=== PATIENT | female | born 1955 | race Two or more races ===

== ENCOUNTER 2019-10-03 13:02 | Inpatient (IN) | payer MEDICARE, OTHER ==
[~2019-10-03] VITALS: Ht 154.9 cm; Wt 77.5 kg
--- NOTE | 2019-10-03 06:45 | NUR ---
Swing Bed Admission Patient Handbook for Care Home given to patient. Nursing Problem: pt/ot strengthening and conditioning following dvt in left femoral artery Cognitive/Behavioral: A&O X4, forgetful at times Pain: Prn lortab Respiratory Status: Rm Air, 2L ns prn Skin: Intact Bowel/Bladder Continence: Continent/incontinent, urgency, wears brief ADL Functional Status: Assist x2 w/gait belt to bedside commode Fall(s) prior to admission? Admitted from? [facility]
[2019-10-03] MEDS ORDERED: FOLI20CA PO (16:11)
[2019-10-03] MEDS ORDERED: FURO20TA3 PO (16:11)
[2019-10-03] MEDS ORDERED: VIT1CAPS20 PO (16:11)
[2019-10-03] MEDS ORDERED: MULT-246 PO (16:11)
[2019-10-03] MEDS ORDERED: HYDR-2155 PO (16:11)
[2019-10-03] MEDS ORDERED: CITA20TA6 PO (16:11)
[2019-10-03] MEDS ORDERED: LEVO75TA5 PO (16:11)
[2019-10-03] MEDS ORDERED: CHOL500062 PO (16:11)
[2019-10-03] MEDS ORDERED: RIVA20TA2 PO (16:11)
[2019-10-03] MEDS ORDERED: HYDR30CR61 TP (16:11)
[2019-10-03 18:35] VITALS: BP 82/55
[2019-10-03] MEDS ORDERED: DOCU-109 PO (19:28)
[2019-10-03] MEDS ORDERED: MINERAL OIL/PETROLATUM TOPICAL CREAM 113GM JAR. TP PRN (20:45)
[2019-10-03] MEDS ORDERED: HYDROCORTISONE 2.5% RECTAL CREAM 30GM TUBE. RC SCH (21:00)
[2019-10-03] MEDS ORDERED: HYDROCORTISONE 2.5% RECTAL CREAM 30GM TUBE. RC PRN (21:00)
--- NOTE | 2019-10-03 21:34 | PDOC ---
Exam Note: Henry Note: Please also refer to the separate dictated note~for this date of service dictated separately.~Patient seen individually. Discussed the patient with Nursing staff reviewed the chart.~Reviewed interim history and current functioning. Reviewed vital signs,~Labs/ Radiology~and current medications noted below. Continue current treatment with the changes noted in the dictated addendum note Assessment: Vital Signs/I&O: Vital Signs Date Time Temp Pulse Resp B/P (MAP) Pulse Ox O2 Delivery O2 Flow Rate FiO2 10/03/19 20:23 Room Air 10/03/19 18:35 97.6 78 18 82/55 (64) 93 Current Medications: I have reviewed the current psychotropics carefully including drug interactions. Risk benefit ratio favors no change other than as noted in my dictated progress note. BUSTER DELVALLE MD Oct 03, 2019 21:33
[2019-10-03] MEDS: HYDROcodone/APAP 5/325MG 1 TAB TABLET PO PRN (21:39)
[2019-10-03] MEDS: MAGNESIUM HYDROXIDE 2,400 MG/30 ML ORAL.SUSP. PO PRN (21:39)
[2019-10-03] MEDS: diphenhydrAMINE HCL 25 MG CAPSULE PO PRN (21:39)
--- NOTE | 2019-10-03 21:50 | PDOC ---
Exam Note: Henry Note: This entry is an error. Please ignore. Please also refer to the separate dictated note~for this date of service dictated separately.~Patient seen individually. Discussed the patient with Nursing staff reviewed the chart.~Reviewed interim history and current functioning. Reviewed vital signs,~Labs/ Radiology~and current medications noted below. Continue current treatment with the changes noted in the dictated addendum note Assessment: Vital Signs/I&O: Vital Signs Date Time Temp Pulse Resp B/P (MAP) Pulse Ox O2 Delivery O2 Flow Rate FiO2 10/03/19 20:23 Room Air 10/03/19 18:35 97.6 78 18 82/55 (64) 93 Current Medications: Meds: Current Medications Medications (Trade) Dose Ordered Sig/Imani Route PRN Reason Start Time Stop Time Status Last Admin Dose Admin Acetaminophen/ Hydrocodone Bitart (Lortab 5/325) 1 tab PRN Q6HRS PRN PO PAIN 10/03/19 18:45 10/03/19 21:39 Magnesium Hydroxide (Milk Of Magnesia) 2,400 mg PRN DAILY PRN PO CONSTIPATION 10/03/19 20:45 10/03/19 21:39 Diphenhydramine HCl (Benadryl) 25 mg PRN Q6HRS PRN PO ITCHING 10/03/19 20:45 10/03/19 21:39 I have reviewed the current psychotropics carefully including drug interactions. Risk benefit ratio favors no change other than as noted in my dictated progress note. BUSTER DELVALLE MD Oct 03, 2019 21:50
[2019-10-04] MEDS: LEVOTHYROXINE 75 MCG TABLET PO SCH (06:03)
[2019-10-04 06:14] VITALS: BP 97/63
[2019-10-04] MEDS ORDERED: [UNRECOGNIZED DRUG - OTHER] PO SCH (09:00)
[2019-10-04] MEDS ORDERED: PYRIDOXINE HCL PO SCH (09:00)
[2019-10-04] MEDS: FUROSEMIDE 20 MG TABLET PO SCH (09:00)
[2019-10-04] MEDS ORDERED: VIT B12 PO SCH (09:00)
[2019-10-04 09:05] VITALS: BP 93/65
[2019-10-04] MEDS: CHOLECALCIFEROL (VITAMIN D3) 1,000 UNIT TABLET PO SCH (09:09)
[2019-10-04] MEDS: MULTIVITAMIN with MINERAL TABLET. PO SCH (09:09)
[2019-10-04] MEDS: POLYETHYLENE GLYCOL 3350 17 GM PACKET. PO SCH (09:09)
[2019-10-04] MEDS: DOCUSATE SODIUM 100 MG CAPSULE PO SCH (09:10)
[2019-10-04] MEDS: RIVAROXABAN 10 MG TABLET. PO SCH (09:10)
[2019-10-04] MEDS: CITALOPRAM 20 MG TABLET. PO SCH (09:10)
[2019-10-04] MEDS: FOLIC ACID 1 MG TABLET PO SCH (09:10)
[2019-10-04] MEDS: HYDROcodone/APAP 5/325MG 1 TAB TABLET PO PRN (10:55)
[2019-10-04] MEDS: NYSTATIN 100,000 UNIT/GM TOPICAL CREAM 15GM TUBE. TP SCH (11:43)
[2019-10-04 17:00] VITALS: BP 102/67
--- NOTE | 2019-10-04 18:42 | NUR ---
Swing Bed Nursing Note Patient Handbook for Long Term given to patient. Nursing Problem: DVT L Leg, Hypothyroidism, anemia, depression, anxiety, B12 deficiency, former smoker, hemorrhoids. Cognitive/Behavioral: Pt is alert and oriented x 4 w/ forgetfullness. Pain: Pt expresses pain in hands Respiratory Status: Room Air Skin: intact, edema to LLE, redness under L breast-nystatin cream ordered and applied. Dry, flaky scalp Bowel/Bladder Continence: Cont x 2. Pt up to bedside commode with gait belt. ADL Functional Status: Pt able to feed self and dresses self. Pt needs education about performing own ADLs. Pt able to ambulate with walker and gait belt. Pt states she will take a shower on 10/05/2019.
--- NOTE | 2019-10-04 21:20 | PDOC ---
Exam Note: Henry Note: Please also refer to the separate dictated note~for this date of service dictated separately.~Patient seen individually. Discussed the patient with Nursing staff reviewed the chart.~Reviewed interim history and current functioning. Reviewed vital signs,~Labs/ Radiology~and current medications noted below. Continue current treatment with the changes noted in the dictated addendum note Assessment: Vital Signs/I&O: Vital Signs Date Time Temp Pulse Resp B/P (MAP) Pulse Ox O2 Delivery O2 Flow Rate FiO2 10/04/19 20:23 Room Air 10/04/19 17:00 98.7 76 20 102/67 (79) 95 Current Medications: Meds: Current Medications Medications (Trade) Dose Ordered Sig/Imani Route PRN Reason Start Time Stop Time Status Last Admin Dose Admin Citalopram Hydrobromide (CeleXA) 20 mg DAILY PO 10/04/19 09:00 10/04/19 09:10 Levothyroxine Sodium (Synthroid) 75 mcg DAILY06 PO 10/04/19 06:00 10/04/19 06:03 Vitamin D (Vitamin D3) 5,000 unit DAILY PO 10/04/19 09:00 10/04/19 09:09 Folic Acid (Folic Acid) 1 mg DAILY PO 10/04/19 09:00 10/04/19 09:10 Multivitamins/ Calcium (Thera-M Plus) 1 tab DAILY PO 10/04/19 09:00 10/04/19 09:09 Rivaroxaban (Xarelto) 20 mg DAILY PO 10/04/19 09:00 10/04/19 09:10 Docusate Sodium (Colace) 100 mg DAILY PO 10/04/19 09:00 10/04/19 09:10 Polyethylene Glycol (miraLAX) 17 gm DAILY PO 10/04/19 09:00 10/04/19 09:09 Nystatin (Mycostatin) 1 simin TID PRN TP 10/04/19 07:15 10/04/19 11:43 I have reviewed the current psychotropics carefully including drug interactions. Risk benefit ratio favors no change other than as noted in my dictated progress note. Diagnosis: Problems: (1) Depression (2) Anxiety disorder BUSTER DELVALLE MD Oct 04, 2019 21:20
[2019-10-05] MEDS: LEVOTHYROXINE 75 MCG TABLET PO SCH (05:35)
[2019-10-05 05:36] VITALS: BP 106/63
--- NOTE | 2019-10-05 06:07 | NUR ---
Swing Bed Nursing Note Patient Handbook for Group Home given to patient. Nursing Problem: DVT L Leg, Hypothyroidism, anemia, depression, anxiety, B12 deficiency, former smoker, hemorrhoids. Cognitive/Behavioral: Pt is alert and oriented x 4 w/ forgetfulness. Pain: Pt has denied pain. Respiratory Status: Room Air Skin: intact, edema to LLE, redness under L breast-nystatin cream ordered and applied. Dry, flaky scalp Bowel/Bladder Continence: Patient asked during shift if she needed to void and Patient denied need. Incontinent x 2. Patient states "I can't tell I need to go until I'm already going. Estefany care provided. ADL Functional Status: Pt able to feed self and dresses self. Pt needs education about performing own ADLs. Patient able to pull herself up in bed with side rails and bed in trendelenburg without difficulty.
[2019-10-05] MEDS: POLYETHYLENE GLYCOL 3350 17 GM PACKET. PO SCH (08:38)
[2019-10-05] MEDS: FOLIC ACID 1 MG TABLET PO SCH (08:38)
[2019-10-05] MEDS: CITALOPRAM 20 MG TABLET. PO SCH (08:38)
[2019-10-05] MEDS: DOCUSATE SODIUM 100 MG CAPSULE PO SCH (08:38)
[2019-10-05] MEDS: MULTIVITAMIN with MINERAL TABLET. PO SCH (08:38)
[2019-10-05] MEDS: CHOLECALCIFEROL (VITAMIN D3) 1,000 UNIT TABLET PO SCH (08:38)
[2019-10-05] MEDS: FUROSEMIDE 20 MG TABLET PO SCH (08:39)
[2019-10-05] MEDS: RIVAROXABAN 10 MG TABLET. PO SCH (08:42)
[2019-10-05 09:13] VITALS: BP 104/61
--- NOTE | 2019-10-05 10:18 | NUR ---
Patient is alert and oriented to self, situation, confused on date and time and place. Patient speech is clear, able to make wants and needs known, at times able to verbalize understanding of others. Patient has been cooperative with staff in all cares, but requires frequent verbal queing and encouragement with participation in ADLS, ambulation. Ambulates with 2X assist , gait belt , short distances with walker. Staff propelled wheel chair on unit. Patient is continent of bowel and bladder at times, incontinent x1 this shift. Patient c/o not being able to urinate, patient was bladder scanned by this nurse and 143Ml of urine remained in bladder post void. Dr. Damon notified, no new orders at this time and will continue to monitor. Patient requires frequent encouraging to increase intake of fluids. Patient is a X2 assist with bed mobility. Patient is set up assist with meals. Lungs are CTA, respirations are even and unlabored, no cough or SOA observed. RA 02 AT 94%. Abdomen is slightly obese, non tender, active bowel sounds in all 4 quadrants. Last BM 10/05/2019. HRR auscultated with regular rhythm. Patient wears oscar hose on BLE for VTE, xarelto administered per order for VTE. During breakfast patient stated to this nurse " There is a giant bloody rat running around here, I just saw it, it was huge , the size of a cat." Patient then stated "i want to go back to my room now." This chief underwriter did not observe any rat in the area where patient was stating rat was at. Patient is now in room resting in chair with call light and fresh fluids with in reach. No negative moods observed this shift. Patient does have Dr. Juárez in psychiatry following her.Will continue to monitor.
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
[2019-10-05] MEDS: HYDROcodone/APAP 5/325MG 1 TAB TABLET PO PRN (16:42)
--- NOTE | 2019-10-05 21:15 | PDOC ---
Exam Note: Henry Note: Please also refer to the separate dictated note~for this date of service dictated separately.~Patient seen individually. Discussed the patient with Nursing staff reviewed the chart.~Reviewed interim history and current functioning. Reviewed vital signs,~Labs/ Radiology~and current medications noted below. Continue current treatment with the changes noted in the dictated addendum note Assessment: Vital Signs/I&O: Vital Signs Date Time Temp Pulse Resp B/P (MAP) Pulse Ox O2 Delivery O2 Flow Rate FiO2 10/05/19 16:42 94 Room Air 10/05/19 09:13 98.5 71 104/61 (75) 10/05/19 05:36 18 I & O 10/04/19 10/04/19 10/05/19 15:00 23:00 07:00 Intake Total 530 ml 100 ml 470 ml Balance 530 ml 100 ml 470 ml Current Medications: I have reviewed the current psychotropics carefully including drug interactions. Risk benefit ratio favors no change other than as noted in my dictated progress note. Diagnosis: Problems: (1) Anxiety disorder (2) Depression (3) Major depressive disorder, recurrent episode BUSTER DELVALLE MD Oct 05, 2019 21:15
[2019-10-06] MEDS: LEVOTHYROXINE 75 MCG TABLET PO SCH (05:38)
[2019-10-06 05:41] VITALS: BP 93/61
[2019-10-06] MEDS: HYDROcodone/APAP 5/325MG 1 TAB TABLET PO PRN ×3 (06:12→21:52)
--- NOTE | 2019-10-06 06:20 | NUR ---
Swing Bed Nursing Note Patient Handbook for Custodial given to patient. Nursing Problem: DVT L Leg, Hypothyroidism, anemia, depression, anxiety, B12 deficiency, former smoker, hemorrhoids. Cognitive/Behavioral: Pt is alert and oriented x 4 w/ forgetfulness. Pain: Pt complained of left leg pain this am, PRN Lortab given. Respiratory Status: Room Air Skin: intact, edema to LLE, redness under L breast, Dry, flaky scalp Bowel/Bladder Continence: Patient asked multiple times if she needed to urinate, pt denied but was Incontinent x 3. Estefany care provided. ADL Functional Status: Pt able to feed self and take meds whole. Pt needs education about performing own ADLs. Pt can roll side to side without assistance, but needs direction. Pt slept well throughout the night.
[2019-10-06 07:30] LABS: BASO # 0.1 x10^3/uL (0.0-0.2); BASO % 1 % (0-3); EOS # 0.9 x10^3/uL (0.0-0.7); EOS % 12 % (0-3); HEMATOCRIT 29.4 % (36.0-47.0); HEMOGLOBIN 9.8 g/dL (12.0-15.5); LYMPH # 2.1 x10^3/uL (1.0-4.8); LYMPH % 30 % (24-48); MEAN CORPUSCULAR HEMOGLOBIN 33 pg (25-35); MEAN CORPUSCULAR HGB CONC 33 g/dL (31-37); MEAN CORPUSCULAR VOLUME 98 fL (79-100); MONO # 0.5 x10^3/uL (0.0-1.1); MONO % 8 % (0-9); NEUT # 3.4 x10^3uL (1.8-7.7); NEUT % 49 % (31-73); PLATELET COUNT 318 x10^3/uL (140-400); RED BLOOD COUNT 3.01 x10^6/uL (3.50-5.40); RED CELL DISTRIBUTION WIDTH 13.5 % (11.5-14.5)
[2019-10-06] MEDS: MAGNESIUM HYDROXIDE 2,400 MG/30 ML ORAL.SUSP. PO PRN (08:04)
[2019-10-06] MEDS: FUROSEMIDE 20 MG TABLET PO SCH (08:05)
[2019-10-06] MEDS: MULTIVITAMIN with MINERAL TABLET. PO SCH (08:05)
[2019-10-06] MEDS: CITALOPRAM 20 MG TABLET. PO SCH (08:06)
[2019-10-06] MEDS: FOLIC ACID 1 MG TABLET PO SCH (08:06)
[2019-10-06] MEDS: CHOLECALCIFEROL (VITAMIN D3) 1,000 UNIT TABLET PO SCH (08:06)
[2019-10-06] MEDS: DOCUSATE SODIUM 100 MG CAPSULE PO SCH (08:06)
[2019-10-06] MEDS: RIVAROXABAN 10 MG TABLET. PO SCH (08:06)
[2019-10-06] MEDS: POLYETHYLENE GLYCOL 3350 17 GM PACKET. PO SCH (08:06)
[2019-10-06 09:11] LABS: ALBUMIN 2.8 g/dL (3.4-5.0); ALBUMIN/GLOBULIN RATIO 0.9 (1.0-1.7); CALCIUM 8.6 mg/dL (8.5-10.1); CREATININE 0.7 mg/dL (0.6-1.0); GFR 83.7; POTASSIUM 3.7 mmol/L (3.5-5.1); TOTAL BILIRUBIN 0.3 mg/dL (0.2-1.0)
--- NOTE | 2019-10-06 14:39 | NUR ---
Swing Bed Nursing Note Patient Handbook for Group Home given to patient. Nursing Problem: DVT L Leg, Hypothyroidism, anemia, depression, anxiety, B12 deficiency, former smoker, hemorrhoids. Cognitive/Behavioral: Pt is alert and oriented x 4 w/ forgetfulness. 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 Second Lortab given at 1315 Respiratory Status: Room Air. LCTA. Skin: intact, edema to LLE, redness under L breast, Dry, flaky scalp Bowel/Bladder Continence: Patient wears pads for incontinence at times. Patient has been continent on this shift so far. ADL Functional Status: Pt able to feed self and take meds whole. Pt needs education about performing own ADLs. Pt can roll side to side without assistance, but needs direction. Pt is unmotivated to walk and preform self cares.
[2019-10-06 18:02] VITALS: BP 109/73
--- NOTE | 2019-10-06 20:24 | NUR ---
Pt denies pain currently. Pt states right foot is "itchy" and scratches it often. Red macular rash on right foot noted with trace edema. Pt states she feels her skin is "dry and itchy all over and wants a cream to relieve it." Right leg is pale. Left leg is red and swollen with traces of the macular rash. Will give Benadryl with night time medications and continue to monitor.
--- NOTE | 2019-10-06 20:42 | PN ---
DATE: 10/05/2019 PSYCHIATRIC PROGRESS NOTE This late entry 10/05/2019 covers elements not covered in my initial note. SUBJECTIVE: I met with the patient evening of 10/05/2019. Overall, the patient remains depressed, withdrawn, has low energy. She is significantly hypothyroid, which probably accounts for a fair amount of this. She is also depressed. REVIEW OF SYSTEMS: No CV, , pulmonary, eye system symptoms on review. MENTAL STATUS EXAM: Reasonably oriented. Speech is coherent, abstraction fair, computation impaired, language function intact. Mood and affect depressed. No suicidal ideation. LABORATORY DATA: Reviewed. IMPRESSION: Major depressive disorder, recurrent. Rest unchanged. PLAN: No change from initial note. Continue to stabilize medically including getting her euthyroid and if mood symptoms persist, we will make further adjustments in her psychotropics. MAN Jai DELVALLE MD DR: DIANN/dayan JOB#: [id number] / [id number]
[2019-10-06] MEDS: diphenhydrAMINE HCL 25 MG CAPSULE PO PRN (20:49)
--- NOTE | 2019-10-06 21:21 | PDOC ---
Exam Note: Henry Note: Please also refer to the separate dictated note~for this date of service dictated separately.~Patient seen individually. Discussed the patient with Nursing staff reviewed the chart.~Reviewed interim history and current functioning. Reviewed vital signs,~Labs/ Radiology~and current medications noted below. Continue current treatment with the changes noted in the dictated addendum note Assessment: Vital Signs/I&O: Vital Signs Date Time Temp Pulse Resp B/P (MAP) Pulse Ox O2 Delivery O2 Flow Rate FiO2 10/06/19 20:13 Room Air 10/06/19 18:02 98.3 82 18 109/73 (85) 94 I & O 10/05/19 10/05/19 10/06/19 15:00 23:00 07:00 Intake Total 300 ml 450 ml Balance 300 ml 450 ml Labs: Laboratory Tests Test 10/06/19 07:15 White Blood Count 7.0 x10^3/uL (4.0-11.0) Red Blood Count 3.01 x10^6/uL (3.50-5.40) L Hemoglobin 9.8 g/dL (12.0-15.5) L Hematocrit 29.4 % (36.0-47.0) L Mean Corpuscular Volume 98 fL (79-100) Mean Corpuscular Hemoglobin 33 pg (25-35) Mean Corpuscular Hemoglobin Concent 33 g/dL (31-37) Red Cell Distribution Width 13.5 % (11.5-14.5) Platelet Count 318 x10^3/uL (140-400) Neutrophils (%) (Auto) 49 % (31-73) Lymphocytes (%) (Auto) 30 % (24-48) Monocytes (%) (Auto) 8 % (0-9) Eosinophils (%) (Auto) 12 % (0-3) H Basophils (%) (Auto) 1 % (0-3) Neutrophils # (Auto) 3.4 x10^3uL (1.8-7.7) Lymphocytes # (Auto) 2.1 x10^3/uL (1.0-4.8) Monocytes # (Auto) 0.5 x10^3/uL (0.0-1.1) Eosinophils # (Auto) 0.9 x10^3/uL (0.0-0.7) H Basophils # (Auto) 0.1 x10^3/uL (0.0-0.2) Sodium Level 140 mmol/L (136-145) Potassium Level 3.7 mmol/L (3.5-5.1) Chloride Level 103 mmol/L (98-107) Carbon Dioxide Level 29 mmol/L (21-32) Anion Gap 8 (6-14) Blood Urea Nitrogen 11 mg/dL (7-20) Creatinine 0.7 mg/dL (0.6-1.0) Estimated GFR (Cockcroft-Gault) 83.7 BUN/Creatinine Ratio 16 (6-20) Glucose Level 91 mg/dL (70-99) Calcium Level 8.6 mg/dL (8.5-10.1) Total Bilirubin 0.3 mg/dL (0.2-1.0) Aspartate Amino Transferase (AST) 19 U/L (15-37) Alanine Aminotransferase (ALT) 16 U/L (14-59) Alkaline Phosphatase 58 U/L (46-116) Total Protein 6.0 g/dL (6.4-8.2) L Albumin 2.8 g/dL (3.4-5.0) L Albumin/Globulin Ratio 0.9 (1.0-1.7) L Thyroid Stimulating Hormone (TSH) 0.034 uIU/mL (0.358-3.740) Current Medications: I have reviewed the current psychotropics carefully including drug interactions. Risk benefit ratio favors no change other than as noted in my dictated progress note. Diagnosis: Problems: (1) Anxiety disorder (2) Depression (3) Major depressive disorder, recurrent episode BUSTER DELVALLE MD Oct 06, 2019 21:21
[2019-10-06] MEDS: NYSTATIN 100,000 UNIT/GM TOPICAL CREAM 15GM TUBE. TP SCH (21:52)
--- NOTE | 2019-10-06 22:12 | NUR ---
Pt c/o pain and weakness in her legs. Pt cooperated with stand and pivot to the commode. Hydrocerin was applied to dry, itchy skin. Nystatin cream applied to redness under right breast and right foot. Hair and scalp washed and brushed. Pt changed into hospital gown for the night. Pt pleasant and talkative. She expresses concern over trouble remembering the ages of her grandchildren and which of her children they belong to.
--- NOTE | 2019-10-07 05:32 | NUR ---
Swing Bed Nursing Note Patient Handbook for Residential given to patient. Nursing Problem: DVT L Leg, Hypothyroidism, anemia, depression, anxiety, B12 deficiency, former smoker, hemorrhoids. Cognitive/Behavioral: Pt is alert and oriented x 4 w/ forgetfulness. 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 Respiratory Status: Room Air, CTA. Skin: edema to left lower extremity and right foot, redness under L breast and reddened, macular rash on right foot, Dry, flaky skin generalized Bowel/Bladder Continence: Patient wears pads for stress incontinence at times. Patient has been up to commode this shift and incontinent while coughing. ADL Functional Status: Pt able to feed self and take meds whole. Pt pleasant and cooperative when performing ADLs. Pt can roll side to side without assistance, but needs direction.
[2019-10-07] MEDS: LEVOTHYROXINE 75 MCG TABLET PO SCH (06:00)
[2019-10-07 06:15] VITALS: BP 139/84
[2019-10-07] MEDS: CHOLECALCIFEROL (VITAMIN D3) 1,000 UNIT TABLET PO SCH (08:02)
[2019-10-07] MEDS: MULTIVITAMIN with MINERAL TABLET. PO SCH (08:02)
[2019-10-07] MEDS: RIVAROXABAN 10 MG TABLET. PO SCH (08:03)
[2019-10-07] MEDS: FUROSEMIDE 20 MG TABLET PO SCH (08:03)
[2019-10-07] MEDS: CITALOPRAM 20 MG TABLET. PO SCH (08:03)
[2019-10-07] MEDS: FOLIC ACID 1 MG TABLET PO SCH (08:03)
[2019-10-07] MEDS: HYDROcodone/APAP 5/325MG 1 TAB TABLET PO PRN ×2 (08:03→20:14)
[2019-10-07] MEDS: POLYETHYLENE GLYCOL 3350 17 GM PACKET. PO SCH (08:03)
[2019-10-07] MEDS: DOCUSATE SODIUM 100 MG CAPSULE PO SCH (08:03)
--- NOTE | 2019-10-07 10:50 | NUR ---
Swing Bed Nursing Note Patient Handbook for Senior Living given to patient. Nursing Problem: DVT L Leg, Hypothyroidism, anemia, depression, anxiety, B12 deficiency, former smoker, hemorrhoids. Cognitive/Behavioral: Pt is alert and oriented x 4 w/ forgetfulness. Pain: Pt complained of left leg pain this am, PRN Lortab given with am medication. Respiratory Status: Room Air. LCTA. Skin: intact, edema to LLE, redness under L breast, Dry, flaky scalp Bowel/Bladder Continence: Patient wears pads for incontinence at times. Patient has been continent on this shift so far.
[2019-10-07] MEDS: DRONABINOL 2.5 MG CAPSULE PO SCH (17:00)
[2019-10-07 18:23] VITALS: BP 100/64
[2019-10-07] MEDS: diphenhydrAMINE HCL 25 MG CAPSULE PO PRN (20:14)
--- NOTE | 2019-10-07 21:21 | PDOC ---
Exam Note: Henry Note: Please also refer to the separate dictated note~for this date of service dictated separately.~Patient seen individually. Discussed the patient with Nursing staff reviewed the chart.~Reviewed interim history and current functioning. Reviewed vital signs,~Labs/ Radiology~and current medications noted below. Continue current treatment with the changes noted in the dictated addendum note Assessment: Vital Signs/I&O: Vital Signs Date Time Temp Pulse Resp B/P (MAP) Pulse Ox O2 Delivery O2 Flow Rate FiO2 10/07/19 20:14 16 93 Room Air 10/07/19 18:23 97.9 73 100/64 (76) I & O 10/06/19 10/06/19 10/07/19 15:00 23:00 07:00 Intake Total 470 ml 420 ml 100 ml Balance 470 ml 420 ml 100 ml Current Medications: Meds: Current Medications Medications (Trade) Dose Ordered Sig/Imani Route PRN Reason Start Time Stop Time Status Last Admin Dose Admin Dronabinol (Marinol) 2.5 mg BIDACLD PO 10/07/19 16:30 10/07/19 17:00 I have reviewed the current psychotropics carefully including drug interactions. Risk benefit ratio favors no change other than as noted in my dictated progress note. Diagnosis: Problems: (1) Anxiety disorder (2) Depression (3) Major depressive disorder, recurrent episode BUSTER DELVALLE MD Oct 07, 2019 21:21
--- NOTE | 2019-10-07 23:29 | PN ---
DATE: 10/05/2019 PSYCHIATRIC PROGRESS NOTE This late entry of 10/05/2019 covers elements not covered in my initial note. SUBJECTIVE: I met with the patient in the evening of 10/05/2019. Per nursing report, the patient has been a little more active with physical therapy, ambulating a little better, still tired, depressed. Much of this is probably due to his significant hypothyroidism. In addition to above, no CV, , pulmonary, eye system symptoms on review. MENTAL STATUS EXAM: Reasonably oriented. Speech has some latency, often responses monosyllabic. Abstraction fair, computation impaired, language function intact. Mood and affect withdrawn. LABORATORY DATA: Reviewed. IMPRESSION: Unchanged from initial note. PLAN: No change from initial note. MAN Jai DELVALLE MD DR: DIANN/dayan JOB#: [id number] / [id number]
--- NOTE | 2019-10-08 01:49 | HP ---
ADMIT DATE: 10/03/2019 HISTORY OF PRESENT ILLNESS: The patient is a 64-year-old female patient, who was admitted recently to [facility] with complaint of increased pain, redness and warmth over left lower extremity. She has had an ultrasound that confirmed the presence of femoral DVT. The patient has been taking care of some relative. According to nursing staff reports, the patient has been falling quite frequently, has been quite weak and seems like the patient is sinking into depression at the present time. She has been sleeping on her daughter's couch and has not been mobile at all. When she was admitted to [facility], she was diagnosed also with cellulitis and it seems that the patient is experiencing postphlebitic syndrome as the patient is known to have left lower extremity DVT prior to admission to the [facility] as she was admitted and was started on Xarelto and was seen by the physical therapist there and it was felt that the patient would benefit from further physical and occupational therapy evaluation and treatment, and therefore, she was discharged to the [facility] hospital bed in [facility]. PAST MEDICAL HISTORY: Significant for postphlebitic syndrome, left lower extremity DVT, acquired hypothyroidism and apparently has normocytic normochromic anemia. She also has a history of hepatitis B. PAST SURGICAL HISTORY: Significant for right knee arthroscopic surgery. ALLERGIES: She has no known drug allergies. FAMILY HISTORY: She has one brother and both parents are still alive, her mother in her late 80s and father in his early 90s and both seemingly healthy and living in [place]. SOCIAL HISTORY: She used to live with her boyfriend in [place]. She is an ex-smoker, quit on 06/25/2019. She also used to be a heavy drinker, quit alcohol years ago. 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 She has two sons and two daughters. She currently lives with her daughter here in [place], [place]. MEDICATIONS: She is currently on following medications: She is on Xarelto 20 mg once a day, hydrocodone/APAP 1 tablet every 6 hours, citalopram hydrobromide 20 mg daily, furosemide 20 mg once a day, docusate sodium 100 mg once a day, levothyroxine sodium 75 mcg once a day, hydrocortisone cream applied topically 2 times a day, folic acid 20 mg daily, cholecalciferol (vitamin D3) 5000 International Units once a day, multivitamin 1 tablet once a day, and GlycoTrol capsules 1 capsule daily. REVIEW OF SYSTEMS: The patient denies any blurring of vision, cataract, glaucoma or macular degeneration. Denied any earache, tinnitus or sensorineural deafness. Denied any nosebleeds, stuffy nose or postnasal drip. Denied any nausea, vomiting, diarrhea or constipation. Denied any hematemesis, melena or hematochezia. Denied any dysuria, frequency or hematuria. Denied any chest pain, shortness of breath, orthopnea, paroxysmal nocturnal dyspnea. Denied any cough, phlegm or hemoptysis. Denied any chills, rigors or fever. PHYSICAL EXAMINATION: GENERAL: When I examined her, she looked well and was clearly in no apparent respiratory distress. No pallor, jaundice, cyanosis or thyromegaly. No jugular venous distention. No lower limb edema. VITAL SIGNS: Her heart rate was 95, blood pressure was 93/61, temperature 98.3, respiratory rate was 20 and oxygen saturation was 94%. HEAD, EYES, EARS, NOSE AND THROAT: Normocephalic, atraumatic. NECK: Supple. HEART: Showed normal first and second heart sounds. No gallop or murmur. CHEST: Clear to auscultation. No crepitation, rhonchi. ABDOMEN: Distended, soft, nontender. NEUROLOGIC: She is awake, alert, but has slow, monotonous speech, although all her cranial nerves are intact. She moves extremities without difficulty. The patient seems to be clinically hypothyroid. She has hair loss and slow and monotonous speech. She is already actually on Synthroid. LABORATORY DATA: This morning showed white cell count 7000, hemoglobin 10, hematocrit 29, MCV 98 and platelet count 318. Her chemistry showed serum sodium 140, potassium 3.7, chloride 103, bicarbonate 29, anion gap of 8, BUN 11, creatinine 0.7, estimated GFR was 84 mL per minute. Her glucose was 91, calcium was 8.6. Total bilirubin, AST, ALT, alkaline phosphatase were normal. Total protein 6, albumin was 2.8. IMPRESSION: In summary, this is a 64-year-old female patient who was admitted as a transfer from [facility] with postphlebitic syndrome, left lower extremity deep venous thrombosis. She is known to have hypothyroidism and normochromic normocytic anemia. She has been noted to be confused and hallucinating here. PLAN: My plan is to check her TSH to make sure that her medicine is adequately replacing her. ARELI SALDIVAR MD DR: MAIA/dayan JOB#: [id number] / [id number]
--- NOTE | 2019-10-08 04:32 | NUR ---
Swing Bed Nursing Note: Nursing Problem: DVT L Leg, Hypothyroidism, anemia, depression, anxiety, B12 deficiency, former smoker, hemorrhoids Cognitive/Behavioral: Pt is alert and oriented x 4 w/ forgetfulness, tearful at times Pain: Pt complained of left leg pain, PRN hydrocodone given, reassessment pt sleeping Respiratory Status: Room Air, CTA Skin: intact, edema to LLE, redness under L breast, Dry, flaky scalp Bowel/Bladder Continence: Patient wears pads for incontinence at times. ADL: pt able to utilize toilet instead of BSC
[2019-10-08] MEDS: LEVOTHYROXINE 75 MCG TABLET PO SCH (05:27)
[2019-10-08 05:44] VITALS: BP 108/70
[2019-10-08] MEDS: MAGNESIUM HYDROXIDE 2,400 MG/30 ML ORAL.SUSP. PO PRN (08:33)
[2019-10-08] MEDS: RIVAROXABAN 10 MG TABLET. PO SCH (08:33)
[2019-10-08] MEDS: CHOLECALCIFEROL (VITAMIN D3) 1,000 UNIT TABLET PO SCH (08:33)
[2019-10-08] MEDS: DOCUSATE SODIUM 100 MG CAPSULE PO SCH (08:33)
[2019-10-08] MEDS: FOLIC ACID 1 MG TABLET PO SCH (08:33)
[2019-10-08] MEDS: MULTIVITAMIN with MINERAL TABLET. PO SCH (08:34)
[2019-10-08] MEDS: DRONABINOL 2.5 MG CAPSULE PO SCH ×2 (08:34→17:09)
[2019-10-08] MEDS: FUROSEMIDE 20 MG TABLET PO SCH (08:34)
[2019-10-08] MEDS: HYDROcodone/APAP 5/325MG 1 TAB TABLET PO PRN (08:34)
[2019-10-08] MEDS: POLYETHYLENE GLYCOL 3350 17 GM PACKET. PO SCH (08:35)
[2019-10-08] MEDS: CITALOPRAM 20 MG TABLET. PO SCH (08:37)
--- NOTE | 2019-10-08 09:17 | NUR ---
NURSING NOTES: This nurse assisted patient out of bed per x1 assist this AM to go to the bathroom. Patient ambulated with gait belt and walker from bed to bathroom x1 assist. As patient was turning around to sit on the toilet, patient stated "I am sitting down." Patient informed she needed to back up more before sitting down as she was not above the toilet yet. Patient continued to state, "I am sitting down." Patient again informed she is not above toilet and to stand up tall, then to take a few steps back. Patient refused and stated, "I am sitting down now." Patient then safely lowered to the floor per x1 assist with gait belt. This nurse called for help with assisting patient off of the floor. Once 2 other nurses and 1 COMMUNITY ENGAGEMENT REPRESENTATIVE arrived patient safely brought back to her feet. Patient states she is in no pain d/t being lowered onto the floor and no injuries noted. Will continue to monitor.
--- NOTE | 2019-10-08 11:17 | PN ---
DATE: 10/07/2019 PSYCHIATRIC PROGRESS NOTE This late entry 10/07/2019 covers elements not covered in my initial note. SUBJECTIVE: I met with the patient evening of 10/07/2019. Per nursing report, the patient is doing a little better. She did actively participate with physical therapy, but still feels tired, somewhat dysphoric, but much of this could be her hypothyroidism. Addressed this with the patient. Does admit to being tired. REVIEW OF SYSTEMS: No CV, , pulmonary, eye system symptoms on review. MENTAL STATUS EXAM: Reasonably oriented. Speech has some latency, coherent. Abstraction fair, computation impaired, language function intact. Mood and affect somewhat dysphoric. LABORATORY DATA: Reviewed. IMPRESSION: Unchanged from initial note. PLAN: No change from initial note. MAN Jai DELVALLE MD DR: DIANN/dayan JOB#: [id number] / [id number]
--- NOTE | 2019-10-08 17:24 | NUR ---
Swing Bed Nursing Note: Nursing Problem: DVT L Leg, Hypothyroidism, anemia, depression, anxiety, B12 deficiency, former smoker, hemorrhoids Cognitive/Behavioral: Pt is alert and oriented x 4 w/ forgetfulness, tearful at times Pain: Pt complained of left leg pain, PRN hydrocodone given with noted relief this AM Respiratory Status: Room Air, CTA Skin: intact, edema to LLE, redness under L breast, Dry, flaky scalp Bowel/Bladder Continence: Patient wears pull up briefs for incontinence at times. ADL: Patient is x1 assist for bathing, dressing, grooming, toileting, bed mobility, transfers, and ambulation. Patient is able to walk from bed to toilet with encouragement and reminders. Patient may use w/c to ambulate as well, able to wheel self. Set up help only for eating.
[2019-10-08 18:35] VITALS: BP 143/82
--- NOTE | 2019-10-08 21:14 | PDOC ---
Exam Note: Henry Note: Please also refer to the separate dictated note~for this date of service dictated separately.~Patient seen individually. Discussed the patient with Nursing staff reviewed the chart.~Reviewed interim history and current functioning. Reviewed vital signs,~Labs/ Radiology~and current medications noted below. Continue current treatment with the changes noted in the dictated addendum note Assessment: Vital Signs/I&O: Vital Signs Date Time Temp Pulse Resp B/P (MAP) Pulse Ox O2 Delivery O2 Flow Rate FiO2 10/08/19 19:15 Room Air 10/08/19 18:35 76 16 143/82 (102) 97 10/08/19 05:44 98.1 I & O 10/07/19 10/07/19 10/08/19 15:00 23:00 07:00 Intake Total 240 ml 150 ml 250 ml Output Total 200 ml Balance 40 ml 150 ml 250 ml Current Medications: I have reviewed the current psychotropics carefully including drug interactions. Risk benefit ratio favors no change other than as noted in my dictated progress note. Diagnosis: Problems: (1) Anxiety disorder (2) Depression (3) Major depressive disorder, recurrent episode BUSTER DELVALLE MD Oct 08, 2019 21:14
--- NOTE | 2019-10-08 23:00 | NUR ---
Swing Bed Nursing Note Patient Handbook for [facility] given to patient. Nursing Problem: DVT L Leg, Hypothyroidism, anemia, depression, anxiety, B12 deficiency, former smoker, hemorrhoids. Cognitive/Behavioral: Pt is alert and oriented x 4 w/ forgetfulness. Pt tearful at times. Pt need frequent encouragement. Pain: Pt complained of left leg pain, but refused Lortab at this time. Respiratory Status: Room Air. LCTA. Skin: Intact, edema to LLE. Redness noted under L breast. Pt has a dry, flaky scalp with sparse hair. Bowel/Bladder Continence: Patient wears pads for incontinence at times. ADL Functional Status: Pt x2 assist this evening, insisting that "I am to fat for you" when attempting to get pt into bed this evening. When attempting to get pt to stand up to pull the covers down in bed. Pt assisted to the sitting position x1 assist, pt laid herself back across the bed insisting she could not stand. Pt stood with x2 assist with walker and gait belt. Pt able to take steps up towards the head of the bed. Pt needs x1-2 assists with ADLs, pt need encouragement to do as much for herself as possible.
[2019-10-09] MEDS: LEVOTHYROXINE 75 MCG TABLET PO SCH (05:04)
[2019-10-09 05:06] VITALS: BP 110/71
[2019-10-09] MEDS: HYDROcodone/APAP 5/325MG 1 TAB TABLET PO PRN ×3 (05:08→17:15)
[2019-10-09] MEDS: FOLIC ACID 1 MG TABLET PO SCH (08:52)
[2019-10-09] MEDS: MULTIVITAMIN with MINERAL TABLET. PO SCH (08:52)
[2019-10-09] MEDS: RIVAROXABAN 10 MG TABLET. PO SCH (08:52)
[2019-10-09] MEDS: CITALOPRAM 20 MG TABLET. PO SCH (08:52)
[2019-10-09] MEDS: POLYETHYLENE GLYCOL 3350 17 GM PACKET. PO SCH (08:52)
[2019-10-09] MEDS: CHOLECALCIFEROL (VITAMIN D3) 1,000 UNIT TABLET PO SCH (08:52)
[2019-10-09] MEDS: DRONABINOL 2.5 MG CAPSULE PO SCH ×2 (08:52→17:15)
[2019-10-09] MEDS: FUROSEMIDE 20 MG TABLET PO SCH (08:52)
[2019-10-09] MEDS: DOCUSATE SODIUM 100 MG CAPSULE PO SCH (08:52)
--- NOTE | 2019-10-09 17:30 | NUR ---
Patient is alert and oriented to self, situation, confused on date and time and place. Patient speech is clear, able to make wants and needs known, at times able to verbalize understanding of others. Patient has been resistive with nursing staff with ambulating from bed to bathroom, marine knees and states " i don't want to do this, i am just going to sit down" Staff then has to put commode underneath her when she attempts to sit. Patient requires frequent verbal queuing and encouragement with participation in ADLS, ambulation. Patient was crying this morning when speech writer went into room to assist patient with getting up and going to the bathroom. Patient continued to cry anytime staff attempted to encourage patient to do things for self. Ambulates with 2X assist , gait belt , short distances with walker with therapy, up to 90 feet ambulation with walker and gait belt per therapy statement to speech writer. Refuses x 2 this shift to ambulate for nursing staff. At 1700, patient started yelling for staff while staff was in another patient room. Patient yelled " hey! I want to go to bed now!" This speech writer encouraged patient to stay up for dinner but patient refused ans starting crying and stating " no i want to go to bed. I have been asking and yelling all day and nobody has helped me." Patient has not asked for help at all this shift, despite multiple attempts from staff to encourage bathroom use, fluid and food intake and transfer from wheel chair to bed with assistance from staff. Patient denied any assistance each time and stated " No I am fine." Patient is continent of bowel and bladder at times, LAST BM 10/09/2019. Patient requires frequent encouraging to increase intake of fluids. Patient is a X2 assist with bed mobility. Patient is set up assist with meals. Lungs are CTA, respirations are even and unlabored, no cough or SOA observed. RA 02 AT 94%. Abdomen is slightly obese, non tender, active bowel sounds in all 4 quadrants. HRR auscultated with regular rhythm. Patient wears oscar hose on BLE for VTE, xarelto administered per order for VTE.
[2019-10-09 18:45] VITALS: BP 91/51
--- NOTE | 2019-10-09 18:50 | NUR ---
Dr. Juárez here to see pt for psych consult. New order for Cymbalta 30mg po daily to begin in AM.
[2019-10-09] MEDS: diphenhydrAMINE HCL 25 MG CAPSULE PO PRN (20:51)
--- NOTE | 2019-10-09 21:34 | PDOC ---
Exam Note: Henry Note: Please also refer to the separate dictated note~for this date of service dictated separately.~Patient seen individually. Discussed the patient with Nursing staff reviewed the chart.~Reviewed interim history and current functioning. Reviewed vital signs,~Labs/ Radiology~and current medications noted below. Continue current treatment with the changes noted in the dictated addendum note Assessment: Vital Signs/I&O: Vital Signs Date Time Temp Pulse Resp B/P (MAP) Pulse Ox O2 Delivery O2 Flow Rate FiO2 10/09/19 19:17 16 94 Room Air 10/09/19 18:45 97.8 74 91/51 (64) 10/09/19 05:08 93.0 I & O 10/08/19 10/08/19 10/09/19 14:59 22:59 06:59 Intake Total 240 ml 120 ml 60 ml Output Total 1 ml Balance 240 ml 119 ml 60 ml Current Medications: I have reviewed the current psychotropics carefully including drug interactions. Risk benefit ratio favors no change other than as noted in my dictated progress note. Diagnosis: Problems: (1) Anxiety disorder (2) Depression (3) Major depressive disorder, recurrent episode BUSTER DELVALLE MD Oct 09, 2019 21:34
--- NOTE | 2019-10-10 01:16 | PN ---
DATE: 10/08/2019 PSYCHIATRIC PROGRESS NOTE This late entry 10/08/2019 covers elements not covered in my initial note. SUBJECTIVE: I met with the patient evening of 10/08/2019 in her room. Per nursing staff, the patient has been doing better, but she put herself on the floor because she did not take one extra step back to the bed, seems somewhat amotivated at times. No injury noted. She is still depressed, but a significant part of this is due to her hypothyroidism. REVIEW OF SYSTEMS: Ambulation impaired. No CV, , PULMONARY, EYE system symptoms on review. MENTAL STATUS EXAM: Reasonably oriented. Speech has some latency, coherent. Abstraction fair, computation impaired, language function intact, attention span short. Mood and affect appears withdrawn, still depressed. LABORATORY DATA: Reviewed. IMPRESSION: Unchanged from initial note. PLAN: No change from initial note. MAN Jai DELVALLE MD DR: DIANN/dayan JOB#: [id number] / [id number]
--- NOTE | 2019-10-10 03:09 | NUR ---
Swing Bed Nursing Note Nursing Problem: PT ADMITTED TO SWING BED FOR PT/OT STRENGTHENING AND RECONDITIONING POST HOSPITALIZATION FOR LEFT FEMORAL DVT, WEAKNESS, AND FALLS. Cognitive/Behavioral: PT IS A/OX3, FORGETFUL AND FLAT AFFECT. DEPRESSED MOOD AND DIFFICULT TO ENGAGE. PT IRRITABLE WITH STAFF WHEN INSTRUCTED TO PERFORM SELF CARE OR AMBULATE. PT IS NOT MOTIVATED TO DO MORE FOR HERSELF, SHE IS CAPABLE OF AND FREQUENTLY BECOMES TEARFUL. REQUIRES MUCH ENCOURAGEMENT WHEN PERFORMING ALL ADL'S. DR. DELVALLE FOLLOWING FOR PSYCH CONSULT. Pain: PT C/O LLE PAIN AT BEGINNING OF SHIFT, RECEIVED PRN LORTAB FROM PREVIOUS RN. REPORTS MINIMAL RELIEF. DECLINED REPOSITIONING OR ICE PACK TO RELIEVE PAIN. PT HAS SINCE BEEN RESTING COMFORTABLY IN BED. Respiratory Status: LUNGS CTA. INTERMITTENT DRY COUGH NOTED. DENIES SOA EXCEPT WHEN LAYING FLAT, HOB ELEVATED. PT ON RA. Skin: SKIN IS DRY, FLAKY, AND FRAGILE/FRIABLE. IMPROVING REDNESS UNDER LEFT BREAST-CLEANSED AND DRIED. LEFT LEG RED/SWOLLEN. TEDS REMOVED FOR HS. LEGS ELEVATED ON PILLOW. PT C/O ITCHING TO LEGS FROM TEDS, EUCERIN APPLIED. Bowel/Bladder Continence: PT HAS BEEN INCONTINENT OF BLADDER X3 THIS SHIFT. PT AWARE WHEN SHE IS WET, BUT DOES NOT WISH TO GET UP TO THE TOILET OR BSC. WEARS PULL UP WITH PAD. ADL Functional Status: PT ABLE TO MOVE SELF IN BED WITH INSTRUCTION. PT REQUIRED X2 MAX ASSIST WITH WALKER AND GAIT BELT FROM BED TO BSC. PT REFUSED TO AMB TO BATHROOM, STATING, "I JUST CAN'T." PT ABLE TO REMOVE T-SHIRT HERSELF AND DONNED OWN NIGHTGOWN AFTER MUCH COAXING. PANTS AND SOILED BRIEF REMOVED BY STAFF. TOLERATED HS PILLS WHOLE. DECLINED HS SNACK. REFUSED ORAL CARE OR SHOWER TONIGHT. WILL REATTEMPT IN AM.
[2019-10-10] MEDS: LEVOTHYROXINE 75 MCG TABLET PO SCH (06:09)
[2019-10-10] MEDS: HYDROcodone/APAP 5/325MG 1 TAB TABLET PO PRN ×3 (06:10→23:23)
[2019-10-10 07:06] VITALS: BP 97/62
[2019-10-10] MEDS: DULoxetine HCL 30 MG CAPSULE.DR PO SCH (08:59)
[2019-10-10] MEDS: POLYETHYLENE GLYCOL 3350 17 GM PACKET. PO SCH (08:59)
[2019-10-10] MEDS: DOCUSATE SODIUM 100 MG CAPSULE PO SCH (08:59)
[2019-10-10] MEDS: RIVAROXABAN 10 MG TABLET. PO SCH (08:59)
[2019-10-10] MEDS: CHOLECALCIFEROL (VITAMIN D3) 1,000 UNIT TABLET PO SCH (08:59)
[2019-10-10] MEDS: FOLIC ACID 1 MG TABLET PO SCH (08:59)
[2019-10-10] MEDS: FUROSEMIDE 20 MG TABLET PO SCH (09:00)
[2019-10-10] MEDS: MULTIVITAMIN with MINERAL TABLET. PO SCH (09:00)
[2019-10-10] MEDS: DRONABINOL 2.5 MG CAPSULE PO SCH ×2 (11:35→16:30)
--- NOTE | 2019-10-10 14:05 | NUR ---
Swing Bed Nursing Note: Nursing Problem: DVT L Leg, Hypothyroidism, anemia, depression, anxiety, B12 deficiency, former smoker, hemorrhoids Cognitive/Behavioral: Pt is alert and oriented x 4 w/ forgetfulness, tearful at times. Pt has made several sexually inappropriate comments this shift and was antagonizing other patients in dining room this AM by calling Nicholas Mouse a rat repeatedly. Pain: Pt complained of left leg pain Respiratory Status: Room Air, CTA Skin: intact, edema to LLE, redness under L breast, Dry, flaky scalp Bowel/Bladder Continence: Patient wears pull up briefs for incontinence at times. ADL: Patient is x2 assist for bathing, dressing, grooming, toileting, bed mobility, transfers, and ambulation. Patient is able to walk from bed to toilet with encouragement and reminders. Patient may use w/c to ambulate as well, able to wheel self. Set up help only for eating.
--- NOTE | 2019-10-10 17:53 | PN ---
DATE: 10/09/2019 PSYCHIATRIC PROGRESS NOTE This late entry date 10/09/2019 covers elements not covered in my initial note. SUBJECTIVE: I met with the patient in the evening. Per nursing report, the patient remains depressed, withdrawn, but has been participating in correction care activities, although reluctantly. Her TSH at last check was quite low and therefore the hypothyroidism probably is not impacting her mood symptoms as much as it was initially. REVIEW OF SYSTEMS: Ambulation impaired. Complains of tiredness. No CV, , pulmonary, eye system symptoms on review. MENTAL STATUS EXAM: The patient is reasonably oriented. Speech has some latency, coherent. Abstraction fair, computation impaired, language function intact. Mood and affect withdrawn. LABORATORY DATA: Reviewed. IMPRESSION: Major depressive disorder, recurrent; hypothyroidism, general debility, rest unchanged. RECOMMENDATIONS: From a psychiatric standpoint, we will change Celexa 20 mg a day to Cymbalta 30 mg a day and plan to increase it to 60 mg a day in a couple of days. The patient has failed Zoloft and Prozac in the past and possibly Wellbutrin. We will make further adjustments as clinically indicated. BUSTER DELVALLE MD DR: DIANN/dayan JOB#: [id number] / [id number]
[2019-10-10 18:07] VITALS: BP 93/61
--- NOTE | 2019-10-10 21:12 | PDOC ---
Exam Note: Henry Note: Please also refer to the separate dictated note~for this date of service dictated separately.~Patient seen individually. Discussed the patient with Nursing staff reviewed the chart.~Reviewed interim history and current functioning. Reviewed vital signs,~Labs/ Radiology~and current medications noted below. Continue current treatment with the changes noted in the dictated addendum note Assessment: Vital Signs/I&O: Vital Signs Date Time Temp Pulse Resp B/P (MAP) Pulse Ox O2 Delivery O2 Flow Rate FiO2 10/10/19 20:10 Room Air 10/10/19 18:07 98.3 86 16 93/61 (72) 93 10/09/19 05:08 93.0 I & O 10/09/19 10/09/19 10/10/19 15:00 23:00 07:00 Intake Total 360 ml 240 ml Balance 360 ml 240 ml Current Medications: Meds: Current Medications Medications (Trade) Dose Ordered Sig/Imani Route PRN Reason Start Time Stop Time Status Last Admin Dose Admin Duloxetine HCl (Cymbalta) 30 mg DAILY PO 10/10/19 09:00 10/10/19 08:59 I have reviewed the current psychotropics carefully including drug interactions. Risk benefit ratio favors no change other than as noted in my dictated progress note. Diagnosis: Problems: (1) Anxiety disorder (2) Depression (3) Major depressive disorder, recurrent episode BUSTER DELVALLE MD Oct 10, 2019 21:12
--- NOTE | 2019-10-10 22:26 | NUR ---
Swing Bed Nursing Note: Nursing Problem: PT/OT strengthening post admission to [facility] for DVT L Leg, Hypothyroidism Cognitive/Behavioral: Pt is alert and oriented x 4 w/ forgetfulness. Pt needs to be encouraged to do as much for herself as possible. When giving pt directions, pt is tearful. Dr. Juárez consulted. Pain: Pt complained of left leg pain Respiratory Status: Room Air, CTA Skin: intact, edema to LLE, redness under L breast, Dry, flaky scalp Bowel/Bladder Continence: Patient wears pull up briefs for incontinence at times. ADL: When attempting to change patient after an incontinent episode, patient requested to be changed in bed. Patient reeducated on the purpose of the unit. Patient insisting that she can not bend her knees, pt seen sitting arden-crossed moments prior. Once patient was assisted into a sitting position on the bedside, patient threw herself back onto the bed stating that she could not sit. Patient assisted once more to a seated position, and brief teared away. Pt required x2 assist with gait belt and walker to stand at the bedside. Patient cleaned and new brief pulled up by staff. Patient is x2 assist for bathing, dressing, grooming, toileting, bed mobility, transfers, and ambulation. Patient is able to walk from bed to toilet with encouragement and reminders. Patient may use w/c to ambulate as well, able to wheel self. Set up help only for eating.
[2019-10-10 23:24] VITALS: BP 107/71
[2019-10-11] MEDS: LEVOTHYROXINE 75 MCG TABLET PO SCH (06:00)
[2019-10-11 06:32] VITALS: BP 107/68
[2019-10-11] MEDS: DULoxetine HCL 30 MG CAPSULE.DR PO SCH (09:56)
[2019-10-11] MEDS: FUROSEMIDE 20 MG TABLET PO SCH (09:56)
[2019-10-11] MEDS: MULTIVITAMIN with MINERAL TABLET. PO SCH (09:56)
[2019-10-11] MEDS: POLYETHYLENE GLYCOL 3350 17 GM PACKET. PO SCH (09:56)
[2019-10-11] MEDS: CHOLECALCIFEROL (VITAMIN D3) 1,000 UNIT TABLET PO SCH (09:56)
[2019-10-11] MEDS: DOCUSATE SODIUM 100 MG CAPSULE PO SCH (09:56)
[2019-10-11] MEDS: RIVAROXABAN 10 MG TABLET. PO SCH (09:56)
[2019-10-11] MEDS: FOLIC ACID 1 MG TABLET PO SCH (09:56)
[2019-10-11] MEDS: DRONABINOL 2.5 MG CAPSULE PO SCH ×2 (11:31→16:15)
--- NOTE | 2019-10-11 15:36 | NUR ---
SWING BED DOCUMENTATION NURSING PROBLEM: DVT L Leg, Hypothyroidism, anemia, depression, anxiety, B12 deficiency, former smoker, hemorrhoids COGNITIVE/BEHAVIORAL: PT IS A&O. PT IS COOPERATIVE WITH CARES AND GOING TO DINNING ROOM FOR MEALS. PT CAN BE INAPPROPRIATE WHEN INTERACTING WITH OTHER PATIENTS. PT GAVE THE MIDDLE FINGER TO ANOTHER PATIENT IN A JOKING MANNER BUT WAS EDUCATED ABOUT APPROPRIATENESS. PT WAS RAMBLING ON ABOUT HOW HER DAUGHTER TOLD HER SHE HAS TO BE NICE AND DO WHAT THEY SAY IN A PASSIVE AGGRESSIVE MANNER. PT BEGAN MOANING OUT THIS AFTERNOON AND WAS LAYING IN HER BED SIDEWAYS. PT READJUSTED. PT HAS BEEN CALM OTHERWISE. PAIN: PT C/O PAIN IN HER LEFT LEG WHEN MOVING AROUND. PT ELEVATES HER LEG AND STATES SHE IS SUPPOSED TO WEAR HER WILLIAM HOSE DURING THE DAY. RESPIRATORY STATUS: RA, LUNGS CLEAR. SKIN: INTACT, LLL REDNESS AND SWELLING. PT HAS SKIN DISCOLORATION ON HER LOWER BACK COCCYX AREA THAT LOOK LIKE OLD PICKING SCARS. PT SCALP IS DRY AND FLAKY. BOWEL AND BLADDER: PT HAS STRESS INCONTINENCE. PT IS ABLE TO GO TO THE RESTROOM WHEN SHE HAS TO GO. PT STATES SHE HAS HEMORRHOIDS. ADL: PT IS X2 ASSIST WHEN GETTING UP AND MOVING WITH GAIT BELT AND WALKER. PT IS X2 ASSIST FOR TOILETING AND BED MOBILITY. PT IS X1 EXTENSIVE ASSIST WITH DRESSING AND GROOMING. PT WAS ABLE TO WALK FROM BED TO RR TODAY WITH X2 ASSIST BUT STATES HER LEG CAUSED HER PAIN AND SHE FELT LIKE HER LEG WAS VERY WEAK. PT USED WHEELCHAIR TO GO TO MEALS BUT IS ABLE TO WHEEL HERSELF. PT SAT UP IN HER WHEELCHAIR FOR A MAJORITY OF THE TIME BUT ALSO TOOK A FEW NAPS THROUGHOUT THE DAY. AMBER. LEARY.
[2019-10-11] MEDS: HYDROcodone/APAP 5/325MG 1 TAB TABLET PO PRN (16:15)
--- NOTE | 2019-10-11 16:20 | NUR ---
NURSING NOTE PT C/O PAIN IN HER LEG. PT GIVEN PRN HYDROCODONE. PT STATES SHE DOES NOT WANT TO GET UP FOR DINNER AND SHE DOES NOT WANT TO EAT. PT ENCOURAGED TO GET UP FOR DINNER PART OF HER REHABILITATION PROGRAM, TO GET UP FOR MEALS AND STAY OUT OF THE BED MUCH POSSIBLE. PT STATES "I DON'T CARE IF YOU HAVE TO LIE OR HIDE ME, I AM NOT GETTING UP FOR DINNER AND DO NOT WAKE ME UP". GIBRAN COREY.
--- NOTE | 2019-10-11 18:27 | NUR ---
NURSING NOTE BLOOD PRESSURE PT BLOOD PRESSURE 88/58. PT STATES SHE IS FINE AND SHE ALWAYS RUNS LOW. WILL CONTINUE TO MONITOR. GIBRAN COREY.
[2019-10-11 18:37] VITALS: BP 88/58
[2019-10-11 19:14] VITALS: BP 89/56
--- NOTE | 2019-10-11 21:17 | PDOC ---
Exam Note: Henry Note: Please also refer to the separate dictated note~for this date of service dictated separately.~Patient seen individually. Discussed the patient with Nursing staff reviewed the chart.~Reviewed interim history and current functioning. Reviewed vital signs,~Labs/ Radiology~and current medications noted below. Continue current treatment with the changes noted in the dictated addendum note Assessment: Vital Signs/I&O: Vital Signs Date Time Temp Pulse Resp B/P (MAP) Pulse Ox O2 Delivery O2 Flow Rate FiO2 10/11/19 19:43 Room Air 10/11/19 19:14 99 89/56 (67) 10/11/19 18:37 98.2 92 10/11/19 06:32 20 10/09/19 05:08 93.0 I & O 10/10/19 10/10/19 10/11/19 15:00 23:00 07:00 Intake Total 240 ml 100 ml Balance 240 ml 100 ml Current Medications: I have reviewed the current psychotropics carefully including drug interactions. Risk benefit ratio favors no change other than as noted in my dictated progress note. Diagnosis: Problems: (1) Anxiety disorder (2) Depression (3) Major depressive disorder, recurrent episode BUSTER DELVALLE MD Oct 11, 2019 21:17
--- NOTE | 2019-10-11 21:26 | NUR ---
Swing Bed Nursing Note: Nursing Problem: PT/OT strengthening post admission to [facility] for DVT L Leg, Hypothyroidism Cognitive/Behavioral: Pt is alert and oriented x 4 w/ forgetfulness. Pt needs to be encouraged to do as much for herself as possible. When giving pt directions, pt is tearful. Dr. Juárez consulted. Pain: Pt denies pain Respiratory Status: Room Air, CTA Skin: intact, edema to LLE, redness under L breast, Dry, flaky scalp Bowel/Bladder Continence: Patient wears pull up briefs for incontinence at times. ADL: Patient [facility]. Patient is x2 assist for bathing, dressing, grooming, toileting, bed mobility, transfers, and ambulation. Patient is able to walk from bed to toilet with encouragement and reminders. Patient may use w/c to ambulate as well, able to wheel self. Pt refused evening snack.
[2019-10-11 22:13] VITALS: BP 111/72
[2019-10-12] MEDS: LEVOTHYROXINE 75 MCG TABLET PO SCH (05:16)
[2019-10-12 05:57] VITALS: BP 99/63
[2019-10-12] MEDS: CHOLECALCIFEROL (VITAMIN D3) 1,000 UNIT TABLET PO SCH (08:44)
[2019-10-12] MEDS: HYDROcodone/APAP 5/325MG 1 TAB TABLET PO PRN ×2 (08:44→18:30)
[2019-10-12] MEDS: RIVAROXABAN 10 MG TABLET. PO SCH (08:45)
[2019-10-12] MEDS: POLYETHYLENE GLYCOL 3350 17 GM PACKET. PO SCH (08:45)
[2019-10-12] MEDS: DULoxetine HCL 30 MG CAPSULE.DR PO SCH (08:45)
[2019-10-12] MEDS: FUROSEMIDE 20 MG TABLET PO SCH (08:45)
[2019-10-12] MEDS: DOCUSATE SODIUM 100 MG CAPSULE PO SCH (08:45)
[2019-10-12] MEDS: MULTIVITAMIN with MINERAL TABLET. PO SCH (08:45)
[2019-10-12] MEDS: FOLIC ACID 1 MG TABLET PO SCH (08:45)
[2019-10-12] MEDS: DRONABINOL 2.5 MG CAPSULE PO SCH ×2 (11:20→17:14)
--- NOTE | 2019-10-12 14:53 | NUR ---
Swing Bed Nursing Note: Nursing Problem: PT/OT strengthening post admission to [facility] for DVT L Leg, Hypothyroidism Cognitive/Behavioral: Pt is alert and oriented x 4 w/ forgetfulness. Pt needs to be encouraged to do as much for herself as possible. When giving pt directions, pt is tearful at times. Dr. Juárez consulted. Pain: Pt c/o pain to left knee this AM, PRN Lortab given. Respiratory Status: Room Air, CTA Skin: intact, edema to LLE, redness under L breast, Dry, flaky scalp Bowel/Bladder Continence: Patient wears pull up briefs for incontinence at times. ADL: Patient is x2 assist for bathing, dressing, grooming, toileting, bed mobility, transfers, and ambulation. Patient is able to walk from bed to toilet with encouragement and reminders. Patient may use w/c to ambulate as well, able to wheel self.
[2019-10-12 18:17] VITALS: BP 99/64
--- NOTE | 2019-10-12 20:52 | PN ---
DATE: 10/10/2019 PSYCHIATRIC PROGRESS NOTE This late entry of 10/10/2019 covers the elements not covered in my initial note. SUBJECTIVE: I met with the patient in the evening of 10/10/2019. Per nursing report, the patient still remains somewhat withdrawn, not very energetic, trying to cooperate with her physical therapy and rehabilitation, but still cooperative. She subjectively states she still feels depressed, tired, but little better. REVIEW OF SYSTEMS: Ambulation impaired. No CV, , pulmonary, eye system symptoms on review. Reliability fair. MENTAL STATUS EXAM: Oriented to herself and situation. Speech moderate latency, often responses monosyllabic. Abstraction fair, computation impaired, language function intact. Mood and affect depressed, but showing improvement. LABORATORY DATA: Reviewed. IMPRESSION: Major depressive disorder, recurrent; hypothyroidism. Rest unchanged from before. PLAN: No change from initial note. Continue her current psychotropics. Adjust as clinically indicated. MAN Jai DELVALLE MD DR: DIANN/dayan JOB#: [id number] / [id number]
--- NOTE | 2019-10-12 21:18 | PDOC ---
Exam Note: Henry Note: Please also refer to the separate dictated note~for this date of service dictated separately.~Patient seen individually. Discussed the patient with Nursing staff reviewed the chart.~Reviewed interim history and current functioning. Reviewed vital signs,~Labs/ Radiology~and current medications noted below. Continue current treatment with the changes noted in the dictated addendum note Assessment: Vital Signs/I&O: Vital Signs Date Time Temp Pulse Resp B/P (MAP) Pulse Ox O2 Delivery O2 Flow Rate FiO2 10/12/19 18:30 99 Room Air 10/12/19 18:17 97.9 79 20 99/64 (76) 10/09/19 05:08 93.0 I & O 10/11/19 10/11/19 10/12/19 15:00 23:00 07:00 Intake Total 360 ml 480 ml Balance 360 ml 480 ml Current Medications: I have reviewed the current psychotropics carefully including drug interactions. Risk benefit ratio favors no change other than as noted in my dictated progress note. Diagnosis: Problems: (1) Anxiety disorder (2) Depression (3) Major depressive disorder, recurrent episode BUSTER DELVALLE MD Oct 12, 2019 21:18
--- NOTE | 2019-10-12 21:28 | PN ---
DATE: 10/11/2019 PSYCHIATRIC PROGRESS NOTE This late entry 10/11/2019 covers elements not covered in my initial note. SUBJECTIVE: I met with the patient evening of 10/11/2019. Per nursing report, at times the patient makes inappropriate sexual comments to staff. She did ambulate a little better when the son-in-law was visiting her and as I met with her, she was eating a dish that her son-in-law seemed to have prepared and was quite appreciative of this. REVIEW OF SYSTEMS: Positive for tiredness. No CV, , pulmonary, eye system symptoms on review. MENTAL STATUS EXAMINATION: Reasonably oriented. Speech is coherent, has some latency. Abstraction fair, computation impaired, language function intact. Mood and affect somewhat withdrawn. LABORATORY DATA: Reviewed. IMPRESSION: Major depressive disorder, recurrent; hypothyroidism. Rest unchanged. PLAN: Continue psychotropics from initial note. No changes for now. Thyroid status is stable for now. BUSTER DELVALLE MD DR: DIANN/dayan JOB#: [id number] / [id number]
--- NOTE | 2019-10-13 01:26 | NUR ---
Swing Bed Nursing Note: Nursing Problem: PT/OT strengthening post admission to [facility] for DVT L Leg, Hypothyroidism Cognitive/Behavioral: Pt is alert and oriented x 4 w/ forgetfulness. Pt needs to be encouraged to do as much for herself as possible. When giving pt directions. Pain: Pt denies pain Respiratory Status: Room Air, CTA Skin: intact, edema to LLE, redness under L breast, Dry, flaky scalp Bowel/Bladder Continence: Patient wears pull up briefs for incontinence at times. ADL: Patient is x2 assist for bathing, dressing, grooming, toileting, bed mobility, transfers, and ambulation. Patient is able to walk from bed to toilet with encouragement and reminders. Patient may use w/c to ambulate as well, able to wheel self.
[2019-10-13] MEDS: LEVOTHYROXINE 75 MCG TABLET PO SCH (05:09)
[2019-10-13 05:23] VITALS: BP 101/69
[2019-10-13] MEDS: FUROSEMIDE 20 MG TABLET PO SCH (08:59)
[2019-10-13] MEDS: MULTIVITAMIN with MINERAL TABLET. PO SCH (08:59)
[2019-10-13] MEDS: DOCUSATE SODIUM 100 MG CAPSULE PO SCH (08:59)
[2019-10-13] MEDS: CHOLECALCIFEROL (VITAMIN D3) 1,000 UNIT TABLET PO SCH (08:59)
[2019-10-13] MEDS: RIVAROXABAN 10 MG TABLET. PO SCH (09:00)
[2019-10-13] MEDS: FOLIC ACID 1 MG TABLET PO SCH (09:00)
[2019-10-13] MEDS: DULoxetine HCL 30 MG CAPSULE.DR PO SCH (09:00)
[2019-10-13] MEDS: POLYETHYLENE GLYCOL 3350 17 GM PACKET. PO SCH (09:00)
[2019-10-13] MEDS: DRONABINOL 2.5 MG CAPSULE PO SCH ×2 (12:15→16:01)
[2019-10-13] MEDS: HYDROcodone/APAP 5/325MG 1 TAB TABLET PO PRN (12:15)
[2019-10-13 18:00] VITALS: BP 93/62
[2019-10-13] MEDS: ACETAMINOPHEN 325 MG TABLET PO PRN (18:31)
--- NOTE | 2019-10-13 21:11 | PDOC ---
Exam Note: Henry Note: Please also refer to the separate dictated note~for this date of service dictated separately.~Patient seen individually. Discussed the patient with Nursing staff reviewed the chart.~Reviewed interim history and current functioning. Reviewed vital signs,~Labs/ Radiology~and current medications noted below. Continue current treatment with the changes noted in the dictated addendum note Assessment: Vital Signs/I&O: Vital Signs Date Time Temp Pulse Resp B/P (MAP) Pulse Ox O2 Delivery O2 Flow Rate FiO2 10/13/19 20:39 Room Air 10/13/19 18:00 98.0 77 20 93/62 (72) 98 10/09/19 05:08 93.0 I & O 10/12/19 10/12/19 10/13/19 15:00 23:00 07:00 Intake Total 60 ml Balance 60 ml Current Medications: Meds: Current Medications Medications (Trade) Dose Ordered Sig/Imani Route PRN Reason Start Time Stop Time Status Last Admin Dose Admin Acetaminophen (Tylenol) 650 mg PRN Q8HRS PRN PO MILD PAIN / TEMP 10/13/19 18:00 10/13/19 18:31 I have reviewed the current psychotropics carefully including drug interactions. Risk benefit ratio favors no change other than as noted in my dictated progress note. Diagnosis: Problems: (1) Anxiety disorder (2) Depression (3) Major depressive disorder, recurrent episode BUSTER DELVALLE MD Oct 13, 2019 21:11
[2019-10-14] MEDS: HYDROcodone/APAP 5/325MG 1 TAB TABLET PO PRN (01:10)
--- NOTE | 2019-10-14 05:35 | NUR ---
Swing Bed Nursing Note: Nursing Problem: PT/OT post admission to [facility] for DVT L Leg, Hypothyroidism Cognitive/Behavioral:A&O x4, forgetfulness. Pt needs encouragement to be active in ADLs and mobility. Pain: Pt states she "hurts all over, especially the lower half." Left leg hip to ankle sensitive to touch. Respiratory Status: RA, CTA Skin: intact, left leg swollen compared to right leg, hip to ankle, redness under L breast and left leg, hip to ankle, Dry, flaky scalp Bowel/Bladder Continence: Urge incontinence at times B&B, wears brief ADL: Patient is x2 assist for bathing, dressing, grooming, toileting, bed mobility, transfers, and ambulation. Patient is able to walk from bed to toilet with encouragement and reminders. Patient may use w/c to ambulate as well, able to wheel self.
[2019-10-14] MEDS: LEVOTHYROXINE 75 MCG TABLET PO SCH (05:59)
[2019-10-14 06:04] VITALS: BP 121/78
[2019-10-14] MEDS: MULTIVITAMIN with MINERAL TABLET. PO SCH (08:54)
[2019-10-14] MEDS: FUROSEMIDE 20 MG TABLET PO SCH (08:56)
[2019-10-14] MEDS: CHOLECALCIFEROL (VITAMIN D3) 1,000 UNIT TABLET PO SCH (08:56)
[2019-10-14] MEDS: DOCUSATE SODIUM 100 MG CAPSULE PO SCH (08:56)
[2019-10-14] MEDS: RIVAROXABAN 10 MG TABLET. PO SCH (08:56)
[2019-10-14] MEDS: FOLIC ACID 1 MG TABLET PO SCH (08:56)
[2019-10-14] MEDS: DULoxetine HCL 30 MG CAPSULE.DR PO SCH (08:56)
[2019-10-14] MEDS: POLYETHYLENE GLYCOL 3350 17 GM PACKET. PO SCH (08:57)
[2019-10-14] MEDS: DRONABINOL 2.5 MG CAPSULE PO SCH ×2 (10:25→17:08)
--- NOTE | 2019-10-14 14:12 | RAD ---
Left lower extremity venous doppler ultrasound History: Left lower extremity swelling, known left common femoral vein clot Comparison: 09/26/2019 Findings: Multiple grayscale, color, and duplex spectral analysis sonographic images were acquired of the left lower extremity veins to evaluate for the presence of DVT. There is again some nonocclusive echogenicity of the left common femoral vein, some possible nonocclusive clot now of the proximal left superficial femoral vein. Remainder of the interrogated left lower extremity veins are patent with normal color flow and phasicity. Impression: 1. There is again some nonocclusive thrombus of the left common femoral vein, now probably minimally of the proximal superficial femoral vein. Electronically signed by: Sandro Monzon MD (10/14/2019 2:09 PM) [facility] [place]
--- NOTE | 2019-10-14 16:56 | NUR ---
Swing Bed Nursing Note: Nursing Problem: PT/OT post admission to [facility] for DVT L Leg, Hypothyroidism Cognitive/Behavioral:A&O x4, forgetfulness. Pt needs encouragement to be active in ADLs and mobility. Pain: Pt states she "hurts all over, especially the lower half." Left leg hip to ankle sensitive to touch. Respiratory Status: RA, CTA Skin: intact, left leg swollen compared to right leg, hip to ankle, redness under L breast and left leg, hip to ankle, Dry, flaky scalp Bowel/Bladder Continence: Urge incontinence at times B&B, wears brief ADL: Patient is x2 assist for bathing, dressing, grooming, toileting, bed mobility, transfers, and ambulation. Patient is able to walk from bed to toilet with encouragement and reminders. Patient may use w/c to ambulate as well, able to wheel self.
[2019-10-14 18:19] VITALS: BP 90/60
--- NOTE | 2019-10-14 21:13 | PN ---
DATE: 10/12/2019 This late entry, date of service 10/11, covers elements not covered in my initial note. SUBJECTIVE: I met with the patient evening of 10/11. Per nursing report, the patient remains somewhat depressed, withdrawn, but does participate in physical therapy and other activities. REVIEW OF SYSTEMS: Positive for tiredness. No CV, , pulmonary, eye system symptoms on review. Reliability fair. MENTAL STATUS EXAM: The patient's reasonably oriented. Speech is coherent, has some latency. Abstraction fair, computation impaired, language function intact, attention span short. Mood and affect somewhat dysphoric, but she minimizes this. LABORATORY DATA: Reviewed. IMPRESSION: Unchanged from initial note. PLAN: No change from initial note. Continue to adjust her antidepressants as clinically indicated. MAN Jai DELVALLE MD DR: DIANN/dayan JOB#: [id number] / [id number]
--- NOTE | 2019-10-14 21:24 | PN ---
DATE: 10/13/2019 The patient was seen on rounds evening of 10/13/2019. SUBJECTIVE: I met with the patient individually, discussed with nursing staff, reviewed the chart. Overall, the patient has had some episodes of intermittently seeing rats, but when questioned, she states this happened several days before. She has been somewhat tired. REVIEW OF SYSTEMS: No CV, , pulmonary, eye, ENT system symptoms on review, but cooperative with rehabilitation therapy, [facility] therapy. MENTAL STATUS EXAM: Reasonably oriented. Speech is coherent, has some latency. Abstraction fair, computation impaired, language function intact, attention span fair. Mood and affect withdrawn, but improving. LABORATORY DATA: Reviewed. TSH unremarkable. IMPRESSION: Unchanged from initial note. PLAN: No change from initial note. Adjust her antidepressants gradually. BUSTER DELVALLE MD DR: DIANN/dayan JOB#: [id number] / [id number]
[2019-10-14] MEDS: ACETAMINOPHEN 325 MG TABLET PO PRN (21:25)
--- NOTE | 2019-10-14 22:27 | PDOC ---
Exam Note: Henry Note: Please also refer to the separate dictated note~for this date of service dictated separately.~Patient seen individually. Discussed the patient with Nursing staff reviewed the chart.~Reviewed interim history and current functioning. Reviewed vital signs,~Labs/ Radiology~and current medications noted below. Continue current treatment with the changes noted in the dictated addendum note Assessment: Vital Signs/I&O: Vital Signs Date Time Temp Pulse Resp B/P (MAP) Pulse Ox O2 Delivery O2 Flow Rate FiO2 10/14/19 18:19 98.0 70 18 90/60 (70) 96 Room Air 10/09/19 05:08 93.0 I & O 10/13/19 10/13/19 10/14/19 15:00 23:00 07:00 Intake Total 240 ml 265 ml 75 ml Balance 240 ml 265 ml 75 ml Current Medications: I have reviewed the current psychotropics carefully including drug interactions. Risk benefit ratio favors no change other than as noted in my dictated progress note. Diagnosis: Problems: (1) Anxiety disorder (2) Depression (3) Major depressive disorder, recurrent episode BUSTER DELVALLE MD Oct 14, 2019 22:27
--- NOTE | 2019-10-14 23:54 | NUR ---
Swing Bed Nursing Note: Nursing Problem: PT/OT post admission to [facility] for DVT L Leg, Hypothyroidism Cognitive/Behavioral:A&O x4, forgetfulness. Pt needs encouragement to be active in ADLs and mobility. Pain: Left leg hip to ankle sensitive to touch. Tylenol given HS Respiratory Status: RA, CTA Skin: intact, left leg swollen compared to right leg, hip to ankle, redness under L breast and left leg, hip to ankle, Dry, flaky scalp Bowel/Bladder Continence: Urge incontinence at times B&B, wears brief ADL: Patient is x2 assist for bathing, dressing, grooming, toileting, bed mobility, transfers, and ambulation. Patient is able to walk from bed to toilet with encouragement and reminders. Patient may use w/c to ambulate as well, able to wheel self.
[2019-10-15] MEDS: LEVOTHYROXINE 75 MCG TABLET PO SCH (05:45)
[2019-10-15 05:49] VITALS: BP 118/75
[2019-10-15] MEDS: DOCUSATE SODIUM 100 MG CAPSULE PO SCH (10:04)
[2019-10-15] MEDS: FUROSEMIDE 20 MG TABLET PO SCH (10:05)
[2019-10-15] MEDS: RIVAROXABAN 10 MG TABLET. PO SCH (10:05)
[2019-10-15] MEDS: DULoxetine HCL 30 MG CAPSULE.DR PO SCH (10:05)
[2019-10-15] MEDS: POLYETHYLENE GLYCOL 3350 17 GM PACKET. PO SCH (10:05)
[2019-10-15] MEDS: CHOLECALCIFEROL (VITAMIN D3) 1,000 UNIT TABLET PO SCH (10:06)
[2019-10-15] MEDS: FOLIC ACID 1 MG TABLET PO SCH (10:06)
[2019-10-15] MEDS: MULTIVITAMIN with MINERAL TABLET. PO SCH (10:06)
[2019-10-15] MEDS: DRONABINOL 2.5 MG CAPSULE PO SCH ×2 (11:52→16:30)
[2019-10-15] MEDS: HYDROcodone/APAP 5/325MG 1 TAB TABLET PO PRN ×2 (11:52→20:19)
--- NOTE | 2019-10-15 15:45 | NUR ---
Pt complaint of L leg pain throughout shift. Pt asked for Lortab this afternoon. Pt now resting in bed. Pt is concerned that her leg is worse today than yesterday. Pt LLeg is swollen and pink. Have been elevating leg throughout shift w\ wheelchair and pillow.
[2019-10-15 18:10] VITALS: BP 101/59
--- NOTE | 2019-10-15 18:13 | NUR ---
Swing Bed Nursing Note [facility] given to patient. Nursing Problem: PT/OT eval and treat, post hospitalization, LLL DVT Cognitive/Behavioral: Alert and Oriented x 4. Needs encouragement to participate in ADLs Pain: Pain in LLL, gave PRN Lortab as ordered Respiratory Status: Room Air. Skin: intact, redness and swelling to LLL. Bowel/Bladder Continence: Incontinent x 2. Wears briefs at all times. ADL Functional Status: Pt is able to feed self. Pt is able to dress self with x1 assist. Pt ambulates to bathroom and dining room with walker. Pt is encouraged to sit up in chair throughout most of shift. Pt is able to perform ADLs such as dressing self and combing hair but needs encouragement.
--- NOTE | 2019-10-15 21:15 | PN ---
DATE: 10/14/2019 This late entry 10/14/2019 covers elements not covered in my initial note. SUBJECTIVE: I met with the patient in evening of 10/14/2019. Per nursing report, the patient is doing a little better, still somewhat withdrawn, but no active hallucinations noted. I met with her in her room. REVIEW OF SYSTEMS: Ambulation impaired and she is somewhat tired. No CV, , pulmonary, eye system symptoms on review. MENTAL STATUS EXAM: Reasonably oriented. Speech is coherent, has some latency. Abstraction fair, computation impaired, language function intact. Mood and affect somewhat improved, more animated. LABORATORY DATA: Reviewed. IMPRESSION: Unchanged from initial note. PLAN: No change from initial note. MAN Jai DELVALLE MD DR: DIANN/dayan JOB#: [id number] / [id number]
--- NOTE | 2019-10-15 21:36 | PDOC ---
Exam Note: Henry Note: Please also refer to the separate dictated note~for this date of service dictated separately.~Patient seen individually. Discussed the patient with Nursing staff reviewed the chart.~Reviewed interim history and current functioning. Reviewed vital signs,~Labs/ Radiology~and current medications noted below. Continue current treatment with the changes noted in the dictated addendum note Assessment: Vital Signs/I&O: Vital Signs Date Time Temp Pulse Resp B/P (MAP) Pulse Ox O2 Delivery O2 Flow Rate FiO2 10/15/19 20:19 18 Room Air 10/15/19 18:10 96.8 87 101/59 (73) 95 I & O 10/14/19 10/14/19 10/15/19 15:00 23:00 07:00 Intake Total 590 ml 240 ml 120 ml Balance 590 ml 240 ml 120 ml Current Medications: I have reviewed the current psychotropics carefully including drug interactions. Risk benefit ratio favors no change other than as noted in my dictated progress note. Diagnosis: Problems: (1) Anxiety disorder (2) Depression (3) Major depressive disorder, recurrent episode BUSTER DELVALLE MD Oct 15, 2019 21:36
--- NOTE | 2019-10-16 00:38 | NUR ---
Swing Bed Nursing Note: Nursing Problem: PT/OT post admission to [facility] for DVT L Leg, Hypothyroidism Cognitive/Behavioral:A&O x4, forgetfulness. Pt needs encouragement to be active in ADLs and mobility. Pain: Report 7/10 pain to left leg. PRN Lortab given as ordered @ HS Respiratory Status: RA, CTA Skin: Intact, 2-3+ edema and redness to left leg, tender to the touch. Dry, flaky scalp Bowel/Bladder Continence: Urge incontinence at times B&B, wears brief. LBM 10/14/19 ADL: Patient is x1-2 assist for toileting, bed mobility, transfers, and ambulation. Pt able to ambulate to the restroom and back this HS with x1 assist with gait belt and walker. Patient may use w/c to ambulate as well, able to wheel self.
[2019-10-16] MEDS: LEVOTHYROXINE 75 MCG TABLET PO SCH (05:13)
[2019-10-16 05:15] VITALS: BP 119/72
[2019-10-16] MEDS: POLYETHYLENE GLYCOL 3350 17 GM PACKET. PO SCH (09:00)
[2019-10-16] MEDS: FOLIC ACID 1 MG TABLET PO SCH (09:07)
[2019-10-16] MEDS: CHOLECALCIFEROL (VITAMIN D3) 1,000 UNIT TABLET PO SCH (09:07)
[2019-10-16] MEDS: MULTIVITAMIN with MINERAL TABLET. PO SCH (09:07)
[2019-10-16] MEDS: DULoxetine HCL 30 MG CAPSULE.DR PO SCH (09:07)
[2019-10-16] MEDS: FUROSEMIDE 20 MG TABLET PO SCH (09:07)
[2019-10-16] MEDS: DOCUSATE SODIUM 100 MG CAPSULE PO SCH (09:07)
[2019-10-16] MEDS: RIVAROXABAN 10 MG TABLET. PO SCH (09:07)
[2019-10-16] MEDS: DRONABINOL 2.5 MG CAPSULE PO SCH ×2 (11:51→17:22)
--- NOTE | 2019-10-16 15:22 | NUR ---
Swing Bed Nursing Note: Nursing Problem: PT/OT post admission to [facility] for DVT L Leg, Hypothyroidism Cognitive/Behavioral:A&O x4, forgetfulness. Pt needs encouragement to be active in ADLs and mobility. Pain: Patient denies pain thus far this shift. Respiratory Status: RA, LCTA. No cough noted. No SOA. Skin: Intact, 2+ edema and redness to left leg. Dry, flaky scalp Bowel/Bladder Continence: Urge incontinence at times B&B, wears brief. LBM 10/14/19 ADL: Patient is x1-2 assist for toileting, bed mobility, transfers, and ambulation. Patient may use w/c to ambulate as well, able to wheel self. X1 assist needed for bathing, dressing, and grooming. Eats independently after set-up help.
[2019-10-16 18:22] VITALS: BP 92/55
--- NOTE | 2019-10-16 19:14 | PN ---
DATE: 10/15/2019 PSYCHIATRIC PROGRESS NOTE This late entry 10/15/2019 covers elements not covered in my initial note. SUBJECTIVE: I met with the patient evening of 10/15/2019. Discussed with nursing staff, reviewed the chart. Overall, the patient has been fairly cooperative on the unit. She is still depressed, withdrawn at times, a little more active with her [facility]. REVIEW OF SYSTEMS: Ambulation impaired, in wheelchair. No CV, , pulmonary, eye system symptoms on review. MENTAL STATUS EXAM: Oriented to herself and situation. Speech has some latency, coherent. Abstraction fair, computation impaired, language function intact. Mood and affect somewhat withdrawn. LABORATORY DATA: Reviewed. IMPRESSION: Unchanged from initial note. PLAN: No change from initial note. Gradually increase the Cymbalta. Make further adjustments and augmentation to her antidepressants as clinically indicated. MAN Jai DELVALLE MD DR: DIANN/dayan JOB#: [id number] / [id number]
[2019-10-16] MEDS: HYDROcodone/APAP 5/325MG 1 TAB TABLET PO PRN (20:24)
--- NOTE | 2019-10-16 21:35 | PDOC ---
Exam Note: Henry Note: Please also refer to the separate dictated note~for this date of service dictated separately.~Patient seen individually. Discussed the patient with Nursing staff reviewed the chart.~Reviewed interim history and current functioning. Reviewed vital signs,~Labs/ Radiology~and current medications noted below. Continue current treatment with the changes noted in the dictated addendum note Assessment: Vital Signs/I&O: Vital Signs Date Time Temp Pulse Resp B/P (MAP) Pulse Ox O2 Delivery O2 Flow Rate FiO2 10/16/19 21:29 18 Room Air 10/16/19 18:22 97.8 88 92/55 (67) 91 I & O 10/15/19 10/15/19 10/16/19 15:00 23:00 07:00 Intake Total 660 ml 480 ml 400 ml Balance 660 ml 480 ml 400 ml Current Medications: I have reviewed the current psychotropics carefully including drug interactions. Risk benefit ratio favors no change other than as noted in my dictated progress note. Diagnosis: Problems: (1) Anxiety disorder (2) Depression (3) Major depressive disorder, recurrent episode BUSTER DELVALLE MD Oct 16, 2019 21:34
--- NOTE | 2019-10-16 23:15 | NUR ---
Swing Bed Nursing Note: Nursing Problem: PT/OT post admission to [facility] for DVT L Leg, Hypothyroidism Cognitive/Behavioral:A&O x4, forgetfulness. Pt needs encouragement to be active in ADLs and mobility. Pain: Report 7/10 pain to left leg. PRN Lortab given as ordered @ HS Respiratory Status: RA, CTA Skin: Intact, 2+ edema and redness to left leg, tender to the touch. Dry, flaky scalp Bowel/Bladder Continence: Urge incontinence at times B&B, wears brief. LBM 10/16/19 ADL: Patient is x1-2 assist for toileting, bed mobility, transfers, and ambulation. Pt needed x2 assist with gait belt and walker when transferring from wheelchair to bed this HS. Patient may use w/c to ambulate as well, able to wheel self.
[2019-10-17] MEDS: diphenhydrAMINE HCL 25 MG CAPSULE PO PRN (00:55)
[2019-10-17] MEDS: ACETAMINOPHEN 325 MG TABLET PO PRN (00:55)
[2019-10-17] MEDS: LEVOTHYROXINE 75 MCG TABLET PO SCH (05:35)
[2019-10-17 06:02] VITALS: BP 95/65
[2019-10-17] MEDS: FOLIC ACID 1 MG TABLET PO SCH (08:45)
[2019-10-17] MEDS: CHOLECALCIFEROL (VITAMIN D3) 1,000 UNIT TABLET PO SCH (08:45)
[2019-10-17] MEDS: DOCUSATE SODIUM 100 MG CAPSULE PO SCH (08:45)
[2019-10-17] MEDS: FUROSEMIDE 20 MG TABLET PO SCH (08:45)
[2019-10-17] MEDS: RIVAROXABAN 10 MG TABLET. PO SCH (08:45)
[2019-10-17] MEDS: DULoxetine HCL 30 MG CAPSULE.DR PO SCH (08:46)
[2019-10-17] MEDS: MULTIVITAMIN with MINERAL TABLET. PO SCH (08:46)
[2019-10-17] MEDS: POLYETHYLENE GLYCOL 3350 17 GM PACKET. PO SCH (08:46)
[2019-10-17] MEDS: DRONABINOL 2.5 MG CAPSULE PO SCH ×2 (11:32→16:49)
[2019-10-17] MEDS: HYDROcodone/APAP 5/325MG 1 TAB TABLET PO PRN ×2 (13:04→20:22)
--- NOTE | 2019-10-17 15:14 | NUR ---
Swing Bed Nursing Note: Nursing Problem: PT/OT post admission to [facility] for DVT L Leg, Hypothyroidism Cognitive/Behavioral:A&O x4, forgetfulness. Pt needs encouragement to be active in ADLs and mobility. Pain: Patient c/o pain to left knee this afternoon, PRN Lortab given with noted relief. Respiratory Status: RA, LCTA. No cough noted. No SOA. Skin: Intact, 2+ edema and redness to left leg. Dry, flaky scalp Bowel/Bladder Continence: Urge incontinence at times B&B, wears brief. LBM 10/17/19 ADL: Patient is x1 assist for toileting, bed mobility, transfers, and ambulation. Patient may use w/c to ambulate as well, able to wheel self. X1 assist needed for bathing, dressing, and grooming. Eats independently after set-up help.
[2019-10-17 17:57] VITALS: BP 88/58
--- NOTE | 2019-10-17 21:54 | PDOC ---
Exam Note: Henry Note: Please also refer to the separate dictated note~for this date of service dictated separately.~Patient seen individually. Discussed the patient with Nursing staff reviewed the chart.~Reviewed interim history and current functioning. Reviewed vital signs,~Labs/ Radiology~and current medications noted below. Continue current treatment with the changes noted in the dictated addendum note Assessment: Vital Signs/I&O: Vital Signs Date Time Temp Pulse Resp B/P (MAP) Pulse Ox O2 Delivery O2 Flow Rate FiO2 10/17/19 20:22 18 Room Air 10/17/19 17:57 97.8 83 88/58 (68) 92 I & O 10/16/19 10/16/19 10/17/19 14:59 22:59 06:59 Intake Total 480 ml 360 ml 420 ml Balance 480 ml 360 ml 420 ml Current Medications: I have reviewed the current psychotropics carefully including drug interactions. Risk benefit ratio favors no change other than as noted in my dictated progress note. Diagnosis: Problems: (1) Anxiety disorder (2) Depression (3) Major depressive disorder, recurrent episode BUSTER DELVALLE MD Oct 17, 2019 21:54
--- NOTE | 2019-10-17 22:32 | PN ---
DATE: 10/16/2019 PSYCHIATRIC PROGRESS NOTE This late entry 10/16/2019 covers the elements not covered in my initial note. SUBJECTIVE: I met with the patient in the evening of 10/16/2019 in her room. Per nursing report, the patient is doing better. No further hallucinations or delusions noted. She has been more cooperative with physical therapy. REVIEW OF SYSTEMS: Still impaired ambulation. No CV, , pulmonary, eye system symptoms on review. MENTAL STATUS EXAM: Reasonably oriented. Speech has some latency, coherent. Abstraction fair, computation impaired, language function intact. Mood and affect is improved. No suicidal ideation. No clear psychotic symptoms. LABORATORY DATA: Reviewed. IMPRESSION: Unchanged from initial note. PLAN: No change from initial note. MAN Jai DELVALLE MD DR: DIANN/dayan JOB#: [id number] / [id number]
--- NOTE | 2019-10-18 01:37 | NUR ---
[facility] Bed Nursing Note: Nursing Problem: PT/OT post admission to [facility] for DVT L Leg, Hypothyroidism Cognitive/Behavioral:A&O x4, forgetfulness. Pt needs encouragement to be active in ADLs and mobility. Pain: Report / pain to left leg. PRN Lortab given as ordered @ HS Respiratory Status: RA, CTA Skin: Intact, 2+ edema and redness to left leg, tender to the touch. Bowel/Bladder Continence: Urge incontinence at times B&B, wears brief. LBM 10/16/19 ADL: Patient is x1-2 assist for toileting, bed mobility, transfers, and ambulation. Pt needed x2 assist with gait belt and walker when transferring from wheelchair to bed this HS. Patient may use w/c to ambulate as well, able to wheel self. Addendum: 10/18/19 at 0140 by TRISHA LOPEZ RN intermittent cough, small amount of yellow tinted sputum noted.
[2019-10-18] MEDS: LEVOTHYROXINE 75 MCG TABLET PO SCH (05:10)
[2019-10-18 05:28] VITALS: BP 103/68
[2019-10-18] MEDS: FOLIC ACID 1 MG TABLET PO SCH (08:44)
[2019-10-18] MEDS: RIVAROXABAN 10 MG TABLET. PO SCH (08:44)
[2019-10-18] MEDS: FUROSEMIDE 20 MG TABLET PO SCH (08:44)
[2019-10-18] MEDS: DULoxetine HCL 30 MG CAPSULE.DR PO SCH (08:44)
[2019-10-18] MEDS: MULTIVITAMIN with MINERAL TABLET. PO SCH (08:44)
[2019-10-18] MEDS: CHOLECALCIFEROL (VITAMIN D3) 1,000 UNIT TABLET PO SCH (08:44)
[2019-10-18] MEDS: DOCUSATE SODIUM 100 MG CAPSULE PO SCH (08:48)
[2019-10-18] MEDS: POLYETHYLENE GLYCOL 3350 17 GM PACKET. PO SCH (08:48)
[2019-10-18] MEDS: HYDROcodone/APAP 5/325MG 1 TAB TABLET PO PRN ×2 (11:43→20:27)
[2019-10-18] MEDS: DRONABINOL 2.5 MG CAPSULE PO SCH ×2 (11:43→17:40)
--- NOTE | 2019-10-18 14:38 | NUR ---
Swing Bed Nursing Note: Nursing Problem: PT/OT post admission to [facility] for DVT L Leg, Hypothyroidism Cognitive/Behavioral:A&O x4, forgetfulness. Pt needs encouragement to be active in ADLs and mobility. Pain: Patient c/o pain to left knee this afternoon, PRN Lortab given with adequate relief noted. Respiratory Status: RA, LCTA. Pt has intermittent cough, no sputum noted this shift. Skin: Intact, 2+ edema and redness to left leg. Dry, flaky scalp Bowel/Bladder Continence: Urge incontinence at times B&B, wears brief. LBM 10/17/19 ADL: Patient is x1 assist for toileting, bed mobility, transfers, and ambulation. Patient may use w/c to ambulate as well, able to wheel self. X1 assist needed for bathing, dressing, and grooming. Eats independently after set-up help, but has poor appetite.
[2019-10-18 17:34] VITALS: BP 106/71
--- NOTE | 2019-10-18 21:21 | NUR ---
[place] Bed Nursing Note: Nursing Problem: PT/OT post admission to [facility] for DVT L Leg, Hypothyroidism Cognitive/Behavioral:A&O x4, forgetfulness. Pt needs encouragement to be active in ADLs and mobility. Pain: Report 8/10 pain to left leg. PRN Lortab given as ordered @ HS Respiratory Status: RA, CTA, Intermittent cough noted. Skin: Intact, 2+ edema and redness to left leg, tender to the touch. Bowel/Bladder Continence: Urge incontinence at times B&B, wears brief. LBM 10/17/19 ADL: Patient is x1-2 assist for toileting, bed mobility, transfers, and ambulation. Pt needed x1 assist in the shower this evening and for getting dressed. Patient may use w/c to ambulate as well, able to wheel self.
[2019-10-19] MEDS: LEVOTHYROXINE 75 MCG TABLET PO SCH (04:55)
[2019-10-19 05:10] VITALS: BP 113/70
[2019-10-19] MEDS: DOCUSATE SODIUM 100 MG CAPSULE PO SCH (08:41)
[2019-10-19] MEDS: MULTIVITAMIN with MINERAL TABLET. PO SCH (08:41)
[2019-10-19] MEDS: RIVAROXABAN 10 MG TABLET. PO SCH (08:41)
[2019-10-19] MEDS: FOLIC ACID 1 MG TABLET PO SCH (08:41)
[2019-10-19] MEDS: FUROSEMIDE 20 MG TABLET PO SCH (08:41)
[2019-10-19] MEDS: CHOLECALCIFEROL (VITAMIN D3) 1,000 UNIT TABLET PO SCH (08:41)
[2019-10-19] MEDS: DULoxetine HCL 30 MG CAPSULE.DR PO SCH (08:41)
[2019-10-19] MEDS: POLYETHYLENE GLYCOL 3350 17 GM PACKET. PO SCH (08:42)
[2019-10-19] MEDS: HYDROcodone/APAP 5/325MG 1 TAB TABLET PO PRN ×2 (10:14→21:04)
[2019-10-19] MEDS: DRONABINOL 2.5 MG CAPSULE PO SCH ×2 (11:52→17:11)
--- NOTE | 2019-10-19 14:39 | NUR ---
Swing Bed Nursing Note: Nursing Problem: PT/OT post admission to [facility] for DVT L Leg, Hypothyroidism Cognitive/Behavioral:A&O x4, forgetfulness. Pt needs encouragement to be active in ADLs and mobility. Pain: Patient c/o pain to left knee this AM, PRN Lortab given with noted relief. Respiratory Status: RA, LCTA. No cough noted. No SOA. Skin: Intact, 1+ edema and redness to left leg. Dry, flaky scalp. Thigh high WILLIAM hose applied to left leg. Bowel/Bladder Continence: Urge incontinence at times B&B, wears brief. LBM 10/19/19 ADL: Patient is x1 assist for toileting, bed mobility, transfers, and ambulation. Patient may use w/c to ambulate as well, able to wheel self. X1 assist needed for bathing, dressing, and grooming. Eats independently after set-up help.
[2019-10-19 18:54] VITALS: BP 100/66
--- NOTE | 2019-10-19 21:20 | PDOC ---
Exam Note: Henry Note: Please also refer to the separate dictated note~for this date of service dictated separately.~Patient seen individually. Discussed the patient with Nursing staff reviewed the chart.~Reviewed interim history and current functioning. Reviewed vital signs,~Labs/ Radiology~and current medications noted below. Continue current treatment with the changes noted in the dictated addendum note Assessment: Vital Signs/I&O: Vital Signs Date Time Temp Pulse Resp B/P (MAP) Pulse Ox O2 Delivery O2 Flow Rate FiO2 10/19/19 21:04 18 96 Room Air 10/19/19 18:54 98.1 80 100/66 (77) I & O 10/18/19 10/18/19 10/19/19 15:00 23:00 07:00 Intake Total 120 ml 60 ml 250 ml Balance 120 ml 60 ml 250 ml Current Medications: I have reviewed the current psychotropics carefully including drug interactions. Risk benefit ratio favors no change other than as noted in my dictated progress note. Diagnosis: Problems: (1) Anxiety disorder (2) Depression (3) Major depressive disorder, recurrent episode BUSTER DELVALLE MD Oct 19, 2019 21:20
--- NOTE | 2019-10-19 21:53 | PN ---
DATE: 10/17/2019 PSYCHIATRIC PROGRESS NOTE This late entry 10/17/2019 covers elements not covered in my initial note. SUBJECTIVE: I met with the patient in the evening. Overall, per nursing staff, the patient has been doing reasonably well. She still gets a little depressed at times, but is participating more in her physical therapy. REVIEW OF SYSTEMS: Positive for some tiredness. No CV, , pulmonary, eye system symptoms on review. MENTAL STATUS EXAMINATION: The patient is reasonably oriented. Speech has some latency, coherent. Abstraction fair, computation impaired, language function intact, attention span short. Mood and affect is improved, still somewhat dysphoric, but generally better. LABORATORY DATA: Reviewed. IMPRESSION: Major depressive disorder in partial remission. Rest unchanged. PLAN: No change from initial note. MAN Jai DELVALLE MD DR: DIANN/dayan JOB#: [id number] / [id number]
--- NOTE | 2019-10-19 21:58 | PN ---
DATE: 10/19/2019 PSYCHIATRIC PROGRESS NOTE This note covers the elements not covered in my initial note of 10/19/2019. SUBJECTIVE: Overall, per nursing report, the patient is doing well, though nursing staff found her watching porn on her computer and at one time, she was tearful. Nevertheless, she has been quite appropriate. No psychotic symptoms, suicidal or homicidal ideation. REVIEW OF SYSTEMS: Ambulation impaired. No CV, , pulmonary, eye system symptoms on review. She has been participating more with the activity therapy. LABORATORY DATA: Reviewed. IMPRESSION: Unchanged from initial note. PLAN: No change from initial note. MAN Jai DELVALLE MD DR: DIANN/dayan JOB#: [id number] / [id number]
--- NOTE | 2019-10-20 00:27 | NUR ---
swing Bed Nursing Note: Nursing Problem: PT/OT post admission to [facility] for DVT L Leg, Hypothyroidism Cognitive/Behavioral:A&O x4, forgetfulness. Pt needs encouragement to be active in ADLs and mobility. Pain: Report 7/10 pain to left leg. PRN Lortab given as ordered @ HS Respiratory Status: RA, CTA Skin: Intact, 2+ edema and redness to left leg, tender to the touch. Bowel/Bladder Continence: Urge incontinence at times B&B, wears brief. LBM 10/19/19 ADL: Patient is x1-2 assist for toileting, bed mobility, transfers, and ambulation. . Patient may use w/c to ambulate as well, able to wheel self.
[2019-10-20] MEDS: LEVOTHYROXINE 75 MCG TABLET PO SCH (06:00)
[2019-10-20 08:00] VITALS: BP 96/63
[2019-10-20] MEDS: RIVAROXABAN 10 MG TABLET. PO SCH (09:00)
[2019-10-20] MEDS: FUROSEMIDE 20 MG TABLET PO SCH (09:00)
[2019-10-20] MEDS: DULoxetine HCL 30 MG CAPSULE.DR PO SCH (09:00)
[2019-10-20] MEDS: DOCUSATE SODIUM 100 MG CAPSULE PO SCH (09:00)
[2019-10-20] MEDS: CHOLECALCIFEROL (VITAMIN D3) 1,000 UNIT TABLET PO SCH (09:00)
[2019-10-20] MEDS: POLYETHYLENE GLYCOL 3350 17 GM PACKET. PO SCH (09:00)
[2019-10-20] MEDS: FOLIC ACID 1 MG TABLET PO SCH (09:00)
[2019-10-20] MEDS: MULTIVITAMIN with MINERAL TABLET. PO SCH (09:00)
[2019-10-20] MEDS: DRONABINOL 2.5 MG CAPSULE PO SCH ×2 (11:30→16:30)
--- NOTE | 2019-10-20 16:55 | NUR ---
Swing Bed Nursing Note: Nursing Problem: PT/OT post admission to [facility] for DVT L Leg, Hypothyroidism Cognitive/Behavioral:A&O x4, forgetfulness. Pt needs encouragement to be active in ADLs and mobility. Pain: Patient c/o pain to left knee this AM, PRN Lortab given with noted relief. Respiratory Status: RA, LCTA. No cough noted. No SOA. Skin: Intact, 1+ edema and redness to left leg. Dry, flaky scalp. Thigh high WILLIAM hose applied to left leg. Bowel/Bladder Continence: Urge incontinence at times B&B, wears brief. LBM 10/19/19 ADL: Patient is x1 assist for toileting, bed mobility, transfers, and ambulation. Patient may use w/c to ambulate as well, able to wheel self. X1 assist needed for bathing, dressing, and grooming. Eats independently after set-up help.
[2019-10-20 19:35] VITALS: BP 115/74
[2019-10-20] MEDS: diphenhydrAMINE HCL 25 MG CAPSULE PO PRN (21:08)
[2019-10-20] MEDS: HYDROcodone/APAP 5/325MG 1 TAB TABLET PO PRN (21:09)
[2019-10-21] MEDS: HYDROcodone/APAP 5/325MG 1 TAB TABLET PO PRN ×2 (03:42→20:25)
[2019-10-21 05:28] VITALS: BP 104/69
[2019-10-21] MEDS: LEVOTHYROXINE 75 MCG TABLET PO SCH (06:00)
[2019-10-21] MEDS: DULoxetine HCL 30 MG CAPSULE.DR PO SCH (08:19)
[2019-10-21] MEDS: CHOLECALCIFEROL (VITAMIN D3) 1,000 UNIT TABLET PO SCH (08:19)
[2019-10-21] MEDS: MULTIVITAMIN with MINERAL TABLET. PO SCH (08:19)
[2019-10-21] MEDS: FOLIC ACID 1 MG TABLET PO SCH (08:20)
[2019-10-21] MEDS: FUROSEMIDE 20 MG TABLET PO SCH (08:20)
[2019-10-21] MEDS: POLYETHYLENE GLYCOL 3350 17 GM PACKET. PO SCH (08:20)
[2019-10-21] MEDS: DOCUSATE SODIUM 100 MG CAPSULE PO SCH (08:20)
[2019-10-21] MEDS: RIVAROXABAN 10 MG TABLET. PO SCH (08:20)
[2019-10-21] MEDS: DRONABINOL 2.5 MG CAPSULE PO SCH ×2 (12:02→16:24)
--- NOTE | 2019-10-21 15:43 | NUR ---
Swing Bed Nursing Note: Nursing Problem: PT/OT post admission to [facility] for DVT L Leg, Hypothyroidism Cognitive/Behavioral: A&O x4, forgetfulness. Pt needs encouragement to be active in ADLs and mobility. Pain: Patient c/o pain to left knee this AM Respiratory Status: RA, LCTA. intermittent, nonproductive cough noted. No SOA. Skin: Intact, 1+ edema and redness to left leg. Dry, flaky scalp. Thigh high WILLIAM hose applied to left leg. Bowel/Bladder Continence: Urge incontinence at times B&B, wears brief. LBM 10/19/19 ADL: Patient is x1 assist for toileting, bed mobility, transfers, and ambulation. Patient may use w/c to ambulate as well, able to wheel self. X1 assist needed for bathing, dressing, and grooming. Eats independently after set-up help.
[2019-10-21 17:55] VITALS: BP 102/66
[2019-10-21] MEDS: diphenhydrAMINE HCL 25 MG CAPSULE PO PRN (20:25)
[2019-10-22] MEDS: LEVOTHYROXINE 75 MCG TABLET PO SCH (05:53)
[2019-10-22 06:19] VITALS: BP 108/70
[2019-10-22] MEDS: FOLIC ACID 1 MG TABLET PO SCH (08:44)
[2019-10-22] MEDS: CHOLECALCIFEROL (VITAMIN D3) 1,000 UNIT TABLET PO SCH (08:45)
[2019-10-22] MEDS: DULoxetine HCL 30 MG CAPSULE.DR PO SCH (08:46)
[2019-10-22] MEDS: MULTIVITAMIN with MINERAL TABLET. PO SCH (08:46)
[2019-10-22] MEDS: RIVAROXABAN 10 MG TABLET. PO SCH (08:46)
[2019-10-22] MEDS: FUROSEMIDE 20 MG TABLET PO SCH (08:46)
[2019-10-22] MEDS: DOCUSATE SODIUM 100 MG CAPSULE PO SCH (08:46)
[2019-10-22] MEDS: POLYETHYLENE GLYCOL 3350 17 GM PACKET. PO SCH (08:47)
[2019-10-22] MEDS: DRONABINOL 2.5 MG CAPSULE PO SCH ×2 (11:12→16:02)
--- NOTE | 2019-10-22 13:52 | NUR ---
S[facility] Bed Nursing Note: Nursing Problem: PT/OT post admission to [facility] for DVT L Leg, Hypothyroidism Cognitive/Behavioral: A&O x4, forgetfulness. Pt needs encouragement to be active in ADLs and mobility. Pain: Patient c/o pain to left knee this AM Respiratory Status: RA, LCTA. intermittent, nonproductive cough noted. No SOA. Skin: Intact, 1+ edema and redness to left leg. Dry, flaky scalp. Thigh high WILLIAM hose applied to left leg. Bowel/Bladder Continence: Urge incontinence at times B&B, wears brief. LBM 10/19/19 ADL: Patient is x1 assist for toileting, bed mobility, transfers, and ambulation. Patient may use w/c to ambulate as well, able to wheel self. X1 assist needed for bathing, dressing, and grooming. Eats independently after set-up help.
[2019-10-22 18:24] VITALS: BP 92/57
--- NOTE | 2019-10-22 18:34 | PN ---
DATE: 10/19/2019 This late entry 10/19/2019 covers elements not covered in my initial note. SUBJECTIVE: I met with the patient evening of 10/19/2019. Per nursing report, the patient has been less depressed, more active in her physical therapy. REVIEW OF SYSTEMS: Positive for some tiredness. No CV, , pulmonary, eye system symptoms on review. MENTAL STATUS EXAM: Reasonably oriented. Speech has some latency, coherent. Abstraction fair, computation impaired, language function intact, attention span fair. Mood and affect less dysphoric. No suicidal ideation. LABORATORY DATA: Reviewed. IMPRESSION: Unchanged from initial note. PLAN: No change from initial note. MAN Jai DELVALLE MD DR: DIANN/dayan JOB#: [id number] / [id number]
[2019-10-22] MEDS: diphenhydrAMINE HCL 25 MG CAPSULE PO PRN (20:24)
[2019-10-22] MEDS: HYDROcodone/APAP 5/325MG 1 TAB TABLET PO PRN ×2 (20:24→22:38)
--- NOTE | 2019-10-22 22:03 | PDOC ---
Exam Note: Henry Note: Please also refer to the separate dictated note~for this date of service dictated separately.~Patient seen individually. Discussed the patient with Nursing staff reviewed the chart.~Reviewed interim history and current functioning. Reviewed vital signs,~Labs/ Radiology~and current medications noted below. Continue current treatment with the changes noted in the dictated addendum note Assessment: Vital Signs/I&O: Vital Signs Date Time Temp Pulse Resp B/P (MAP) Pulse Ox O2 Delivery O2 Flow Rate FiO2 10/22/19 20:00 Room Air 10/22/19 18:24 98.5 96 92/57 (69) 91 10/22/19 06:19 18 I & O 10/21/19 10/21/19 10/22/19 15:00 23:00 07:00 Intake Total 200 ml 220 ml 200 ml Balance 200 ml 220 ml 200 ml Current Medications: I have reviewed the current psychotropics carefully including drug interactions. Risk benefit ratio favors no change other than as noted in my dictated progress note. Diagnosis: Problems: (1) Anxiety disorder (2) Depression (3) Major depressive disorder, recurrent episode BUSTER DELVALLE MD Oct 22, 2019 22:03
--- NOTE | 2019-10-23 04:15 | NUR ---
Swing Bed Note: Nursing Problem: PT/OT s/p DVT L Leg, Hypothyroidism Cognitive/Behavioral: Pt is A&O x4, intermittent forgetfulness, pt states she is depressed. Pt needs encouragement to be active in ADLs and mobility. Pain: Pt c/o pain in left ankle, oral medication effective in managing pain symptoms Respiratory Status: CTA, room air Skin: CDI, 1+ edema and redness to lower left leg. Dry, flaky scalp. Thigh high WILLIAM hose to left leg. Bowel/Bladder Continence: Intermittent bladder incontinence, mostly continent, wears brief. Last BM 10/20/19 ADL: Patient is x1 assist for toileting, bed mobility, transfers, and ambulation. Patient may use w/c to ambulate as well, able to wheel self. X1 assist needed for bathing, dressing, and grooming. Eats independently after set-up help.
[2019-10-23] MEDS: LEVOTHYROXINE 75 MCG TABLET PO SCH (05:42)
[2019-10-23 05:59] VITALS: BP 110/72
[2019-10-23] MEDS: POLYETHYLENE GLYCOL 3350 17 GM PACKET. PO SCH (08:23)
[2019-10-23] MEDS: CHOLECALCIFEROL (VITAMIN D3) 1,000 UNIT TABLET PO SCH (08:24)
[2019-10-23] MEDS: RIVAROXABAN 10 MG TABLET. PO SCH (08:24)
[2019-10-23] MEDS: FUROSEMIDE 20 MG TABLET PO SCH (08:25)
[2019-10-23] MEDS: DULoxetine HCL 30 MG CAPSULE.DR PO SCH (08:25)
[2019-10-23] MEDS: FOLIC ACID 1 MG TABLET PO SCH (08:25)
[2019-10-23] MEDS: MULTIVITAMIN with MINERAL TABLET. PO SCH (08:25)
[2019-10-23] MEDS: DOCUSATE SODIUM 100 MG CAPSULE PO SCH (08:25)
--- NOTE | 2019-10-23 11:21 | DS ---
DATE OF DISCHARGE: 10/23/2019 FINAL DISCHARGE DIAGNOSES: 1. Deep vein thrombosis, right leg, treated. 2. Major depression with anxiety. 3. Generalized debilitation. 4. Major depressive disorder, with recurrence. 5. History of suicidal ideation in the past. HISTORY OF PRESENT ILLNESS: This is a 64-year-old female with multiple medical issues as well as psychiatric issues. She was diagnosed at [facility] earlier this month with an acute deep vein thrombosis of the leg. She was admitted, put on anticoagulation. She came to the rehab unit for gait training and strengthening. Dr. Juárez has seen the patient and has managed her antidepressant medication. PHYSICAL EXAMINATION: Please see the dictated note. PERTINENT LABORATORY AND X-RAY STUDIES: Admission hemoglobin was 9.8 g/dL, normal white count. Electrolytes, BUN and creatinine within normal range. T4 is 1.08. COURSE IN THE HOSPITAL: The patient was admitted. She has tolerated rehabilitation well. Diet was advanced and she was seen on a daily basis by the inpatient psychiatry services. She still remained quite teary eyed. She was very cooperative. On the hospital day, arrangements were made for the patient to go to the [facility]. She will continue her home meds including Tylenol, Benadryl, Colace, Marinol, Cymbalta, folic acid, Lasix, Lortab, Proctosol, Synthroid, magnesium hydroxide, multivitamin, nystatin, MiraLax, Xarelto 20 mg daily and vitamin D3. Her prognosis is guarded. She was discharged from the rehab unit to go to the [facility] in stable condition with explicit instructions and followup care. JINA BERGERON MD DR: CLAUS/dayan JOB#: [id number] / [id number] ARELI Walters MD
[2019-10-23] MEDS: HYDROcodone/APAP 5/325MG 1 TAB TABLET PO PRN (11:24)
[2019-10-23] MEDS: DRONABINOL 2.5 MG CAPSULE PO SCH (11:24)
--- NOTE | 2019-10-23 13:55 | NUR ---
Nursing Notes: Patient discharged to [facility]. Patient educated on discharge location and plan, gave verbal understanding. Discharge instructions went over with patient as well. All patient belongings sent with patient. Daughter and Son-in-law aware of change in patient location and agrees with plan of treatment. No concerns at this time.
[2019-10-23] MEDS ORDERED: DULO30CA2 PO (15:27)
[2019-10-23] MEDS ORDERED: DRON10CA5 PO (15:27)
[2019-10-23] MEDS ORDERED: ACET325T21 PO (15:27)
[2019-10-23] MEDS ORDERED: MAGN24003 PO (15:27)
[2019-10-23] MEDS ORDERED: MINE454C9 TP (15:27)
[2019-10-23] MEDS ORDERED: NYST1000 PO (15:27)
[2019-10-23] MEDS ORDERED: DIPH25CA58 PO (15:27)
[2019-10-23] MEDS ORDERED: MULT-237 PO (15:27)
[2019-10-23] MEDS ORDERED: POLY2500 PO (15:27)
[2019-10-23] MEDS ORDERED: CITA20TA6 PO (15:30)
--- NOTE | 2019-10-24 16:26 | PN ---
DATE: 10/22/2019 PSYCHIATRIC PROGRESS NOTE This late entry 10/22/2019 covers elements not covered in my initial note. SUBJECTIVE: I met with the patient evening of 10/22/2019. Overall, per nursing report, the patient has been a little more depressed, apprehensive as she nears discharge. She has voiced suicidal ideation and we will have to screen her for transition to [facility]. REVIEW OF SYSTEMS: Ambulation impaired. No CV, , pulmonary, eye system symptoms on review. MENTAL STATUS EXAM: Reasonably oriented. Speech is coherent, abstraction fair, computation impaired, language function intact, attention span short. Mood and affect still depressed, anxious. LABORATORY DATA: Reviewed. IMPRESSION: Unchanged from initial note. PLAN: No change from initial note. MAN Jai DELVALLE MD DR: DIANN/dayan JOB#: [id number] / [id number]
== END 2019-10-23 13:57 | DRG 300 ==
LOC: LND 18:14
PROVIDERS: ADMIT Internal Medicine; ATTEND Internal Medicine
DX: I82.412 Acute embolism and thrombosis of left femoral vein (principal); F33.9 Major depressive disorder, recurrent, unspecified; I87.009 Postthrombotic syndrome without complications of unspecified extremity; E03.9 Hypothyroidism, unspecified; F41.8 Other specified anxiety disorders; D64.9 Anemia, unspecified; Z79.01 Long term (current) use of anticoagulants; Z86.718 Personal history of other venous thrombosis and embolism; Z87.891 Personal history of nicotine dependence
CPT/HCPCS: 36415; 80053; 84436; 84439; 84443; 84480; 85025; 93971; Q0163; Q0167; 97110; 97112; 97116; 97530; 97535

== ENCOUNTER 2019-10-23 14:48 | Inpatient (IN) | payer MEDICARE, OTHER ==
[~2019-10-23] VITALS: Ht 154.9 cm; Wt 67.6 kg
[~2019-10-23 14:48] MED LIST: CHOL500062 PO; CITA20TA6 PO; DOCU-109 PO; FOLI20CA PO; FURO20TA3 PO; HYDR-2155 PO; HYDR30CR61 PR; LEVO75TA5 PO; MULT-246 PO; RIVA20TA2 PO; VIT1CAPS20 PO
[2019-10-23] MEDS ORDERED: MAG HYDROX/AL HYDROX/SIMETH 30 ML ORAL.SUSP PO PRN (15:00)
[2019-10-23] MEDS ORDERED: ACETAMINOPHEN 325 MG TABLET PO PRN (15:00)
[2019-10-23] MEDS ORDERED: MAGNESIUM HYDROXIDE 2,400 MG/30 ML ORAL.SUSP. PO PRN ×2 (15:00→16:00)
[2019-10-23] MEDS ORDERED: METHYL SALICYLATE/MENTHOL TOPICAL OINTMENT 57GM TUBE. TP PRN (15:00)
[2019-10-23 15:04] VITALS: BP 100/67
[2019-10-23] MEDS ORDERED: NYSTATIN 100,000 UNITS/ML ORAL SUSPENSION 60ML BOTTLE. PO PRN (15:15)
[2019-10-23] MEDS ORDERED: NON FORMULARY ITEM (Magnesium Hydroxide (Milk Of Magnesia) 2,400 MG) PO PRN (15:15)
[2019-10-23] MEDS ORDERED: ACETAMINOPHEN 325 MG TABLET PO SCH (15:15)
[2019-10-23] MEDS ORDERED: HYDROCORTISONE 2.5% RECTAL CREAM 30GM TUBE. RC PRN (15:15)
[2019-10-23] MEDS ORDERED: MINERAL OIL/PETROLATUM TOPICAL CREAM 113GM JAR. TP PRN (15:15)
[2019-10-23] MEDS ORDERED: MULT-237 PO (15:27)
[2019-10-23] MEDS ORDERED: DRON10CA5 PO (15:27)
[2019-10-23] MEDS ORDERED: MAGN24003 PO (15:27)
[2019-10-23] MEDS ORDERED: DIPH25CA58 PO (15:27)
[2019-10-23] MEDS ORDERED: NYST1000 PO (15:27)
[2019-10-23] MEDS ORDERED: POLY2500 PO (15:27)
[2019-10-23] MEDS ORDERED: ACET325T21 PO (15:27)
[2019-10-23] MEDS ORDERED: MINE454C9 TP (15:27)
[2019-10-23] MEDS ORDERED: DULO30CA2 PO (15:27)
[2019-10-23] MEDS ORDERED: CITA20TA6 PO (15:30)
[2019-10-23 15:47] LABS: BASO # 0.1 x10^3/uL (0.0-0.2); BASO % 1 % (0-3); EOS # 0.9 x10^3/uL (0.0-0.7); EOS % 14 % (0-3); HEMOGLOBIN 11.1 g/dL (12.0-15.5); LYMPH # 2.3 x10^3/uL (1.0-4.8); LYMPH % 36 % (24-48); MEAN CORPUSCULAR HEMOGLOBIN 31 pg (25-35); MEAN CORPUSCULAR HGB CONC 33 g/dL (31-37); MEAN CORPUSCULAR VOLUME 96 fL (79-100); MONO # 0.4 x10^3/uL (0.0-1.1); MONO % 6 % (0-9); NEUT # 2.7 x10^3uL (1.8-7.7); NEUT % 42 % (31-73); PLATELET COUNT 352 x10^3/uL (140-400); RED BLOOD COUNT 3.56 x10^6/uL (3.50-5.40); RED CELL DISTRIBUTION WIDTH 14.3 % (11.5-14.5); WHITE BLOOD COUNT 6.5 x10^3/uL (4.0-11.0)
[2019-10-23 15:56] LABS: ALBUMIN 3.1 g/dL (3.4-5.0); ALBUMIN/GLOBULIN RATIO 0.8 (1.0-1.7); CALCIUM 9.3 mg/dL (8.5-10.1); CREATININE 0.9 mg/dL (0.6-1.0); GFR 62.6; MAGNESIUM 1.9 mg/dL (1.8-2.4); POTASSIUM 3.7 mmol/L (3.5-5.1); TOTAL BILIRUBIN 0.2 mg/dL (0.2-1.0); TOTAL PROTEIN 6.8 g/dL (6.4-8.2)
[2019-10-23] MEDS ORDERED: DRONABINOL 2.5 MG PO SCH (16:30)
[2019-10-23] MEDS: DRONABINOL 2.5 MG CAPSULE PO SCH (16:30)
[2019-10-23] MEDS: HYDROcodone/APAP 5/325MG 1 TAB TABLET PO PRN (18:23)
--- NOTE | 2019-10-23 21:44 | PDOC ---
Exam Note: Henry Note: Please also refer to the separate dictated note~for this date of service dictated separately. Discussed the patient with Nursing staff reviewed the chart.~Reviewed interim history and current functioning. Reviewed vital signs,~Labs/ Radiology~and current medications noted below. Continue current treatment with the changes noted in the dictated addendum note Assessment: Vital Signs/I&O: Vital Signs Date Time Temp Pulse Resp B/P (MAP) Pulse Ox O2 Delivery O2 Flow Rate FiO2 10/23/19 19:23 95 10/23/19 15:04 97.9 71 18 100/67 (78) Labs: Laboratory Tests Test 10/23/19 15:33 White Blood Count 6.5 x10^3/uL (4.0-11.0) Red Blood Count 3.56 x10^6/uL (3.50-5.40) Hemoglobin 11.1 g/dL (12.0-15.5) L Hematocrit 34.0 % (36.0-47.0) L Mean Corpuscular Volume 96 fL (79-100) Mean Corpuscular Hemoglobin 31 pg (25-35) Mean Corpuscular Hemoglobin Concent 33 g/dL (31-37) Red Cell Distribution Width 14.3 % (11.5-14.5) Platelet Count 352 x10^3/uL (140-400) Neutrophils (%) (Auto) 42 % (31-73) Lymphocytes (%) (Auto) 36 % (24-48) Monocytes (%) (Auto) 6 % (0-9) Eosinophils (%) (Auto) 14 % (0-3) H Basophils (%) (Auto) 1 % (0-3) Neutrophils # (Auto) 2.7 x10^3uL (1.8-7.7) Lymphocytes # (Auto) 2.3 x10^3/uL (1.0-4.8) Monocytes # (Auto) 0.4 x10^3/uL (0.0-1.1) Eosinophils # (Auto) 0.9 x10^3/uL (0.0-0.7) H Basophils # (Auto) 0.1 x10^3/uL (0.0-0.2) Sodium Level 139 mmol/L (136-145) Potassium Level 3.7 mmol/L (3.5-5.1) Chloride Level 103 mmol/L (98-107) Carbon Dioxide Level 30 mmol/L (21-32) Anion Gap 6 (6-14) Blood Urea Nitrogen 13 mg/dL (7-20) Creatinine 0.9 mg/dL (0.6-1.0) Estimated GFR (Cockcroft-Gault) 62.6 BUN/Creatinine Ratio 14 (6-20) Glucose Level 101 mg/dL (70-99) H Calcium Level 9.3 mg/dL (8.5-10.1) Magnesium Level 1.9 mg/dL (1.8-2.4) Total Bilirubin 0.2 mg/dL (0.2-1.0) Aspartate Amino Transferase (AST) 20 U/L (15-37) Alanine Aminotransferase (ALT) 16 U/L (14-59) Alkaline Phosphatase 67 U/L (46-116) Total Protein 6.8 g/dL (6.4-8.2) Albumin 3.1 g/dL (3.4-5.0) L Albumin/Globulin Ratio 0.8 (1.0-1.7) L Current Medications: Meds: Current Medications Medications (Trade) Dose Ordered Sig/Imani Route PRN Reason Start Time Stop Time Status Last Admin Dose Admin Acetaminophen/ Hydrocodone Bitart (Lortab 5/325) 1 tab PRN Q6HRS PRN PO PAIN 10/23/19 15:15 10/23/19 18:23 I have reviewed the current psychotropics carefully including drug interactions. Risk benefit ratio favors no change other than as noted in my dictated progress note. Diagnosis: Problems: (1) Anxiety disorder (2) Depression (3) Major depressive disorder, recurrent episode (4) DVT (deep venous thrombosis) BUSTER DELVALLE MD Oct 23, 2019 21:44
[2019-10-24] MEDS: HYDROcodone/APAP 5/325MG 1 TAB TABLET PO PRN ×3 (01:20→23:11)
[2019-10-24 05:50] VITALS: BP 94/58
[2019-10-24 06:07] LABS: THYROXINE 7.9 ug/dL (4.5-12.0)
[2019-10-24 07:08] LABS: HEMOGLOBIN A1C 5.1 % (4.8-5.6)
[2019-10-24] MEDS: CHOLECALCIFEROL (VITAMIN D3) 1,000 UNIT TABLET PO SCH (08:50)
[2019-10-24] MEDS: MULTIVITAMIN with MINERAL TABLET. PO SCH (08:50)
[2019-10-24] MEDS: VITAMIN B COMPLEX CAPSULE. PO SCH (08:50)
[2019-10-24] MEDS: LEVOTHYROXINE 75 MCG TABLET PO SCH (08:50)
[2019-10-24] MEDS: FUROSEMIDE 20 MG TABLET PO SCH (08:51)
[2019-10-24] MEDS: POLYETHYLENE GLYCOL 3350 17 GM PACKET. PO SCH (08:51)
[2019-10-24] MEDS: RIVAROXABAN 10 MG TABLET. PO SCH (08:51)
[2019-10-24] MEDS: FOLIC ACID 1 MG TABLET PO SCH (08:51)
[2019-10-24] MEDS: DOCUSATE SODIUM 100 MG CAPSULE PO SCH (08:51)
[2019-10-24] MEDS ORDERED: CITALOPRAM 20 MG TABLET. PO SCH (09:00)
[2019-10-24] MEDS ORDERED: NON FORMULARY ITEM (Cholecalciferol (Vitamin D3) (Vitamin D3) 1 TAB) PO SCH (09:00)
[2019-10-24] MEDS ORDERED: VIT B12 PO SCH (09:00)
[2019-10-24] MEDS ORDERED: RIVAROXABAN PO SCH (09:00)
[2019-10-24] MEDS ORDERED: MULTIVITAMIN WITH MINERALS PO SCH (09:00)
[2019-10-24] MEDS ORDERED: DULoxetine HCL 30 MG CAPSULE.DR PO SCH (09:00)
[2019-10-24] MEDS ORDERED: [UNRECOGNIZED DRUG - OTHER] PO SCH (09:00)
[2019-10-24] MEDS ORDERED: PYRIDOXINE HCL PO SCH (09:00)
[2019-10-24] MEDS ORDERED: FOLIC ACID 20 MG PO SCH (09:00)
[2019-10-24] MEDS ORDERED: MULTIVITAMIN PO SCH (09:00)
[2019-10-24] MEDS ORDERED: NON FORMULARY ITEM (Polyethylene Glycol 3350 17 GM) PO SCH (09:00)
[2019-10-24] MEDS: DRONABINOL 2.5 MG CAPSULE PO SCH ×2 (12:30→17:31)
--- NOTE | 2019-10-24 14:00 | HP ---
ADMIT DATE: 10/23/2019 PSYCHIATRIC ADMISSION-EVALUATION This late entry 10/23/2019 covers elements not covered in my initial note. I met with the patient evening of 10/23/2019. IDENTIFYING DATA: The patient is a 64-year-old female referred to us from jail unit at [facility] for a psychiatric stabilization for her major depressive disorder after the patient voiced suicidal ideation if she were discharged home from the jail unit. She has been depressed, hopeless, helpless, worthless and was initially admitted for medical stabilization and then skilled care on account of being managed poorly at home from a medical standpoint, not receiving her prescribed medications, having marked hypothyroidism, all of which worsened her depression and suicidal ideation. I did follow her in consultation in the jail unit and she was doing a little better antidepressant with change to Cymbalta, but at discharge she voiced suicidal ideation, was deemed potential danger to herself. Family was concerned about this then she is transferred to us. CHIEF COMPLAINT: "Yes, I have been depressed." HISTORY OF PRESENT ILLNESS: The patient has a long history of major depressive disorder with sleep and appetite changes, feeling helpless, hopeless and worthless. She has attempted suicide reportedly in the past according to the family with a gun. No clear history of bipolar disorder. Cognitively, she has been reasonably intact. PAST PSYCHIATRIC HISTORY: As above. MEDICAL HISTORY: Status post DVT left lower extremity, hypothyroidism, cellulitis, postphlebitic syndrome, history of hepatitis B, history of alcohol abuse in the past. ALLERGIES: Negative. ACCU-CHEKS: None; history of B12 deficiency. Ambulates with walker with assistance. She does need UA. CURRENT PSYCHOTROPICS: Cymbalta 30 mg a day, Celexa 20 mg a day and we will stop the Celexa. She gets WILLIAM hose placed in the morning. FAMILY HISTORY: Noncontributory. SOCIAL HISTORY: Past history of alcohol abuse. No physical, sexual or elder abuse history is noted. Not known to be a perpetrator. REACTION TO HOSPITALIZATION: The patient accepting of it. ASSETS: Supportive family, cognitively intact. REVIEW OF SYSTEMS: Ambulation impaired. No CV, , pulmonary, eye system symptoms on review. MENTAL STATUS EXAMINATION: The patient was seen individually evening of 10/23/2019. She is oriented to herself. Insight fair. Judgment intact to standard questioning. Mood is depressed, anxious, somewhat helpless. Denies active suicidal ideation, no homicidal ideation. Slightly paranoid. Mood is depressed. Affect is mood congruent. Attention span is fair. Language function intact. LABORATORY DATA: Reviewed. IMPRESSION: Major depressive disorder, recurrent; anxiety disorder, unspecified; mild cognitive impairment. Rest as above. PLAN: Admit to Geropsychiatry Unit at [facility]. I will see the patient daily individually from a psychiatric standpoint. Medical followup with Dr. Damon. Continue the patient on her current psychotropics. Consider augmentation with Abilify. We will stop the Celexa, maintain Cymbalta and increase it gradually. Rest will be determined post baseline assessment. BUSTER DELVALLE MD DR: DIANN/dayan JOB#: [id number] / [id number]
[2019-10-24 14:07] LABS: BILIRUBIN,URINE NEG (NEG); CLARITY,URINE HAZY; COLOR,URINE YELLOW; GLUCOSE,URINE NEG (NEG); NITRITE,URINE NEG (NEG); UROBILINOGEN,URINE 0.2 mg/dL (0.2 mg/dL)
[2019-10-24 14:08] LABS: BACTERIA,URINE 0 /HPF (0-FEW); RBC,URINE OCC /HPF (0-2); SQUAMOUS EPITHELIAL CELL,UR FEW /LPF
[2019-10-24] MEDS ORDERED: MAGNESIUM HYDROXIDE 2,400 MG/30 ML ORAL.SUSP. PO PRN (15:00)
[2019-10-24 16:37] VITALS: BP 106/66
[2019-10-24 17:54] LABS: HDLC 32 mg/dL (40-60); LDLC 96 mg/dL (0-100); TRIGLYCERIDES 225 mg/dL (0-150); VLDLC 45 mg/dL (0-40)
[2019-10-24 17:55] LABS: THYROID STIM HORMONE (TSH) < 0.007 uIU/mL (0.358-3.740)
--- NOTE | 2019-10-24 22:05 | PDOC ---
Exam Note: Henry Note: Please also refer to the separate dictated note~for this date of service dictated separately.~Patient seen individually. Discussed the patient with Nursing staff reviewed the chart.~Reviewed interim history and current functioning. Reviewed vital signs,~Labs/ Radiology~and current medications noted below. Continue current treatment with the changes noted in the dictated addendum note Assessment: Vital Signs/I&O: Vital Signs Date Time Temp Pulse Resp B/P (MAP) Pulse Ox O2 Delivery O2 Flow Rate FiO2 10/24/19 16:37 97.3 74 20 106/66 (79) 92 I & O 10/23/19 10/23/19 10/24/19 15:00 23:00 07:00 Intake Total 100 ml Balance 100 ml Labs: Laboratory Tests Test 10/24/19 12:00 Urine Collection Type Unknown Urine Color Yellow Urine Clarity Hazy Urine pH 5.5 Urine Specific [place] 1.025 Urine Protein Neg (NEG-TRACE) Urine Glucose (UA) Neg mg/dL (NEG) Urine Ketones (Stick) Neg mg/dL (NEG) Urine Blood Neg (NEG) Urine Nitrite Neg (NEG) Urine Bilirubin Neg (NEG) Urine Urobilinogen Dipstick 0.2 mg/dL (0.2 mg/dL) Urine Leukocyte Esterase Small (NEG) Urine RBC Occ /HPF (0-2) Urine WBC 5-10 /HPF (0-4) Urine Squamous Epithelial Cells Few /LPF Urine Bacteria 0 /HPF (0-FEW) Urine Mucus Mod /LPF Current Medications: Meds: Current Medications Medications (Trade) Dose Ordered Sig/Imani Route PRN Reason Start Time Stop Time Status Last Admin Dose Admin Citalopram Hydrobromide (CeleXA) 20 mg DAILY PO 10/24/19 09:00 10/24/19 16:49 DC 10/24/19 08:51 Docusate Sodium (Colace) 100 mg DAILY PO 10/24/19 09:00 10/24/19 08:51 Duloxetine HCl (Cymbalta) 30 mg DAILY PO 10/24/19 09:00 10/24/19 16:49 DC 10/24/19 08:51 Furosemide (Lasix) 20 mg DAILY PO 10/24/19 09:00 10/24/19 08:51 Levothyroxine Sodium (Synthroid) 75 mcg DAILY PO 10/24/19 09:00 10/24/19 08:50 Polyethylene Glycol (miraLAX) 17 gm DAILY PO 10/24/19 09:00 10/24/19 08:51 Vitamin D (Vitamin D3) 5,000 unit DAILY PO 10/24/19 09:00 10/24/19 08:50 Folic Acid (Folic Acid) 1 mg DAILY PO 10/24/19 09:00 10/24/19 08:51 Multivitamins/ Calcium (Thera-M Plus) 1 tab DAILY PO 10/24/19 09:00 10/24/19 08:50 Rivaroxaban (Xarelto) 20 mg DAILY PO 10/24/19 09:00 10/24/19 08:51 Vitamin B Complex 1 cap DAILY PO 10/24/19 09:00 10/24/19 08:50 I have reviewed the current psychotropics carefully including drug interactions. Risk benefit ratio favors no change other than as noted in my dictated progress note. Diagnosis: Problems: (1) Anxiety disorder (2) Depression (3) Major depressive disorder, recurrent episode (4) Mild cognitive impairment BUSTER DELVALLE MD Oct 24, 2019 22:05
[2019-10-25 05:52] VITALS: BP 104/68
[2019-10-25] MEDS: POLYETHYLENE GLYCOL 3350 17 GM PACKET. PO SCH (09:57)
[2019-10-25] MEDS: VITAMIN B COMPLEX CAPSULE. PO SCH (09:58)
[2019-10-25] MEDS: DOCUSATE SODIUM 100 MG CAPSULE PO SCH (09:58)
[2019-10-25] MEDS: LEVOTHYROXINE 75 MCG TABLET PO SCH (09:58)
[2019-10-25] MEDS: RIVAROXABAN 10 MG TABLET. PO SCH (09:58)
[2019-10-25] MEDS: CHOLECALCIFEROL (VITAMIN D3) 1,000 UNIT TABLET PO SCH (09:59)
[2019-10-25] MEDS: FUROSEMIDE 20 MG TABLET PO SCH (09:59)
[2019-10-25] MEDS: MULTIVITAMIN with MINERAL TABLET. PO SCH (09:59)
[2019-10-25] MEDS: FOLIC ACID 1 MG TABLET PO SCH (09:59)
[2019-10-25] MEDS: DULoxetine HCL 20 MG CAPSULE.DR PO SCH (10:00)
[2019-10-25] MEDS: DULoxetine HCL 30 MG CAPSULE.DR PO SCH (10:00)
[2019-10-25] MEDS: DRONABINOL 2.5 MG CAPSULE PO SCH ×2 (11:42→16:30)
--- NOTE | 2019-10-25 14:15 | EKG ---
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
[2019-10-25 16:01] VITALS: BP 113/72
[2019-10-25] MEDS: diphenhydrAMINE HCL 25 MG CAPSULE PO PRN (20:30)
[2019-10-25] MEDS: HYDROcodone/APAP 5/325MG 1 TAB TABLET PO PRN (20:31)
--- NOTE | 2019-10-25 23:03 | PDOC ---
Exam Note: Henry Note: Please also refer to the separate dictated note~for this date of service dictated separately.~Patient seen individually. Discussed the patient with Nursing staff reviewed the chart.~Reviewed interim history and current functioning. Reviewed vital signs,~Labs/ Radiology~and current medications noted below. Continue current treatment with the changes noted in the dictated addendum note Assessment: Vital Signs/I&O: Vital Signs Date Time Temp Pulse Resp B/P (MAP) Pulse Ox O2 Delivery O2 Flow Rate FiO2 10/25/19 20:31 94 10/25/19 16:01 97.2 86 18 113/72 (86) I & O 10/24/19 10/24/19 10/25/19 15:00 23:00 07:00 Intake Total 360 ml 700 ml Balance 360 ml 700 ml Current Medications: Meds: Current Medications Medications (Trade) Dose Ordered Sig/Imani Route PRN Reason Start Time Stop Time Status Last Admin Dose Admin Duloxetine HCl (Cymbalta) 30 mg DAILY PO 10/25/19 09:00 10/25/19 10:00 Duloxetine HCl (Cymbalta) 20 mg DAILY PO 10/25/19 09:00 10/25/19 10:00 I have reviewed the current psychotropics carefully including drug interactions. Risk benefit ratio favors no change other than as noted in my dictated progress note. Diagnosis: Problems: (1) Mild cognitive impairment (2) Anxiety disorder (3) Depression (4) Major depressive disorder, recurrent episode BUSTER DELVALLE MD Oct 25, 2019 23:03
[2019-10-26 06:25] VITALS: BP 101/62
[2019-10-26] MEDS: ARIPiprazole 5 MG TABLET PO SCH (08:35)
[2019-10-26] MEDS: POLYETHYLENE GLYCOL 3350 17 GM PACKET. PO SCH ×2 (08:35→08:40)
[2019-10-26] MEDS: DULoxetine HCL 20 MG CAPSULE.DR PO SCH (08:35)
[2019-10-26] MEDS: RIVAROXABAN 10 MG TABLET. PO SCH (08:36)
[2019-10-26] MEDS: FUROSEMIDE 20 MG TABLET PO SCH (08:36)
[2019-10-26] MEDS: FOLIC ACID 1 MG TABLET PO SCH (08:36)
[2019-10-26] MEDS: CHOLECALCIFEROL (VITAMIN D3) 1,000 UNIT TABLET PO SCH (08:36)
[2019-10-26] MEDS: VITAMIN B COMPLEX CAPSULE. PO SCH (08:36)
[2019-10-26] MEDS: DULoxetine HCL 30 MG CAPSULE.DR PO SCH (08:36)
[2019-10-26] MEDS: DOCUSATE SODIUM 100 MG CAPSULE PO SCH (08:37)
[2019-10-26] MEDS: MULTIVITAMIN with MINERAL TABLET. PO SCH (08:37)
[2019-10-26] MEDS: LEVOTHYROXINE 75 MCG TABLET PO SCH (08:37)
--- NOTE | 2019-10-26 10:26 | PN ---
DATE: 10/25/2019 PSYCHIATRIC PROGRESS NOTE This late entry 10/25/2019 covers elements not covered in my initial note. SUBJECTIVE: I met with the patient evening of 10/25/2019 and staffed at a treatment team meeting with the entire team in the morning. Per GIBRAN Dennison, the patient slept 8 hours previous night. Appetite 25% for breakfast where she has a flat affect. Denies suicidal ideation, complains of being dizzy. REVIEW OF SYSTEMS: Positive for impaired ambulation in wheelchair, met with her in her room in the evening. She does attend some groups and enjoys music groups. REVIEW OF SYSTEMS: Ambulation impaired with walker/wheelchair. No CV, , pulmonary, eye system symptoms on review. MENTAL STATUS EXAM: Oriented reasonably. Speech is coherent, low in volume. Abstraction fair, computation impaired, language function intact. Mood and affect still somewhat withdrawn, depressed. LABORATORY DATA: Reviewed. IMPRESSION: Major depressive disorder, recurrent; anxiety disorder, unspecified. PLAN: Continue Cymbalta 50 mg a day, augment this with Abilify 2.5 mg a day on a trial basis. Make further adjustments as clinically indicated. MAN Jai DELVALLE MD DR: DIANN/dayan JOB#: [id number] / [id number]
--- NOTE | 2019-10-26 10:26 | PN ---
DATE: 10/24/2019 PSYCHIATRIC PROGRESS NOTE This late entry 10/24/2019 covers elements not covered in my initial note. SUBJECTIVE: I met with the patient evening of 10/24/2019. Per GIBRAN Dennison, the patient has been somewhat obsessive, concerned that a family member . She slept 6-1/2 hours previous night. She denies suicidal ideation, still somewhat depressed, withdrawn. REVIEW OF SYSTEMS: Ambulation impaired with walker. No CV, , pulmonary, eye system symptoms on review. MENTAL STATUS EXAM: Oriented to herself and situation. Speech is coherent, has some latency. Abstraction fair, computation impaired, language function intact. Mood and affect withdrawn, still depressed, but improved. LABORATORY DATA: Reviewed. IMPRESSION: Major depressive disorder, recurrent, in partial remission. Rest unchanged. PLAN: Increase Cymbalta from 30 mg a day to 50 mg a day. Stop the Celexa 20 mg a day. May consider augmentation with Abilify if mood symptoms persist. MAN Jai DELVALLE MD DR: DIANN/dayan JOB#: [id number] / [id number]
[2019-10-26] MEDS: HYDROcodone/APAP 5/325MG 1 TAB TABLET PO PRN ×2 (10:29→21:48)
[2019-10-26] MEDS: DRONABINOL 2.5 MG CAPSULE PO SCH ×2 (11:54→16:36)
[2019-10-26 16:35] VITALS: BP 111/76
[2019-10-27] MEDS: LEVOTHYROXINE 75 MCG TABLET PO SCH (06:11)
[2019-10-27 06:52] VITALS: BP 109/71
[2019-10-27] MEDS: POLYETHYLENE GLYCOL 3350 17 GM PACKET. PO SCH (09:00)
[2019-10-27] MEDS: MULTIVITAMIN with MINERAL TABLET. PO SCH (09:18)
[2019-10-27] MEDS: RIVAROXABAN 10 MG TABLET. PO SCH (09:18)
[2019-10-27] MEDS: DULoxetine HCL 20 MG CAPSULE.DR PO SCH (09:18)
[2019-10-27] MEDS: DOCUSATE SODIUM 100 MG CAPSULE PO SCH (09:18)
[2019-10-27] MEDS: VITAMIN B COMPLEX CAPSULE. PO SCH (09:18)
[2019-10-27] MEDS: FOLIC ACID 1 MG TABLET PO SCH (09:18)
[2019-10-27] MEDS: DULoxetine HCL 30 MG CAPSULE.DR PO SCH (09:19)
[2019-10-27] MEDS: ARIPiprazole 5 MG TABLET PO SCH (09:19)
[2019-10-27] MEDS: FUROSEMIDE 20 MG TABLET PO SCH (09:19)
[2019-10-27] MEDS: CHOLECALCIFEROL (VITAMIN D3) 1,000 UNIT TABLET PO SCH (09:19)
[2019-10-27] MEDS: HYDROcodone/APAP 5/325MG 1 TAB TABLET PO PRN ×2 (12:00→20:04)
[2019-10-27] MEDS: DRONABINOL 2.5 MG CAPSULE PO SCH ×2 (12:00→16:30)
[2019-10-27 16:07] VITALS: BP 100/60
--- NOTE | 2019-10-27 22:42 | PDOC ---
Exam Note: Henry Note: Please also refer to the separate dictated note~for this date of service dictated separately. Discussed the patient with Nursing staff reviewed the chart.~Reviewed interim history and current functioning. Reviewed vital signs,~Labs/ Radiology~and current medications noted below. Continue current treatment with the changes noted in the dictated addendum note Assessment: Vital Signs/I&O: Vital Signs Date Time Temp Pulse Resp B/P (MAP) Pulse Ox O2 Delivery O2 Flow Rate FiO2 10/27/19 16:07 98.2 82 18 100/60 (73) 95 10/27/19 06:52 Room Air I & O 10/26/19 10/26/19 10/27/19 15:00 23:00 07:00 Intake Total 1180 ml 240 ml 100 ml Balance 1180 ml 240 ml 100 ml Current Medications: Meds: Current Medications Medications (Trade) Dose Ordered Sig/Imani Route PRN Reason Start Time Stop Time Status Last Admin Dose Admin Levothyroxine Sodium (Synthroid) 75 mcg 0600 PO 10/27/19 06:00 10/27/19 06:11 I have reviewed the current psychotropics carefully including drug interactions. Risk benefit ratio favors no change other than as noted in my dictated progress note. Diagnosis: Problems: (1) Mild cognitive impairment (2) Anxiety disorder (3) Depression (4) Major depressive disorder, recurrent episode (5) DVT (deep venous thrombosis) BUSTER DELVALLE MD Oct 27, 2019 22:42
[2019-10-28] MEDS: LEVOTHYROXINE 75 MCG TABLET PO SCH (05:16)
[2019-10-28 06:11] VITALS: BP 102/67
[2019-10-28] MEDS: RIVAROXABAN 10 MG TABLET. PO SCH (08:44)
[2019-10-28] MEDS: FUROSEMIDE 20 MG TABLET PO SCH (08:44)
[2019-10-28] MEDS: VITAMIN B COMPLEX CAPSULE. PO SCH (08:44)
[2019-10-28] MEDS: DOCUSATE SODIUM 100 MG CAPSULE PO SCH (08:44)
[2019-10-28] MEDS: DULoxetine HCL 20 MG CAPSULE.DR PO SCH (08:44)
[2019-10-28] MEDS: MULTIVITAMIN with MINERAL TABLET. PO SCH (08:45)
[2019-10-28] MEDS: DULoxetine HCL 30 MG CAPSULE.DR PO SCH (08:45)
[2019-10-28] MEDS: ARIPiprazole 5 MG TABLET PO SCH (08:45)
[2019-10-28] MEDS: FOLIC ACID 1 MG TABLET PO SCH (08:45)
[2019-10-28] MEDS: CHOLECALCIFEROL (VITAMIN D3) 1,000 UNIT TABLET PO SCH (08:46)
[2019-10-28] MEDS: POLYETHYLENE GLYCOL 3350 17 GM PACKET. PO SCH (08:46)
[2019-10-28] MEDS: HYDROcodone/APAP 5/325MG 1 TAB TABLET PO PRN ×2 (08:47→20:07)
[2019-10-28] MEDS: DRONABINOL 2.5 MG CAPSULE PO SCH ×2 (11:30→16:30)
[2019-10-28 16:32] VITALS: BP 118/72
--- NOTE | 2019-10-28 21:48 | PDOC ---
Exam Note: Henry Note: Please also refer to the separate dictated note~for this date of service dictated separately. Discussed the patient with Nursing staff reviewed the chart.~Reviewed interim history and current functioning. Reviewed vital signs,~Labs/ Radiology~and current medications noted below. Continue current treatment with the changes noted in the dictated addendum note Assessment: Vital Signs/I&O: Vital Signs Date Time Temp Pulse Resp B/P (MAP) Pulse Ox O2 Delivery O2 Flow Rate FiO2 10/28/19 16:32 98.4 87 20 118/72 (87) 96 Room Air I & O 10/27/19 10/27/19 10/28/19 15:00 23:00 07:00 Intake Total 120 ml 100 ml Balance 120 ml 100 ml Current Medications: I have reviewed the current psychotropics carefully including drug interactions. Risk benefit ratio favors no change other than as noted in my dictated progress note. Diagnosis: Problems: (1) Mild cognitive impairment (2) Anxiety disorder (3) Depression (4) Major depressive disorder, recurrent episode (5) DVT (deep venous thrombosis) BUSTER DELVALLE MD Oct 28, 2019 21:48
[2019-10-28] MEDS: diphenhydrAMINE HCL 25 MG CAPSULE PO PRN (23:24)
[2019-10-29] MEDS: HYDROcodone/APAP 5/325MG 1 TAB TABLET PO PRN ×3 (04:18→20:02)
[2019-10-29] MEDS: LEVOTHYROXINE 75 MCG TABLET PO SCH (05:16)
[2019-10-29 06:11] VITALS: BP 112/65
[2019-10-29] MEDS: POLYETHYLENE GLYCOL 3350 17 GM PACKET. PO SCH (09:00)
[2019-10-29] MEDS: MULTIVITAMIN with MINERAL TABLET. PO SCH (09:12)
[2019-10-29] MEDS: ARIPiprazole 5 MG TABLET PO SCH (09:12)
[2019-10-29] MEDS: DULoxetine HCL 30 MG CAPSULE.DR PO SCH (09:12)
[2019-10-29] MEDS: FOLIC ACID 1 MG TABLET PO SCH (09:12)
[2019-10-29] MEDS: VITAMIN B COMPLEX CAPSULE. PO SCH (09:12)
[2019-10-29] MEDS: DULoxetine HCL 20 MG CAPSULE.DR PO SCH (09:12)
[2019-10-29] MEDS: RIVAROXABAN 10 MG TABLET. PO SCH (09:12)
[2019-10-29] MEDS: CHOLECALCIFEROL (VITAMIN D3) 1,000 UNIT TABLET PO SCH (09:12)
[2019-10-29] MEDS: DOCUSATE SODIUM 100 MG CAPSULE PO SCH (09:12)
[2019-10-29] MEDS: FUROSEMIDE 20 MG TABLET PO SCH (09:13)
[2019-10-29] MEDS: DRONABINOL 2.5 MG CAPSULE PO SCH ×2 (11:27→17:04)
[2019-10-29 16:22] VITALS: BP 103/69
--- NOTE | 2019-10-29 21:53 | PDOC ---
Exam Note: Henry Note: Please also refer to the separate dictated note~for this date of service dictated separately. Discussed the patient with Nursing staff reviewed the chart.~Reviewed interim history and current functioning. Reviewed vital signs,~Labs/ Radiology~and current medications noted below. Continue current treatment with the changes noted in the dictated addendum note Assessment: Vital Signs/I&O: Vital Signs Date Time Temp Pulse Resp B/P (MAP) Pulse Ox O2 Delivery O2 Flow Rate FiO2 10/29/19 20:02 Room Air 10/29/19 16:22 98.0 84 18 103/69 (80) 98 I & O 10/28/19 10/28/19 10/29/19 15:00 23:00 07:00 Intake Total 480 ml 480 ml Balance 480 ml 480 ml Current Medications: I have reviewed the current psychotropics carefully including drug interactions. Risk benefit ratio favors no change other than as noted in my dictated progress note. Diagnosis: Problems: (1) Mild cognitive impairment (2) Anxiety disorder (3) Depression (4) Major depressive disorder, recurrent episode (5) DVT (deep venous thrombosis) BUSTER DELVALLE MD Oct 29, 2019 21:53
[2019-10-30] MEDS: LEVOTHYROXINE 75 MCG TABLET PO SCH (05:42)
[2019-10-30 05:48] VITALS: BP 93/63
[2019-10-30] MEDS: POLYETHYLENE GLYCOL 3350 17 GM PACKET. PO SCH (09:00)
[2019-10-30 09:17] LABS: BASO # 0.1 x10^3/uL (0.0-0.2); BASO % 1 % (0-3); EOS # 0.8 x10^3/uL (0.0-0.7); EOS % 12 % (0-3); HEMATOCRIT 31.8 % (36.0-47.0); HEMOGLOBIN 10.4 g/dL (12.0-15.5); LYMPH % 32 % (24-48); MEAN CORPUSCULAR HEMOGLOBIN 31 pg (25-35); MEAN CORPUSCULAR HGB CONC 33 g/dL (31-37); MEAN CORPUSCULAR VOLUME 94 fL (79-100); MONO # 0.4 x10^3/uL (0.0-1.1); MONO % 7 % (0-9); NEUT # 3.1 x10^3uL (1.8-7.7); NEUT % 49 % (31-73); PLATELET COUNT 303 x10^3/uL (140-400); RED BLOOD COUNT 3.38 x10^6/uL (3.50-5.40); RED CELL DISTRIBUTION WIDTH 14.3 % (11.5-14.5); WHITE BLOOD COUNT 6.4 x10^3/uL (4.0-11.0)
[2019-10-30 09:35] LABS: ALBUMIN 2.9 g/dL (3.4-5.0); ALBUMIN/GLOBULIN RATIO 0.9 (1.0-1.7); CALCIUM 9.2 mg/dL (8.5-10.1); CREATININE 0.6 mg/dL (0.6-1.0); POTASSIUM 3.4 mmol/L (3.5-5.1); TOTAL BILIRUBIN 0.3 mg/dL (0.2-1.0)
[2019-10-30] MEDS: CHOLECALCIFEROL (VITAMIN D3) 1,000 UNIT TABLET PO SCH (10:19)
[2019-10-30] MEDS: ARIPiprazole 5 MG TABLET PO SCH (10:20)
[2019-10-30] MEDS: RIVAROXABAN 10 MG TABLET. PO SCH (10:21)
[2019-10-30] MEDS: VITAMIN B COMPLEX CAPSULE. PO SCH (10:21)
[2019-10-30] MEDS: DULoxetine HCL 20 MG CAPSULE.DR PO SCH (10:21)
[2019-10-30] MEDS: FOLIC ACID 1 MG TABLET PO SCH (10:22)
[2019-10-30] MEDS: DOCUSATE SODIUM 100 MG CAPSULE PO SCH (10:22)
[2019-10-30] MEDS: FUROSEMIDE 20 MG TABLET PO SCH (10:22)
[2019-10-30] MEDS: MULTIVITAMIN with MINERAL TABLET. PO SCH (10:22)
[2019-10-30] MEDS: DULoxetine HCL 30 MG CAPSULE.DR PO SCH (10:22)
[2019-10-30] MEDS: DRONABINOL 2.5 MG CAPSULE PO SCH ×2 (10:23→16:30)
[2019-10-30] MEDS: HYDROcodone/APAP 5/325MG 1 TAB TABLET PO PRN ×2 (12:46→20:39)
[2019-10-30 15:39] VITALS: BP 106/74
[2019-10-30] MEDS: diphenhydrAMINE HCL 25 MG CAPSULE PO PRN (16:30)
[2019-10-31] MEDS: LEVOTHYROXINE 75 MCG TABLET PO SCH (03:00)
[2019-10-31] MEDS: HYDROcodone/APAP 5/325MG 1 TAB TABLET PO PRN ×2 (03:02→18:32)
[2019-10-31 06:04] VITALS: BP 110/69
--- NOTE | 2019-10-31 06:51 | PDOC ---
Exam Note: Henry Note: This is a late entry for 10/26/2019. Currently, the unit is shutdown for any admissions and discharges as directed by the Centers for Disease Control (CDC) and the [facility] ([facility]) because of Coronavirus (COVID-19) exposure on the unit. S/O: This is a Telepsychiatry Progress Note. This note covers elements not covered in my initial note. The patient was reviewed with nursing staff, reviewed the chart and TeleHealth Services provided for this date for the patient. She slept 8 hours previous night. ROS: Complains of leg pain. She has had DVT in the past and being followed by Dr. Damon. No CV, , Pulmonary system symptoms on review. MSE: Reasonably oriented. Speech coherent. Abstraction fair. Computation impaired. Mood and affect withdrawn. No suicidal ideation. Labs: Reviewed. Imp: Major depressive disorder, recurrent, in partial remission. Anxiety disorder unspecified. Impulse control disorder unspecified. Plan: No change from my initial note. Assessment: Vital Signs/I&O: Vital Signs Date Time Temp Pulse Resp B/P (MAP) Pulse Ox O2 Delivery O2 Flow Rate FiO2 10/31/19 06:04 98.9 90 20 110/69 (83) 92 10/31/19 04:06 Room Air I & O 10/30/19 10/30/19 10/31/19 15:00 23:00 07:00 Intake Total 460 ml Balance 460 ml Labs: Laboratory Tests Test 10/30/19 08:50 White Blood Count 6.4 x10^3/uL (4.0-11.0) Red Blood Count 3.38 x10^6/uL (3.50-5.40) L Hemoglobin 10.4 g/dL (12.0-15.5) L Hematocrit 31.8 % (36.0-47.0) L Mean Corpuscular Volume 94 fL (79-100) Mean Corpuscular Hemoglobin 31 pg (25-35) Mean Corpuscular Hemoglobin Concent 33 g/dL (31-37) Red Cell Distribution Width 14.3 % (11.5-14.5) Platelet Count 303 x10^3/uL (140-400) Neutrophils (%) (Auto) 49 % (31-73) Lymphocytes (%) (Auto) 32 % (24-48) Monocytes (%) (Auto) 7 % (0-9) Eosinophils (%) (Auto) 12 % (0-3) H Basophils (%) (Auto) 1 % (0-3) Neutrophils # (Auto) 3.1 x10^3uL (1.8-7.7) Lymphocytes # (Auto) 2.0 x10^3/uL (1.0-4.8) Monocytes # (Auto) 0.4 x10^3/uL (0.0-1.1) Eosinophils # (Auto) 0.8 x10^3/uL (0.0-0.7) H Basophils # (Auto) 0.1 x10^3/uL (0.0-0.2) Sodium Level 142 mmol/L (136-145) Potassium Level 3.4 mmol/L (3.5-5.1) L Chloride Level 103 mmol/L (98-107) Carbon Dioxide Level 29 mmol/L (21-32) Anion Gap 10 (6-14) Blood Urea Nitrogen 11 mg/dL (7-20) Creatinine 0.6 mg/dL (0.6-1.0) Estimated GFR (Cockcroft-Gault) 100.0 BUN/Creatinine Ratio 18 (6-20) Glucose Level 73 mg/dL (70-99) Calcium Level 9.2 mg/dL (8.5-10.1) Total Bilirubin 0.3 mg/dL (0.2-1.0) Aspartate Amino Transferase (AST) 22 U/L (15-37) Alanine Aminotransferase (ALT) 15 U/L (14-59) Alkaline Phosphatase 57 U/L (46-116) Total Protein 6.0 g/dL (6.4-8.2) L Albumin 2.9 g/dL (3.4-5.0) L Albumin/Globulin Ratio 0.9 (1.0-1.7) L Current Medications: I have reviewed the current psychotropics carefully including drug interactions. Risk benefit ratio favors no change other than as noted in my dictated progress note. Diagnosis: Problems: (1) Mild cognitive impairment (2) Anxiety disorder (3) Depression (4) Major depressive disorder, recurrent episode BUSTER DELVALLE MD Oct 31, 2019 06:51
--- NOTE | 2019-10-31 07:30 | PDOC ---
Exam Note: Henry Note: This is a late entry for 10/27/2019. Currently, the unit is shutdown for any admissions and discharges as directed by the Centers for Disease Control (CDC) and the [facility] ([facility]) because of Coronavirus (COVID-19) exposure on the unit. S/O: This note covers elements not covered in my initial note. The patient was reviewed with nursing staff, reviewed the chart and TeleHealth Services provided for this date for the patient. Discussed with Jennifer LEARY, somewhat withdrawn. Slept 6-1/4 hours. ROS: No CV, , Pulmonary system symptoms on review. MSE: Reasonably oriented. Speech coherent. Abstraction fair. Computation impaired. Mood and affect withdrawn. No suicidal ideation. Labs: Reviewed. Imp: Major depressive disorder, recurrent, in partial remission. Anxiety disorder unspecified. Impulse control disorder unspecified. Plan: No change from my initial note. Assessment: Vital Signs/I&O: Vital Signs Date Time Temp Pulse Resp B/P (MAP) Pulse Ox O2 Delivery O2 Flow Rate FiO2 10/31/19 06:04 98.9 90 20 110/69 (83) 92 10/31/19 04:06 Room Air I & O 10/30/19 10/30/19 10/31/19 15:00 23:00 07:00 Intake Total 460 ml Balance 460 ml Labs: Laboratory Tests Test 10/30/19 08:50 White Blood Count 6.4 x10^3/uL (4.0-11.0) Red Blood Count 3.38 x10^6/uL (3.50-5.40) L Hemoglobin 10.4 g/dL (12.0-15.5) L Hematocrit 31.8 % (36.0-47.0) L Mean Corpuscular Volume 94 fL (79-100) Mean Corpuscular Hemoglobin 31 pg (25-35) Mean Corpuscular Hemoglobin Concent 33 g/dL (31-37) Red Cell Distribution Width 14.3 % (11.5-14.5) Platelet Count 303 x10^3/uL (140-400) Neutrophils (%) (Auto) 49 % (31-73) Lymphocytes (%) (Auto) 32 % (24-48) Monocytes (%) (Auto) 7 % (0-9) Eosinophils (%) (Auto) 12 % (0-3) H Basophils (%) (Auto) 1 % (0-3) Neutrophils # (Auto) 3.1 x10^3uL (1.8-7.7) Lymphocytes # (Auto) 2.0 x10^3/uL (1.0-4.8) Monocytes # (Auto) 0.4 x10^3/uL (0.0-1.1) Eosinophils # (Auto) 0.8 x10^3/uL (0.0-0.7) H Basophils # (Auto) 0.1 x10^3/uL (0.0-0.2) Sodium Level 142 mmol/L (136-145) Potassium Level 3.4 mmol/L (3.5-5.1) L Chloride Level 103 mmol/L (98-107) Carbon Dioxide Level 29 mmol/L (21-32) Anion Gap 10 (6-14) Blood Urea Nitrogen 11 mg/dL (7-20) Creatinine 0.6 mg/dL (0.6-1.0) Estimated GFR (Cockcroft-Gault) 100.0 BUN/Creatinine Ratio 18 (6-20) Glucose Level 73 mg/dL (70-99) Calcium Level 9.2 mg/dL (8.5-10.1) Total Bilirubin 0.3 mg/dL (0.2-1.0) Aspartate Amino Transferase (AST) 22 U/L (15-37) Alanine Aminotransferase (ALT) 15 U/L (14-59) Alkaline Phosphatase 57 U/L (46-116) Total Protein 6.0 g/dL (6.4-8.2) L Albumin 2.9 g/dL (3.4-5.0) L Albumin/Globulin Ratio 0.9 (1.0-1.7) L Current Medications: I have reviewed the current psychotropics carefully including drug interactions. Risk benefit ratio favors no change other than as noted in my dictated progress note. Diagnosis: Problems: (1) Mild cognitive impairment (2) Anxiety disorder (3) Depression (4) Major depressive disorder, recurrent episode (5) DVT (deep venous thrombosis) BUSTER DELVALLE MD Oct 31, 2019 07:30
--- NOTE | 2019-10-31 07:57 | PDOC ---
Exam Note: Henry Note: This is a late entry 10/28/2019. Currently, the unit is shutdown for any admissions and discharges as directed by the Centers for Disease Control (CDC) and the [facility] ([facility]) because of Coronavirus (COVID-19) exposure on the unit. S/O: This note covers elements not covered in my initial note. The patient was reviewed with nursing staff, reviewed the chart and TeleHealth Services provided for this date for the patient. Discussed with Jennifer LEARY, somewhat withdrawn into her room. Slept 8 hours, doing somewhat better. No suicidal ideation. ROS: No CV, , Pulmonary system symptoms on review. MSE: Reasonably oriented. Speech coherent. Abstraction fair. Computation impaired. Mood and affect withdrawn. No suicidal ideation. Labs: Reviewed. Imp: Major depressive disorder, recurrent, in partial remission. Anxiety d isorder unspecified. Impulse control disorder unspecified. Plan: No change from my initial note. Assessment: Vital Signs/I&O: Vital Signs Date Time Temp Pulse Resp B/P (MAP) Pulse Ox O2 Delivery O2 Flow Rate FiO2 10/31/19 06:04 98.9 90 20 110/69 (83) 92 10/31/19 04:06 Room Air I & O 10/30/19 10/30/19 10/31/19 15:00 23:00 07:00 Intake Total 460 ml Balance 460 ml Labs: Laboratory Tests Test 10/30/19 08:50 White Blood Count 6.4 x10^3/uL (4.0-11.0) Red Blood Count 3.38 x10^6/uL (3.50-5.40) L Hemoglobin 10.4 g/dL (12.0-15.5) L Hematocrit 31.8 % (36.0-47.0) L Mean Corpuscular Volume 94 fL (79-100) Mean Corpuscular Hemoglobin 31 pg (25-35) Mean Corpuscular Hemoglobin Concent 33 g/dL (31-37) Red Cell Distribution Width 14.3 % (11.5-14.5) Platelet Count 303 x10^3/uL (140-400) Neutrophils (%) (Auto) 49 % (31-73) Lymphocytes (%) (Auto) 32 % (24-48) Monocytes (%) (Auto) 7 % (0-9) Eosinophils (%) (Auto) 12 % (0-3) H Basophils (%) (Auto) 1 % (0-3) Neutrophils # (Auto) 3.1 x10^3uL (1.8-7.7) Lymphocytes # (Auto) 2.0 x10^3/uL (1.0-4.8) Monocytes # (Auto) 0.4 x10^3/uL (0.0-1.1) Eosinophils # (Auto) 0.8 x10^3/uL (0.0-0.7) H Basophils # (Auto) 0.1 x10^3/uL (0.0-0.2) Sodium Level 142 mmol/L (136-145) Potassium Level 3.4 mmol/L (3.5-5.1) L Chloride Level 103 mmol/L (98-107) Carbon Dioxide Level 29 mmol/L (21-32) Anion Gap 10 (6-14) Blood Urea Nitrogen 11 mg/dL (7-20) Creatinine 0.6 mg/dL (0.6-1.0) Estimated GFR (Cockcroft-Gault) 100.0 BUN/Creatinine Ratio 18 (6-20) Glucose Level 73 mg/dL (70-99) Calcium Level 9.2 mg/dL (8.5-10.1) Total Bilirubin 0.3 mg/dL (0.2-1.0) Aspartate Amino Transferase (AST) 22 U/L (15-37) Alanine Aminotransferase (ALT) 15 U/L (14-59) Alkaline Phosphatase 57 U/L (46-116) Total Protein 6.0 g/dL (6.4-8.2) L Albumin 2.9 g/dL (3.4-5.0) L Albumin/Globulin Ratio 0.9 (1.0-1.7) L Current Medications: I have reviewed the current psychotropics carefully including drug interactions. Risk benefit ratio favors no change other than as noted in my dictated progress note. Diagnosis: Problems: (1) Mild cognitive impairment (2) Anxiety disorder (3) Depression (4) Major depressive disorder, recurrent episode (5) DVT (deep venous thrombosis) BUSTER DELVALLE MD Oct 31, 2019 07:57
--- NOTE | 2019-10-31 08:25 | PDOC ---
Exam Note: Henry Note: This is a late entry for 10/29/2019. Currently, the unit is shutdown for any admissions and discharges as directed by the Centers for Disease Control (CDC) and the [facility] ([facility]) because of Coronavirus (COVID-19) exposure on the unit. S/O: This note covers elements not covered in my initial note. The patient was reviewed with nursing staff, reviewed the chart and TeleHealth Services provided for this date for the patient. Discussed with Jennifer LEARY, somewhat withdrawn. ROS: No CV, , Pulmonary system symptoms on review. MSE: Reasonably oriented. Speech coherent. Abstraction fair. Computation impaired. Mood and affect withdrawn. No suicidal ideation. Labs: Reviewed. Imp: Major depressive disorder, recurrent, in partial remission. Anxiety disorder unspecified. Impulse control disorder unspecified. Plan: No change from my initial note. Assessment: Vital Signs/I&O: Vital Signs Date Time Temp Pulse Resp B/P (MAP) Pulse Ox O2 Delivery O2 Flow Rate FiO2 10/31/19 06:04 98.9 90 20 110/69 (83) 92 10/31/19 04:06 Room Air I & O 10/30/19 10/30/19 10/31/19 14:59 22:59 06:59 Intake Total 460 ml Balance 460 ml Labs: Laboratory Tests Test 10/30/19 08:50 White Blood Count 6.4 x10^3/uL (4.0-11.0) Red Blood Count 3.38 x10^6/uL (3.50-5.40) L Hemoglobin 10.4 g/dL (12.0-15.5) L Hematocrit 31.8 % (36.0-47.0) L Mean Corpuscular Volume 94 fL (79-100) Mean Corpuscular Hemoglobin 31 pg (25-35) Mean Corpuscular Hemoglobin Concent 33 g/dL (31-37) Red Cell Distribution Width 14.3 % (11.5-14.5) Platelet Count 303 x10^3/uL (140-400) Neutrophils (%) (Auto) 49 % (31-73) Lymphocytes (%) (Auto) 32 % (24-48) Monocytes (%) (Auto) 7 % (0-9) Eosinophils (%) (Auto) 12 % (0-3) H Basophils (%) (Auto) 1 % (0-3) Neutrophils # (Auto) 3.1 x10^3uL (1.8-7.7) Lymphocytes # (Auto) 2.0 x10^3/uL (1.0-4.8) Monocytes # (Auto) 0.4 x10^3/uL (0.0-1.1) Eosinophils # (Auto) 0.8 x10^3/uL (0.0-0.7) H Basophils # (Auto) 0.1 x10^3/uL (0.0-0.2) Sodium Level 142 mmol/L (136-145) Potassium Level 3.4 mmol/L (3.5-5.1) L Chloride Level 103 mmol/L (98-107) Carbon Dioxide Level 29 mmol/L (21-32) Anion Gap 10 (6-14) Blood Urea Nitrogen 11 mg/dL (7-20) Creatinine 0.6 mg/dL (0.6-1.0) Estimated GFR (Cockcroft-Gault) 100.0 BUN/Creatinine Ratio 18 (6-20) Glucose Level 73 mg/dL (70-99) Calcium Level 9.2 mg/dL (8.5-10.1) Total Bilirubin 0.3 mg/dL (0.2-1.0) Aspartate Amino Transferase (AST) 22 U/L (15-37) Alanine Aminotransferase (ALT) 15 U/L (14-59) Alkaline Phosphatase 57 U/L (46-116) Total Protein 6.0 g/dL (6.4-8.2) L Albumin 2.9 g/dL (3.4-5.0) L Albumin/Globulin Ratio 0.9 (1.0-1.7) L Current Medications: I have reviewed the current psychotropics carefully including drug interactions. Risk benefit ratio favors no change other than as noted in my dictated progress note. Diagnosis: Problems: (1) Mild cognitive impairment (2) Anxiety disorder (3) Depression (4) Major depressive disorder, recurrent episode (5) DVT (deep venous thrombosis) BUSTER DELVALLE MD Oct 31, 2019 08:25
--- NOTE | 2019-10-31 08:54 | PDOC ---
Exam Note: Henry Note: This is a late entry for 10/30/2019. Currently, the unit is shutdown for any admissions and discharges as directed by the Centers for Disease Control (CDC) and the [facility] ([facility]) because of Coronavirus (COVID-19) exposure on the unit. S/O: This note covers elements not covered in my initial note. The patient was reviewed with nursing staff, reviewed the chart and TeleHealth Services provided for this date for the patient. She was seen on a video-conferencing call coordinated with Alpesh LEARY, nursing staff on the unit whose appropriately protected with personal protective equipment and mask on the unit. Discussed with Starr LEARY. She slept 7-3/4 hours. She slept through breakfast somewhat flat, withdrawn, still feels depressed but when I questioned her on this in the evening at the teleconference call she said she subjectively felt better. ROS: Positive for some tiredness. No CV, , Pulmonary, Eye system symptoms on review. MSE: Reasonably oriented. Speech coherent, has some latency. Abstraction fair. Computation impaired. Language function is intact. Mood and affect withdrawn. Labs: Reviewed. Imp: Major depressive disorder, recurrent, in partial remission. Anxiety disorder unspecified. Impulse control disorder unspecified. Plan: Continue psychotropics from initial note. Increase Abilify from 2.5 mg a day to 5 mg a day. Assessment: Vital Signs/I&O: Vital Signs Date Time Temp Pulse Resp B/P (MAP) Pulse Ox O2 Delivery O2 Flow Rate FiO2 10/31/19 06:04 98.9 90 20 110/69 (83) 92 10/31/19 04:06 Room Air I & O 10/30/19 10/30/19 10/31/19 14:59 22:59 06:59 Intake Total 460 ml Balance 460 ml Current Medications: I have reviewed the current psychotropics carefully including drug interactions. Risk benefit ratio favors no change other than as noted in my dictated progress note. Diagnosis: Problems: (1) Mild cognitive impairment (2) Anxiety disorder (3) Depression (4) Major depressive disorder, recurrent episode (5) DVT (deep venous thrombosis) BUSTER DELVALLE MD Oct 31, 2019 08:54
[2019-10-31] MEDS: DRONABINOL 2.5 MG CAPSULE PO SCH ×2 (11:07→16:57)
[2019-10-31] MEDS: ARIPiprazole 5 MG TABLET PO SCH (11:07)
[2019-10-31] MEDS: FOLIC ACID 1 MG TABLET PO SCH (11:07)
[2019-10-31] MEDS: DULoxetine HCL 30 MG CAPSULE.DR PO SCH (11:07)
[2019-10-31] MEDS: VITAMIN B COMPLEX CAPSULE. PO SCH (11:07)
[2019-10-31] MEDS: DULoxetine HCL 20 MG CAPSULE.DR PO SCH (11:07)
[2019-10-31] MEDS: DOCUSATE SODIUM 100 MG CAPSULE PO SCH (11:08)
[2019-10-31] MEDS: MULTIVITAMIN with MINERAL TABLET. PO SCH (11:08)
[2019-10-31] MEDS: FUROSEMIDE 20 MG TABLET PO SCH (11:08)
[2019-10-31] MEDS: RIVAROXABAN 10 MG TABLET. PO SCH (11:08)
[2019-10-31] MEDS: CHOLECALCIFEROL (VITAMIN D3) 1,000 UNIT TABLET PO SCH (11:08)
[2019-10-31] MEDS: POLYETHYLENE GLYCOL 3350 17 GM PACKET. PO SCH (11:08)
[2019-10-31 16:22] VITALS: BP 141/79
--- NOTE | 2019-10-31 23:16 | PDOC ---
Exam Note: Henry Note: S/O: This note covers elements not covered in my initial note. The patient was reviewed with nursing staff, reviewed the chart. Discussed with Starr LEARY. She slept 7-3/4 hours. I did see the patient on video-teleconferencing call. She did well at night. She did during the day, spending more time in the day room. She is tolerating the increased Abilify 5 mg a day. ROS: Ambulation impaired in wheelchair. No CV, , Pulmonary, Eye system symptoms on review. MSE: Oriented reasonably. Speech has some latency, coherent. Abstraction fair. Computation impaired. Language function is intact. Attention span short. Mood and affect improved. Labs: Reviewed. Imp: Major depressive disorder, recurrent, in partial remission. Anxiety disorder unspecified. Plan: No change from initial note. Assessment: Vital Signs/I&O: Vital Signs Date Time Temp Pulse Resp B/P (MAP) Pulse Ox O2 Delivery O2 Flow Rate FiO2 10/31/19 18:32 16 Room Air 10/31/19 16:22 97.7 80 141/79 (99) 93 I & O 10/30/19 10/30/19 10/31/19 15:00 23:00 07:00 Intake Total 460 ml Balance 460 ml Current Medications: Meds: Current Medications Medications (Trade) Dose Ordered Sig/Imani Route PRN Reason Start Time Stop Time Status Last Admin Dose Admin Aripiprazole (Abilify) 5 mg DAILY PO 10/31/19 09:00 10/31/19 11:07 I have reviewed the current psychotropics carefully including drug interactions. Risk benefit ratio favors no change other than as noted in my dictated progress note. Diagnosis: Problems: (1) Mild cognitive impairment (2) Anxiety disorder (3) Depression (4) Major depressive disorder, recurrent episode (5) DVT (deep venous thrombosis) BUSTER DELVALLE MD Oct 31, 2019 23:16
[2019-11-01] MEDS: LEVOTHYROXINE 75 MCG TABLET PO SCH (05:13)
[2019-11-01 06:31] VITALS: BP 106/68
[2019-11-01] MEDS: CHOLECALCIFEROL (VITAMIN D3) 1,000 UNIT TABLET PO SCH (10:51)
[2019-11-01] MEDS: DULoxetine HCL 30 MG CAPSULE.DR PO SCH (10:51)
[2019-11-01] MEDS: DULoxetine HCL 20 MG CAPSULE.DR PO SCH (10:52)
[2019-11-01] MEDS: FOLIC ACID 1 MG TABLET PO SCH (10:52)
[2019-11-01] MEDS: FUROSEMIDE 20 MG TABLET PO SCH (10:52)
[2019-11-01] MEDS: MULTIVITAMIN with MINERAL TABLET. PO SCH (10:52)
[2019-11-01] MEDS: VITAMIN B COMPLEX CAPSULE. PO SCH (10:52)
[2019-11-01] MEDS: DRONABINOL 2.5 MG CAPSULE PO SCH ×2 (10:53→16:54)
[2019-11-01] MEDS: POLYETHYLENE GLYCOL 3350 17 GM PACKET. PO SCH (10:53)
[2019-11-01] MEDS: DOCUSATE SODIUM 100 MG CAPSULE PO SCH (10:53)
[2019-11-01] MEDS: RIVAROXABAN 10 MG TABLET. PO SCH (10:53)
[2019-11-01] MEDS: ARIPiprazole 5 MG TABLET PO SCH (10:53)
--- NOTE | 2019-11-01 11:59 | TX PLAN ---
Interdisciplinary Tx Plan Admission Information Oct 23, 2019 at 14:48 Legal Status (on Admission): Voluntary DPOA/Guardian Name: David Rawls, Son-in-Law Contact Verified Code Status: DNR Allergies: Coded Allergies: No Known Drug Allergies (Unverified , 10/03/19) Estimated Length of Stay: 14 Diagnoses Reasons for Admission: Relation/conflict, Depressed, Sig. Change Appetite, Suicidal ideation Problem in Patient's Words: Per pts DPOA: Pt has a "massive major depression and doesnt want to live. She thinks that no one wants her." Per pt: "Im here because they all think I want to kill myself. I dont want to kill myself. Theres so much more that I can do with my life." Problems Active Problems: Per intake form, pt was to be discharged from [facility]. She stated that if she goes home, she will kill herself. Family reports history of SI and they had to remove guns from her home previously. Inactive Problems: Pt. is compliant with medications and cooperative with assessments. Discharge Criteria Discharge Criteria: Able meet basic life need, No need for close observ., Able to meet health needs, OP monitor medical prob, Adequate arrangements @DC, Adequate self-care, Verbal commit med comply, Improved behavior, Improved mood/thought Preliminary Discharge Plan Preliminary DC Plan: Home Other Arrangements: Possible short term stay at [facility] for additional rehab. Special Precautions Special Precautions: Suicide Risk Fall Risk: High Initial D/C Plan Identified Discharge Needs: Follow Up with PCP Identified Problems/Hx/Goals Objectives/Short-Term Goals Short Term Goals: Dec. Symp. Depression, Monitor Med Effects, No Suicidal/Janeen. ideation, Promote Coping Skill Short Term Goals in Patient's: Per pt: "Basically, I just want to be left alone. 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 Education: GED and Associates of [employer] Degree Community Follow-up Follow Up with PCP Community Provider/Family Inpu: Pt's DPOA would like to see pt's mood stabilized first. He would like pt to able to live safely and successfully independently with daily home health supports because pt cannot ambulate on her own. Treatment Plan Explained Patient/Shellfish Harvester had this treatment plan explained to him/her as indicated by the signature below and has been given the opportunity to ask questions and make suggestions: Date: Patient/Shellfish Harvester Signature: AIMEE SCHMIDT Nov 01, 2019 11:59
[2019-11-01] MEDS: HYDROcodone/APAP 5/325MG 1 TAB TABLET PO PRN (14:57)
[2019-11-01 16:25] VITALS: BP 108/70
--- NOTE | 2019-11-01 23:54 | PDOC ---
Exam Note: Henry Note: S/O: This note covers elements not covered in my initial note. Discussed the patient with nursing staff, reviewed the chart. In the morning, the patient had treatment team meeting with the entire team nursing staff, social service staff and myself and TeleHealth Services provided via audio-visual visit in the evening coordinated with Alpesh LEARY. Sleeping average 6-1/2 hours. Appetite 50%. She has been calmer, states her mood is better. No suicidal ideation. Compliant with medications. At times, she is tearful. ROS: Ambulation impaired in wheelchair. No CV, , Pulmonary, Eye system symptoms on review. MSE: Reasonably oriented. Speech coherent, has some latency. Abstraction f air. Computation impaired. Language function is intact. She states she is less depressed. No suicidal ideation. Labs: Reviewed. Imp: Major depressive disorder, in partial remission. Anxiety disorder unspecified. Plan: No change from initial note. Continue Cymbalta 50 mg a day, Abilify 5 mg a day. We will see how she does over the next day or two and if the 5 mg Abilify increase is helpful, we will maintain it, otherwise, we will reduce it back to 2.5 mg a day. Assessment: Vital Signs/I&O: Vital Signs Date Time Temp Pulse Resp B/P (MAP) Pulse Ox O2 Delivery O2 Flow Rate FiO2 11/01/19 16:25 97.5 91 19 108/70 (83) 96 Room Air I & O 10/31/19 10/31/19 11/01/19 15:00 23:00 07:00 Intake Total 840 ml 240 ml Balance 840 ml 240 ml Current Medications: I have reviewed the current psychotropics carefully including drug interactions. Risk benefit ratio favors no change other than as noted in my dictated progress note. Diagnosis: Problems: (1) Mild cognitive impairment (2) Anxiety disorder (3) Depression (4) Major depressive disorder, recurrent episode (5) DVT (deep venous thrombosis) BUSTER DELVALLE MD Nov 01, 2019 23:54
[2019-11-02 05:50] VITALS: BP 109/72
[2019-11-02] MEDS: LEVOTHYROXINE 75 MCG TABLET PO SCH (06:03)
[2019-11-02] MEDS: POLYETHYLENE GLYCOL 3350 17 GM PACKET. PO SCH (09:00)
[2019-11-02] MEDS: VITAMIN B COMPLEX CAPSULE. PO SCH (11:23)
[2019-11-02] MEDS: FOLIC ACID 1 MG TABLET PO SCH (11:23)
[2019-11-02] MEDS: DULoxetine HCL 30 MG CAPSULE.DR PO SCH (11:23)
[2019-11-02] MEDS: FUROSEMIDE 20 MG TABLET PO SCH (11:23)
[2019-11-02] MEDS: DOCUSATE SODIUM 100 MG CAPSULE PO SCH (11:23)
[2019-11-02] MEDS: MULTIVITAMIN with MINERAL TABLET. PO SCH (11:24)
[2019-11-02] MEDS: RIVAROXABAN 10 MG TABLET. PO SCH (11:24)
[2019-11-02] MEDS: DRONABINOL 2.5 MG CAPSULE PO SCH ×2 (11:24→16:30)
[2019-11-02] MEDS: DULoxetine HCL 20 MG CAPSULE.DR PO SCH (11:24)
[2019-11-02] MEDS: ARIPiprazole 5 MG TABLET PO SCH (11:24)
[2019-11-02] MEDS: CHOLECALCIFEROL (VITAMIN D3) 1,000 UNIT TABLET PO SCH (11:24)
[2019-11-02 15:57] VITALS: BP 115/73
[2019-11-02] MEDS: HYDROcodone/APAP 5/325MG 1 TAB TABLET PO PRN (20:58)
[2019-11-03] MEDS: LEVOTHYROXINE 75 MCG TABLET PO SCH (05:27)
[2019-11-03 06:14] VITALS: BP 103/65
[2019-11-03] MEDS: DOCUSATE SODIUM 100 MG CAPSULE PO SCH (07:54)
[2019-11-03] MEDS: POLYETHYLENE GLYCOL 3350 17 GM PACKET. PO SCH (07:55)
[2019-11-03] MEDS: DULoxetine HCL 20 MG CAPSULE.DR PO SCH (08:38)
[2019-11-03] MEDS: ARIPiprazole 5 MG TABLET PO SCH (08:38)
[2019-11-03] MEDS: RIVAROXABAN 10 MG TABLET. PO SCH (08:38)
[2019-11-03] MEDS: DRONABINOL 2.5 MG CAPSULE PO SCH ×2 (08:38→16:30)
[2019-11-03] MEDS: VITAMIN B COMPLEX CAPSULE. PO SCH (08:38)
[2019-11-03] MEDS: DULoxetine HCL 30 MG CAPSULE.DR PO SCH (08:39)
[2019-11-03] MEDS: FUROSEMIDE 20 MG TABLET PO SCH (08:39)
[2019-11-03] MEDS: FOLIC ACID 1 MG TABLET PO SCH (08:39)
[2019-11-03] MEDS: MULTIVITAMIN with MINERAL TABLET. PO SCH (08:39)
[2019-11-03] MEDS: CHOLECALCIFEROL (VITAMIN D3) 1,000 UNIT TABLET PO SCH (08:39)
[2019-11-03 16:05] VITALS: BP 104/64
[2019-11-03] MEDS: HYDROcodone/APAP 5/325MG 1 TAB TABLET PO PRN (19:47)
[2019-11-04] MEDS: HYDROcodone/APAP 5/325MG 1 TAB TABLET PO PRN ×2 (02:26→20:12)
[2019-11-04] MEDS: LEVOTHYROXINE 75 MCG TABLET PO SCH (02:27)
--- NOTE | 2019-11-04 08:04 | PDOC ---
Exam Note: Henry Note: S/O: This note is a late entry for DOS 11/02/2019 covers elements not covered in my initial note. Discussed the patient with nursing staff, reviewed the chart. Discussed with Jennifer LEARY. Met with the patient via audio-visual visit in the evening coordinated with Alpesh LEARY. Patient has been somewhat withdrawn. She was quite tearful as I met with her in the evening. ROS: Ambulation impaired in wheelchair. No CV, , Pulmonary, Eye system symptoms on review. MSE: Reasonably oriented. Speech coherent. Abstraction fair. Computation impaired. Language function is intact. Mood and affect somewhat depressed, withdrawn but other times on the unit she is doing better. No suicidal ideat ion. Labs: Reviewed. Imp: Major depressive disorder, in partial remission. Anxiety disorder unspecified. Plan: No change from initial note. Assessment: Vital Signs/I&O: Vital Signs Date Time Temp Pulse Resp B/P (MAP) Pulse Ox O2 Delivery O2 Flow Rate FiO2 11/04/19 04:37 97 11/03/19 16:05 97.2 80 18 104/64 (77) Room Air I & O 11/03/19 11/03/19 11/04/19 15:00 23:00 07:00 Intake Total 600 ml 120 ml Balance 600 ml 120 ml Current Medications: I have reviewed the current psychotropics carefully including drug interactions. Risk benefit ratio favors no change other than as noted in my dictated progress note. Diagnosis: Problems: (1) Mild cognitive impairment (2) Anxiety disorder (3) Depression (4) Major depressive disorder, recurrent episode (5) DVT (deep venous thrombosis) BUSTER DELVALLE MD Nov 04, 2019 08:04
--- NOTE | 2019-11-04 08:29 | PDOC ---
Exam Note: Henry Note: S/O: This note is a late entry for DOS 11/03/2019 covers elements not covered in my initial note. Discussed the patient with nursing staff, reviewed the chart. Discussed with Alyssa LEARY and Alyssa coordinated with TeleHealth Services via audio visual with the patient in the evening. Patient fell around 6.30 p.m. No injury noted. She was trying to transfer herself to the bathroom. She has been complaining about the staff, gets a little irritable at times with nursing aids. We reviewed her past history. 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 Slept 6-1/2 hours previous night. ROS: Ambulation impaired in wheelchair. No CV, , Pulmonary, Eye system symptoms on review. MSE: Oriented to herself. Speech coherent, has some latency. Abstraction fair. Computation impaired. Language function is intact. Mood and affect less tearful today and much improved. No suicidal ideation. Labs: Reviewed. Imp: Major depressive disorder, in partial remission. Anxiety disorder unspecified. Plan: No change from initial note. Assessment: Vital Signs/I&O: Vital Signs Date Time Temp Pulse Resp B/P (MAP) Pulse Ox O2 Delivery O2 Flow Rate FiO2 11/04/19 04:37 97 11/03/19 16:05 97.2 80 18 104/64 (77) Room Air I & O 11/03/19 11/03/19 11/04/19 15:00 23:00 07:00 Intake Total 600 ml 120 ml Balance 600 ml 120 ml Current Medications: I have reviewed the current psychotropics carefully including drug interactions. Risk benefit ratio favors no change other than as noted in my dictated progress note. Diagnosis: Problems: (1) Mild cognitive impairment (2) Anxiety disorder (3) Depression (4) Major depressive disorder, recurrent episode (5) DVT (deep venous thrombosis) BUSTER DELVALLE MD Nov 04, 2019 08:29
[2019-11-04] MEDS: DULoxetine HCL 20 MG CAPSULE.DR PO SCH (08:32)
[2019-11-04] MEDS: ARIPiprazole 5 MG TABLET PO SCH (08:32)
[2019-11-04] MEDS: CHOLECALCIFEROL (VITAMIN D3) 1,000 UNIT TABLET PO SCH (08:32)
[2019-11-04] MEDS: VITAMIN B COMPLEX CAPSULE. PO SCH (08:32)
[2019-11-04] MEDS: FUROSEMIDE 20 MG TABLET PO SCH (08:33)
[2019-11-04] MEDS: RIVAROXABAN 10 MG TABLET. PO SCH (08:33)
[2019-11-04] MEDS: MULTIVITAMIN with MINERAL TABLET. PO SCH (08:33)
[2019-11-04] MEDS: DULoxetine HCL 30 MG CAPSULE.DR PO SCH (08:33)
[2019-11-04] MEDS: DOCUSATE SODIUM 100 MG CAPSULE PO SCH (09:00)
[2019-11-04] MEDS: POLYETHYLENE GLYCOL 3350 17 GM PACKET. PO SCH (09:00)
[2019-11-04 09:10] LABS: BASO # 0.1 x10^3/uL (0.0-0.2); BASO % 1 % (0-3); EOS # 0.7 x10^3/uL (0.0-0.7); EOS % 13 % (0-3); HEMATOCRIT 34.4 % (36.0-47.0); HEMOGLOBIN 11.3 g/dL (12.0-15.5); LYMPH % 37 % (24-48); MEAN CORPUSCULAR HEMOGLOBIN 31 pg (25-35); MEAN CORPUSCULAR HGB CONC 33 g/dL (31-37); MEAN CORPUSCULAR VOLUME 94 fL (79-100); MONO # 0.3 x10^3/uL (0.0-1.1); MONO % 6 % (0-9); NEUT # 2.3 x10^3uL (1.8-7.7); NEUT % 43 % (31-73); PLATELET COUNT 346 x10^3/uL (140-400); RED BLOOD COUNT 3.67 x10^6/uL (3.50-5.40); RED CELL DISTRIBUTION WIDTH 15.2 % (11.5-14.5); WHITE BLOOD COUNT 5.4 x10^3/uL (4.0-11.0)
[2019-11-04 09:22] LABS: ALBUMIN 3.1 g/dL (3.4-5.0); ALBUMIN/GLOBULIN RATIO 0.9 (1.0-1.7); CALCIUM 9.6 mg/dL (8.5-10.1); CREATININE 0.6 mg/dL (0.6-1.0); TOTAL BILIRUBIN 0.4 mg/dL (0.2-1.0); TOTAL PROTEIN 6.7 g/dL (6.4-8.2)
[2019-11-04 09:34] LABS: POTASSIUM 3.7 mmol/L (3.5-5.1)
[2019-11-04] MEDS: FOLIC ACID 1 MG TABLET PO SCH (10:25)
[2019-11-04] MEDS: DRONABINOL 2.5 MG CAPSULE PO SCH ×2 (11:30→15:57)
[2019-11-04 16:08] VITALS: BP 104/72
[2019-11-04] MEDS: diphenhydrAMINE HCL 25 MG CAPSULE PO PRN (20:11)
--- NOTE | 2019-11-04 22:47 | PDOC ---
Exam Note: Henry Note: S/O: This note covers elements not covered in my initial note. The patient was seen on TeleHealth rounds evening of 11/04/2019 by Yeni LEARY. Discussed the patient with nursing staff, reviewed the chart. Nursing report was with Dyan LEARY. Patient slept 7-1/4 hours. She refused Marinol. Refused medications, took them later. ROS: Ambulation impaired, was seated in wheelchair but she is ambulated with a walker and staff assistance earlier in the day from her room to the dayroom and then to the dining room, which is an improvement for her. Does complain of some generalized pain. No CV, , Pulmonary, Eye system symptoms on review. MSE: Reasonably oriented. Speech coherent. Abstraction fair. Computation impaired. Language function is intact. Mood and affect improved. She was not crying, little more animated. Labs: Reviewed. Imp: Major depressive disorder, in partial remission. Anxiety disorder unspecified. Plan: No change from current psychotropics for now including Abilify 5 mg a day, Cymbalta 50 mg a day. Assessment: Vital Signs/I&O: Vital Signs Date Time Temp Pulse Resp B/P (MAP) Pulse Ox O2 Delivery O2 Flow Rate FiO2 11/04/19 21:12 97 11/04/19 16:08 97.7 101 20 104/72 (83) Room Air I & O 11/03/19 11/03/19 11/04/19 15:00 23:00 07:00 Intake Total 600 ml 120 ml Balance 600 ml 120 ml Labs: Laboratory Tests Test 11/04/19 08:10 White Blood Count 5.4 x10^3/uL (4.0-11.0) Red Blood Count 3.67 x10^6/uL (3.50-5.40) Hemoglobin 11.3 g/dL (12.0-15.5) L Hematocrit 34.4 % (36.0-47.0) L Mean Corpuscular Volume 94 fL (79-100) Mean Corpuscular Hemoglobin 31 pg (25-35) Mean Corpuscular Hemoglobin Concent 33 g/dL (31-37) Red Cell Distribution Width 15.2 % (11.5-14.5) H Platelet Count 346 x10^3/uL (140-400) Neutrophils (%) (Auto) 43 % (31-73) Lymphocytes (%) (Auto) 37 % (24-48) Monocytes (%) (Auto) 6 % (0-9) Eosinophils (%) (Auto) 13 % (0-3) H Basophils (%) (Auto) 1 % (0-3) Neutrophils # (Auto) 2.3 x10^3uL (1.8-7.7) Lymphocytes # (Auto) 2.0 x10^3/uL (1.0-4.8) Monocytes # (Auto) 0.3 x10^3/uL (0.0-1.1) Eosinophils # (Auto) 0.7 x10^3/uL (0.0-0.7) Basophils # (Auto) 0.1 x10^3/uL (0.0-0.2) Sodium Level 140 mmol/L (136-145) Potassium Level 3.7 mmol/L (3.5-5.1) Chloride Level 102 mmol/L (98-107) Carbon Dioxide Level 29 mmol/L (21-32) Anion Gap 9 (6-14) Blood Urea Nitrogen 10 mg/dL (7-20) Creatinine 0.6 mg/dL (0.6-1.0) Estimated GFR (Cockcroft-Gault) 100.0 BUN/Creatinine Ratio 17 (6-20) Glucose Level 85 mg/dL (70-99) Calcium Level 9.6 mg/dL (8.5-10.1) Total Bilirubin 0.4 mg/dL (0.2-1.0) Aspartate Amino Transferase (AST) 28 U/L (15-37) Alanine Aminotransferase (ALT) 15 U/L (14-59) Alkaline Phosphatase 63 U/L (46-116) Total Protein 6.7 g/dL (6.4-8.2) Albumin 3.1 g/dL (3.4-5.0) L Albumin/Globulin Ratio 0.9 (1.0-1.7) L Current Medications: I have reviewed the current psychotropics carefully including drug interactions. Risk benefit ratio favors no change other than as noted in my dictated progress note. Diagnosis: Problems: (1) Mild cognitive impairment (2) Anxiety disorder (3) Depression (4) Major depressive disorder, recurrent episode (5) DVT (deep venous thrombosis) BUSTER DELVALLE MD Nov 04, 2019 22:47
[2019-11-05] MEDS: LEVOTHYROXINE 75 MCG TABLET PO SCH (05:19)
[2019-11-05 05:58] VITALS: BP 100/62
[2019-11-05] MEDS: DULoxetine HCL 20 MG CAPSULE.DR PO SCH (09:00)
[2019-11-05] MEDS: POLYETHYLENE GLYCOL 3350 17 GM PACKET. PO SCH (09:52)
[2019-11-05] MEDS: MULTIVITAMIN with MINERAL TABLET. PO SCH (09:52)
[2019-11-05] MEDS: RIVAROXABAN 10 MG TABLET. PO SCH (09:53)
[2019-11-05] MEDS: DULoxetine HCL 30 MG CAPSULE.DR PO SCH (09:53)
[2019-11-05] MEDS: FOLIC ACID 1 MG TABLET PO SCH (09:53)
[2019-11-05] MEDS: DOCUSATE SODIUM 100 MG CAPSULE PO SCH (09:53)
[2019-11-05] MEDS: ARIPiprazole 5 MG TABLET PO SCH (09:53)
[2019-11-05] MEDS: VITAMIN B COMPLEX CAPSULE. PO SCH (09:53)
[2019-11-05] MEDS: CHOLECALCIFEROL (VITAMIN D3) 1,000 UNIT TABLET PO SCH (09:54)
[2019-11-05] MEDS: FUROSEMIDE 20 MG TABLET PO SCH (09:54)
[2019-11-05] MEDS: DRONABINOL 2.5 MG CAPSULE PO SCH ×2 (12:19→17:01)
[2019-11-05 16:03] VITALS: BP 96/68
--- NOTE | 2019-11-05 22:53 | PDOC ---
Exam Note: Henry Note: S/O: This note covers elements not covered in my initial note. The patient was seen on TeleHealth rounds in the evening by Yeni LEARY. Discussed the patient with nursing staff, reviewed the chart. Nursing report was with Starr LEARY. Patient slept 7-1/4 hours. She did well previous night. Refused her lunch. Did take her Marinol. Slept till 10 a.m. and did better. ROS: Met with her in her room. Ambulation impaired pain. No CV, , Pulmonary, Eye system symptoms on review. MSE: Reasonably oriented. Speech coherent. Abstraction fair. Computation imp aired. Language function intact. Attention span short. Mood and affect still somewhat dysphoric, but more animated today, not tearful. Labs: Reviewed. Imp: Major depressive disorder, in partial remission. Anxiety disorder unspecified. Plan: Continue psychotropics mentioned in the current psychotropics list these include Cymbalta 50 mg a day, Abilify 5 mg a day to augment the Cymbalta. Assessment: Vital Signs/I&O: Vital Signs Date Time Temp Pulse Resp B/P (MAP) Pulse Ox O2 Delivery O2 Flow Rate FiO2 11/05/19 16:03 97.6 88 18 96/68 (77) 96 Room Air I & O 11/04/19 11/04/19 11/05/19 14:59 22:59 06:59 Intake Total 0 ml 480 ml Balance 0 ml 480 ml Current Medications: I have reviewed the current psychotropics carefully including drug interactions. Risk benefit ratio favors no change other than as noted in my dictated progress note. Diagnosis: Problems: (1) Mild cognitive impairment (2) Anxiety disorder (3) Depression (4) Major depressive disorder, recurrent episode (5) DVT (deep venous thrombosis) BUSTER DELVALLE MD Nov 05, 2019 22:53
[2019-11-05] MEDS: diphenhydrAMINE HCL 25 MG CAPSULE PO PRN (23:51)
[2019-11-05] MEDS: ACETAMINOPHEN 325 MG TABLET PO PRN (23:55)
[2019-11-06] MEDS: LEVOTHYROXINE 75 MCG TABLET PO SCH (05:54)
[2019-11-06 06:14] VITALS: BP 97/63
[2019-11-06] MEDS: VITAMIN B COMPLEX CAPSULE. PO SCH (09:00)
[2019-11-06] MEDS: RIVAROXABAN 10 MG TABLET. PO SCH (09:14)
[2019-11-06] MEDS: POLYETHYLENE GLYCOL 3350 17 GM PACKET. PO SCH (09:14)
[2019-11-06] MEDS: DULoxetine HCL 30 MG CAPSULE.DR PO SCH (09:15)
[2019-11-06] MEDS: ARIPiprazole 5 MG TABLET PO SCH (09:15)
[2019-11-06] MEDS: MULTIVITAMIN with MINERAL TABLET. PO SCH (09:15)
[2019-11-06] MEDS: DULoxetine HCL 20 MG CAPSULE.DR PO SCH (09:15)
[2019-11-06] MEDS: CHOLECALCIFEROL (VITAMIN D3) 1,000 UNIT TABLET PO SCH (09:16)
[2019-11-06] MEDS: FOLIC ACID 1 MG TABLET PO SCH (09:16)
[2019-11-06] MEDS: FUROSEMIDE 20 MG TABLET PO SCH (09:16)
[2019-11-06] MEDS: DOCUSATE SODIUM 100 MG CAPSULE PO SCH (09:16)
[2019-11-06] MEDS: ACETAMINOPHEN 325 MG TABLET PO PRN ×2 (11:12→23:02)
[2019-11-06] MEDS: DRONABINOL 2.5 MG CAPSULE PO SCH ×2 (11:12→16:24)
[2019-11-06 15:31] VITALS: BP 93/65
--- NOTE | 2019-11-06 21:57 | PDOC ---
Exam Note: Henry Note: Please also refer to the separate dictated note~for this date of service dictated separately. Discussed the patient with Nursing staff reviewed the chart.~Reviewed interim history and current functioning. Reviewed vital signs,~Labs/ Radiology~and current medications noted below. Continue current treatment with the changes noted in the dictated addendum note Assessment: Vital Signs/I&O: Vital Signs Date Time Temp Pulse Resp B/P (MAP) Pulse Ox O2 Delivery O2 Flow Rate FiO2 11/06/19 15:31 97.5 84 18 93/65 (74) 93 11/05/19 16:03 Room Air I & O 11/05/19 11/05/19 11/06/19 15:00 23:00 07:00 Intake Total 240 ml 300 ml Balance 240 ml 300 ml Current Medications: Meds: Current Medications Medications (Trade) Dose Ordered Sig/Imani Route PRN Reason Start Time Stop Time Status Last Admin Dose Admin Acetaminophen (Tylenol) 650 mg PRN Q8HRS PRN PO MILD PAIN / TEMP 11/06/19 00:00 11/06/19 11:12 I have reviewed the current psychotropics carefully including drug interactions. Risk benefit ratio favors no change other than as noted in my dictated progress note. Diagnosis: Problems: (1) Mild cognitive impairment (2) Anxiety disorder (3) Depression (4) Major depressive disorder, recurrent episode (5) DVT (deep venous thrombosis) BUSTER DELVALLE MD Nov 06, 2019 21:57
[2019-11-06] MEDS: diphenhydrAMINE HCL 25 MG CAPSULE PO PRN (23:02)
[2019-11-07] MEDS: LEVOTHYROXINE 75 MCG TABLET PO SCH (05:53)
[2019-11-07 06:21] VITALS: BP 101/63
[2019-11-07] MEDS: RIVAROXABAN 10 MG TABLET. PO SCH (08:10)
[2019-11-07] MEDS: DULoxetine HCL 20 MG CAPSULE.DR PO SCH (08:10)
[2019-11-07] MEDS: MULTIVITAMIN with MINERAL TABLET. PO SCH (08:10)
[2019-11-07] MEDS: ARIPiprazole 5 MG TABLET PO SCH (08:10)
[2019-11-07] MEDS: VITAMIN B COMPLEX CAPSULE. PO SCH (08:10)
[2019-11-07] MEDS: DOCUSATE SODIUM 100 MG CAPSULE PO SCH (08:10)
[2019-11-07] MEDS: FOLIC ACID 1 MG TABLET PO SCH (08:11)
[2019-11-07] MEDS: DULoxetine HCL 30 MG CAPSULE.DR PO SCH (08:11)
[2019-11-07] MEDS: POLYETHYLENE GLYCOL 3350 17 GM PACKET. PO SCH (08:11)
[2019-11-07] MEDS: CHOLECALCIFEROL (VITAMIN D3) 1,000 UNIT TABLET PO SCH (08:13)
[2019-11-07] MEDS: FUROSEMIDE 20 MG TABLET PO SCH (08:13)
--- NOTE | 2019-11-07 10:37 | PDOC ---
Exam Note: Henry Note: S/O: This note is a late entry for DOS 11/06/2019 covers elements not covered in my initial note. The patient was seen on TeleHealth rounds coordinated by Starr LEARY in the evening. Discussed the patient with nursing staff, reviewed the chart. Nursing report was with Starr LEARY in the morning. Patient slept 6-1/4 hours. She has been cooperative, still depressed, withdrawn but no suicidal ideation. ROS: Ambulation impaired in wheelchair. No CV, , Pulmonary, Eye system symptoms on review. MSE: Reasonably oriented. Speech coherent, has some latency. Abstraction fair. Computation impaired. Language function intact. Mood and affect still dysphoric, but improved. NO suicidal ideation. Labs: Reviewed. Imp: Major depressive disorder, in partial remission. Anxiety disorder unspecified. Plan: Continue psychotropics mentioned in the current psychotropics list. Assessment: Vital Signs/I&O: Vital Signs Date Time Temp Pulse Resp B/P (MAP) Pulse Ox O2 Delivery O2 Flow Rate FiO2 11/07/19 06:21 98.5 88 16 101/63 (76) 93 11/05/19 16:03 Room Air I & O 11/06/19 11/06/19 11/07/19 15:00 23:00 07:00 Intake Total 720 ml 360 ml Balance 720 ml 360 ml Current Medications: I have reviewed the current psychotropics carefully including drug interactions. Risk benefit ratio favors no change other than as noted in my dictated progress note. Diagnosis: Problems: (1) Mild cognitive impairment (2) Anxiety disorder (3) Depression (4) Major depressive disorder, recurrent episode (5) DVT (deep venous thrombosis) BUSTER DELVALLE MD Nov 07, 2019 10:37
[2019-11-07] MEDS: DRONABINOL 2.5 MG CAPSULE PO SCH ×2 (11:20→16:30)
[2019-11-07 13:15] LABS: BASO # 0.1 x10^3/uL (0.0-0.2); BASO % 1 % (0-3); EOS # 0.6 x10^3/uL (0.0-0.7); EOS % 7 % (0-3); HEMATOCRIT 33.7 % (36.0-47.0); LYMPH % 26 % (24-48); MEAN CORPUSCULAR HEMOGLOBIN 31 pg (25-35); MEAN CORPUSCULAR HGB CONC 33 g/dL (31-37); MEAN CORPUSCULAR VOLUME 94 fL (79-100); MONO # 0.5 x10^3/uL (0.0-1.1); MONO % 6 % (0-9); NEUT # 4.5 x10^3uL (1.8-7.7); NEUT % 59 % (31-73); PLATELET COUNT 350 x10^3/uL (140-400); RED BLOOD COUNT 3.59 x10^6/uL (3.50-5.40); RED CELL DISTRIBUTION WIDTH 14.6 % (11.5-14.5); WHITE BLOOD COUNT 7.7 x10^3/uL (4.0-11.0)
[2019-11-07 13:36] LABS: ALBUMIN 3.4 g/dL (3.4-5.0); ALBUMIN/GLOBULIN RATIO 0.9 (1.0-1.7); CALCIUM 9.2 mg/dL (8.5-10.1); CREATININE 0.7 mg/dL (0.6-1.0); GFR 83.7; POTASSIUM 3.8 mmol/L (3.5-5.1); TOTAL BILIRUBIN 0.5 mg/dL (0.2-1.0); TOTAL PROTEIN 7.3 g/dL (6.4-8.2)
--- NOTE | 2019-11-07 14:43 | TX PLAN ---
Interdisciplinary Tx Plan Admission Information Oct 23, 2019 at 14:48 Legal Status (on Admission): Voluntary DPOA/Guardian Name: David Rawls, Son-in-Law Contact Verified Code Status: DNR Allergies: Coded Allergies: No Known Drug Allergies (Unverified , 10/03/19) Estimated Length of Stay: 14 Diagnoses Primary Diagnosis: MDD Reasons for Admission: Relation/conflict, Depressed, Sig. Change Appetite, Suicidal ideation Problem in Patient's Words: Per pts DPOA: Pt has a "massive major depression and doesnt want to live. She thinks that no one wants her." Per pt: "Im here because they all think I want to kill myself. I dont want to kill myself. Theres so much more that I can do with my life." Problems Active Problems: Per intake form, pt was to be discharged from [facility]. She stated that if she goes home, she will kill herself. Family reports history of SI and they had to remove guns from her home previously. Inactive Problems: Pt. is compliant with medications and cooperative with assessments. Pt Strengths/Limitations Ability for [place]: Fair Cognitive Functioning/Ability: Fair Communication Skills/Ability: Fair Financial Resources: Poor Insight/Judgement: Poor Intellectual Ability: Fair Physical Health: Poor Social Skills: Fair Stability in Family: Good Stability in School/Work: Poor Verbal Skills: Fair Discharge Criteria Discharge Criteria: Able meet basic life need, No need for close observ., Able to meet health needs, OP monitor medical prob, Adequate arrangements @DC, Adequate self-care, Verbal commit med comply, Improved behavior, Improved mood/thought Preliminary Discharge Plan Preliminary DC Plan: Home Other Arrangements: Possible short term stay at [facility] for additional rehab. Special Precautions Special Precautions: Suicide Risk Fall Risk: High Initial D/C Plan Pt will plan to discharge back home alone Identified Discharge Needs: Follow Up with PCP Currently Utilized Resources Currently Utilized Resources/P: PCP Referrals Community Resources: Potential for PACE, psychiatry, counseling Identified Problems/Hx/Goals Objectives/Short-Term Goals Short Term Goals: Dec. Symp. Depression, Monitor Med Effects, No Suicidal/Janeen. ideation, Promote Coping Skill Short Term Goals in Patient's: Per pt: "Basically, I just want to be left alone. 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 Education: GED and Associates of Science Degree Community Follow-up Follow Up with PCP Community Provider/Family Inpu: Pt's DPOA would like to see pt's mood stabilized first. He would like pt to able to live safely and successfully independently with daily home health supports because pt cannot ambulate on her own. Treatment Plan Explained Patient/Dean Of Girls had this treatment plan explained to him/her as indicated by the signature below and has been given the opportunity to ask questions and make suggestions: Date: Patient/Dean Of Girls Signature: Status Update Update Pt is calm and cooperative with all cares and staff direction. Pt is eating roughly 50% of meals and sleeping on average 6.5 hours. Pt is interactive with staff and peers as allowed and medication compliant. At this time, it will be recommended that pt return home with services to aid in her safety at home; as well as supports such as PACE or minimum of psychiatric HH. ELOS middle of next week. ROMMEL GONCALVES Nov 07, 2019 14:43
[2019-11-07 15:36] VITALS: BP 94/58
[2019-11-07] MEDS: HYDROcodone/APAP 5/325MG 1 TAB TABLET PO PRN (20:18)
[2019-11-07] MEDS: diphenhydrAMINE HCL 25 MG CAPSULE PO PRN (20:18)
--- NOTE | 2019-11-07 21:55 | PDOC ---
Exam Note: Henry Note: Please also refer to the separate dictated note~for this date of service dictated separately.~Patient seen individually. Discussed the patient with Nursing staff reviewed the chart.~Reviewed interim history and current functioning. Reviewed vital signs,~Labs/ Radiology~and current medications noted below. Continue current treatment with the changes noted in the dictated addendum note Assessment: Vital Signs/I&O: Vital Signs Date Time Temp Pulse Resp B/P (MAP) Pulse Ox O2 Delivery O2 Flow Rate FiO2 11/07/19 20:18 18 Room Air 11/07/19 15:36 98.1 93 94/58 (70) 98 I & O 11/06/19 11/06/19 11/07/19 15:00 23:00 07:00 Intake Total 720 ml 360 ml Balance 720 ml 360 ml Labs: Laboratory Tests Test 11/07/19 13:03 White Blood Count 7.7 x10^3/uL (4.0-11.0) Red Blood Count 3.59 x10^6/uL (3.50-5.40) Hemoglobin 11.0 g/dL (12.0-15.5) L Hematocrit 33.7 % (36.0-47.0) L Mean Corpuscular Volume 94 fL (79-100) Mean Corpuscular Hemoglobin 31 pg (25-35) Mean Corpuscular Hemoglobin Concent 33 g/dL (31-37) Red Cell Distribution Width 14.6 % (11.5-14.5) H Platelet Count 350 x10^3/uL (140-400) Neutrophils (%) (Auto) 59 % (31-73) Lymphocytes (%) (Auto) 26 % (24-48) Monocytes (%) (Auto) 6 % (0-9) Eosinophils (%) (Auto) 7 % (0-3) H Basophils (%) (Auto) 1 % (0-3) Neutrophils # (Auto) 4.5 x10^3uL (1.8-7.7) Lymphocytes # (Auto) 2.0 x10^3/uL (1.0-4.8) Monocytes # (Auto) 0.5 x10^3/uL (0.0-1.1) Eosinophils # (Auto) 0.6 x10^3/uL (0.0-0.7) Basophils # (Auto) 0.1 x10^3/uL (0.0-0.2) Sodium Level 139 mmol/L (136-145) Potassium Level 3.8 mmol/L (3.5-5.1) Chloride Level 101 mmol/L (98-107) Carbon Dioxide Level 30 mmol/L (21-32) Anion Gap 8 (6-14) Blood Urea Nitrogen 13 mg/dL (7-20) Creatinine 0.7 mg/dL (0.6-1.0) Estimated GFR (Cockcroft-Gault) 83.7 BUN/Creatinine Ratio 19 (6-20) Glucose Level 96 mg/dL (70-99) Calcium Level 9.2 mg/dL (8.5-10.1) Total Bilirubin 0.5 mg/dL (0.2-1.0) Aspartate Amino Transferase (AST) 18 U/L (15-37) Alanine Aminotransferase (ALT) 11 U/L (14-59) L Alkaline Phosphatase 68 U/L (46-116) Total Protein 7.3 g/dL (6.4-8.2) Albumin 3.4 g/dL (3.4-5.0) Albumin/Globulin Ratio 0.9 (1.0-1.7) L Current Medications: I have reviewed the current psychotropics carefully including drug interactions. Risk benefit ratio favors no change other than as noted in my dictated progress note. Diagnosis: Problems: (1) Mild cognitive impairment (2) Anxiety disorder (3) Depression (4) Major depressive disorder, recurrent episode (5) DVT (deep venous thrombosis) BUSTER DELVALLE MD Nov 07, 2019 21:55
[2019-11-08] MEDS: LEVOTHYROXINE 75 MCG TABLET PO SCH (05:19)
[2019-11-08 06:05] VITALS: BP 94/62
[2019-11-08] MEDS: MULTIVITAMIN with MINERAL TABLET. PO SCH (09:00)
[2019-11-08] MEDS: POLYETHYLENE GLYCOL 3350 17 GM PACKET. PO SCH (09:00)
[2019-11-08] MEDS: FOLIC ACID 1 MG TABLET PO SCH (09:00)
[2019-11-08] MEDS: VITAMIN B COMPLEX CAPSULE. PO SCH (09:00)
[2019-11-08] MEDS: DOCUSATE SODIUM 100 MG CAPSULE PO SCH (09:00)
[2019-11-08] MEDS: ARIPiprazole 5 MG TABLET PO SCH (09:44)
[2019-11-08] MEDS: RIVAROXABAN 10 MG TABLET. PO SCH (09:44)
[2019-11-08] MEDS: DULoxetine HCL 30 MG CAPSULE.DR PO SCH (09:44)
[2019-11-08] MEDS: DULoxetine HCL 20 MG CAPSULE.DR PO SCH (09:44)
[2019-11-08] MEDS: FUROSEMIDE 20 MG TABLET PO SCH (09:45)
[2019-11-08] MEDS: CHOLECALCIFEROL (VITAMIN D3) 1,000 UNIT TABLET PO SCH (09:45)
--- NOTE | 2019-11-08 10:34 | PDOC ---
Exam Note: Henry Note: S/O: This note is a late entry for DOS 11/07/2019 covers elements not covered in my initial note. We have had exposure of COVID-19 on the unit consequent to a staff member. The unit was on lockdown per [facility] of Health and Environment ([facility])/Centers for Disease Control (CDC). Three patients had dev eloped fever and other symptoms for which they were screened for the COVID-19, two of which have come back negative, result for one is awaited and one other patient today is running a fever and we are doing a COVID-19 screen for this patient. Per regulations from the CDC/[facility], we are unable to admit or discharge any patients, still all of this is negative and the length of stay has affected not entirely by the clinical situation but by this directive additionally from the [facility]/CDC. The patient was seen on TeleHealth rounds coordinated by Jesi LEARY in the evening. Discussed the patient with nursing staff, reviewed the chart. Nursing report was with Yamilet LEARY in the morning. Overall the patient remains somewhat withdrawn, isolative but no suicidal ideation. She states her depression is better. ROS: Ambulation impaired in wheelchair. No CV, , Pulmonary, Eye system symptoms on review. MSE: Reasonably oriented. Speech coherent has some latency. Abstraction fair. Computation impaired. Language function intact. Attention span short. Mood and affect withdrawn, but improved. She seems to be responding to the Abilify 5 mg a day to augment the Cymbalta 50 mg a day. Labs: Reviewed. Imp: Major depressive disorder, in partial remission. Anxiety disorder unspecified. Plan: No change from initial note. Assessment: Vital Signs/I&O: Vital Signs Date Time Temp Pulse Resp B/P (MAP) Pulse Ox O2 Delivery O2 Flow Rate FiO2 11/08/19 06:05 98.1 85 18 94/62 (73) 97 11/07/19 22:56 Room Air I & O 11/07/19 11/07/19 11/08/19 15:00 23:00 07:00 Intake Total 720 ml 0 ml Balance 720 ml 0 ml Labs: Laboratory Tests Test 11/07/19 13:03 White Blood Count 7.7 x10^3/uL (4.0-11.0) Red Blood Count 3.59 x10^6/uL (3.50-5.40) Hemoglobin 11.0 g/dL (12.0-15.5) L Hematocrit 33.7 % (36.0-47.0) L Mean Corpuscular Volume 94 fL (79-100) Mean Corpuscular Hemoglobin 31 pg (25-35) Mean Corpuscular Hemoglobin Concent 33 g/dL (31-37) Red Cell Distribution Width 14.6 % (11.5-14.5) H Platelet Count 350 x10^3/uL (140-400) Neutrophils (%) (Auto) 59 % (31-73) Lymphocytes (%) (Auto) 26 % (24-48) Monocytes (%) (Auto) 6 % (0-9) Eosinophils (%) (Auto) 7 % (0-3) H Basophils (%) (Auto) 1 % (0-3) Neutrophils # (Auto) 4.5 x10^3uL (1.8-7.7) Lymphocytes # (Auto) 2.0 x10^3/uL (1.0-4.8) Monocytes # (Auto) 0.5 x10^3/uL (0.0-1.1) Eosinophils # (Auto) 0.6 x10^3/uL (0.0-0.7) Basophils # (Auto) 0.1 x10^3/uL (0.0-0.2) Sodium Level 139 mmol/L (136-145) Potassium Level 3.8 mmol/L (3.5-5.1) Chloride Level 101 mmol/L (98-107) Carbon Dioxide Level 30 mmol/L (21-32) Anion Gap 8 (6-14) Blood Urea Nitrogen 13 mg/dL (7-20) Creatinine 0.7 mg/dL (0.6-1.0) Estimated GFR (Cockcroft-Gault) 83.7 BUN/Creatinine Ratio 19 (6-20) Glucose Level 96 mg/dL (70-99) Calcium Level 9.2 mg/dL (8.5-10.1) Total Bilirubin 0.5 mg/dL (0.2-1.0) Aspartate Amino Transferase (AST) 18 U/L (15-37) Alanine Aminotransferase (ALT) 11 U/L (14-59) L Alkaline Phosphatase 68 U/L (46-116) Total Protein 7.3 g/dL (6.4-8.2) Albumin 3.4 g/dL (3.4-5.0) Albumin/Globulin Ratio 0.9 (1.0-1.7) L Current Medications: I have reviewed the current psychotropics carefully including drug interactions. Risk benefit ratio favors no change other than as noted in my dictated progress note. Diagnosis: Problems: (1) Mild cognitive impairment (2) Anxiety disorder (3) Depression (4) Major depressive disorder, recurrent episode (5) DVT (deep venous thrombosis) BUSTER DELVALLE MD Nov 08, 2019 10:34
[2019-11-08] MEDS: DRONABINOL 2.5 MG CAPSULE PO SCH ×2 (11:55→16:47)
[2019-11-08 15:53] VITALS: BP 96/62
[2019-11-08] MEDS: HYDROcodone/APAP 5/325MG 1 TAB TABLET PO PRN (20:52)
--- NOTE | 2019-11-08 22:00 | PDOC ---
Exam Note: Henry Note: Please also refer to the separate dictated note~for this date of service dictated separately.~Patient seen individually. Discussed the patient with Nursing staff reviewed the chart.~Reviewed interim history and current functioning. Reviewed vital signs,~Labs/ Radiology~and current medications noted below. Continue current treatment with the changes noted in the dictated addendum note Assessment: Vital Signs/I&O: Vital Signs Date Time Temp Pulse Resp B/P (MAP) Pulse Ox O2 Delivery O2 Flow Rate FiO2 11/08/19 20:52 Room Air 11/08/19 18:30 98.2 11/08/19 15:53 87 20 96/62 (73) 92 I & O 11/07/19 11/07/19 11/08/19 15:00 23:00 07:00 Intake Total 720 ml 0 ml Balance 720 ml 0 ml Current Medications: I have reviewed the current psychotropics carefully including drug interactions. Risk benefit ratio favors no change other than as noted in my dictated progress note. Diagnosis: Problems: (1) Mild cognitive impairment (2) Anxiety disorder (3) Depression (4) Major depressive disorder, recurrent episode (5) DVT (deep venous thrombosis) BUSTER DELVALLE MD Nov 08, 2019 22:00
[2019-11-09] MEDS: LEVOTHYROXINE 75 MCG TABLET PO SCH (03:34)
[2019-11-09] MEDS: HYDROcodone/APAP 5/325MG 1 TAB TABLET PO PRN ×2 (03:34→19:38)
[2019-11-09 06:07] VITALS: BP 95/57
[2019-11-09] MEDS: DULoxetine HCL 20 MG CAPSULE.DR PO SCH (09:00)
[2019-11-09] MEDS: POLYETHYLENE GLYCOL 3350 17 GM PACKET. PO SCH (09:00)
[2019-11-09] MEDS: DOCUSATE SODIUM 100 MG CAPSULE PO SCH (09:00)
[2019-11-09] MEDS: FOLIC ACID 1 MG TABLET PO SCH (09:11)
[2019-11-09] MEDS: FUROSEMIDE 20 MG TABLET PO SCH (09:11)
[2019-11-09] MEDS: RIVAROXABAN 10 MG TABLET. PO SCH (09:11)
[2019-11-09] MEDS: MULTIVITAMIN with MINERAL TABLET. PO SCH (09:11)
[2019-11-09] MEDS: ARIPiprazole 5 MG TABLET PO SCH (09:11)
[2019-11-09] MEDS: DULoxetine HCL 30 MG CAPSULE.DR PO SCH (09:12)
[2019-11-09] MEDS: VITAMIN B COMPLEX CAPSULE. PO SCH (09:12)
[2019-11-09] MEDS: CHOLECALCIFEROL (VITAMIN D3) 1,000 UNIT TABLET PO SCH (09:12)
[2019-11-09] MEDS: DRONABINOL 2.5 MG CAPSULE PO SCH ×2 (12:17→17:29)
--- NOTE | 2019-11-09 12:52 | PDOC ---
Exam Note: Henry Note: S/O: This note is a late entry for DOS 11/08/2019 covers elements not covered in my initial note. We are still waiting on the COVID-19 screen on two patients before the unit can be opened for admissions and discharges per the [facility] of Health and Environment ([facility])/Centers for Disease Control (CDC). Discussed the patient with nursing staff, reviewed the chart. Treatment team meeting was done in the morning with social service staff Kathleen in Activity Therapy, Jesi LEARY, nursing staff and myself. The patient was seen on audio- visual rounds in the evening with Starr LEARY. Patient is being isolated in her room because her C. diff test is awaited. She has been calm, cooperative and somewhat withdrawn, less depressed. No suicidal ideation. Appetite somewhat poor due to above. Patient stated she did not like the food here. Some of this could be due to her general health. She complains of dizziness. Dr. Smith, Neurology was consulted. He finds no neurological cause for this but just encourages the patient to get up and ambulate which should help with that. ROS: Positive for tiredness. No CV, , Pulmonary, Eye system symptoms on review. MSE: Oriented reasonably. Speech coherent has some latency. Abstraction fair. Computation impaired. Language function intact. Mood is less depressed. No suicidal ideation. Labs: Reviewed. Imp: Major depressive disorder, in partial remission. Anxiety disorder unspecified. Plan: No change from initial note. Assessment: Vital Signs/I&O: Vital Signs Date Time Temp Pulse Resp B/P (MAP) Pulse Ox O2 Delivery O2 Flow Rate FiO2 11/09/19 06:07 98.7 75 20 95/57 (70) 94 11/09/19 05:00 Room Air I & O 11/08/19 11/08/19 11/09/19 15:00 23:00 07:00 Intake Total 120 ml Balance 120 ml Current Medications: I have reviewed the current psychotropics carefully including drug interactions. Risk benefit ratio favors no change other than as noted in my dictated progress note. Diagnosis: Problems: (1) Mild cognitive impairment (2) Anxiety disorder (3) Depression (4) Major depressive disorder, recurrent episode (5) DVT (deep venous thrombosis) BUSTER DELVALLE MD Nov 09, 2019 12:52
[2019-11-09 16:15] VITALS: BP 132/74
--- NOTE | 2019-11-09 22:00 | PDOC ---
Exam Note: Henry Note: Please also refer to the separate dictated note~for this date of service dictated separately.~Patient seen individually. Discussed the patient with Nursing staff reviewed the chart.~Reviewed interim history and current functioning. Reviewed vital signs,~Labs/ Radiology~and current medications noted below. Continue current treatment with the changes noted in the dictated addendum note Assessment: Vital Signs/I&O: Vital Signs Date Time Temp Pulse Resp B/P (MAP) Pulse Ox O2 Delivery O2 Flow Rate FiO2 11/09/19 19:38 Room Air 11/09/19 16:15 98.7 85 20 132/74 (93) 97 I & O 11/08/19 11/08/19 11/09/19 15:00 23:00 07:00 Intake Total 120 ml Balance 120 ml Current Medications: I have reviewed the current psychotropics carefully including drug interactions. Risk benefit ratio favors no change other than as noted in my dictated progress note. Diagnosis: Problems: (1) Mild cognitive impairment (2) Anxiety disorder (3) Depression (4) Major depressive disorder, recurrent episode (5) DVT (deep venous thrombosis) BUSTER DELVALLE MD Nov 09, 2019 22:00
[2019-11-10] MEDS: LEVOTHYROXINE 75 MCG TABLET PO SCH (04:03)
[2019-11-10] MEDS: ACETAMINOPHEN 325 MG TABLET PO PRN (04:03)
[2019-11-10 05:50] VITALS: BP 114/71
[2019-11-10] MEDS: DOCUSATE SODIUM 100 MG CAPSULE PO SCH (08:52)
[2019-11-10] MEDS: ARIPiprazole 5 MG TABLET PO SCH (08:52)
[2019-11-10] MEDS: DULoxetine HCL 30 MG CAPSULE.DR PO SCH (08:52)
[2019-11-10] MEDS: VITAMIN B COMPLEX CAPSULE. PO SCH (08:52)
[2019-11-10] MEDS: CHOLECALCIFEROL (VITAMIN D3) 1,000 UNIT TABLET PO SCH (08:53)
[2019-11-10] MEDS: RIVAROXABAN 10 MG TABLET. PO SCH (08:53)
[2019-11-10] MEDS: FOLIC ACID 1 MG TABLET PO SCH (08:53)
[2019-11-10] MEDS: MULTIVITAMIN with MINERAL TABLET. PO SCH (08:53)
[2019-11-10] MEDS: DULoxetine HCL 20 MG CAPSULE.DR PO SCH (08:53)
[2019-11-10] MEDS: FUROSEMIDE 20 MG TABLET PO SCH (08:53)
[2019-11-10] MEDS: POLYETHYLENE GLYCOL 3350 17 GM PACKET. PO SCH (09:00)
[2019-11-10] MEDS: DRONABINOL 2.5 MG CAPSULE PO SCH ×2 (12:56→17:12)
[2019-11-10] MEDS: HYDROcodone/APAP 5/325MG 1 TAB TABLET PO PRN ×2 (12:57→20:21)
[2019-11-10 16:11] VITALS: BP 103/62
--- NOTE | 2019-11-10 21:44 | PDOC ---
Exam Note: Henry Note: S/O: This note is a late entry for DOS 11/09/2019 covers elements not covered in my initial note. Discussed the patient with nursing staff, reviewed the chart. The patient was seen on audio-visual rounds in the evening with Alpesh LEARY. She remains somewhat withdrawn, spends much time in her room. During the i ndividual visit, I processed with her transition to a assisted care before going home and she is agreeable to this. Social service staff will coordinate this with the patients daughter. ROS: No CV, , Pulmonary, Eye system symptoms on review. Gait unsteady. MSE: Oriented reasonably. Speech coherent has some latency. Abstraction fair. Computation impaired. Language function intact. Mood is still somewhat depressed but better. No suicidal or homicidal ideation. Labs: Reviewed. Imp: Major depressive disorder, in partial remission. Anxiety disorder unspecified. Plan: No change from initial note. Assessment: Vital Signs/I&O: Vital Signs Date Time Temp Pulse Resp B/P (MAP) Pulse Ox O2 Delivery O2 Flow Rate FiO2 11/10/19 20:21 Room Air 11/10/19 16:11 98.2 78 16 103/62 (76) 93 I & O 11/09/19 11/09/19 11/10/19 15:00 23:00 07:00 Intake Total 120 ml 360 ml Balance 120 ml 360 ml Current Medications: I have reviewed the current psychotropics carefully including drug interactions. Risk benefit ratio favors no change other than as noted in my dictated progress note. Diagnosis: Problems: (1) Mild cognitive impairment (2) Anxiety disorder (3) Depression (4) Major depressive disorder, recurrent episode (5) DVT (deep venous thrombosis) BUSTER DELVALLE MD Nov 10, 2019 21:44
--- NOTE | 2019-11-10 21:59 | PDOC ---
Exam Note: Henry Note: Please also refer to the separate dictated note~for this date of service dictated separately.~Patient seen individually. Discussed the patient with Nursing staff reviewed the chart.~Reviewed interim history and current functioning. Reviewed vital signs,~Labs/ Radiology~and current medications noted below. Continue current treatment with the changes noted in the dictated addendum note Assessment: Vital Signs/I&O: Vital Signs Date Time Temp Pulse Resp B/P (MAP) Pulse Ox O2 Delivery O2 Flow Rate FiO2 11/10/19 21:50 Room Air 11/10/19 16:11 98.2 78 16 103/62 (76) 93 I & O 11/09/19 11/09/19 11/10/19 15:00 23:00 07:00 Intake Total 120 ml 360 ml Balance 120 ml 360 ml Current Medications: I have reviewed the current psychotropics carefully including drug interactions. Risk benefit ratio favors no change other than as noted in my dictated progress note. Diagnosis: Problems: (1) Mild cognitive impairment (2) Anxiety disorder (3) Depression (4) Major depressive disorder, recurrent episode (5) DVT (deep venous thrombosis) BUSTER DELVALLE MD Nov 10, 2019 21:59
[2019-11-11] MEDS: LEVOTHYROXINE 75 MCG TABLET PO SCH (05:04)
[2019-11-11] MEDS: ACETAMINOPHEN 325 MG TABLET PO PRN (05:04)
[2019-11-11 06:02] VITALS: BP 110/73
[2019-11-11] MEDS: DOCUSATE SODIUM 100 MG CAPSULE PO SCH (08:17)
[2019-11-11] MEDS: DULoxetine HCL 30 MG CAPSULE.DR PO SCH (08:17)
[2019-11-11] MEDS: FOLIC ACID 1 MG TABLET PO SCH (08:17)
[2019-11-11] MEDS: DULoxetine HCL 20 MG CAPSULE.DR PO SCH (08:17)
[2019-11-11] MEDS: FUROSEMIDE 20 MG TABLET PO SCH (08:17)
[2019-11-11] MEDS: VITAMIN B COMPLEX CAPSULE. PO SCH (08:17)
[2019-11-11] MEDS: ARIPiprazole 5 MG TABLET PO SCH (08:17)
[2019-11-11] MEDS: RIVAROXABAN 10 MG TABLET. PO SCH (08:18)
[2019-11-11] MEDS: CHOLECALCIFEROL (VITAMIN D3) 1,000 UNIT TABLET PO SCH (08:18)
[2019-11-11] MEDS: MULTIVITAMIN with MINERAL TABLET. PO SCH (08:18)
[2019-11-11] MEDS: POLYETHYLENE GLYCOL 3350 17 GM PACKET. PO SCH (08:18)
[2019-11-11] MEDS: DRONABINOL 2.5 MG CAPSULE PO SCH ×2 (12:17→17:42)
[2019-11-11 16:01] VITALS: BP 93/62
[2019-11-11] MEDS: HYDROcodone/APAP 5/325MG 1 TAB TABLET PO PRN (20:46)
[2019-11-11] MEDS: diphenhydrAMINE HCL 25 MG CAPSULE PO PRN (20:46)
[2019-11-12] MEDS: LEVOTHYROXINE 75 MCG TABLET PO SCH (05:43)
[2019-11-12 06:18] VITALS: BP 116/72
--- NOTE | 2019-11-12 08:32 | PDOC ---
Exam Note: Henry Note: S/O: This note is a late entry for DOS 11/10/2019 covers elements not covered in my initial note. Discussed the patient with nursing staff, reviewed the chart. The patient was seen on audio-visual rounds in the evening with Alpesh LEARY. Nursing report was with Yeni LEARY. She slept 6-1/4 hours. ROS: No CV, , Pulmonary, Eye system symptoms on review. Gait unsteady. MSE: Oriented reasonably. Speech coherent has some latency. Abstraction fair. Computation impaired. Language function intact. Mood is still somewhat depressed but better. No suicidal or homicidal ideation. Labs: Reviewed. Imp: Major depressive disorder, in partial remission. Anxiety disorder unspecified. Plan: No change from initial note. Assessment: Vital Signs/I&O: Vital Signs Date Time Temp Pulse Resp B/P (MAP) Pulse Ox O2 Delivery O2 Flow Rate FiO2 11/12/19 06:18 98.2 74 16 116/72 (87) 94 11/10/19 21:50 Room Air I & O 11/11/19 11/11/19 11/12/19 15:00 23:00 07:00 Intake Total 360 ml 480 ml 120 ml Balance 360 ml 480 ml 120 ml Current Medications: I have reviewed the current psychotropics carefully including drug interactions. Risk benefit ratio favors no change other than as noted in my dictated progress note. Diagnosis: Problems: (1) Mild cognitive impairment (2) Anxiety disorder (3) Depression (4) Major depressive disorder, recurrent episode (5) DVT (deep venous thrombosis) BUSTER DELVALLE MD Nov 12, 2019 08:32
[2019-11-12] MEDS: FUROSEMIDE 20 MG TABLET PO SCH (08:52)
[2019-11-12] MEDS: RIVAROXABAN 10 MG TABLET. PO SCH (08:52)
[2019-11-12] MEDS: CHOLECALCIFEROL (VITAMIN D3) 1,000 UNIT TABLET PO SCH (08:52)
[2019-11-12] MEDS: MULTIVITAMIN with MINERAL TABLET. PO SCH (08:52)
[2019-11-12] MEDS: ARIPiprazole 5 MG TABLET PO SCH (08:52)
[2019-11-12] MEDS: VITAMIN B COMPLEX CAPSULE. PO SCH (08:52)
[2019-11-12] MEDS: POLYETHYLENE GLYCOL 3350 17 GM PACKET. PO SCH (08:52)
[2019-11-12] MEDS: FOLIC ACID 1 MG TABLET PO SCH (08:53)
[2019-11-12] MEDS: DULoxetine HCL 20 MG CAPSULE.DR PO SCH (08:53)
[2019-11-12] MEDS: DULoxetine HCL 30 MG CAPSULE.DR PO SCH (08:53)
[2019-11-12] MEDS: DOCUSATE SODIUM 100 MG CAPSULE PO SCH (08:53)
--- NOTE | 2019-11-12 08:57 | PDOC ---
Exam Note: Henry Note: S/O: This note is a late entry for DOS 11/11/2019 covers elements not covered in my initial note. Discussed the patient with nursing staff, reviewed the chart. The patient was seen on audio-visual rounds in the evening with Alyssa LEARY. Nursing report was with Sharifa LEARY. The patient has been doing somewhat better, less depressed. ROS: Impaired ambulation, lying in bed. No CV, , Pulmonary, Eye system symptoms on review. MSE: Oriented reasonably. Speech coherent has some latency. Abstraction fair. Computation impaired. Language function intact. Mood is still somewhat depressed but better. No suicidal or homicidal ideation. Labs: Reviewed. Imp: Major depressive disorder, in partial remission. Anxiety disorder unspecified. Plan: No change from initial note. Assessment: Vital Signs/I&O: Vital Signs Date Time Temp Pulse Resp B/P (MAP) Pulse Ox O2 Delivery O2 Flow Rate FiO2 11/12/19 06:18 98.2 74 16 116/72 (87) 94 11/10/19 21:50 Room Air I & O 11/11/19 11/11/19 11/12/19 15:00 23:00 07:00 Intake Total 360 ml 480 ml 120 ml Balance 360 ml 480 ml 120 ml Current Medications: I have reviewed the current psychotropics carefully including drug interactions. Risk benefit ratio favors no change other than as noted in my dictated progress note. Diagnosis: Problems: (1) Mild cognitive impairment (2) Anxiety disorder (3) Depression (4) Major depressive disorder, recurrent episode (5) DVT (deep venous thrombosis) BUSTER DELVALLE MD Nov 12, 2019 08:57
[2019-11-12] MEDS: DRONABINOL 2.5 MG CAPSULE PO SCH ×2 (12:07→17:01)
[2019-11-12 15:40] VITALS: BP 112/75
[2019-11-12] MEDS: ACETAMINOPHEN 325 MG TABLET PO PRN (17:01)
[2019-11-12] MEDS: HYDROcodone/APAP 5/325MG 1 TAB TABLET PO PRN (20:37)
--- NOTE | 2019-11-12 22:12 | PDOC ---
Exam Note: Henry Note: Please also refer to the separate dictated note~for this date of service dictated separately.~Patient seen individually. Discussed the patient with Nursing staff reviewed the chart.~Reviewed interim history and current functioning. Reviewed vital signs,~Labs/ Radiology~and current medications noted below. Continue current treatment with the changes noted in the dictated addendum note Assessment: Vital Signs/I&O: Vital Signs Date Time Temp Pulse Resp B/P (MAP) Pulse Ox O2 Delivery O2 Flow Rate FiO2 11/12/19 20:37 Room Air 11/12/19 15:40 98.0 77 16 112/75 (87) 100 I & O 11/11/19 11/11/19 11/12/19 15:00 23:00 07:00 Intake Total 360 ml 480 ml 120 ml Balance 360 ml 480 ml 120 ml Current Medications: I have reviewed the current psychotropics carefully including drug interactions. Risk benefit ratio favors no change other than as noted in my dictated progress note. Diagnosis: Problems: (1) Mild cognitive impairment (2) Anxiety disorder (3) Depression (4) Major depressive disorder, recurrent episode (5) DVT (deep venous thrombosis) BUSTER DELVALLE MD Nov 12, 2019 22:12
[2019-11-13] MEDS: ACETAMINOPHEN 325 MG TABLET PO PRN ×3 (05:29→23:53)
[2019-11-13] MEDS: LEVOTHYROXINE 75 MCG TABLET PO SCH (05:30)
[2019-11-13 06:19] VITALS: BP 87/56
[2019-11-13] MEDS: ARIPiprazole 5 MG TABLET PO SCH (08:45)
[2019-11-13] MEDS: CHOLECALCIFEROL (VITAMIN D3) 1,000 UNIT TABLET PO SCH (08:45)
[2019-11-13] MEDS: RIVAROXABAN 10 MG TABLET. PO SCH (08:45)
[2019-11-13] MEDS: DULoxetine HCL 30 MG CAPSULE.DR PO SCH (08:46)
[2019-11-13] MEDS: MULTIVITAMIN with MINERAL TABLET. PO SCH (08:46)
[2019-11-13] MEDS: VITAMIN B COMPLEX CAPSULE. PO SCH (08:46)
[2019-11-13] MEDS: DULoxetine HCL 20 MG CAPSULE.DR PO SCH (08:46)
[2019-11-13] MEDS: DOCUSATE SODIUM 100 MG CAPSULE PO SCH (08:46)
[2019-11-13] MEDS: FOLIC ACID 1 MG TABLET PO SCH (08:46)
[2019-11-13] MEDS: FUROSEMIDE 20 MG TABLET PO SCH (08:46)
[2019-11-13] MEDS: POLYETHYLENE GLYCOL 3350 17 GM PACKET. PO SCH (08:46)
[2019-11-13] MEDS: DRONABINOL 2.5 MG CAPSULE PO SCH ×2 (11:26→16:50)
[2019-11-13 15:43] VITALS: BP 121/76
--- NOTE | 2019-11-13 21:45 | PDOC ---
Exam Note: Henry Note: Please also refer to the separate dictated note~for this date of service dictated separately.~Patient seen individually. Discussed the patient with Nursing staff reviewed the chart.~Reviewed interim history and current functioning. Reviewed vital signs,~Labs/ Radiology~and current medications noted below. Continue current treatment with the changes noted in the dictated addendum note Assessment: Vital Signs/I&O: Vital Signs Date Time Temp Pulse Resp B/P (MAP) Pulse Ox O2 Delivery O2 Flow Rate FiO2 11/13/19 15:43 98.5 76 16 121/76 (91) 96 Room Air I & O 11/12/19 11/12/19 11/13/19 14:59 22:59 06:59 Intake Total 120 ml 580 ml Balance 120 ml 580 ml Current Medications: I have reviewed the current psychotropics carefully including drug interactions. Risk benefit ratio favors no change other than as noted in my dictated progress note. Diagnosis: Problems: (1) Mild cognitive impairment (2) Anxiety disorder (3) Depression (4) Major depressive disorder, recurrent episode (5) DVT (deep venous thrombosis) BUSTER DELVALLE MD Nov 13, 2019 21:45
[2019-11-14 06:05] LABS: BASO # 0.1 x10^3/uL (0.0-0.2); BASO % 2 % (0-3); EOS # 0.8 x10^3/uL (0.0-0.7); EOS % 14 % (0-3); HEMATOCRIT 31.4 % (36.0-47.0); HEMOGLOBIN 10.4 g/dL (12.0-15.5); LYMPH # 1.7 x10^3/uL (1.0-4.8); LYMPH % 27 % (24-48); MEAN CORPUSCULAR HEMOGLOBIN 30 pg (25-35); MEAN CORPUSCULAR HGB CONC 33 g/dL (31-37); MEAN CORPUSCULAR VOLUME 91 fL (79-100); MONO # 0.4 x10^3/uL (0.0-1.1); MONO % 7 % (0-9); NEUT # 3.2 x10^3uL (1.8-7.7); NEUT % 51 % (31-73); PLATELET COUNT 318 x10^3/uL (140-400); RED BLOOD COUNT 3.44 x10^6/uL (3.50-5.40); RED CELL DISTRIBUTION WIDTH 14.6 % (11.5-14.5); WHITE BLOOD COUNT 6.2 x10^3/uL (4.0-11.0)
[2019-11-14] MEDS: LEVOTHYROXINE 75 MCG TABLET PO SCH (06:09)
[2019-11-14] MEDS: HYDROcodone/APAP 5/325MG 1 TAB TABLET PO PRN (06:14)
[2019-11-14 06:16] LABS: ALBUMIN/GLOBULIN RATIO 0.9 (1.0-1.7); CALCIUM 9.1 mg/dL (8.5-10.1); CREATININE 0.8 mg/dL (0.6-1.0); GFR 71.8; POTASSIUM 3.8 mmol/L (3.5-5.1); TOTAL BILIRUBIN 0.3 mg/dL (0.2-1.0); TOTAL PROTEIN 6.5 g/dL (6.4-8.2)
[2019-11-14 06:19] VITALS: BP 114/73
--- NOTE | 2019-11-14 07:51 | PDOC ---
Exam Note: Henry Note: S/O: This note is a late entry for DOS 11/12/2019 covers elements not covered in my initial note. Discussed the patient with nursing staff, reviewed the chart. The patient was seen on audio-visual rounds in the evening with Breann LEARY. Nursing report was with Starr LEARY. The patient slept 7-3/4 hours. Previous night she was making inappropriate sexual comment to Alyssa RN but seemed to redirect or perhaps she misperceived what Alyssa had on her name badge as the patient felt this was pornographic material. She has not displayed any such behaviors during the day or at other times and we will monitor for this. ROS: Impaired ambulation, lying in bed. No CV, , Pulmonary, Eye system sy mptoms on review. MSE: Oriented reasonably. Speech coherent has some latency. Abstraction fair. Computation impaired. Language function intact. Mood is still somewhat depressed but better. No suicidal or homicidal ideation. Labs: Reviewed. Imp: Major depressive disorder, in partial remission. Anxiety disorder unspecified. Plan: No change from initial note. Assessment: Vital Signs/I&O: VS - Last 72 Hours, by Label Date Time Temp Pulse Resp B/P (MAP) Pulse Ox O2 Delivery O2 Flow Rate FiO2 11/14/19 07:14 92 11/14/19 06:19 98.2 73 16 114/73 (87) 92 11/14/19 06:14 18 Room Air 11/13/19 15:43 98.5 76 16 121/76 (91) 96 Room Air 11/13/19 06:19 97.8 90 18 87/56 (66) 94 11/12/19 20:37 Room Air 11/12/19 15:40 98.0 77 16 112/75 (87) 100 Room Air 11/12/19 06:18 98.2 74 16 116/72 (87) 94 11/11/19 22:47 96 11/11/19 20:46 96 11/11/19 16:01 97.8 82 16 93/62 (72) 96 Vital Signs Date Time Temp Pulse Resp B/P (MAP) Pulse Ox O2 Delivery O2 Flow Rate FiO2 11/14/19 07:14 92 11/14/19 06:19 98.2 73 16 114/73 (87) 11/14/19 06:14 Room Air I & O 11/13/19 11/13/19 11/14/19 15:00 23:00 07:00 Intake Total 480 ml 100 ml Balance 480 ml 100 ml Labs: Laboratory Tests Test 11/14/19 05:55 White Blood Count 6.2 x10^3/uL (4.0-11.0) Red Blood Count 3.44 x10^6/uL (3.50-5.40) L Hemoglobin 10.4 g/dL (12.0-15.5) L Hematocrit 31.4 % (36.0-47.0) L Mean Corpuscular Volume 91 fL (79-100) Mean Corpuscular Hemoglobin 30 pg (25-35) Mean Corpuscular Hemoglobin Concent 33 g/dL (31-37) Red Cell Distribution Width 14.6 % (11.5-14.5) H Platelet Count 318 x10^3/uL (140-400) Neutrophils (%) (Auto) 51 % (31-73) Lymphocytes (%) (Auto) 27 % (24-48) Monocytes (%) (Auto) 7 % (0-9) Eosinophils (%) (Auto) 14 % (0-3) H Basophils (%) (Auto) 2 % (0-3) Neutrophils # (Auto) 3.2 x10^3uL (1.8-7.7) Lymphocytes # (Auto) 1.7 x10^3/uL (1.0-4.8) Monocytes # (Auto) 0.4 x10^3/uL (0.0-1.1) Eosinophils # (Auto) 0.8 x10^3/uL (0.0-0.7) H Basophils # (Auto) 0.1 x10^3/uL (0.0-0.2) Sodium Level 139 mmol/L (136-145) Potassium Level 3.8 mmol/L (3.5-5.1) Chloride Level 101 mmol/L (98-107) Carbon Dioxide Level 30 mmol/L (21-32) Anion Gap 8 (6-14) Blood Urea Nitrogen 16 mg/dL (7-20) Creatinine 0.8 mg/dL (0.6-1.0) Estimated GFR (Cockcroft-Gault) 71.8 BUN/Creatinine Ratio 20 (6-20) Glucose Level 91 mg/dL (70-99) Calcium Level 9.1 mg/dL (8.5-10.1) Total Bilirubin 0.3 mg/dL (0.2-1.0) Aspartate Amino Transferase (AST) 16 U/L (15-37) Alanine Aminotransferase (ALT) 13 U/L (14-59) L Alkaline Phosphatase 60 U/L (46-116) Total Protein 6.5 g/dL (6.4-8.2) Albumin 3.0 g/dL (3.4-5.0) L Albumin/Globulin Ratio 0.9 (1.0-1.7) L Current Medications: I have reviewed the current psychotropics carefully including drug interactions. Risk benefit ratio favors no change other than as noted in my dictated progress note. Diagnosis: Problems: (1) Mild cognitive impairment (2) Anxiety disorder (3) Depression (4) Major depressive disorder, recurrent episode (5) DVT (deep venous thrombosis) BUSTER DELVALLE MD Nov 14, 2019 07:51
[2019-11-14] MEDS: POLYETHYLENE GLYCOL 3350 17 GM PACKET. PO SCH (08:04)
[2019-11-14] MEDS: DULoxetine HCL 30 MG CAPSULE.DR PO SCH (08:04)
[2019-11-14] MEDS: RIVAROXABAN 10 MG TABLET. PO SCH (08:04)
[2019-11-14] MEDS: DOCUSATE SODIUM 100 MG CAPSULE PO SCH (08:04)
[2019-11-14] MEDS: DULoxetine HCL 20 MG CAPSULE.DR PO SCH (08:04)
[2019-11-14] MEDS: VITAMIN B COMPLEX CAPSULE. PO SCH (08:04)
[2019-11-14] MEDS: FUROSEMIDE 20 MG TABLET PO SCH (08:05)
[2019-11-14] MEDS: ARIPiprazole 5 MG TABLET PO SCH (08:05)
[2019-11-14] MEDS: FOLIC ACID 1 MG TABLET PO SCH (08:05)
[2019-11-14] MEDS: MULTIVITAMIN with MINERAL TABLET. PO SCH (08:05)
[2019-11-14] MEDS: CHOLECALCIFEROL (VITAMIN D3) 1,000 UNIT TABLET PO SCH (08:05)
--- NOTE | 2019-11-14 08:11 | PDOC ---
Exam Note: Henry Note: S/O: This note is a late entry for DOS 11/13/2019 covers elements not covered in my initial note. Discussed the patient with nursing staff, reviewed the chart. The patient was seen on audio-visual rounds in the evening with Alpesh RN. Nursing report was with Starr LEARY. The patient slept 7-1/2 hours. She w as pleasant, compliant, tearful at times and when questioned she said her father turned 92 and she was upset he was so old. We addressed this during the individual visit. ROS: Impaired ambulation, lying in bed. No CV, , Pulmonary, Eye system symptoms on review. MSE: I met her in her room. She was lying in bed, oriented reasonably. Speech coherent has some latency. Abstraction fair. Computation impaired. Language function intact. Mood is still somewhat depressed but better. No suicidal or homicidal ideation. Labs: Reviewed. Imp: Major depressive disorder, in partial remission. Anxiety disorder unspecified. Plan: No change from initial note. Assessment: Vital Signs/I&O: Vital Signs Date Time Temp Pulse Resp B/P (MAP) Pulse Ox O2 Delivery O2 Flow Rate FiO2 11/14/19 07:14 92 11/14/19 06:19 98.2 73 16 114/73 (87) 11/14/19 06:14 Room Air I & O 11/13/19 11/13/19 11/14/19 15:00 23:00 07:00 Intake Total 480 ml 100 ml Balance 480 ml 100 ml Labs: Laboratory Tests Test 11/14/19 05:55 White Blood Count 6.2 x10^3/uL (4.0-11.0) Red Blood Count 3.44 x10^6/uL (3.50-5.40) L Hemoglobin 10.4 g/dL (12.0-15.5) L Hematocrit 31.4 % (36.0-47.0) L Mean Corpuscular Volume 91 fL (79-100) Mean Corpuscular Hemoglobin 30 pg (25-35) Mean Corpuscular Hemoglobin Concent 33 g/dL (31-37) Red Cell Distribution Width 14.6 % (11.5-14.5) H Platelet Count 318 x10^3/uL (140-400) Neutrophils (%) (Auto) 51 % (31-73) Lymphocytes (%) (Auto) 27 % (24-48) Monocytes (%) (Auto) 7 % (0-9) Eosinophils (%) (Auto) 14 % (0-3) H Basophils (%) (Auto) 2 % (0-3) Neutrophils # (Auto) 3.2 x10^3uL (1.8-7.7) Lymphocytes # (Auto) 1.7 x10^3/uL (1.0-4.8) Monocytes # (Auto) 0.4 x10^3/uL (0.0-1.1) Eosinophils # (Auto) 0.8 x10^3/uL (0.0-0.7) H Basophils # (Auto) 0.1 x10^3/uL (0.0-0.2) Sodium Level 139 mmol/L (136-145) Potassium Level 3.8 mmol/L (3.5-5.1) Chloride Level 101 mmol/L (98-107) Carbon Dioxide Level 30 mmol/L (21-32) Anion Gap 8 (6-14) Blood Urea Nitrogen 16 mg/dL (7-20) Creatinine 0.8 mg/dL (0.6-1.0) Estimated GFR (Cockcroft-Gault) 71.8 BUN/Creatinine Ratio 20 (6-20) Glucose Level 91 mg/dL (70-99) Calcium Level 9.1 mg/dL (8.5-10.1) Total Bilirubin 0.3 mg/dL (0.2-1.0) Aspartate Amino Transferase (AST) 16 U/L (15-37) Alanine Aminotransferase (ALT) 13 U/L (14-59) L Alkaline Phosphatase 60 U/L (46-116) Total Protein 6.5 g/dL (6.4-8.2) Albumin 3.0 g/dL (3.4-5.0) L Albumin/Globulin Ratio 0.9 (1.0-1.7) L Current Medications: I have reviewed the current psychotropics carefully including drug interactions. Risk benefit ratio favors no change other than as noted in my dictated progress note. Diagnosis: Problems: (1) Mild cognitive impairment (2) Anxiety disorder (3) Depression (4) Major depressive disorder, recurrent episode (5) DVT (deep venous thrombosis) BUSTER DELVALLE MD Nov 14, 2019 08:11
--- NOTE | 2019-11-14 12:48 | TX PLAN ---
Interdisciplinary Tx Plan Admission Information Oct 23, 2019 at 14:48 Legal Status (on Admission): Voluntary DPOA/Guardian Name: Davdi Rawls, Son-in-Law Contact Verified Code Status: DNR Allergies: Coded Allergies: No Known Drug Allergies (Unverified , 11/13/19) Estimated Length of Stay: 14 Diagnoses Primary Diagnosis: MDD Reasons for Admission: Relation/conflict, Depressed, Sig. Change Appetite, Suicidal ideation Problem in Patient's Words: Per pts DPOA: Pt has a "massive major depression and doesnt want to live. She thinks that no one wants her." Per pt: "Im here because they all think I want to kill myself. I dont want to kill myself. Theres so much more that I can do with my life." Problems Active Problems: Per intake form, pt was to be discharged from [facility]. She stated that if she goes home, she will kill herself. Family reports history of SI and they had to remove guns from her home previously. Inactive Problems: Pt. is compliant with medications and cooperative with assessments. Pt Strengths/Limitations Ability for Thomas: Fair Cognitive Functioning/Ability: Fair Communication Skills/Ability: Fair Financial Resources: Poor Insight/Judgement: Poor Intellectual Ability: Fair Physical Health: Poor Social Skills: Fair Stability in Family: Good Stability in School/Work: Poor Verbal Skills: Fair Discharge Criteria Discharge Criteria: Able meet basic life need, No need for close observ., Able to meet health needs, OP monitor medical prob, Adequate arrangements @DC, Adequate self-care, Verbal commit med comply, Improved behavior, Improved mood/thought Preliminary Discharge Plan Preliminary DC Plan: Home Other Arrangements: Possible short term stay at [facility] for additional rehab. Special Precautions Special Precautions: Suicide Risk Fall Risk: High Initial D/C Plan Pt will plan to discharge back home alone Identified Discharge Needs: Follow Up with PCP Currently Utilized Resources Currently Utilized Resources/P: PCP Referrals Community Resources: Potential for PACE, psychiatry, counseling Identified Problems/Hx/Goals Objectives/Short-Term Goals Short Term Goals: Dec. Symp. Depression, Monitor Med Effects, No Suicidal/Janeen. ideation, Promote Coping Skill Short Term Goals in Patient's: Per pt: "Basically, I just want to be left alone. 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 Education: GED and [employer] Degree Community Follow-up Follow Up with PCP Community Provider/Family Inpu: Pt's DPOA would like to see pt's mood stabilized first. He would like pt to able to live safely and successfully independently with daily home health supports because pt cannot ambulate on her own. Treatment Plan Explained Patient/Bereavement Program Coordinator had this treatment plan explained to him/her as indicated by the signature below and has been given the opportunity to ask questions and make suggestions: Date: Patient/Bereavement Program Coordinator Signature: Status Update Update Pt is eating roughly 50% and sleeping on average 6.5 hours per night. Pt is calm and cooperative with all staff direction and cares. Pt is tearful at time and withdrawn to her room, but compliant. Pt family has requested that pt discharge to either an AL or LTC as they are aware that pt would go home and lock the doors so no one could get in. Pt family believes that pt is completely failure to thrive; and without someone checking on her she won't eat, take her medications or anything. Pt family is aware of the current events of the quarantine and will continue to follow up with potential for discharge in the next two weeks. ROMMEL GONCALVES Nov 14, 2019 12:48
[2019-11-14] MEDS: DRONABINOL 2.5 MG CAPSULE PO SCH ×2 (13:06→16:30)
[2019-11-14 15:52] VITALS: BP 98/63
--- NOTE | 2019-11-14 22:02 | PDOC ---
Exam Note: Henry Note: Please also refer to the separate dictated note~for this date of service dictated separately.~Patient seen individually. Discussed the patient with Nursing staff reviewed the chart.~Reviewed interim history and current functioning. Reviewed vital signs,~Labs/ Radiology~and current medications noted below. Continue current treatment with the changes noted in the dictated addendum note Assessment: Vital Signs/I&O: Vital Signs Date Time Temp Pulse Resp B/P (MAP) Pulse Ox O2 Delivery O2 Flow Rate FiO2 11/14/19 15:52 98.2 75 18 98/63 (75) 97 11/14/19 06:14 Room Air I & O 11/13/19 11/13/19 11/14/19 14:59 22:59 06:59 Intake Total 480 ml 100 ml Balance 480 ml 100 ml Labs: Laboratory Tests Test 11/14/19 05:55 White Blood Count 6.2 x10^3/uL (4.0-11.0) Red Blood Count 3.44 x10^6/uL (3.50-5.40) L Hemoglobin 10.4 g/dL (12.0-15.5) L Hematocrit 31.4 % (36.0-47.0) L Mean Corpuscular Volume 91 fL (79-100) Mean Corpuscular Hemoglobin 30 pg (25-35) Mean Corpuscular Hemoglobin Concent 33 g/dL (31-37) Red Cell Distribution Width 14.6 % (11.5-14.5) H Platelet Count 318 x10^3/uL (140-400) Neutrophils (%) (Auto) 51 % (31-73) Lymphocytes (%) (Auto) 27 % (24-48) Monocytes (%) (Auto) 7 % (0-9) Eosinophils (%) (Auto) 14 % (0-3) H Basophils (%) (Auto) 2 % (0-3) Neutrophils # (Auto) 3.2 x10^3uL (1.8-7.7) Lymphocytes # (Auto) 1.7 x10^3/uL (1.0-4.8) Monocytes # (Auto) 0.4 x10^3/uL (0.0-1.1) Eosinophils # (Auto) 0.8 x10^3/uL (0.0-0.7) H Basophils # (Auto) 0.1 x10^3/uL (0.0-0.2) Sodium Level 139 mmol/L (136-145) Potassium Level 3.8 mmol/L (3.5-5.1) Chloride Level 101 mmol/L (98-107) Carbon Dioxide Level 30 mmol/L (21-32) Anion Gap 8 (6-14) Blood Urea Nitrogen 16 mg/dL (7-20) Creatinine 0.8 mg/dL (0.6-1.0) Estimated GFR (Cockcroft-Gault) 71.8 BUN/Creatinine Ratio 20 (6-20) Glucose Level 91 mg/dL (70-99) Calcium Level 9.1 mg/dL (8.5-10.1) Total Bilirubin 0.3 mg/dL (0.2-1.0) Aspartate Amino Transferase (AST) 16 U/L (15-37) Alanine Aminotransferase (ALT) 13 U/L (14-59) L Alkaline Phosphatase 60 U/L (46-116) Total Protein 6.5 g/dL (6.4-8.2) Albumin 3.0 g/dL (3.4-5.0) L Albumin/Globulin Ratio 0.9 (1.0-1.7) L Current Medications: I have reviewed the current psychotropics carefully including drug interactions. Risk benefit ratio favors no change other than as noted in my dictated progress note. Diagnosis: Problems: (1) Mild cognitive impairment (2) Anxiety disorder (3) Depression (4) Major depressive disorder, recurrent episode (5) DVT (deep venous thrombosis) BUSTER DELVALLE MD Nov 14, 2019 22:02
[2019-11-14] MEDS: traZODone 50 MG TABLET. PO PRN (22:41)
[2019-11-15 05:36] VITALS: BP 101/67
[2019-11-15] MEDS: LEVOTHYROXINE 75 MCG TABLET PO SCH (05:45)
[2019-11-15] MEDS: DULoxetine HCL 20 MG CAPSULE.DR PO SCH (08:21)
[2019-11-15] MEDS: DULoxetine HCL 30 MG CAPSULE.DR PO SCH (08:21)
[2019-11-15] MEDS: RIVAROXABAN 10 MG TABLET. PO SCH (08:21)
[2019-11-15] MEDS: VITAMIN B COMPLEX CAPSULE. PO SCH (08:22)
[2019-11-15] MEDS: DOCUSATE SODIUM 100 MG CAPSULE PO SCH (08:22)
[2019-11-15] MEDS: MULTIVITAMIN with MINERAL TABLET. PO SCH (08:22)
[2019-11-15] MEDS: ARIPiprazole 5 MG TABLET PO SCH (08:22)
[2019-11-15] MEDS: CHOLECALCIFEROL (VITAMIN D3) 1,000 UNIT TABLET PO SCH (08:22)
[2019-11-15] MEDS: FUROSEMIDE 20 MG TABLET PO SCH (08:22)
[2019-11-15] MEDS: FOLIC ACID 1 MG TABLET PO SCH (08:23)
[2019-11-15] MEDS: POLYETHYLENE GLYCOL 3350 17 GM PACKET. PO SCH (08:23)
--- NOTE | 2019-11-15 09:47 | PDOC ---
Exam Note: Henry Note: S/O: This note is a late entry for DOS 11/14/2019 covers elements not covered in my initial note. Discussed the patient with nursing staff, reviewed the chart. The patient was seen on audio-visual rounds in the evening with Breann LEARY. Nursing report was with Breann LEARY. No sexually inappropriate behaviors noted. She slept just 3 hours previous night. ROS: Impaired ambulation with walker and at times in wheelchair. No CV, , Pulmonary, Eye system symptoms on review. MSE: She was lying in bed, oriented reasonably. Speech coherent has some latency. Abstraction fair. Computation impaired. Language function intact. Mood is still somewhat depressed but better. No suicidal or homicidal ideation. Labs: Reviewed. Imp: Major depressive disorder, in partial remission. Anxiety disorder unspecified. Plan: Continue psychotropics from initial note. Start trazodone 50 mg h.s. p.r.n. and may repeat x1 for insomnia. Assessment: Vital Signs/I&O: Vital Signs Date Time Temp Pulse Resp B/P (MAP) Pulse Ox O2 Delivery O2 Flow Rate FiO2 11/15/19 05:36 97.9 80 18 101/67 (78) 92 11/14/19 06:14 Room Air I & O 11/14/19 11/14/19 11/15/19 15:00 23:00 07:00 Intake Total 480 ml 480 ml Balance 480 ml 480 ml Current Medications: Meds: Current Medications Medications (Trade) Dose Ordered Sig/Imani Route PRN Reason Start Time Stop Time Status Last Admin Dose Admin Trazodone HCl (Desyrel) 50 mg PRN QHS PRN PO SLEEP 11/14/19 18:15 11/14/19 22:41 I have reviewed the current psychotropics carefully including drug interactions. Risk benefit ratio favors no change other than as noted in my dictated progress note. Diagnosis: Problems: (1) Mild cognitive impairment (2) Anxiety disorder (3) Depression (4) Major depressive disorder, recurrent episode (5) DVT (deep venous thrombosis) BUSTER DELVALLE MD Nov 15, 2019 09:47
[2019-11-15] MEDS: DRONABINOL 2.5 MG CAPSULE PO SCH ×2 (11:30→16:30)
[2019-11-15 15:46] VITALS: BP 86/54
--- NOTE | 2019-11-15 22:05 | PDOC ---
Exam Note: Henry Note: Please also refer to the separate dictated note~for this date of service dictated separately.~Patient seen individually. Discussed the patient with Nursing staff reviewed the chart.~Reviewed interim history and current functioning. Reviewed vital signs,~Labs/ Radiology~and current medications noted below. Continue current treatment with the changes noted in the dictated addendum note Assessment: Vital Signs/I&O: Vital Signs Date Time Temp Pulse Resp B/P (MAP) Pulse Ox O2 Delivery O2 Flow Rate FiO2 11/15/19 15:46 98.9 86 18 86/54 (65) 95 11/14/19 06:14 Room Air I & O 11/14/19 11/14/19 11/15/19 15:00 23:00 07:00 Intake Total 480 ml 480 ml Balance 480 ml 480 ml Current Medications: I have reviewed the current psychotropics carefully including drug interactions. Risk benefit ratio favors no change other than as noted in my dictated progress note. Diagnosis: Problems: (1) Mild cognitive impairment (2) Anxiety disorder (3) Depression (4) Major depressive disorder, recurrent episode (5) DVT (deep venous thrombosis) BUSTER DELVALLE MD Nov 15, 2019 22:05
[2019-11-16] MEDS: LEVOTHYROXINE 75 MCG TABLET PO SCH (05:05)
[2019-11-16 06:08] VITALS: BP 124/74
[2019-11-16] MEDS: POLYETHYLENE GLYCOL 3350 17 GM PACKET. PO SCH (08:33)
[2019-11-16] MEDS: DULoxetine HCL 30 MG CAPSULE.DR PO SCH (08:34)
[2019-11-16] MEDS: DULoxetine HCL 20 MG CAPSULE.DR PO SCH (08:34)
[2019-11-16] MEDS: MULTIVITAMIN with MINERAL TABLET. PO SCH (08:34)
[2019-11-16] MEDS: CHOLECALCIFEROL (VITAMIN D3) 1,000 UNIT TABLET PO SCH (08:34)
[2019-11-16] MEDS: FOLIC ACID 1 MG TABLET PO SCH (08:34)
[2019-11-16] MEDS: ARIPiprazole 5 MG TABLET PO SCH (08:34)
[2019-11-16] MEDS: RIVAROXABAN 10 MG TABLET. PO SCH (08:34)
[2019-11-16] MEDS: VITAMIN B COMPLEX CAPSULE. PO SCH (08:34)
[2019-11-16] MEDS: DOCUSATE SODIUM 100 MG CAPSULE PO SCH (08:34)
[2019-11-16] MEDS: FUROSEMIDE 20 MG TABLET PO SCH (08:35)
[2019-11-16] MEDS: DRONABINOL 2.5 MG CAPSULE PO SCH ×2 (11:30→17:01)
[2019-11-16 15:49] VITALS: BP 107/73
[2019-11-16] MEDS: HYDROcodone/APAP 5/325MG 1 TAB TABLET PO PRN (20:02)
--- NOTE | 2019-11-16 22:12 | PDOC ---
Exam Note: Henry Note: Please also refer to the separate dictated note~for this date of service dictated separately.~Patient seen individually. Discussed the patient with Nursing staff reviewed the chart.~Reviewed interim history and current functioning. Reviewed vital signs,~Labs/ Radiology~and current medications noted below. Continue current treatment with the changes noted in the dictated addendum note Assessment: Vital Signs/I&O: Vital Signs Date Time Temp Pulse Resp B/P (MAP) Pulse Ox O2 Delivery O2 Flow Rate FiO2 11/16/19 21:13 95 11/16/19 15:49 97.5 82 18 107/73 (84) 11/14/19 06:14 Room Air I & O 11/15/19 11/15/19 11/16/19 15:00 23:00 07:00 Intake Total 480 ml 220 ml Balance 480 ml 220 ml Current Medications: Meds: Current Medications Medications (Trade) Dose Ordered Sig/Imani Route PRN Reason Start Time Stop Time Status Last Admin Dose Admin Olanzapine (ZyPREXA ZYDIS) 1.25 mg PRN Q2HR PRN PO PSYCHOSIS 11/16/19 16:30 11/16/19 17:01 I have reviewed the current psychotropics carefully including drug interactions. Risk benefit ratio favors no change other than as noted in my dictated progress note. Diagnosis: Problems: (1) Mild cognitive impairment (2) Anxiety disorder (3) Depression (4) Major depressive disorder, recurrent episode (5) DVT (deep venous thrombosis) BUSTER DELVALLE MD Nov 16, 2019 22:12
[2019-11-17] MEDS: LEVOTHYROXINE 75 MCG TABLET PO SCH (05:14)
[2019-11-17 05:48] VITALS: BP 101/68
[2019-11-17] MEDS: DULoxetine HCL 20 MG CAPSULE.DR PO SCH (07:47)
[2019-11-17] MEDS: ARIPiprazole 5 MG TABLET PO SCH (07:47)
[2019-11-17] MEDS: DULoxetine HCL 30 MG CAPSULE.DR PO SCH (07:48)
[2019-11-17] MEDS: VITAMIN B COMPLEX CAPSULE. PO SCH (07:48)
[2019-11-17] MEDS: FUROSEMIDE 20 MG TABLET PO SCH (07:48)
[2019-11-17] MEDS: FOLIC ACID 1 MG TABLET PO SCH (07:48)
[2019-11-17] MEDS: DOCUSATE SODIUM 100 MG CAPSULE PO SCH (07:48)
[2019-11-17] MEDS: MULTIVITAMIN with MINERAL TABLET. PO SCH (07:48)
[2019-11-17] MEDS: RIVAROXABAN 10 MG TABLET. PO SCH (07:49)
[2019-11-17] MEDS: POLYETHYLENE GLYCOL 3350 17 GM PACKET. PO SCH (07:49)
[2019-11-17] MEDS: CHOLECALCIFEROL (VITAMIN D3) 1,000 UNIT TABLET PO SCH (07:49)
--- NOTE | 2019-11-17 07:52 | PDOC ---
Exam Note: Henry Note: S/O: This note is a late entry for DOS 11/15/2019 covers elements not covered in my initial note. Discussed the patient with treatment team meeting with the entire team in the morning including Lindsey, social service staff, nursing staff, and myself reviewed the chart. Nursing report was with Ania LEARY. I have been informed that every patient will be tested in sequence for COVID-19 and disposition plans would be determined by the result of the testing. Sleeping average is 6-1/2 hours, somewhat isolative, withdrawn but denies being depressed. At time she pushes herself to go to the restroom and is increasingly incontinent. We had a lengthy discussion at treatment team meeting and then with me individually in the evening on audio-visual rounds. She has a random episodic crying as well but on close questioning during the audio-visual rounds in the evening she denies being depressed. She was lying in bed during those rounds. At treatment team meeting social service staff discussed the family is looking at transitioning to [facility] on discharge. ROS: Impaired ambulation with walker and at times in wheelchair. No CV, , Pulmonary, Eye system symptoms on review. MSE: She was lying in bed, isolative, withdrawn. Speech coherent has some latency. Abstraction fair. Computation impaired. Language function intact. Mood is still somewhat depressed but better. No suicidal or homicidal ideation. Labs: Reviewed. Imp: Major depressive disorder, in partial remission. Anxiety disorder unspecified. Plan: Continue psychotropics from initial note. Assessment: Vital Signs/I&O: Vital Signs Date Time Temp Pulse Resp B/P (MAP) Pulse Ox O2 Delivery O2 Flow Rate FiO2 11/17/19 05:48 98.8 85 16 101/68 (79) 92 11/14/19 06:14 Room Air I & O 11/16/19 11/16/19 11/17/19 15:00 23:00 07:00 Intake Total 240 ml 120 ml Balance 240 ml 120 ml Current Medications: Meds: Current Medications Medications (Trade) Dose Ordered Sig/Imani Route PRN Reason Start Time Stop Time Status Last Admin Dose Admin Olanzapine (ZyPREXA ZYDIS) 1.25 mg PRN Q2HR PRN PO PSYCHOSIS 11/16/19 16:30 11/16/19 17:01 I have reviewed the current psychotropics carefully including drug interactions. Risk benefit ratio favors no change other than as noted in my dictated progress note. Diagnosis: Problems: (1) Mild cognitive impairment (2) Anxiety disorder (3) Depression (4) Major depressive disorder, recurrent episode (5) DVT (deep venous thrombosis) BUSTER DELVALLE MD Nov 17, 2019 07:52
[2019-11-17] MEDS: DRONABINOL 2.5 MG CAPSULE PO SCH ×2 (11:30→17:14)
[2019-11-17 15:14] VITALS: BP 90/64
--- NOTE | 2019-11-17 22:13 | PDOC ---
Exam Note: Henry Note: Please also refer to the separate dictated note~for this date of service dictated separately.~Patient seen individually. Discussed the patient with Nursing staff reviewed the chart.~Reviewed interim history and current functioning. Reviewed vital signs,~Labs/ Radiology~and current medications noted below. Continue current treatment with the changes noted in the dictated addendum note Assessment: Vital Signs/I&O: Vital Signs Date Time Temp Pulse Resp B/P (MAP) Pulse Ox O2 Delivery O2 Flow Rate FiO2 11/17/19 15:14 98.0 80 20 90/64 (73) 96 Room Air I & O 11/16/19 11/16/19 11/17/19 14:59 22:59 06:59 Intake Total 240 ml 120 ml Balance 240 ml 120 ml Current Medications: I have reviewed the current psychotropics carefully including drug interactions. Risk benefit ratio favors no change other than as noted in my dictated progress note. Diagnosis: Problems: (1) Mild cognitive impairment (2) Anxiety disorder (3) Depression (4) Major depressive disorder, recurrent episode (5) DVT (deep venous thrombosis) BUSTER DELVALLE MD Nov 17, 2019 22:13
[2019-11-18] MEDS: LEVOTHYROXINE 75 MCG TABLET PO SCH (05:16)
[2019-11-18 05:57] VITALS: BP 119/77
[2019-11-18] MEDS: MULTIVITAMIN with MINERAL TABLET. PO SCH (07:19)
[2019-11-18] MEDS: POLYETHYLENE GLYCOL 3350 17 GM PACKET. PO SCH (07:19)
[2019-11-18] MEDS: CHOLECALCIFEROL (VITAMIN D3) 1,000 UNIT TABLET PO SCH (07:20)
[2019-11-18] MEDS: ARIPiprazole 5 MG TABLET PO SCH (07:20)
[2019-11-18] MEDS: FUROSEMIDE 20 MG TABLET PO SCH (07:20)
[2019-11-18] MEDS: FOLIC ACID 1 MG TABLET PO SCH (07:20)
[2019-11-18] MEDS: VITAMIN B COMPLEX CAPSULE. PO SCH (07:20)
[2019-11-18] MEDS: DOCUSATE SODIUM 100 MG CAPSULE PO SCH (07:21)
[2019-11-18] MEDS: DULoxetine HCL 20 MG CAPSULE.DR PO SCH (07:21)
[2019-11-18] MEDS: DULoxetine HCL 30 MG CAPSULE.DR PO SCH (07:22)
[2019-11-18] MEDS: RIVAROXABAN 10 MG TABLET. PO SCH (07:22)
--- NOTE | 2019-11-18 07:52 | PDOC ---
Exam Note: Henry Note: S/O: This note is a late entry for DOS 11/16/2019 covers elements not covered in my initial note. Discussed the patient with nursing staff, reviewed the chart. Nursing report was with Sharifa LEARY. I met the patient individually in the evening on audio-visual rounds. Patient had her COVID-19 swab completed. Results would be obtained on November 16. Patient was up at noon, appears somewhat disorganized, continues to have some crying spells but denies being depressed as I questioned her. ROS: Mood lability impaired. Ambulation in wheelchair. No CV, , Pulmonary, Eye system symptoms on review. MSE: She was withdrawn, isolative. Speech coherent has some latency. Abstraction fair. Computation impaired. Language function intact. Mood somewhat withdrawn. No suicidal or homicidal ideation. Labs: Reviewed. Imp: Major depressive disorder, in partial remission. Anxiety disorder unspecified. Plan: Given her ongoing mood lability and anxiety we will start Zyprexa 1.25 mg q.2h. p.r.n. psychosis and agitation maximum 5 mg in 24 hours. Rest unchanged from initial note. Assessment: Vital Signs/I&O: Vital Signs Date Time Temp Pulse Resp B/P (MAP) Pulse Ox O2 Delivery O2 Flow Rate FiO2 11/18/19 05:57 98.6 82 18 119/77 (91) 94 11/17/19 15:14 Room Air I & O 11/17/19 11/17/19 11/18/19 14:59 22:59 06:59 Intake Total 240 ml 480 ml Balance 240 ml 480 ml Current Medications: I have reviewed the current psychotropics carefully including drug interactions. Risk benefit ratio favors no change other than as noted in my dictated progress note. Diagnosis: Problems: (1) Mild cognitive impairment (2) Anxiety disorder (3) Depression (4) Major depressive disorder, recurrent episode (5) DVT (deep venous thrombosis) BUSTER DELVALLE MD Nov 18, 2019 07:52
--- NOTE | 2019-11-18 08:09 | PDOC ---
Exam Note: Henry Note: S/O: This note is a late entry for DOS 11/17/2019 covers elements not covered in my initial note. Discussed the patient with nursing staff, reviewed the chart. I met with the patient individually in the evening on audio-visual rounds. She was lying in bed. Nursing report was with Sharifa LEARY. COVID-19 test has come back negative. Previous night she was tearful. Received a pain pill that she complained of pain, somewhat tearful during the day today and received Zyprexa p.r.n. She slept 7-1/4 hours previous night. ROS: Impaired ambulation in wheelchair. No CV, , Pulmonary, Eye system symptoms on review. MSE: She was lying in bed, isolative, withdrawn. Speech coherent has some latency. Abstraction fair. Computation impaired. Language function intact. Mood and affect somewhat withdrawn. No suicidal or homicidal ideation. Labs: Reviewed. Imp: Major depressive disorder, in partial remission. Anxiety disorder unspecified. Plan: Continue psychotropics from initial note. Assessment: Vital Signs/I&O: Vital Signs Date Time Temp Pulse Resp B/P (MAP) Pulse Ox O2 Delivery O2 Flow Rate FiO2 11/18/19 05:57 98.6 82 18 119/77 (91) 94 11/17/19 15:14 Room Air I & O 11/17/19 11/17/19 11/18/19 15:00 23:00 07:00 Intake Total 240 ml 480 ml Balance 240 ml 480 ml Current Medications: I have reviewed the current psychotropics carefully including drug interactions. Risk benefit ratio favors no change other than as noted in my dictated progress note. Diagnosis: Problems: (1) Mild cognitive impairment (2) Anxiety disorder (3) Depression (4) Major depressive disorder, recurrent episode (5) DVT (deep venous thrombosis) BUSTER DELVALLE MD Nov 18, 2019 08:09
[2019-11-18] MEDS: DRONABINOL 2.5 MG CAPSULE PO SCH ×2 (11:30→16:30)
[2019-11-18] MEDS: HYDROcodone/APAP 5/325MG 1 TAB TABLET PO PRN ×2 (12:28→20:07)
[2019-11-18 15:49] VITALS: BP 115/71
--- NOTE | 2019-11-18 22:12 | PDOC ---
Exam Note: Henry Note: Please also refer to the separate dictated note~for this date of service dictated separately.~Patient seen individually. Discussed the patient with Nursing staff reviewed the chart.~Reviewed interim history and current functioning. Reviewed vital signs,~Labs/ Radiology~and current medications noted below. Continue current treatment with the changes noted in the dictated addendum note Assessment: Vital Signs/I&O: Vital Signs Date Time Temp Pulse Resp B/P (MAP) Pulse Ox O2 Delivery O2 Flow Rate FiO2 11/18/19 21:10 98 11/18/19 15:49 97.7 80 16 115/71 (86) 11/17/19 15:14 Room Air I & O 11/17/19 11/17/19 11/18/19 15:00 23:00 07:00 Intake Total 240 ml 480 ml Balance 240 ml 480 ml Current Medications: I have reviewed the current psychotropics carefully including drug interactions. Risk benefit ratio favors no change other than as noted in my dictated progress note. Diagnosis: Problems: (1) Mild cognitive impairment (2) Anxiety disorder (3) Depression (4) Major depressive disorder, recurrent episode (5) DVT (deep venous thrombosis) BUSTER DELVALLE MD Nov 18, 2019 22:12
[2019-11-19] MEDS: HYDROcodone/APAP 5/325MG 1 TAB TABLET PO PRN (03:30)
[2019-11-19] MEDS: LEVOTHYROXINE 75 MCG TABLET PO SCH (05:32)
[2019-11-19 05:53] VITALS: BP 123/77
[2019-11-19 07:04] LABS: BASO # 0.1 x10^3/uL (0.0-0.2); BASO % 1 % (0-3); EOS % 13 % (0-3); HEMATOCRIT 31.9 % (36.0-47.0); HEMOGLOBIN 10.6 g/dL (12.0-15.5); LYMPH # 1.6 x10^3/uL (1.0-4.8); LYMPH % 21 % (24-48); MEAN CORPUSCULAR HEMOGLOBIN 30 pg (25-35); MEAN CORPUSCULAR HGB CONC 33 g/dL (31-37); MEAN CORPUSCULAR VOLUME 91 fL (79-100); MONO # 0.5 x10^3/uL (0.0-1.1); MONO % 6 % (0-9); NEUT # 4.5 x10^3uL (1.8-7.7); NEUT % 60 % (31-73); PLATELET COUNT 347 x10^3/uL (140-400); RED CELL DISTRIBUTION WIDTH 14.1 % (11.5-14.5); WHITE BLOOD COUNT 7.6 x10^3/uL (4.0-11.0)
[2019-11-19 07:17] LABS: ALBUMIN 3.1 g/dL (3.4-5.0); ALBUMIN/GLOBULIN RATIO 0.8 (1.0-1.7); CALCIUM 9.5 mg/dL (8.5-10.1); CREATININE 0.9 mg/dL (0.6-1.0); GFR 62.6; POTASSIUM 4.4 mmol/L (3.5-5.1); TOTAL BILIRUBIN 0.2 mg/dL (0.2-1.0); TOTAL PROTEIN 6.8 g/dL (6.4-8.2)
[2019-11-19] MEDS: FUROSEMIDE 20 MG TABLET PO SCH (08:51)
[2019-11-19] MEDS: DOCUSATE SODIUM 100 MG CAPSULE PO SCH (08:51)
[2019-11-19] MEDS: FOLIC ACID 1 MG TABLET PO SCH (08:53)
[2019-11-19] MEDS: MULTIVITAMIN with MINERAL TABLET. PO SCH (08:53)
[2019-11-19] MEDS: CHOLECALCIFEROL (VITAMIN D3) 1,000 UNIT TABLET PO SCH (08:53)
[2019-11-19] MEDS: DULoxetine HCL 20 MG CAPSULE.DR PO SCH (08:53)
[2019-11-19] MEDS: DULoxetine HCL 30 MG CAPSULE.DR PO SCH (08:53)
[2019-11-19] MEDS: RIVAROXABAN 10 MG TABLET. PO SCH (08:53)
[2019-11-19] MEDS: VITAMIN B COMPLEX CAPSULE. PO SCH (08:53)
[2019-11-19] MEDS: ARIPiprazole 5 MG TABLET PO SCH (08:53)
[2019-11-19] MEDS: POLYETHYLENE GLYCOL 3350 17 GM PACKET. PO SCH (08:53)
[2019-11-19] MEDS: DRONABINOL 2.5 MG CAPSULE PO SCH ×2 (11:41→16:22)
[2019-11-19] MEDS ORDERED: HYDROCORTISONE 2.5% RECTAL CREAM 30GM TUBE. RC PRN (14:00)
[2019-11-19] MEDS: ACETAMINOPHEN 325 MG TABLET PO PRN (14:15)
[2019-11-19 16:03] VITALS: BP 98/60
--- NOTE | 2019-11-19 22:24 | PDOC ---
Exam Note: Henry Note: Please also refer to the separate dictated note~for this date of service dictated separately.~Patient seen individually. Discussed the patient with Nursing staff reviewed the chart.~Reviewed interim history and current functioning. Reviewed vital signs,~Labs/ Radiology~and current medications noted below. Continue current treatment with the changes noted in the dictated addendum note Assessment: Vital Signs/I&O: Vital Signs Date Time Temp Pulse Resp B/P (MAP) Pulse Ox O2 Delivery O2 Flow Rate FiO2 11/19/19 16:03 98.4 82 16 98/60 (73) 96 Room Air I & O 11/18/19 11/18/19 11/19/19 14:59 22:59 06:59 Intake Total 600 ml 240 ml 120 ml Balance 600 ml 240 ml 120 ml Labs: Laboratory Tests Test 11/19/19 06:50 White Blood Count 7.6 x10^3/uL (4.0-11.0) Red Blood Count 3.50 x10^6/uL (3.50-5.40) Hemoglobin 10.6 g/dL (12.0-15.5) L Hematocrit 31.9 % (36.0-47.0) L Mean Corpuscular Volume 91 fL (79-100) Mean Corpuscular Hemoglobin 30 pg (25-35) Mean Corpuscular Hemoglobin Concent 33 g/dL (31-37) Red Cell Distribution Width 14.1 % (11.5-14.5) Platelet Count 347 x10^3/uL (140-400) Neutrophils (%) (Auto) 60 % (31-73) Lymphocytes (%) (Auto) 21 % (24-48) L Monocytes (%) (Auto) 6 % (0-9) Eosinophils (%) (Auto) 13 % (0-3) H Basophils (%) (Auto) 1 % (0-3) Neutrophils # (Auto) 4.5 x10^3uL (1.8-7.7) Lymphocytes # (Auto) 1.6 x10^3/uL (1.0-4.8) Monocytes # (Auto) 0.5 x10^3/uL (0.0-1.1) Eosinophils # (Auto) 1.0 x10^3/uL (0.0-0.7) H Basophils # (Auto) 0.1 x10^3/uL (0.0-0.2) Sodium Level 141 mmol/L (136-145) Potassium Level 4.4 mmol/L (3.5-5.1) Chloride Level 104 mmol/L (98-107) Carbon Dioxide Level 30 mmol/L (21-32) Anion Gap 7 (6-14) Blood Urea Nitrogen 29 mg/dL (7-20) H Creatinine 0.9 mg/dL (0.6-1.0) Estimated GFR (Cockcroft-Gault) 62.6 BUN/Creatinine Ratio 32 (6-20) H Glucose Level 95 mg/dL (70-99) Calcium Level 9.5 mg/dL (8.5-10.1) Total Bilirubin 0.2 mg/dL (0.2-1.0) Aspartate Amino Transferase (AST) 16 U/L (15-37) Alanine Aminotransferase (ALT) 15 U/L (14-59) Alkaline Phosphatase 64 U/L (46-116) Total Protein 6.8 g/dL (6.4-8.2) Albumin 3.1 g/dL (3.4-5.0) L Albumin/Globulin Ratio 0.8 (1.0-1.7) L Current Medications: I have reviewed the current psychotropics carefully including drug interactions. Risk benefit ratio favors no change other than as noted in my dictated progress note. Diagnosis: Problems: (1) Mild cognitive impairment (2) Anxiety disorder (3) Depression (4) Major depressive disorder, recurrent episode (5) DVT (deep venous thrombosis) BUSTER DELVALLE MD Nov 19, 2019 22:24
[2019-11-20] MEDS: LEVOTHYROXINE 75 MCG TABLET PO SCH (05:34)
[2019-11-20 06:16] VITALS: BP 112/72
--- NOTE | 2019-11-20 07:37 | PDOC ---
Exam Note: Henry Note: S/O: This note is a late entry for DOS 11/18/2019 covers elements not covered in my initial note. Discussed the patient with nursing staff, reviewed the chart. I met with the patient individually in the evening on audio-visual rounds with Yeni LEARY. Nursing report was with Sharifa LEARY. She slept 6 hours. Patient was somewhat tearful in the morning but denies being depressed as I met with her in the evening. ROS: Ambulation remains poor. No CV, , Pulmonary, Eye system symptoms on review. MSE: She was lying in bed, remains withdrawn. Speech coherent has some latency. Abstraction fair. Computation impaired. Language function intact. Mood and affect somewhat withdrawn. No suicidal or homicidal ideation. Labs: Reviewed. Imp: Major depressive disorder, in partial remission. Anxiety disorder unspeci fied. Plan: Continue psychotropics from initial note. Assessment: Vital Signs/I&O: Vital Signs Date Time Temp Pulse Resp B/P (MAP) Pulse Ox O2 Delivery O2 Flow Rate FiO2 11/20/19 06:16 98.4 74 18 112/72 (85) 94 Room Air I & O 11/19/19 11/19/19 11/20/19 15:00 23:00 07:00 Intake Total 480 ml 480 ml Balance 480 ml 480 ml Current Medications: I have reviewed the current psychotropics carefully including drug interactions. Risk benefit ratio favors no change other than as noted in my dictated progress note. Diagnosis: Problems: (1) Mild cognitive impairment (2) Anxiety disorder (3) Depression (4) Major depressive disorder, recurrent episode (5) DVT (deep venous thrombosis) BUSTER DELVALLE MD Nov 20, 2019 07:37
--- NOTE | 2019-11-20 07:52 | PDOC ---
Exam Note: Henry Note: S/O: This note is a late entry for DOS 11/19/2019 covers elements not covered in my initial note. Discussed the patient with nursing staff, reviewed the chart. I met with the patient individually in the evening on audio-visual rounds with Yeni LEARY. Nursing report was with Starr LEARY. She slept 5-1/2 hours previous night. She has been more mobile during the day, tearful in the morning, again better by evening when I met with her. ROS: Poor ambulation. No CV, , Pulmonary, Eye system symptoms on review. MSE: She was quite verbal, interactive. She said she did not feel depressed but still remains withdrawn. Speech coherent. Abstraction fair. Computation impaired. Language function intact. Mood and affect somewhat withdrawn. No psychotic symptoms, suicidal or homicidal ideation. Labs: Reviewed. Imp: Major depressive disorder, in partial remission. Anxiety disorder unspecified. Plan: Continue psychotropics from initial note. Assessment: Vital Signs/I&O: Vital Signs Date Time Temp Pulse Resp B/P (MAP) Pulse Ox O2 Delivery O2 Flow Rate FiO2 11/20/19 06:16 98.4 74 18 112/72 (85) 94 Room Air I & O 11/19/19 11/19/19 11/20/19 15:00 23:00 07:00 Intake Total 480 ml 480 ml Balance 480 ml 480 ml Current Medications: I have reviewed the current psychotropics carefully including drug interactions. Risk benefit ratio favors no change other than as noted in my dictated progress note. Diagnosis: Problems: (1) Mild cognitive impairment (2) Anxiety disorder (3) Depression (4) Major depressive disorder, recurrent episode (5) DVT (deep venous thrombosis) BUSTER DELVALLE MD Nov 20, 2019 07:52
[2019-11-20] MEDS: FUROSEMIDE 20 MG TABLET PO SCH (08:49)
[2019-11-20] MEDS: FOLIC ACID 1 MG TABLET PO SCH (08:49)
[2019-11-20] MEDS: VITAMIN B COMPLEX CAPSULE. PO SCH (08:49)
[2019-11-20] MEDS: RIVAROXABAN 10 MG TABLET. PO SCH (08:49)
[2019-11-20] MEDS: ARIPiprazole 5 MG TABLET PO SCH (08:49)
[2019-11-20] MEDS: DULoxetine HCL 30 MG CAPSULE.DR PO SCH (08:49)
[2019-11-20] MEDS: CHOLECALCIFEROL (VITAMIN D3) 1,000 UNIT TABLET PO SCH (08:49)
[2019-11-20] MEDS: DULoxetine HCL 20 MG CAPSULE.DR PO SCH (08:49)
[2019-11-20] MEDS: MULTIVITAMIN with MINERAL TABLET. PO SCH (08:49)
[2019-11-20] MEDS: DOCUSATE SODIUM 100 MG CAPSULE PO SCH (08:50)
[2019-11-20] MEDS: POLYETHYLENE GLYCOL 3350 17 GM PACKET. PO SCH (08:50)
[2019-11-20] MEDS: DRONABINOL 2.5 MG CAPSULE PO SCH ×2 (11:54→16:16)
[2019-11-20] MEDS: ACETAMINOPHEN 325 MG TABLET PO PRN (14:18)
[2019-11-20 15:40] VITALS: BP 102/70
--- NOTE | 2019-11-20 21:55 | PDOC ---
Exam Note: Henry Note: Please also refer to the separate dictated note~for this date of service dictated separately.~Patient seen individually. Discussed the patient with Nursing staff reviewed the chart.~Reviewed interim history and current functioning. Reviewed vital signs,~Labs/ Radiology~and current medications noted below. Continue current treatment with the changes noted in the dictated addendum note Assessment: Vital Signs/I&O: Vital Signs Date Time Temp Pulse Resp B/P (MAP) Pulse Ox O2 Delivery O2 Flow Rate FiO2 11/20/19 15:40 97.9 77 18 102/70 (81) 97 11/20/19 06:16 Room Air I & O 11/19/19 11/19/19 11/20/19 15:00 23:00 07:00 Intake Total 480 ml 480 ml Balance 480 ml 480 ml Current Medications: I have reviewed the current psychotropics carefully including drug interactions. Risk benefit ratio favors no change other than as noted in my dictated progress note. Diagnosis: Problems: (1) Mild cognitive impairment (2) Anxiety disorder (3) Depression (4) Major depressive disorder, recurrent episode (5) DVT (deep venous thrombosis) BUSTER DELVALLE MD Nov 20, 2019 21:55
[2019-11-20] MEDS: traZODone 50 MG TABLET. PO PRN (22:36)
[2019-11-20] MEDS: HYDROcodone/APAP 5/325MG 1 TAB TABLET PO PRN (22:37)
[2019-11-21 05:01] VITALS: BP 129/85
[2019-11-21] MEDS: LEVOTHYROXINE 75 MCG TABLET PO SCH (05:18)
[2019-11-21] MEDS: DULoxetine HCL 20 MG CAPSULE.DR PO SCH (08:33)
[2019-11-21] MEDS: FOLIC ACID 1 MG TABLET PO SCH (08:33)
[2019-11-21] MEDS: RIVAROXABAN 10 MG TABLET. PO SCH (08:33)
[2019-11-21] MEDS: VITAMIN B COMPLEX CAPSULE. PO SCH (08:33)
[2019-11-21] MEDS: ARIPiprazole 5 MG TABLET PO SCH (08:33)
[2019-11-21] MEDS: CHOLECALCIFEROL (VITAMIN D3) 1,000 UNIT TABLET PO SCH (08:33)
[2019-11-21] MEDS: MULTIVITAMIN with MINERAL TABLET. PO SCH (08:33)
[2019-11-21] MEDS: DULoxetine HCL 30 MG CAPSULE.DR PO SCH (08:34)
[2019-11-21] MEDS: FUROSEMIDE 20 MG TABLET PO SCH (08:34)
[2019-11-21] MEDS: POLYETHYLENE GLYCOL 3350 17 GM PACKET. PO SCH (08:34)
[2019-11-21] MEDS: DOCUSATE SODIUM 100 MG CAPSULE PO SCH (08:34)
[2019-11-21] MEDS: DRONABINOL 2.5 MG CAPSULE PO SCH ×2 (11:35→16:28)
[2019-11-21 15:32] VITALS: BP 110/72
[2019-11-21] MEDS: traZODone 50 MG TABLET. PO PRN (20:04)
[2019-11-21] MEDS: HYDROcodone/APAP 5/325MG 1 TAB TABLET PO PRN (20:05)
--- NOTE | 2019-11-21 22:42 | PDOC ---
Exam Note: Henry Note: S/O: This note is a late entry for DOS 11/20/2019 covers elements not covered in my initial note. This is an addendum to psychiatric progress note for DOS 11/20/2019. Discussed the patient with nursing staff, reviewed the chart. The patient was seen on audio-visual rounds in the evening with Starr LEARY. Luis christianson report was with Starr LEARY. She slept 4 hours previous night. Reportedly she has been tearful at times. Earlier in the morning she won two of the [employer] games, got prizes for it and then became emotional, tearful, seems to have some symptoms of pseudobulbar affect. Later she did quite well. ROS: Positive for tiredness. No CV, , Pulmonary, Eye system symptoms on review. MSE: Patient was emotional and tearful. Speech coherent. Abstraction fair. Computation impaired. Language function intact. Mood and affect somewhat withdrawn. No psychotic symptoms, suicidal or homicidal ideation. Labs: Reviewed. Imp: Major depressive disorder, in partial remission. Anxiety disorder unspecified. Plan: Continue psychotropics from initial note. Assessment: Vital Signs/I&O: Vital Signs Date Time Temp Pulse Resp B/P (MAP) Pulse Ox O2 Delivery O2 Flow Rate FiO2 11/21/19 21:16 97 11/21/19 15:32 98.0 88 18 110/72 (85) 11/21/19 05:01 Room Air I & O 11/20/19 11/20/19 11/21/19 15:00 23:00 07:00 Intake Total 480 ml 240 ml Balance 480 ml 240 ml Current Medications: I have reviewed the current psychotropics carefully including drug interactions. Risk benefit ratio favors no change other than as noted in my dictated progress note. Diagnosis: Problems: (1) Mild cognitive impairment (2) Anxiety disorder (3) Depression (4) Major depressive disorder, recurrent episode (5) DVT (deep venous thrombosis) BUSTER DELVALLE MD Nov 21, 2019 22:42
--- NOTE | 2019-11-21 22:55 | PDOC ---
Exam Note: Henry Note: Please also refer to the separate dictated note~for this date of service dictated separately.~Patient seen individually. Discussed the patient with Nursing staff reviewed the chart.~Reviewed interim history and current functioning. Reviewed vital signs,~Labs/ Radiology~and current medications noted below. Continue current treatment with the changes noted in the dictated addendum note Assessment: Vital Signs/I&O: Vital Signs Date Time Temp Pulse Resp B/P (MAP) Pulse Ox O2 Delivery O2 Flow Rate FiO2 11/21/19 21:16 97 11/21/19 15:32 98.0 88 18 110/72 (85) 11/21/19 05:01 Room Air I & O 11/20/19 11/20/19 11/21/19 15:00 23:00 07:00 Intake Total 480 ml 240 ml Balance 480 ml 240 ml Current Medications: I have reviewed the current psychotropics carefully including drug interactions. Risk benefit ratio favors no change other than as noted in my dictated progress note. Diagnosis: Problems: (1) Mild cognitive impairment (2) Anxiety disorder (3) Depression (4) Major depressive disorder, recurrent episode (5) DVT (deep venous thrombosis) BUSTER DELVALLE MD Nov 21, 2019 22:55
[2019-11-22] MEDS: LEVOTHYROXINE 75 MCG TABLET PO SCH (05:57)
[2019-11-22 06:19] VITALS: BP 115/76
[2019-11-22] MEDS: VITAMIN B COMPLEX CAPSULE. PO SCH (10:32)
[2019-11-22] MEDS: CHOLECALCIFEROL (VITAMIN D3) 1,000 UNIT TABLET PO SCH (10:32)
[2019-11-22] MEDS: FUROSEMIDE 20 MG TABLET PO SCH (10:32)
[2019-11-22] MEDS: DULoxetine HCL 30 MG CAPSULE.DR PO SCH (10:33)
[2019-11-22] MEDS: RIVAROXABAN 10 MG TABLET. PO SCH (10:33)
[2019-11-22] MEDS: ARIPiprazole 5 MG TABLET PO SCH (10:33)
[2019-11-22] MEDS: MULTIVITAMIN with MINERAL TABLET. PO SCH (10:33)
[2019-11-22] MEDS: DULoxetine HCL 20 MG CAPSULE.DR PO SCH (10:33)
[2019-11-22] MEDS: FOLIC ACID 1 MG TABLET PO SCH (10:33)
[2019-11-22] MEDS: DOCUSATE SODIUM 100 MG CAPSULE PO SCH (10:38)
[2019-11-22] MEDS: POLYETHYLENE GLYCOL 3350 17 GM PACKET. PO SCH (10:38)
[2019-11-22] MEDS: DRONABINOL 2.5 MG CAPSULE PO SCH (11:30)
[2019-11-22 15:36] VITALS: BP 94/63
[2019-11-22] MEDS: traZODone 50 MG TABLET. PO PRN (20:22)
[2019-11-22] MEDS: HYDROcodone/APAP 5/325MG 1 TAB TABLET PO PRN (20:22)
--- NOTE | 2019-11-22 22:20 | PDOC ---
Exam Note: Henry Note: S/O: This note is a late entry for DOS 11/21/2019 covers elements not covered in my initial note. Discussed the patient with nursing staff, reviewed the chart. The patient was seen on audio-visual rounds in the evening with Alpesh LEARY. Nursing report was with Starr LEARY. She had some complaints of pain in he r legs and received Lortab and trazodone previous night. Slept 9 hours. She has had less tearful episodes but remains withdrawn. No suicidal ideation. ROS: Complains of pain in legs. No CV, , Pulmonary, Eye system symptoms on review. MSE: Patient was less tearful but withdrawn. Speech coherent. Abstraction fair. Computation impaired. Language function intact. Mood and affect somewhat withdrawn. No psychotic symptoms, suicidal or homicidal ideation. Labs: Reviewed. Imp: Major depressive disorder, in partial remission. Anxiety disorder unspecified. Plan: Continue psychotropics from initial note. Assessment: Vital Signs/I&O: Vital Signs Date Time Temp Pulse Resp B/P (MAP) Pulse Ox O2 Delivery O2 Flow Rate FiO2 11/22/19 21:27 93 11/22/19 15:36 97.4 91 16 94/63 (73) Room Air I & O 11/21/19 11/21/19 11/22/19 15:00 23:00 07:00 Intake Total 600 ml 420 ml Balance 600 ml 420 ml Current Medications: I have reviewed the current psychotropics carefully including drug interactions. Risk benefit ratio favors no change other than as noted in my dictated progress note. Diagnosis: Problems: (1) Mild cognitive impairment (2) Anxiety disorder (3) Depression (4) Major depressive disorder, recurrent episode (5) DVT (deep venous thrombosis) BUSTER DELVALLE MD Nov 22, 2019 22:20
--- NOTE | 2019-11-22 22:21 | PDOC ---
Exam Note: Henry Note: Please also refer to the separate dictated note~for this date of service dictated separately.~Patient seen individually. Discussed the patient with Nursing staff reviewed the chart.~Reviewed interim history and current functioning. Reviewed vital signs,~Labs/ Radiology~and current medications noted below. Continue current treatment with the changes noted in the dictated addendum note Assessment: Vital Signs/I&O: Vital Signs Date Time Temp Pulse Resp B/P (MAP) Pulse Ox O2 Delivery O2 Flow Rate FiO2 11/22/19 21:27 93 11/22/19 15:36 97.4 91 16 94/63 (73) Room Air I & O 11/21/19 11/21/19 11/22/19 15:00 23:00 07:00 Intake Total 600 ml 420 ml Balance 600 ml 420 ml Current Medications: I have reviewed the current psychotropics carefully including drug interactions. Risk benefit ratio favors no change other than as noted in my dictated progress note. Diagnosis: Problems: (1) Mild cognitive impairment (2) Anxiety disorder (3) Depression (4) Major depressive disorder, recurrent episode (5) DVT (deep venous thrombosis) BUSTER DELVALLE MD Nov 22, 2019 22:21
[2019-11-23] MEDS: HYDROcodone/APAP 5/325MG 1 TAB TABLET PO PRN ×2 (04:05→20:45)
[2019-11-23] MEDS: LEVOTHYROXINE 75 MCG TABLET PO SCH (04:05)
[2019-11-23 04:33] VITALS: BP 101/61
[2019-11-23] MEDS: DULoxetine HCL 20 MG CAPSULE.DR PO SCH (08:07)
[2019-11-23] MEDS: VITAMIN B COMPLEX CAPSULE. PO SCH (08:08)
[2019-11-23] MEDS: CHOLECALCIFEROL (VITAMIN D3) 1,000 UNIT TABLET PO SCH (08:08)
[2019-11-23] MEDS: DULoxetine HCL 30 MG CAPSULE.DR PO SCH (08:08)
[2019-11-23] MEDS: ARIPiprazole 5 MG TABLET PO SCH (08:08)
[2019-11-23] MEDS: RIVAROXABAN 10 MG TABLET. PO SCH (08:08)
[2019-11-23] MEDS: MULTIVITAMIN with MINERAL TABLET. PO SCH (08:08)
[2019-11-23] MEDS: FUROSEMIDE 20 MG TABLET PO SCH (08:08)
[2019-11-23] MEDS: POLYETHYLENE GLYCOL 3350 17 GM PACKET. PO SCH (08:09)
[2019-11-23] MEDS: DOCUSATE SODIUM 100 MG CAPSULE PO SCH (08:09)
[2019-11-23] MEDS: FOLIC ACID 1 MG TABLET PO SCH (08:09)
--- NOTE | 2019-11-23 12:10 | TX PLAN ---
Interdisciplinary Tx Plan Admission Information Oct 23, 2019 at 14:48 Legal Status (on Admission): Voluntary DPOA/Guardian Name: David Rawls, Son-in-Law Contact Verified Code Status: DNR Allergies: Coded Allergies: No Known Drug Allergies (Unverified , 11/13/19) Estimated Length of Stay: 14 Diagnoses Primary Diagnosis: MDD Reasons for Admission: Relation/conflict, Depressed, Sig. Change Appetite, Suicidal ideation Problem in Patient's Words: Per pts DPOA: Pt has a "massive major depression and doesnt want to live. She thinks that no one wants her." Per pt: "Im here because they all think I want to kill myself. I dont want to kill myself. Theres so much more that I can do with my life." Problems Active Problems: Per intake form, pt was to be discharged from [facility]. She stated that if she goes home, she will kill herself. Family reports history of SI and they had to remove guns from her home previously. Inactive Problems: Pt. is compliant with medications and cooperative with assessments. Pt Strengths/Limitations Ability for [place]: Fair Cognitive Functioning/Ability: Fair Communication Skills/Ability: Fair Financial Resources: Poor Insight/Judgement: Poor Intellectual Ability: Fair Physical Health: Poor Social Skills: Fair Stability in Family: Good Stability in School/Work: Poor Verbal Skills: Fair Discharge Criteria Discharge Criteria: Able meet basic life need, No need for close observ., Able to meet health needs, OP monitor medical prob, Adequate arrangements @DC, Adequate self-care, Verbal commit med comply, Improved behavior, Improved mood/thought Preliminary Discharge Plan Preliminary DC Plan: Home Other Arrangements: Possible short term stay at [facility] for additional rehab. Special Precautions Special Precautions: Suicide Risk Fall Risk: High Initial D/C Plan Pt will plan to discharge back home alone Identified Discharge Needs: Follow Up with PCP Currently Utilized Resources Currently Utilized Resources/P: PCP Referrals Community Resources: Potential for PACE, psychiatry, counseling Identified Problems/Hx/Goals Objectives/Short-Term Goals Short Term Goals: Dec. Symp. Depression, Monitor Med Effects, No Suicidal/Janeen. ideation, Promote Coping Skill Short Term Goals in Patient's: Per pt: "Basically, I just want to be left alone. 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 Education: G[employer] and [employer] Community Follow-up Follow Up with PCP Community Provider/Family Inpu: Pt's DPOA would like to see pt's mood stabilized first. He would like pt to able to live safely and successfully independently with daily home health supports because pt cannot ambulate on her own. Treatment Plan Explained Patient/Product Safety Head had this treatment plan explained to him/her as indicated by the signature below and has been given the opportunity to ask questions and make suggestions: Date: Patient/Product Safety Head Signature: Status Update Update Pt is eating 50% of meals and 6.5 hours of sleep on average. Pt is calm, cooperative and compliant with medications and staff direction. Pt is having some episodes of left leg "locking up" and almost had a fall incident. Pt is tearful at times, which may be pseudobulbar effect; but denies any SI thoughts. Pt is interactive with staff and doing well within the unit quarantine. At this time, pt family is requesting that pt is placed in either AL or LTC as they fear that if pt went home, she would be "failure to thrive". Discharge is scheduled for 11/29/2019. ROMMEL GONCALVES Nov 23, 2019 12:10
--- NOTE | 2019-11-23 14:42 | RAD ---
US PELVIS History: Postmenopausal vaginal bleeding Comparison: None. Findings: Multiple transabdominal sonographic images of the pelvis are submitted. Uterus measured 5.2 x 4.7 x 3.2 cm. There is mild fluid in the posterior cul-de-sac. There is hypoechogenicity in the endometrial cavity to level of the cervix likely due to some fluid. Endometrium is considered thickened for postmenopausal patient about 0.7 cm. Neither ovary could be visualized due to bowel gas. Impression: 1. Endometrium is considered thickened for postmenopausal patient on the order of 0.7 cm, could be due to hyperplasia, neoplasm not excluded. There is some fluid in the endometrial cavity. 2. Neither ovary could be visualized on this exam. Electronically signed by: Sandro Monzon MD (11/23/2019 2:39 PM) [id number]
[2019-11-23 15:58] VITALS: BP 103/69
--- NOTE | 2019-11-23 22:00 | PDOC ---
Exam Note: Henry Note: Please also refer to the separate dictated note~for this date of service dictated separately.~Patient seen individually. Discussed the patient with Nursing staff reviewed the chart.~Reviewed interim history and current functioning. Reviewed vital signs,~Labs/ Radiology~and current medications noted below. Continue current treatment with the changes noted in the dictated addendum note Assessment: Vital Signs/I&O: Vital Signs Date Time Temp Pulse Resp B/P (MAP) Pulse Ox O2 Delivery O2 Flow Rate FiO2 11/23/19 15:58 98.0 73 18 103/69 (80) 92 11/22/19 15:36 Room Air I & O 11/22/19 11/22/19 11/23/19 15:00 23:00 07:00 Intake Total 480 ml 480 ml Balance 480 ml 480 ml Current Medications: I have reviewed the current psychotropics carefully including drug interactions. Risk benefit ratio favors no change other than as noted in my dictated progress note. Diagnosis: Problems: (1) Mild cognitive impairment (2) Anxiety disorder (3) Depression (4) Major depressive disorder, recurrent episode (5) DVT (deep venous thrombosis) BUSTER DELVALLE MD Nov 23, 2019 22:00
[2019-11-24] MEDS: LEVOTHYROXINE 75 MCG TABLET PO SCH (05:44)
[2019-11-24 05:57] VITALS: BP 95/58
[2019-11-24] MEDS: MULTIVITAMIN with MINERAL TABLET. PO SCH (07:27)
[2019-11-24] MEDS: DULoxetine HCL 20 MG CAPSULE.DR PO SCH (07:27)
[2019-11-24] MEDS: VITAMIN B COMPLEX CAPSULE. PO SCH (07:27)
[2019-11-24] MEDS: FOLIC ACID 1 MG TABLET PO SCH (07:27)
[2019-11-24] MEDS: DOCUSATE SODIUM 100 MG CAPSULE PO SCH (07:27)
[2019-11-24] MEDS: RIVAROXABAN 10 MG TABLET. PO SCH (07:27)
[2019-11-24] MEDS: ARIPiprazole 5 MG TABLET PO SCH (07:27)
[2019-11-24] MEDS: DULoxetine HCL 30 MG CAPSULE.DR PO SCH (07:28)
[2019-11-24] MEDS: POLYETHYLENE GLYCOL 3350 17 GM PACKET. PO SCH (07:28)
[2019-11-24] MEDS: FUROSEMIDE 20 MG TABLET PO SCH (07:28)
[2019-11-24] MEDS: CHOLECALCIFEROL (VITAMIN D3) 1,000 UNIT TABLET PO SCH (07:28)
--- NOTE | 2019-11-24 08:39 | PDOC ---
Exam Note: Henry Note: S/O: This note is a late entry for DOS 11/22/2019 covers elements not covered in my initial note. Treatment team meeting was done in the morning with Nicol Lopez, and Leslie Hill along with Jesi LEARY and Kathleen from [facility]. Discussed the patient with nursing staff, reviewed the chart. The patient was seen on audio-visual rounds in the evening with Alpesh LEARY. Appetite is 50%. Sleeping average is 6-1/2 hours. She does soil on herself at times, tearful at times, wants Marinol discontinued. Appetite is fair and I will stop the Marinol on a trial basis. ROS: No CV, , Pulmonary, Eye system symptoms on review. MSE: Patient remains withdrawn, tearful at times, spends much time in her room. Speech coherent. Abstraction fair. Computation impaired. Language function intact. Mood and affect somewhat withdrawn. No psychotic symptoms, suicidal or homicidal ideation. Labs: Reviewed. Imp: Major depressive disorder, in partial remission. Anxiety disorder unspecified. Plan: Continue psychotropics from initial note. Assessment: Vital Signs/I&O: Vital Signs Date Time Temp Pulse Resp B/P (MAP) Pulse Ox O2 Delivery O2 Flow Rate FiO2 11/24/19 05:57 98.1 70 16 95/58 (70) 93 11/22/19 15:36 Room Air I & O 11/23/19 11/23/19 11/24/19 14:59 22:59 06:59 Intake Total 720 ml 480 ml Balance 720 ml 480 ml Current Medications: I have reviewed the current psychotropics carefully including drug interactions. Risk benefit ratio favors no change other than as noted in my dictated progress note. Diagnosis: Problems: (1) Mild cognitive impairment (2) Anxiety disorder (3) Depression (4) Major depressive disorder, recurrent episode (5) DVT (deep venous thrombosis) BUSTER DELVALLE MD Nov 24, 2019 08:39
--- NOTE | 2019-11-24 08:55 | PDOC ---
Exam Note: Henry Note: S/O: This note is a late entry for DOS 11/23/2019 covers elements not covered in my initial note. Discussed the patient with nursing staff, reviewed the chart. The patient was seen on audio-visual rounds in the evening with Sharifa RN. Nursing report was with Sharifa RN. She slept 6-3/4 hours previous night. ROS: Ambulation impaired in wheelchair. No CV, , Pulmonary, Eye system symptoms on review. MSE: She is lying in bed as I met with her on audio-visual rounds. She remains withdrawn, not tearful. Speech coherent. Abstraction fair. Computation imp aired. Language function intact. Mood and affect somewhat withdrawn. No psychotic symptoms, suicidal or homicidal ideation. Labs: Reviewed. Imp: Major depressive disorder, in partial remission. Anxiety disorder unspecified. Plan: Continue psychotropics from initial note. Assessment: Vital Signs/I&O: Vital Signs Date Time Temp Pulse Resp B/P (MAP) Pulse Ox O2 Delivery O2 Flow Rate FiO2 11/24/19 05:57 98.1 70 16 95/58 (70) 93 11/22/19 15:36 Room Air I & O 11/23/19 11/23/19 11/24/19 14:59 22:59 06:59 Intake Total 720 ml 480 ml Balance 720 ml 480 ml Current Medications: I have reviewed the current psychotropics carefully including drug interactions. Risk benefit ratio favors no change other than as noted in my dictated progress note. Diagnosis: Problems: (1) Mild cognitive impairment (2) Anxiety disorder (3) Depression (4) Major depressive disorder, recurrent episode (5) DVT (deep venous thrombosis) BUSTER DELVALLE MD Nov 24, 2019 08:54
[2019-11-24 15:38] VITALS: BP 109/70
--- NOTE | 2019-11-24 22:00 | PDOC ---
Exam Note: Henry Note: Please also refer to the separate dictated note~for this date of service dictated separately.~Patient seen individually. Discussed the patient with Nursing staff reviewed the chart.~Reviewed interim history and current functioning. Reviewed vital signs,~Labs/ Radiology~and current medications noted below. Continue current treatment with the changes noted in the dictated addendum note Assessment: Vital Signs/I&O: Vital Signs Date Time Temp Pulse Resp B/P (MAP) Pulse Ox O2 Delivery O2 Flow Rate FiO2 11/24/19 15:38 98.0 68 18 109/70 (83) 99 11/22/19 15:36 Room Air I & O 11/23/19 11/23/19 11/24/19 14:59 22:59 06:59 Intake Total 720 ml 480 ml Balance 720 ml 480 ml Current Medications: I have reviewed the current psychotropics carefully including drug interactions. Risk benefit ratio favors no change other than as noted in my dictated progress note. Diagnosis: Problems: (1) Mild cognitive impairment (2) Anxiety disorder (3) Depression (4) Major depressive disorder, recurrent episode (5) DVT (deep venous thrombosis) BUSTER DELVALLE MD Nov 24, 2019 22:00
[2019-11-25] MEDS: traZODone 50 MG TABLET. PO PRN ×2 (02:06→20:50)
[2019-11-25] MEDS: LEVOTHYROXINE 75 MCG TABLET PO SCH (05:02)
[2019-11-25 05:42] VITALS: BP 119/66
[2019-11-25] MEDS: ARIPiprazole 5 MG TABLET PO SCH (08:10)
[2019-11-25] MEDS: DOCUSATE SODIUM 100 MG CAPSULE PO SCH (08:11)
[2019-11-25] MEDS: FOLIC ACID 1 MG TABLET PO SCH (08:11)
[2019-11-25] MEDS: MULTIVITAMIN with MINERAL TABLET. PO SCH (08:11)
[2019-11-25] MEDS: RIVAROXABAN 10 MG TABLET. PO SCH (08:11)
[2019-11-25] MEDS: DULoxetine HCL 30 MG CAPSULE.DR PO SCH (08:11)
[2019-11-25] MEDS: DULoxetine HCL 20 MG CAPSULE.DR PO SCH (08:11)
[2019-11-25] MEDS: VITAMIN B COMPLEX CAPSULE. PO SCH (08:11)
[2019-11-25] MEDS: POLYETHYLENE GLYCOL 3350 17 GM PACKET. PO SCH (08:12)
[2019-11-25] MEDS: FUROSEMIDE 20 MG TABLET PO SCH (08:12)
[2019-11-25] MEDS: CHOLECALCIFEROL (VITAMIN D3) 1,000 UNIT TABLET PO SCH (08:12)
[2019-11-25 15:45] VITALS: BP 105/64
--- NOTE | 2019-11-25 21:51 | PDOC ---
Exam Note: Henry Note: Please also refer to the separate dictated note~for this date of service dictated separately.~Patient seen individually. Discussed the patient with Nursing staff reviewed the chart.~Reviewed interim history and current functioning. Reviewed vital signs,~Labs/ Radiology~and current medications noted below. Continue current treatment with the changes noted in the dictated addendum note Assessment: Vital Signs/I&O: Vital Signs Date Time Temp Pulse Resp B/P (MAP) Pulse Ox O2 Delivery O2 Flow Rate FiO2 11/25/19 15:45 98.2 78 18 105/64 (78) 96 11/22/19 15:36 Room Air I & O 11/24/19 11/24/19 11/25/19 15:00 23:00 07:00 Intake Total 540 ml 480 ml Balance 540 ml 480 ml Current Medications: I have reviewed the current psychotropics carefully including drug interactions. Risk benefit ratio favors no change other than as noted in my dictated progress note. Diagnosis: Problems: (1) Mild cognitive impairment (2) Anxiety disorder (3) Depression (4) Major depressive disorder, recurrent episode (5) DVT (deep venous thrombosis) BUSTER DELVALLE MD Nov 25, 2019 21:51
[2019-11-26] MEDS: HYDROcodone/APAP 5/325MG 1 TAB TABLET PO PRN ×2 (01:34→20:06)
[2019-11-26] MEDS: LEVOTHYROXINE 75 MCG TABLET PO SCH (05:31)
[2019-11-26 05:54] VITALS: BP 147/70
[2019-11-26] MEDS: DOCUSATE SODIUM 100 MG CAPSULE PO SCH (08:18)
[2019-11-26] MEDS: FOLIC ACID 1 MG TABLET PO SCH (08:18)
[2019-11-26] MEDS: POLYETHYLENE GLYCOL 3350 17 GM PACKET. PO SCH (08:18)
[2019-11-26] MEDS: CHOLECALCIFEROL (VITAMIN D3) 1,000 UNIT TABLET PO SCH (08:18)
[2019-11-26] MEDS: VITAMIN B COMPLEX CAPSULE. PO SCH (08:18)
[2019-11-26] MEDS: MULTIVITAMIN with MINERAL TABLET. PO SCH (08:18)
[2019-11-26] MEDS: DULoxetine HCL 20 MG CAPSULE.DR PO SCH (08:18)
[2019-11-26] MEDS: DULoxetine HCL 30 MG CAPSULE.DR PO SCH (08:19)
[2019-11-26] MEDS: FUROSEMIDE 20 MG TABLET PO SCH (08:19)
[2019-11-26] MEDS: RIVAROXABAN 10 MG TABLET. PO SCH (08:19)
--- NOTE | 2019-11-26 08:46 | PDOC ---
Exam Note: Henry Note: S/O: This note is a late entry for DOS 11/24/2019 covers elements not covered in my initial note. Discussed the patient with nursing staff, reviewed the chart. The patient was seen on audio-visual rounds in the evening with Yeni LEARY. Nursing report was with Sharifa LEARY. She has had no crying episodes. She has had some vaginal spotting, bleeding. We will defer to Dr. Gonazles. Ultrasound of the abdomen showed some thickness of the endometrial rosenberg. ROS: Ambulation impaired in wheelchair. No CV, , Pulmonary, Eye system symptoms on review. MSE: She has had no crying episodes. Speech coherent. Abstraction fair. Computation impaired. Language function intact. Mood and affect somewhat withdrawn. No psychotic symptoms, suicidal or homicidal ideation. Labs: Reviewed. Imp: Major depressive disorder, in partial remission. Anxiety disorder unspecified. Plan: Continue psychotropics from initial note. Assessment: Vital Signs/I&O: Vital Signs Date Time Temp Pulse Resp B/P (MAP) Pulse Ox O2 Delivery O2 Flow Rate FiO2 11/26/19 05:54 97.9 62 16 147/70 (95) 95 11/22/19 15:36 Room Air I & O 0 11/25/19 11/25/19 11/26/19 15:00 23:00 07:00 Intake Total 320 ml 440 ml Balance 320 ml 440 ml Current Medications: I have reviewed the current psychotropics carefully including drug interactions. Risk benefit ratio favors no change other than as noted in my dictated progress note. Diagnosis: Problems: (1) Mild cognitive impairment (2) Anxiety disorder (3) Depression (4) Major depressive disorder, recurrent episode (5) DVT (deep venous thrombosis) BUSTER DELVALLE MD Nov 26, 2019 08:46
--- NOTE | 2019-11-26 08:57 | PDOC ---
Exam Note: Henry Note: S/O: This note is a late entry for DOS 11/25/2019 covers elements not covered in my initial note. Discussed the patient with nursing staff, reviewed the chart. The patient was seen on audio-visual rounds in the evening with Shairfa RN. Nursing report was with Sharifa LEARY. She has had one episode of crying. ROS: She has been ambulating with a walker. No CV, , Pulmonary, Eye system symptoms on review. MSE: During the individual visit as I discussed daytime crying episode, she became extremely tearful, emotional and states she has been here for an extended period of time even though she recognizes partly this is due to COVID-19 determination made by the [facility] and [facility] which she finds herself not having much to do and gets frustrated, but by the end of the visit she was not tearful.. Speech coherent. Abstraction fair. Computation impaired. Language function intact. Mood and affect somewhat with drawn. No psychotic symptoms, suicidal or homicidal ideation. Labs: Reviewed. Imp: Major depressive disorder, in partial remission. Anxiety disorder unspecified. Plan: Continue psychotropics from initial note. Assessment: Vital Signs/I&O: Vital Signs Date Time Temp Pulse Resp B/P (MAP) Pulse Ox O2 Delivery O2 Flow Rate FiO2 11/26/19 05:54 97.9 62 16 147/70 (95) 95 11/22/19 15:36 Room Air I & O 11/25/19 11/25/19 11/26/19 15:00 23:00 07:00 Intake Total 320 ml 440 ml Balance 320 ml 440 ml Current Medications: I have reviewed the current psychotropics carefully including drug interactions. Risk benefit ratio favors no change other than as noted in my dictated progress note. Diagnosis: Problems: (1) Mild cognitive impairment (2) Anxiety disorder (3) Depression (4) Major depressive disorder, recurrent episode (5) DVT (deep venous thrombosis) BUSTER DELVALLE MD Nov 26, 2019 08:57
[2019-11-26] MEDS: ARIPiprazole 5 MG TABLET PO SCH (09:00)
[2019-11-26 09:02] LABS: BASO # 0.1 x10^3/uL (0.0-0.2); BASO % 1 % (0-3); EOS # 0.6 x10^3/uL (0.0-0.7); EOS % 8 % (0-3); HEMATOCRIT 35.7 % (36.0-47.0); HEMOGLOBIN 11.9 g/dL (12.0-15.5); LYMPH # 2.1 x10^3/uL (1.0-4.8); LYMPH % 26 % (24-48); MEAN CORPUSCULAR HEMOGLOBIN 30 pg (25-35); MEAN CORPUSCULAR HGB CONC 33 g/dL (31-37); MEAN CORPUSCULAR VOLUME 90 fL (79-100); MONO # 0.4 x10^3/uL (0.0-1.1); MONO % 5 % (0-9); NEUT # 4.8 x10^3uL (1.8-7.7); NEUT % 60 % (31-73); PLATELET COUNT 440 x10^3/uL (140-400); RED BLOOD COUNT 3.95 x10^6/uL (3.50-5.40); RED CELL DISTRIBUTION WIDTH 14.5 % (11.5-14.5); WHITE BLOOD COUNT 8.1 x10^3/uL (4.0-11.0)
[2019-11-26 09:22] LABS: ALBUMIN 3.6 g/dL (3.4-5.0); ALBUMIN/GLOBULIN RATIO 0.9 (1.0-1.7); GFR 55.5; POTASSIUM 4.3 mmol/L (3.5-5.1); TOTAL BILIRUBIN 0.3 mg/dL (0.2-1.0); TOTAL PROTEIN 7.7 g/dL (6.4-8.2)
[2019-11-26 15:40] VITALS: BP 104/71
[2019-11-26] MEDS: diphenhydrAMINE HCL 25 MG CAPSULE PO PRN (18:02)
--- NOTE | 2019-11-26 18:10 | RAD ---
CT HEAD WO CONTRAST History: Altered mental status Comparison: None. Technique: Noncontrast CT imaging was performed of the head. Exposure: One or more of the following individualized dose reduction techniques were utilized for this examination: 1. Automated exposure control 2. Adjustment of the mA and/or kV according to patient size 3. Use of iterative reconstruction technique. Findings: No acute extra-axial or parenchymal hemorrhage is identified. There is no significant intra-axial mass effect, midline shift, or extra-axial fluid collection. The watson-white differentiation of the major vascular territories is preserved. There is mild third and lateral ventriculomegaly although probably due to supratentorial atrophy. There is multifocal at least moderate ill-defined low-density of the supratentorial parenchyma bilaterally. There are old lacunar infarcts of the bilateral basal ganglia and feliz radiata, larger in size on the right. The mastoid air cells and the visualized paranasal sinuses are aerated. No acute calvarial abnormality is identified. There is atherosclerotic calcification of the bilateral carotid siphons. Impression: 1. There is no evidence of acute intracranial hemorrhage. Multifocal low-density of the supratentorial parenchyma is nonspecific, more commonly due to chronic microvascular ischemic disease in a patient this age. There are old lacunar infarcts of the bilateral basal ganglia/feliz radiata. There is mild generalized supratentorial involutional change. Electronically signed by: Sandro Monzon MD (11/26/2019 6:07 PM) [facility]
--- NOTE | 2019-11-26 22:53 | PDOC ---
Exam Note: Henry Note: S/O: This note covers elements not covered in my initial note. Discussed the patient with nursing staff, reviewed the chart. The patient was seen on audio- visual rounds in the evening with Alpesh LEARY. Nursing report was with Alpesh LEARY. She appears sad at times, appears somewhat helpless per nursing report. I have received a message from the patients daughter via the nursing staff daughter wonders whether the patient has vascular dementia. Apparently on the telephone the patient was sexually inappropriate with the daughter making sexual comments about her son-in-law. ROS: Ambulation impaired in wheelchair. No CV, , Pulmonary, Eye system symptoms on review. MSE: She is reasonably oriented to place and situation. She knew it was November 26, 2019, President was President Shiela and President Obama was there for two terms before President Trump but did not know who was the President before President Obama. She was able to do only one step on serial 7s. She was almost tearful at times, somewhat anxious but better than before. Speech coherent. Abstraction fair. Computation impaired. Language function intact. Mood and affect somewhat withdrawn. No psychotic symptoms, suicidal or homicidal ideation. Labs: Reviewed. Imp: Major depressive disorder, in partial remission. Anxiety disorder unspecified. Plan: Continue psychotropics from initial note. We will go ahead and have a CT head done without contrast since one is not being done recently but generally she is reasonably oriented and the delusions and sexual comments maybe more linked to her mood disorder rather than vascular dementia. According to the [place] Department of Health and Environment and CDC, the patient has to remain in the hospital for another 7 days for her quarantine due to COVID-19 exposure on the unit. Assessment: Vital Signs/I&O: Vital Signs Date Time Temp Pulse Resp B/P (MAP) Pulse Ox O2 Delivery O2 Flow Rate FiO2 11/26/19 21:28 94 11/26/19 15:40 97.4 80 18 104/71 (82) 11/22/19 15:36 Room Air I & O 11/25/19 11/25/19 11/26/19 15:00 23:00 07:00 Intake Total 320 ml 440 ml Balance 320 ml 440 ml Labs: Laboratory Tests Test 11/26/19 08:52 White Blood Count 8.1 x10^3/uL (4.0-11.0) Red Blood Count 3.95 x10^6/uL (3.50-5.40) Hemoglobin 11.9 g/dL (12.0-15.5) L Hematocrit 35.7 % (36.0-47.0) L Mean Corpuscular Volume 90 fL (79-100) Mean Corpuscular Hemoglobin 30 pg (25-35) Mean Corpuscular Hemoglobin Concent 33 g/dL (31-37) Red Cell Distribution Width 14.5 % (11.5-14.5) Platelet Count 440 x10^3/uL (140-400) H Neutrophils (%) (Auto) 60 % (31-73) Lymphocytes (%) (Auto) 26 % (24-48) Monocytes (%) (Auto) 5 % (0-9) Eosinophils (%) (Auto) 8 % (0-3) H Basophils (%) (Auto) 1 % (0-3) Neutrophils # (Auto) 4.8 x10^3uL (1.8-7.7) Lymphocytes # (Auto) 2.1 x10^3/uL (1.0-4.8) Monocytes # (Auto) 0.4 x10^3/uL (0.0-1.1) Eosinophils # (Auto) 0.6 x10^3/uL (0.0-0.7) Basophils # (Auto) 0.1 x10^3/uL (0.0-0.2) Sodium Level 138 mmol/L (136-145) Potassium Level 4.3 mmol/L (3.5-5.1) Chloride Level 100 mmol/L (98-107) Carbon Dioxide Level 31 mmol/L (21-32) Anion Gap 7 (6-14) Blood Urea Nitrogen 27 mg/dL (7-20) H Creatinine 1.0 mg/dL (0.6-1.0) Estimated GFR (Cockcroft-Gault) 55.5 BUN/Creatinine Ratio 27 (6-20) H Glucose Level 98 mg/dL (70-99) Calcium Level 10.0 mg/dL (8.5-10.1) Total Bilirubin 0.3 mg/dL (0.2-1.0) Aspartate Amino Transferase (AST) 20 U/L (15-37) Alanine Aminotransferase (ALT) 23 U/L (14-59) Alkaline Phosphatase 80 U/L (46-116) Total Protein 7.7 g/dL (6.4-8.2) Albumin 3.6 g/dL (3.4-5.0) Albumin/Globulin Ratio 0.9 (1.0-1.7) L Current Medications: I have reviewed the current psychotropics carefully including drug interactions. Risk benefit ratio favors no change other than as noted in my dictated progress note. Diagnosis: Problems: (1) Mild cognitive impairment (2) Anxiety disorder (3) Depression (4) Major depressive disorder, recurrent episode (5) DVT (deep venous thrombosis) BUSTER DELVALLE MD Nov 26, 2019 22:52
[2019-11-27] MEDS: LEVOTHYROXINE 75 MCG TABLET PO SCH (05:24)
[2019-11-27 05:57] VITALS: BP 102/63
[2019-11-27] MEDS: ARIPiprazole 5 MG TABLET PO SCH (08:05)
[2019-11-27] MEDS: FUROSEMIDE 20 MG TABLET PO SCH (08:05)
[2019-11-27] MEDS: DOCUSATE SODIUM 100 MG CAPSULE PO SCH (08:05)
[2019-11-27] MEDS: DULoxetine HCL 20 MG CAPSULE.DR PO SCH (08:06)
[2019-11-27] MEDS: VITAMIN B COMPLEX CAPSULE. PO SCH (08:06)
[2019-11-27] MEDS: DULoxetine HCL 30 MG CAPSULE.DR PO SCH (08:06)
[2019-11-27] MEDS: CHOLECALCIFEROL (VITAMIN D3) 1,000 UNIT TABLET PO SCH (08:06)
[2019-11-27] MEDS: RIVAROXABAN 10 MG TABLET. PO SCH (08:07)
[2019-11-27] MEDS: MULTIVITAMIN with MINERAL TABLET. PO SCH (08:07)
[2019-11-27] MEDS: FOLIC ACID 1 MG TABLET PO SCH (08:07)
[2019-11-27] MEDS: POLYETHYLENE GLYCOL 3350 17 GM PACKET. PO SCH (08:08)
[2019-11-27] MEDS ORDERED: ARIP5TAB13 PO (13:09)
[2019-11-27] MEDS ORDERED: DULO20CA50 PO (13:10)
[2019-11-27] MEDS ORDERED: folic acid PO (13:12)
[2019-11-27] MEDS ORDERED: OLAN5TAB7 PO (13:13)
[2019-11-27] MEDS ORDERED: VITA1TAB19 PO (13:13)
[2019-11-27] MEDS ORDERED: TRAZ-120 PO (13:14)
[2019-11-27 15:37] VITALS: BP 123/61
--- NOTE | 2019-11-27 22:34 | PDOC ---
Exam Note: Henry Note: S/O: This note covers elements not covered in my initial note. Discussed the patient with nursing staff, reviewed the chart. The patient was seen on audio- visual rounds in the evening with Alpesh RN. Nursing report was with Alpesh LEARY. Previous night she was wanting pain medications, appeared helpless, depressed. CT head shows no acute hemorrhagic changes. There is microvascular disease and old lacunar infarcts and brain atrophy consistent with early vascular changes of vascular dementia but she is well oriented. ROS: Ambulation impaired in wheelchair. No CV, , Pulmonary, Eye system symptoms on review. MSE: She is reasonably oriented to place and situation. She was able to do only one step on serial 7s. She was almost tearful at times, somewhat anxious but better than before. Speech coherent. Abstraction fair. Computation impaired. Language function intact. Mood and affect somewhat withdrawn. No psychotic symptoms, suicidal or homicidal ideation. Labs: Reviewed. Imp: Major depressive disorder, in partial remission. Anxiety disorder unspecified. Plan: Continue psychotropics from initial note. Assessment: Vital Signs/I&O: Vital Signs Date Time Temp Pulse Resp B/P (MAP) Pulse Ox O2 Delivery O2 Flow Rate FiO2 11/27/19 15:37 98.3 95 18 123/61 (81) 96 Room Air I & O 11/26/19 11/26/19 11/27/19 14:59 22:59 06:59 Intake Total 840 ml 240 ml Balance 840 ml 240 ml Current Medications: I have reviewed the current psychotropics carefully including drug interactions. Risk benefit ratio favors no change other than as noted in my dictated progress note. Diagnosis: Problems: (1) Mild cognitive impairment (2) Anxiety disorder (3) Depression (4) Major depressive disorder, recurrent episode (5) DVT (deep venous thrombosis) BUSTER DELVALLE MD Nov 27, 2019 22:34
[2019-11-28] MEDS: HYDROcodone/APAP 5/325MG 1 TAB TABLET PO PRN (00:37)
[2019-11-28] MEDS: LEVOTHYROXINE 75 MCG TABLET PO SCH (05:46)
[2019-11-28 06:15] VITALS: BP 109/64
[2019-11-28] MEDS: VITAMIN B COMPLEX CAPSULE. PO SCH (08:10)
[2019-11-28] MEDS: RIVAROXABAN 10 MG TABLET. PO SCH (08:10)
[2019-11-28] MEDS: DOCUSATE SODIUM 100 MG CAPSULE PO SCH (08:10)
[2019-11-28] MEDS: CHOLECALCIFEROL (VITAMIN D3) 1,000 UNIT TABLET PO SCH (08:11)
[2019-11-28] MEDS: DULoxetine HCL 30 MG CAPSULE.DR PO SCH (08:11)
[2019-11-28] MEDS: FOLIC ACID 1 MG TABLET PO SCH (08:11)
[2019-11-28] MEDS: ARIPiprazole 5 MG TABLET PO SCH (08:11)
[2019-11-28] MEDS: DULoxetine HCL 20 MG CAPSULE.DR PO SCH (08:11)
[2019-11-28] MEDS: FUROSEMIDE 20 MG TABLET PO SCH (08:11)
[2019-11-28] MEDS: MULTIVITAMIN with MINERAL TABLET. PO SCH (08:12)
[2019-11-28] MEDS: POLYETHYLENE GLYCOL 3350 17 GM PACKET. PO SCH (08:16)
[2019-11-28] MEDS: ACETAMINOPHEN 325 MG TABLET PO PRN ×2 (15:22→22:39)
[2019-11-28 15:48] VITALS: BP 105/70
--- NOTE | 2019-11-28 21:45 | PDOC ---
Exam Note: Henry Note: Please also refer to the separate dictated note~for this date of service dictated separately.~Patient seen individually. Discussed the patient with Nursing staff reviewed the chart.~Reviewed interim history and current functioning. Reviewed vital signs,~Labs/ Radiology~and current medications noted below. Continue current treatment with the changes noted in the dictated addendum note Assessment: Vital Signs/I&O: Vital Signs Date Time Temp Pulse Resp B/P (MAP) Pulse Ox O2 Delivery O2 Flow Rate FiO2 11/28/19 15:48 97.8 78 18 105/70 (82) 98 11/27/19 15:37 Room Air I & O 11/27/19 11/27/19 11/28/19 14:59 22:59 06:59 Intake Total 600 ml 420 ml Balance 600 ml 420 ml Current Medications: I have reviewed the current psychotropics carefully including drug interactions. Risk benefit ratio favors no change other than as noted in my dictated progress note. Diagnosis: Problems: (1) Mild cognitive impairment (2) Anxiety disorder (3) Depression (4) Major depressive disorder, recurrent episode (5) DVT (deep venous thrombosis) BUSTER DELVALLE MD Nov 28, 2019 21:45
[2019-11-28] MEDS: traZODone 50 MG TABLET. PO PRN (22:20)
[2019-11-29] MEDS: LEVOTHYROXINE 75 MCG TABLET PO SCH (05:15)
[2019-11-29 05:35] VITALS: BP 108/69
[2019-11-29] MEDS: DULoxetine HCL 30 MG CAPSULE.DR PO SCH (08:26)
[2019-11-29] MEDS: DULoxetine HCL 20 MG CAPSULE.DR PO SCH (08:26)
[2019-11-29] MEDS: ARIPiprazole 5 MG TABLET PO SCH (08:26)
[2019-11-29] MEDS: MULTIVITAMIN with MINERAL TABLET. PO SCH (08:26)
[2019-11-29] MEDS: VITAMIN B COMPLEX CAPSULE. PO SCH (08:27)
[2019-11-29] MEDS: FUROSEMIDE 20 MG TABLET PO SCH (08:27)
[2019-11-29] MEDS: FOLIC ACID 1 MG TABLET PO SCH (08:27)
[2019-11-29] MEDS: DOCUSATE SODIUM 100 MG CAPSULE PO SCH (08:27)
[2019-11-29] MEDS: RIVAROXABAN 10 MG TABLET. PO SCH (08:27)
[2019-11-29] MEDS: CHOLECALCIFEROL (VITAMIN D3) 1,000 UNIT TABLET PO SCH (08:27)
[2019-11-29] MEDS: POLYETHYLENE GLYCOL 3350 17 GM PACKET. PO SCH (08:30)
[2019-11-29] MEDS ORDERED: POLYETHYLENE GLYCOL 3350 17 GM PACKET. PO PRN (09:30)
--- NOTE | 2019-11-29 10:29 | PDOC ---
Exam Note: Henry Note: S/O: This note is a late entry for DOS 11/28/19 covers elements not covered in my initial note. Discussed the patient with nursing staff, reviewed the chart. The patient was seen on audio-visual rounds in the evening with Alpesh LEARY. Nursing report was with Alpesh LEARY. She slept 4-1/2 hours previous night. She has been started on Ensure pudding per dietary recommendation. Previous night per Alyssa RN, she was helpless, hopeless, somewhat tearful, not wanting to do things for herself even some things she could do and we addressed this individually. ROS: Ambulation impaired in wheelchair. No CV, , Pulmonary, Eye system symptoms on review. MSE: Reasonably oriented. Speech coherent. She is pleasant, still somewhat depressed and as I brought up the instance of previous night she became tearful but was able to contain herself. 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 Abstraction fair. Computation impaired. Language function intact. Mood and affect somewhat withdrawn. No psychotic symptoms, suicidal or homicidal ideation. Labs: Reviewed. Imp: Major depressive disorder, in partial remission. Anxiety disorder unspecified. Plan: Continue psychotropics from initial note. Assessment: Vital Signs/I&O: Vital Signs Date Time Temp Pulse Resp B/P (MAP) Pulse Ox O2 Delivery O2 Flow Rate FiO2 11/29/19 05:35 97.7 64 18 108/69 (82) 94 11/27/19 15:37 Room Air I & O 11/28/19 11/28/19 11/29/19 15:00 23:00 07:00 Intake Total 440 ml 360 ml Balance 440 ml 360 ml Current Medications: I have reviewed the current psychotropics carefully including drug interactions. Risk benefit ratio favors no change other than as noted in my dictated progress note. Diagnosis: Problems: (1) Mild cognitive impairment (2) Anxiety disorder (3) Depression (4) Major depressive disorder, recurrent episode (5) DVT (deep venous thrombosis) BUSTER DELVALLE MD Nov 29, 2019 10:29
[2019-11-29] MEDS: ACETAMINOPHEN 325 MG TABLET PO PRN (13:07)
[2019-11-29 15:42] VITALS: BP 101/67
--- NOTE | 2019-11-29 16:44 | TX PLAN ---
Interdisciplinary Tx Plan Admission Information Oct 23, 2019 at 14:48 Legal Status (on Admission): Voluntary DPOA/Guardian Name: David Rawls, Son-in-Law Contact Verified Code Status: DNR Allergies: Coded Allergies: No Known Drug Allergies (Unverified , 11/13/19) Estimated Length of Stay: 14 Diagnoses Primary Diagnosis: MDD Reasons for Admission: Relation/conflict, Depressed, Sig. Change Appetite, Suicidal ideation Problem in Patient's Words: Per pts DPOA: Pt has a "massive major depression and doesnt want to live. She thinks that no one wants her." Per pt: "Im here because they all think I want to kill myself. I dont want to kill myself. Theres so much more that I can do with my life." Problems Active Problems: Per intake form, pt was to be discharged from [facility]. She stated that if she goes home, she will kill herself. Family reports history of SI and they had to remove guns from her home previously. Inactive Problems: Pt. is compliant with medications and cooperative with assessments. Pt Strengths/Limitations Ability for Boyd: Fair Cognitive Functioning/Ability: Fair Communication Skills/Ability: Fair Financial Resources: Poor Insight/Judgement: Poor Intellectual Ability: Fair Physical Health: Poor Social Skills: Fair Stability in Family: Good Stability in School/Work: Poor Verbal Skills: Fair Discharge Criteria Discharge Criteria: Able meet basic life need, No need for close observ., Able to meet health needs, OP monitor medical prob, Adequate arrangements @DC, Adequate self-care, Verbal commit med comply, Improved behavior, Improved mood/thought Preliminary Discharge Plan Preliminary DC Plan: Home Other Arrangements: Possible short term stay at [facility] for additional rehab. Special Precautions Special Precautions: Suicide Risk Fall Risk: High Initial D/C Plan Pt will plan to discharge back home alone Identified Discharge Needs: Follow Up with PCP Currently Utilized Resources Currently Utilized Resources/P: PCP Referrals Community Resources: Potential for PACE, psychiatry, counseling Identified Problems/Hx/Goals Objectives/Short-Term Goals Short Term Goals: Dec. Symp. Depression, Monitor Med Effects, No Suicidal/Janeen. ideation, Promote Coping Skill Short Term Goals in Patient's: Per pt: "Basically, I just want to be left alone. 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 Education: [employer] and [employer] Community Follow-up Follow Up with PCP Community Provider/Family Inpu: Pt's DPOA would like to see pt's mood stabilized first. He would like pt to able to live safely and successfully independently with daily home health supports because pt cannot ambulate on her own. Treatment Plan Explained Patient/Diamond Selector had this treatment plan explained to him/her as indicated by the signature below and has been given the opportunity to ask questions and make suggestions: Date: Patient/Diamond Selector Signature: Status Update Update Pt is eating roughly 50% of meals and sleeping on average 6.5 hours per night. Pt is calm and cooperative with cares and compliant with medications. Pt continues to wish to walk around but has some weakness resulting in a high fall risk. Pt did get upset with a STUDIO COUCH FRAME BUILDER and was verbally aggressive; but later apologized although she did not feel it was her fault. Pt did have a head CT and will be explained to the family that it mainly shows old infarcts from previous injuries. There is a minor vascular change but not enough for pt family to be concerned. Pt is not able to be at [facility] due to the lack of PPE. Other referrals were made by Soledad Olivares in which pt may possibly do [facility] at [facility]. SW will follow up with Soledad Olivares and pt family with discharge plans on Tuesday. ROMMEL GONCALVES Nov 29, 2019 16:44
[2019-11-29] MEDS: HYDROcodone/APAP 5/325MG 1 TAB TABLET PO PRN (21:38)
--- NOTE | 2019-11-29 22:01 | PDOC ---
Exam Note: Henry Note: Please also refer to the separate dictated note~for this date of service dictated separately.~Patient seen individually. Discussed the patient with Nursing staff reviewed the chart.~Reviewed interim history and current functioning. Reviewed vital signs,~Labs/ Radiology~and current medications noted below. Continue current treatment with the changes noted in the dictated addendum note Assessment: Vital Signs/I&O: Vital Signs Date Time Temp Pulse Resp B/P (MAP) Pulse Ox O2 Delivery O2 Flow Rate FiO2 11/29/19 21:38 Room Air 11/29/19 15:42 97.8 81 18 101/67 (78) 96 I & O 11/28/19 11/28/19 11/29/19 15:00 23:00 07:00 Intake Total 440 ml 360 ml Balance 440 ml 360 ml Current Medications: I have reviewed the current psychotropics carefully including drug interactions. Risk benefit ratio favors no change other than as noted in my dictated progress note. Diagnosis: Problems: (1) Mild cognitive impairment (2) Anxiety disorder (3) Depression (4) Major depressive disorder, recurrent episode (5) DVT (deep venous thrombosis) BUSTER DELVALLE MD Nov 29, 2019 22:00
[2019-11-30 03:37] VITALS: BP 107/70
[2019-11-30] MEDS: HYDROcodone/APAP 5/325MG 1 TAB TABLET PO PRN ×2 (03:51→10:09)
[2019-11-30] MEDS: LEVOTHYROXINE 75 MCG TABLET PO SCH (03:51)
[2019-11-30] MEDS: NITROGLYCERIN SUBLINGUAL 0.4 MG BOTTLE OF 25. SL PRN ×2 (03:52→04:01)
[2019-11-30 04:01] VITALS: BP 86/56
[2019-11-30 06:21] LABS: BASO # 0.1 x10^3/uL (0.0-0.2); BASO % 0 % (0-3); EOS # 0.2 x10^3/uL (0.0-0.7); EOS % 2 % (0-3); HEMATOCRIT 32.8 % (36.0-47.0); HEMOGLOBIN 10.8 g/dL (12.0-15.5); LYMPH # 1.7 x10^3/uL (1.0-4.8); LYMPH % 12 % (24-48); MEAN CORPUSCULAR HEMOGLOBIN 30 pg (25-35); MEAN CORPUSCULAR HGB CONC 33 g/dL (31-37); MEAN CORPUSCULAR VOLUME 90 fL (79-100); MONO # 0.8 x10^3/uL (0.0-1.1); MONO % 6 % (0-9); NEUT # 11.1 x10^3uL (1.8-7.7); NEUT % 80 % (31-73); PLATELET COUNT 360 x10^3/uL (140-400); RED BLOOD COUNT 3.64 x10^6/uL (3.50-5.40); RED CELL DISTRIBUTION WIDTH 14.6 % (11.5-14.5)
[2019-11-30 06:39] LABS: ALBUMIN 3.1 g/dL (3.4-5.0); ALBUMIN/GLOBULIN RATIO 0.8 (1.0-1.7); CALCIUM 9.4 mg/dL (8.5-10.1); CREATININE 0.9 mg/dL (0.6-1.0); GFR 62.6; POTASSIUM 3.9 mmol/L (3.5-5.1); TOTAL BILIRUBIN 0.3 mg/dL (0.2-1.0); TOTAL PROTEIN 6.9 g/dL (6.4-8.2)
[2019-11-30] MEDS: CHOLECALCIFEROL (VITAMIN D3) 1,000 UNIT TABLET PO SCH (09:00)
[2019-11-30] MEDS: MULTIVITAMIN with MINERAL TABLET. PO SCH (09:00)
[2019-11-30] MEDS: VITAMIN B COMPLEX CAPSULE. PO SCH (09:00)
[2019-11-30] MEDS: DOCUSATE SODIUM 100 MG CAPSULE PO SCH (09:00)
[2019-11-30] MEDS: FOLIC ACID 1 MG TABLET PO SCH (09:00)
--- NOTE | 2019-11-30 09:26 | RAD ---
EXAM: CHEST AP ONLY INDICATION: Shortness of air and cough.. TECHNIQUE: Single view COMPARISON: None FINDINGS: The heart size is mildly enlarged. The great vessels appear unremarkable. There is no hilar or mediastinal mass. The lungs show coarse interstitial markings diffusely. No focal consolidation, dominant nodule or lung mass.. There is no pleural effusion or pneumothorax. There are no significant osseous abnormalities. IMPRESSION: Mild cardiomegaly and diffuse coarse interstitial markings. No confluent consolidation of typical bacterial pneumonia. Electronically signed by: Caryn Archibald MD (11/30/2019 9:23 AM) [id number]
--- NOTE | 2019-11-30 09:38 | PDOC ---
Exam Note: Henry Note: S/O: This note is a late entry for DOS 11/29/19 covers elements not covered in my initial note. Treatment team meeting was done in the morning with Leslie Hill (clinical social work aide) and Breann LEARY. Reviewed the patients progress, disposition plans, current psychotropics, discussed potential side-effects and drug interactions. The patient was seen on audio-visual rounds in the evening due to the COVID-19 exposure on the unit with Breann LEARY. The patient does complain of some weakness. Continues to have some mood lability consistent with some pseudobulbar affect but less tearful during the individual rounds in the evening. ROS: Ambulation impaired in wheelchair. No CV, , Pulmonary, Eye system symptoms on review. MSE: Reasonably oriented. The patient was less labile, anxious though she became almost tearful at one point as we discussed her discharge plans and she stated her daughter had not been communicating disposition plans with her. Reportedly she is not being accepted at [facility] and alternate placements are being secured. Speech coherent. Abstraction fair. Computation impaired. Language function intact. Mood and affect somewhat withdrawn. No psychotic symptoms, suicidal or homicidal ideation. Labs: Reviewed. Imp: Major depressive disorder, in partial remission. Anxiety disorder unspecified. Plan: Continue psychotropics from initial note. Assessment: Vital Signs/I&O: Vital Signs Date Time Temp Pulse Resp B/P (MAP) Pulse Ox O2 Delivery O2 Flow Rate FiO2 11/30/19 05:00 Room Air 11/30/19 04:01 83 107/70 11/30/19 04:01 94 11/30/19 03:37 20 11/29/19 15:42 97.8 I & O 11/29/19 11/29/19 11/30/19 15:00 23:00 07:00 Intake Total 720 ml 480 ml Balance 720 ml 480 ml Labs: Laboratory Tests Test 11/30/19 05:47 White Blood Count 14.0 x10^3/uL (4.0-11.0) H Red Blood Count 3.64 x10^6/uL (3.50-5.40) Hemoglobin 10.8 g/dL (12.0-15.5) L Hematocrit 32.8 % (36.0-47.0) L Mean Corpuscular Volume 90 fL (79-100) Mean Corpuscular Hemoglobin 30 pg (25-35) Mean Corpuscular Hemoglobin Concent 33 g/dL (31-37) Red Cell Distribution Width 14.6 % (11.5-14.5) H Platelet Count 360 x10^3/uL (140-400) Neutrophils (%) (Auto) 80 % (31-73) H Lymphocytes (%) (Auto) 12 % (24-48) L Monocytes (%) (Auto) 6 % (0-9) Eosinophils (%) (Auto) 2 % (0-3) Basophils (%) (Auto) 0 % (0-3) Neutrophils # (Auto) 11.1 x10^3uL (1.8-7.7) H Lymphocytes # (Auto) 1.7 x10^3/uL (1.0-4.8) Monocytes # (Auto) 0.8 x10^3/uL (0.0-1.1) Eosinophils # (Auto) 0.2 x10^3/uL (0.0-0.7) Basophils # (Auto) 0.1 x10^3/uL (0.0-0.2) Sodium Level 140 mmol/L (136-145) Potassium Level 3.9 mmol/L (3.5-5.1) Chloride Level 102 mmol/L (98-107) Carbon Dioxide Level 32 mmol/L (21-32) Anion Gap 6 (6-14) Blood Urea Nitrogen 31 mg/dL (7-20) H Creatinine 0.9 mg/dL (0.6-1.0) Estimated GFR (Cockcroft-Gault) 62.6 BUN/Creatinine Ratio 34 (6-20) H Glucose Level 94 mg/dL (70-99) Calcium Level 9.4 mg/dL (8.5-10.1) Total Bilirubin 0.3 mg/dL (0.2-1.0) Aspartate Amino Transferase (AST) 13 U/L (15-37) L Alanine Aminotransferase (ALT) 15 U/L (14-59) Alkaline Phosphatase 70 U/L (46-116) Troponin I Quantitative < 0.017 ng/mL (0-0.055) Total Protein 6.9 g/dL (6.4-8.2) Albumin 3.1 g/dL (3.4-5.0) L Albumin/Globulin Ratio 0.8 (1.0-1.7) L Current Medications: Meds: Current Medications Medications (Trade) Dose Ordered Sig/Imani Route PRN Reason Start Time Stop Time Status Last Admin Dose Admin Nitroglycerin (Nitrostat) 0.4 mg PRN Q5MIN PRN SL CHEST PAIN 11/30/19 03:45 11/30/19 04:01 I have reviewed the current psychotropics carefully including drug interactions. Risk benefit ratio favors no change other than as noted in my dictated progress note. Diagnosis: Problems: (1) Mild cognitive impairment (2) Anxiety disorder (3) Depression (4) Major depressive disorder, recurrent episode (5) DVT (deep venous thrombosis) BUSTER DELVALLE MD Nov 30, 2019 09:38
[2019-11-30] MEDS: RIVAROXABAN 10 MG TABLET. PO SCH (10:07)
[2019-11-30] MEDS: FUROSEMIDE 20 MG TABLET PO SCH (10:07)
[2019-11-30] MEDS: ARIPiprazole 5 MG TABLET PO SCH (10:07)
[2019-11-30] MEDS: DULoxetine HCL 20 MG CAPSULE.DR PO SCH (10:07)
[2019-11-30] MEDS: DULoxetine HCL 30 MG CAPSULE.DR PO SCH (10:07)
[2019-11-30] MEDS ORDERED: MAG30ORA2 PO (11:13)
[2019-11-30] MEDS ORDERED: METH57CR17 TP (11:15)
[2019-11-30] MEDS ORDERED: POLY2500 PO (11:28)
[2019-11-30] MEDS ORDERED: IOHEXOL 350 MG/ML 100 ML VIAL. IV ONE (14:45)
--- NOTE | 2019-11-30 15:17 | RAD ---
EXAM: CT Pulmonary Angiogram INDICATION: Hypotension hypoxia and confined to bed. TECHNIQUE: Multi-detector row images were acquired from the thoracic inlet through the upper abdomen with the use of IV contrast. Sagittal and coronal images were acquired from the transaxial data. MIP images of the pulmonary arteries were obtained. All CT scans performed at this facility utilize dose optimization techniques as appropriate to the exam, including the following: Automated exposure control and adjustment of the mA and/or KV according to patient size (this includes techniques or standardized protocols for targeted exams where dose is indication/reason for exam). IV CONTRAST: Administered COMPARISON: None FINDINGS: PULMONARY ARTERIES: No pulmonary emboli are identified. CARDIOVASCULAR: There is a pericardial effusion measuring up to 1.4 cm in depth. Aorta is normal caliber. MEDIASTINUM & ANN: Mild mediastinal and bilateral hilar adenopathy is present. LUNGS: Mild biapical emphysematous change. PLEURAL SPACE: No pneumothorax. Mild thickening along the left major fissure is nonspecific but could represent a trace loculated effusion. OSSEOUS & SOFT TISSUE: Unremarkable ABDOMEN: Included upper abdomen shows borderline enlarged gastric hepatic ligament lymph nodes measuring up to 9 mm in short axis diameter. There is minimal fullness to the partially imaged right adrenal gland as well. IMPRESSION: 1. No pulmonary emboli. 2. Moderate pericardial effusion. Correlate clinically for any evidence of tamponade physiology. 3. Mild mediastinal and upper abdominal adenopathy. Report called to patient's nurse GIBRAN Crain who took the telephone report on behalf of Dr. Damon at 3:14 PM on 11/30/2019 Electronically signed by: Caryn Archibald MD (11/30/2019 3:14 PM) [id number]
[2019-11-30 15:42] VITALS: BP 103/71
--- NOTE | 2019-12-01 13:41 | DS ---
DATE OF DISCHARGE: 11/30/2019 This late entry 11/30/2019 covers elements not covered in my initial note. REASON FOR ADMISSION: Please refer to the admission history for details. Briefly, the patient is a 64-year-old female referred to us from the group home unit at [facility] as she was being transitioned from that unit back to going back home and she threatened to kill herself if she were to be sent back home. The patient has a past history of suicidal ideation, had worsening symptoms of depression and had followed on the group home unit during her stay there. The patient's behaviors were deemed dangerous. She was a suicide risk, especially since she would be living alone at home. Given her disabilities and depression, it was felt unsafe for her to return home and she was [facility] for [facility]. SIGNIFICANT FINDINGS AND CLINICAL COURSE: Following admission, the patient was seen daily individually by myself from a psychiatric standpoint. Medical followup with Dr. Damon/Dr. Gonzales. The patient remained extremely depressed, withdrawn, hopeless, helpless, worthless initially. Adjustments were made in her psychotropics and she seemed to do better from a psychiatric standpoint on Cymbalta 50 mg a day augmented with Abilify, increasing to 5 mg a day. Trazodone was used 50 mg at bedtime p.r.n. insomnia, december repeat x 1, Zyprexa p.r.n. Her hospitalization was extremely protracted and a significant part of this protraction was due to exposure of COVID-19 exposure on our unit and the restrictions placed on discharges by the [facility] and the centers for disease control as a consequence of the above. We also did a CT head, which showed some microvascular changes, cortical atrophy, old lacunar infarcts and somewhat involutional changes suggestive of early vascular dementia. She had some pseudobulbar affect as a consequence of this. Nevertheless, she denied suicidal ideation for an extended period of time prior to her discharge. On 11/30/2019, she had medical deterioration and the finding of pericardial effusion. Complains of chest pressure and she was febrile. She was transferred to the ICU/medical surgical floor for medical stabilization and a repeat COVID-19 test was done as well. Prior to discharge on 11/30/2019, I met with her individually on audiovisual rounds. She complained of being tired, was lying in bed, complained of some chest pain. No GI, , eye, ENT system symptoms on review. MENTAL STATUS EXAM: Reasonably oriented. Speech has some latency, coherent. Abstraction fair, computation impaired, language function intact, attention span short. Mood and affect somewhat withdrawn, but no active suicidal ideation. LABORATORY DATA: Reviewed. FINAL DIAGNOSES: Major depressive disorder, recurrent, in partial remission; mild cognitive impairment; anxiety disorder, unspecified. Pericardial effusion. Rest diagnosis unchanged from admission and she was febrile prior to transitioning from our unit. DISCHARGE MEDICATIONS: Please refer to the MRAD. Psychiatric and medical followup on the medical/surgical floor per Dr. Damon. Time for discharge day management greater than 30 minutes. BUSTER DELVALLE MD DR: DIANN/dayan JOB#: [id number] / [id number]
--- NOTE | 2019-12-01 22:55 | PDOC ---
Exam Note: Henry Note: Dictation #[id number]. This is a late entry for 11/30/2019. Please also refer to the separate dictated note~for this date of service dictated separately.~Patient seen individually. Discussed the patient with Nursing staff reviewed the chart.~Reviewed interim history and current functioning. Reviewed vital signs,~Labs/ Radiology~and current medications noted below. Continue current treatment with the changes noted in the dictated addendum note Assessment: Vital Signs/I&O: Vital Signs Date Time Temp Pulse Resp B/P (MAP) Pulse Ox O2 Delivery O2 Flow Rate FiO2 11/30/19 15:42 98.7 102 22 103/71 (82) 97 2.0 11/30/19 15:35 Nasal Cannula I & O 11/30/19 11/30/19 12/01/19 15:00 23:00 07:00 Intake Total 120 ml Balance 120 ml Current Medications: I have reviewed the current psychotropics carefully including drug interactions. Risk benefit ratio favors no change other than as noted in my dictated progress note. Diagnosis: Problems: (1) Mild cognitive impairment (2) Anxiety disorder (3) Depression (4) Major depressive disorder, recurrent episode (5) DVT (deep venous thrombosis) BUSTER DELVALLE MD Dec 01, 2019 22:55
--- NOTE | 2019-12-02 12:11 | PN ---
DATE: SUBJECTIVE: The patient is sitting comfortably in her recliner, continued to complain of severe pain in the left side of the chest that is reproducible. She also complained of low back pain. She did her lab work yesterday showed that she has 20-40 wbc's; however, she has a few bacteria. The urine was negative for nitrite. However, her white cell count is actually turning the corner, they are down to 14,400. I did start her on Rocephin yesterday. Her chemistry showed that she is slightly dehydrated with disproportionately high BUN compared to creatinine. Her C-reactive protein was extremely high at 385. She apparently has postmenopausal bleeding and has had abdominal, pelvic, and transvaginal ultrasound, which basically showed that endometrium is considered thickened for postmenopausal patient on the order 0.7 cm, could be due to hyperplasia, neoplasm not excluded. There is some fluid in the endometrial cavity. Neither ovary could be visualized on this exam. She has also pericardial effusion and has also normochromic normocytic anemia putting them all altogether, I am concerned that she might have endometrial cancer with metastases and therefore, I will arrange for her to have total body bone scan. PHYSICAL EXAMINATION: GENERAL: When I examined her this morning, she was pale, but no jaundice, cyanosis or thyromegaly. No jugular venous distention. No lower limb edema. VITAL SIGNS: Her heart rate was 89, blood pressure was 94/57, temperature was 98.2, respiratory rate was 18 and oxygen saturation was 95% on 2 liters of oxygen by nasal cannula. HEAD, EYES, EARS, NOSE AND THROAT: Showed normocephalic, atraumatic. NECK: Supple. HEART: Showed normal first and second heart sounds. No gallop or murmur. CHEST: Clear to auscultation. No crepitation or rhonchi. ABDOMEN: Distended, soft, nontender. No guarding or rigidity. No organomegaly. All hernial orifices intact. Bowel sounds normal. NEUROLOGIC: She is awake, alert, responding appropriately. All cranial nerves intact. She moves all extremities without difficulty; however, she does complain of pain mostly in the left-sided chest which is reproducible and also in lower back. Her intake over the last 24 hours was 300, no output was recorded. LABORATORY DATA: Her lab work this morning showed a white cell count is down to 14,400, hemoglobin 10, hematocrit 32, MCV 90 and platelet count 371,000. Serum sodium was 136, potassium 4.3, chloride 99, bicarbonate 28, anion gap of 9, BUN 34, creatinine 1, estimated GFR was 55 mL per minute. Her glucose was 88, calcium was 9.8. Total bilirubin, AST, ALT, alkaline phosphatase were normal. Total protein was 6.7, albumin was 2.7. ASSESSMENT: 1. Left-sided chest pain that is reproducible. We did actually 3 sets of cardiac enzymes that were ruled out myocardial infarction. However, CT scan of the chest showed that she has significant pericardial effusion. 2. Other medical problems include questionable urinary tract infection for which I started her on IV Rocephin. 3. Dehydration, for which I will gently rehydrate her. 4. Endometrial hyperplasia and fluid in the endometrial cavity, raising the possibility of endometrial hyperplasia versus endometrial cancer with pain in her back and her left-sided chest wall, for which I will arrange for her to have total body bone scan. 5. Other, the patient is also known to have left lower extremity deep vein thrombosis for acquired hypothyroidism, history of hepatitis B and normochromic normocytic anemia. ARELI SALDIVAR MD DR: MAIA/dayan JOB#: [id number] / [id number]
[2019-12-04] MEDS ORDERED: CEFD300C PO (12:33)
== END 2019-11-30 17:31 | disposition short-term general hospital (02) | DRG 885 ==
LOC: GEROPSY 14:48
PROVIDERS: ADMIT Psychiatry & Neurology Psychiatry; ATTEND Psychiatry & Neurology Psychiatry
DX: F33.41 Major depressive disorder, recurrent, in partial remission (principal); I31.3 Pericardial effusion (noninflammatory); R45.851 Suicidal ideations; D64.9 Anemia, unspecified; E03.9 Hypothyroidism, unspecified; E86.0 Dehydration; F41.9 Anxiety disorder, unspecified; F48.2 Pseudobulbar affect; G31.84 Mild cognitive impairment of uncertain or unknown etiology; N85.00 Endometrial hyperplasia, unspecified; Z66 Do not resuscitate; Z20.828 Contact with and (suspected) exposure to other viral communicable diseases; Z86.718 Personal history of other venous thrombosis and embolism
CPT/HCPCS: 36415; 70450; 71045; 71275; 76856; 80053; 80061; 81001; 82306; 82607; 83036; 83540; 83550; 83735; 84436; 84443; 84480; 84484; 85025; 86592; 87086; 87493; 87635; 93005; J3010; Q0163; Q0167; Q9967; 97116; 97535

== ENCOUNTER 2019-11-30 18:43 | Inpatient (IN) | payer MEDICARE, OTHER ==
[~2019-11-30] VITALS: Ht 154.9 cm; Wt 64.6 kg
[2019-11-30 18:30] VITALS: BP 136/90
[~2019-11-30 18:43] MED LIST changes: +ACET325T21 PO; +ARIP5TAB13 PO; +DIPH25CA58 PO; +DRON10CA5 PO; +DULO20CA50 PO; +DULO30CA2 PO; +MAG30ORA2 PO; +MAGN24003 PO; +METH57CR17 TP; +MINE454C9 TP; +MULT-237 PO; +NYST1000 PO; +OLAN5TAB7 PO; +POLY2500 PO; +TRAZ-120 PO; +VITA1TAB19 PO; +folic acid PO
--- NOTE | 2019-11-30 19:29 | NUR ---
The patient, KATE STEELE, 64 y/o, F admitted by ARELI SALDIVAR MD, was given written information regarding hospital policies, unit procedures and contact persons. Valuables were checked and logged. Will continue to monitor.
--- NOTE | 2019-11-30 19:32 | NUR ---
Dr. Damon already talked to [facility] cardio for consult. Dr. Juárez is aware of patient being down here. Will continue to monitor.
[2019-11-30] MEDS ORDERED: ACETAMINOPHEN 325 MG TABLET PO SCH (19:45)
[2019-11-30] MEDS ORDERED: HYDROCORTISONE 2.5% RECTAL CREAM 30GM TUBE. RC PRN (19:45)
[2019-11-30] MEDS ORDERED: METHYL SALICYLATE/MENTHOL TOPICAL OINTMENT 57GM TUBE. TP PRN (19:45)
[2019-11-30] MEDS ORDERED: MAG HYDROX/AL HYDROX/SIMETH 30 ML ORAL.SUSP PO PRN (19:45)
[2019-11-30] MEDS ORDERED: MINERAL OIL/PETROLATUM TOPICAL CREAM 113GM JAR. TP PRN (19:45)
[2019-11-30] MEDS ORDERED: NYSTATIN 100,000 UNITS/ML ORAL SUSPENSION 60ML BOTTLE. PO PRN (19:45)
[2019-11-30] MEDS ORDERED: diphenhydrAMINE HCL 25 MG CAPSULE PO PRN (19:45)
[2019-11-30] MEDS: traZODone 50 MG TABLET. PO PRN (20:26)
[2019-11-30] MEDS ORDERED: MAGNESIUM HYDROXIDE 2,400 MG/30 ML ORAL.SUSP. PO PRN (20:30)
[2019-11-30 21:11] VITALS: BP 126/70
[2019-12-01 01:39] VITALS: BP 111/70
--- NOTE | 2019-12-01 04:14 | NUR ---
Routine [facility] cardio consult called at this time.
[2019-12-01] MEDS: LEVOTHYROXINE 75 MCG TABLET PO SCH (04:50)
[2019-12-01 05:29] VITALS: BP 108/68
--- NOTE | 2019-12-01 06:24 | NUR ---
Pt slept well throughout the night if given pain medicine. Pt would wake up when she was hurting and state, "Ow! Ow!" Pain meds were given per oct. Pt would then sleep. Will continue to monitor.
[2019-12-01 07:02] LABS: BASO # 0.1 x10^3/uL (0.0-0.2); BASO % 0 % (0-3); EOS # 0.1 x10^3/uL (0.0-0.7); EOS % 0 % (0-3); HEMATOCRIT 35.1 % (36.0-47.0); HEMOGLOBIN 11.3 g/dL (12.0-15.5); LYMPH # 2.1 x10^3/uL (1.0-4.8); LYMPH % 12 % (24-48); MEAN CORPUSCULAR HEMOGLOBIN 30 pg (25-35); MEAN CORPUSCULAR HGB CONC 32 g/dL (31-37); MEAN CORPUSCULAR VOLUME 92 fL (79-100); MONO % 6 % (0-9); NEUT # 14.7 x10^3uL (1.8-7.7); NEUT % 82 % (31-73); PLATELET COUNT 342 x10^3/uL (140-400); RED BLOOD COUNT 3.84 x10^6/uL (3.50-5.40); RED CELL DISTRIBUTION WIDTH 15.1 % (11.5-14.5); WHITE BLOOD COUNT 17.9 x10^3/uL (4.0-11.0)
[2019-12-01 07:18] LABS: ALBUMIN/GLOBULIN RATIO 0.7 (1.0-1.7); CREATININE 0.9 mg/dL (0.6-1.0); GFR 62.6; POTASSIUM 4.2 mmol/L (3.5-5.1); TOTAL BILIRUBIN 0.4 mg/dL (0.2-1.0); TOTAL PROTEIN 7.2 g/dL (6.4-8.2)
[2019-12-01 07:29] LABS: CALCIUM 9.7 mg/dL (8.5-10.1)
[2019-12-01] MEDS ORDERED: ANTI-COAG MONITOR BY PHARMACY. MC PRN (08:00)
[2019-12-01] MEDS: VITAMIN B COMPLEX CAPSULE. PO SCH (08:21)
[2019-12-01] MEDS: MULTIVITAMIN with MINERAL TABLET. PO SCH (08:21)
[2019-12-01] MEDS: DULoxetine HCL 30 MG CAPSULE.DR PO SCH (08:21)
[2019-12-01] MEDS: ARIPiprazole 5 MG TABLET PO SCH (08:21)
[2019-12-01] MEDS: FUROSEMIDE 20 MG TABLET PO SCH (08:21)
[2019-12-01] MEDS: HYDROcodone/APAP 5/325MG 1 TAB TABLET PO PRN ×2 (08:22→22:15)
[2019-12-01] MEDS: CHOLECALCIFEROL (VITAMIN D3) 1,000 UNIT TABLET PO SCH (08:22)
[2019-12-01] MEDS: DOCUSATE SODIUM 100 MG CAPSULE PO SCH (08:22)
[2019-12-01] MEDS: DULoxetine HCL 20 MG CAPSULE.DR PO SCH (08:22)
[2019-12-01] MEDS: RIVAROXABAN 10 MG TABLET. PO SCH (08:22)
[2019-12-01] MEDS: FOLIC ACID 1 MG TABLET PO SCH (08:24)
[2019-12-01] MEDS ORDERED: POLYETHYLENE GLYCOL 3350 17 GM PACKET. PO PRN (09:00)
[2019-12-01 09:27] LABS: % BANDS 1 % (0-9); % EOS 1 % (0-5); % LYMPHS 17 % (24-48); % MONOS 5 % (0-10); % SEGS 76 % (35-66)
[2019-12-01 09:28] LABS: PLT ESTIMATE ADEQUATE (ADEQUATE)
[2019-12-01 11:01] VITALS: BP 114/79
--- NOTE | 2019-12-01 11:20 | PDOC2 ---
CONSULT Date of Admission DATE: 12/01/19 TIME: 11:20 Reason for Consult: Pericardial effusion Referring Physician: Dr. Damon Chief Complaint Chest pain Source: Chart review, Patient History of Present Illness 64-year-old female who was initially admitted to [facility] unit for major depressive disorder apparently was complaining of chest pain. CT scan of the chest obtained to rule out PE secondary to history of DVT did not show any acute pulmonary embolism but showed moderate pericardial effusion, prompting cardiology consultation. Patient continues to complain of intermittent and atypical left-sided chest pain. She denied any orthopnea/PND, palpitations or syncope. Past Medical History Depression DVT with postphlebitic syndrome Hypothyroidism Anemia Hepatitis B Past Surgical History Right knee arthroscopy Family History not contributory Social History Patient quit smoking in June 2019. She used to be a heavy alcoholic but quit drinking few years ago. She denied any drug abuse. Current Medications Current Medications Fentanyl Citrate (Fentanyl 2ml Vial) 50 mcg PRN Q4HRS PRN IVP SEVERE PAIN 7-10 Last administered on 12/01/19at 04:50; Start 11/30/19 at 19:30 Acetaminophen (Tylenol) 650 mg PRN Q8HRS PO ; Start 11/30/19 at 19:45 Aripiprazole (Abilify) 5 mg DAILY PO Last administered on 12/01/19at 08:21; Start 12/01/19 at 09:00 Diphenhydramine HCl (Benadryl) 25 mg PRN Q6HRS PRN PO itching; Start 11/30/19 at 19:45 Docusate Sodium (Colace) 100 mg DAILY PO Last administered on 12/01/19at 08:22; Start 12/01/19 at 09:00 Duloxetine HCl (Cymbalta) 20 mg DAILY PO Last administered on 12/01/19at 08:22; Start 12/01/19 at 09:00 Duloxetine HCl (Cymbalta) 30 mg DAILY PO Last administered on 12/01/19at 08:21; Start 12/01/19 at 09:00 Furosemide (Lasix) 20 mg DAILY PO Last administered on 12/01/19at 08:21; Start 12/01/19 at 09:00 Acetaminophen/ Hydrocodone Bitart (Lortab 5/325) 1 tab PRN Q6HRS PRN PO MODERATE PAIN 4-6 Last administered on 12/01/19at 08:22; Start 11/30/19 at 19:45 Hydrocortisone (Proctosol-Hc) 1 ra PRN TID PRN RC RECTAL PAIN; Start 11/30/19 at 19:45 Multi-Ingred Cream/Lotion/Oil/ Oint (Hydrocerin) 1 ra PRN Q1HR PRN TP dry skin; Start 11/30/19 at 19:45 Levothyroxine Sodium (Synthroid) 75 mcg 0600 PO Last administered on 12/01/19at 04:50; Start 12/01/19 at 06:00 Al Hydroxide/Mg Hydroxide (Mylanta Plus Xs) 15 ml PRN AFTMEAL PRN PO DYSPEPSIA; Start 11/30/19 at 19:45 Multi-Ingredient Ointment (Analgesic Tougaloo) 1 ra QID PRN TP MUSCLE PAIN; Start 11/30/19 at 19:45 Nystatin (Mycostatin) 1 ml PRN TID PRN PO Thrush; Start 11/30/19 at 19:45 Olanzapine (ZyPREXA ZYDIS) 1.25 mg PRN Q2HRS PRN PO PSYCHOSIS; Start 11/30/19 at 19:45 Trazodone HCl (Desyrel) 50 mg PRN QHS PRN PO INSOMNIA, MAY REPEAT X1 Last administered on 11/30/19at 20:26; Start 11/30/19 at 20:15 Vitamin D (Vitamin D3) 5,000 unit DAILY PO Last administered on 12/01/19at 08:22; Start 12/01/19 at 09:00 Magnesium Hydroxide (Milk Of Magnesia) 2,400 mg PRN BID PRN PO CONSTIPATION, 1ST CHOICE; Start 11/30/19 at 20:30 Multivitamins/ Calcium (Thera-M Plus) 1 tab DAILY PO Last administered on 12/01/19at 08:21; Start 12/01/19 at 09:00 Polyethylene Glycol (miraLAX) 17 gm PRN DAILY PRN PO CONSTIPATION, 2ND CHOICE; Start 12/01/19 at 09:00 Rivaroxaban (Xarelto) 20 mg DAILY PO Last administered on 12/01/19at 08:22; Start 12/01/19 at 09:00 Vitamin B Complex 1 cap DAILY PO Last administered on 12/01/19at 08:21; Start 12/01/19 at 09:00 Folic Acid (Folic Acid) 1 mg DAILY PO Last administered on 12/01/19at 08:24; Start 12/01/19 at 09:00 Info (Anti-Coagulation Monitoring By Pharmacy) 1 each PRN DAILY PRN MC SEE COMMENTS; Start 12/01/19 at 08:00 Active Scripts Active Reported Polyethylene Glycol 3350 2,500 Gm Powder 17 Gm PO DAILY PRN Bengay Greaseless Cream (Methyl Salicylate/Menthol) 57 Gm Cream..g. 1 Ra TP QID PRN 10 Days Mag-Al Plus Xs Suspension (Mag Hydrox/Al Hydrox/Simeth) 30 Ml Oral.susp 15 Ml PO PRN AFTMEAL PRN Trazodone Hcl 50 Mg Tablet 50 Mg PO PRN QHS PRN B Complex (Vitamin B Complex) 1 Each Tablet 1 Each PO DAILY Olanzapine Odt (Olanzapine) 5 Mg Tab.rapdis 1.25 Mg PO PRN Q2HRS PRN [folic acid] 1 Mg PO DAILY Cymbalta (Duloxetine Hcl) 20 Mg Capsule.dr 20 Mg PO DAILY Abilify (Aripiprazole) 5 Mg Tablet 5 Mg PO DAILY Benadryl (Diphenhydramine Hcl) 25 Mg Capsule 25 Mg PO PRN Q6HRS PRN Nystatin 100,000 Unit/1 Ml Oral.susp 1 Ml PO PRN TID PRN Hydrocerin Cream (Lanolin Alcohol/Mo/W.pet/Rhinelander) 454 Gm Cream..g. 1 Ra TP PRN Q1HR PRN Milk Of Magnesia (Magnesium Hydroxide) 2,400 Mg/10 Ml Oral.susp 2,400 Mg PO PRN BID PRN Acetaminophen 325 Mg Tablet 650 Mg PO PRN Q8HRS Cymbalta (Duloxetine Hcl) 30 Mg Capsule.dr 30 Mg PO DAILY Colace (Docusate Sodium) 100 Mg Capsule 100 Mg PO DAILY Levothyroxine Sodium 75 Mcg Tablet 75 Mcg PO DAILYAC Xarelto (Rivaroxaban) 20 Mg Tablet 20 Mg PO DAILY with food Furosemide 20 Mg Tablet 20 Mg PO DAILY Vitamin D3 (Cholecalciferol (Vitamin D3)) 5,000 Unit Tab.rapdis 5,000 Units PO DAILY Multi-Vitamin Daily (Multivitamin) 1 Each Tablet 1 Tab PO DAILY 30 Days Hydrocodone-Apap 5-325 (Hydrocodone Bit/Acetaminophen) 1 Each Tablet 1 Tab PO PRN Q6HRS PRN Anusol-Hc (Hydrocortisone) 30 Gm Cream..g. 1 Ra IL PRN TID PRN Allergies: Coded Allergies: No Known Drug Allergies (Unverified , 11/13/19) PSYCHOLOGICAL ROS: YES: Anxiety, Behavioral Disorder, Depression; No: Hallucinations Respiratory: No: Hemoptysis, Shortness of breath Cardiovascular: yes: Chest Pain Gastrointestinal: No: Vomiting, Diarrhea Neurological: No: Seizures Skin: No: Rash General: No acute distress HEENT: Atraumatic Lungs: Clear to auscultation Heart: Regular rate Abdomen: Soft Extremities: No edema VITALS Vital Signs Date Time Temp Pulse Resp B/P (MAP) Pulse Ox O2 Delivery O2 Flow Rate FiO2 12/01/19 11:01 98.1 92 114/79 (91) 96 Nasal Cannula 2.0 12/01/19 08:22 18 Labs Laboratory Tests Test 11/30/19 20:30 12/01/19 06:45 Troponin I Quantitative < 0.017 ng/mL (0-0.055) < 0.017 ng/mL (0-0.055) White Blood Count 17.9 x10^3/uL (4.0-11.0) Red Blood Count 3.84 x10^6/uL (3.50-5.40) Hemoglobin 11.3 g/dL (12.0-15.5) Hematocrit 35.1 % (36.0-47.0) Mean Corpuscular Volume 92 fL (79-100) Mean Corpuscular Hemoglobin 30 pg (25-35) Mean Corpuscular Hemoglobin Concent 32 g/dL (31-37) Red Cell Distribution Width 15.1 % (11.5-14.5) Platelet Count 342 x10^3/uL (140-400) Neutrophils (%) (Auto) 82 % (31-73) Lymphocytes (%) (Auto) 12 % (24-48) Monocytes (%) (Auto) 6 % (0-9) Eosinophils (%) (Auto) 0 % (0-3) Basophils (%) (Auto) 0 % (0-3) Neutrophils # (Auto) 14.7 x10^3uL (1.8-7.7) Lymphocytes # (Auto) 2.1 x10^3/uL (1.0-4.8) Monocytes # (Auto) 1.0 x10^3/uL (0.0-1.1) Eosinophils # (Auto) 0.1 x10^3/uL (0.0-0.7) Basophils # (Auto) 0.1 x10^3/uL (0.0-0.2) Segmented Neutrophils % 76 % (35-66) Band Neutrophils % 1 % (0-9) Lymphocytes % 17 % (24-48) Monocytes % 5 % (0-10) Eosinophils % 1 % (0-5) Platelet Estimate Adequate (ADEQUATE) Sodium Level 134 mmol/L (136-145) Potassium Level 4.2 mmol/L (3.5-5.1) Chloride Level 99 mmol/L (98-107) Carbon Dioxide Level 28 mmol/L (21-32) Anion Gap 7 (6-14) Blood Urea Nitrogen 28 mg/dL (7-20) Creatinine 0.9 mg/dL (0.6-1.0) Estimated GFR (Cockcroft-Gault) 62.6 BUN/Creatinine Ratio 31 (6-20) Glucose Level 98 mg/dL (70-99) Lactic Acid Level 1.0 mmol/L (0.4-2.0) Calcium Level 9.7 mg/dL (8.5-10.1) Total Bilirubin 0.4 mg/dL (0.2-1.0) Aspartate Amino Transf (AST/SGOT) 11 U/L (15-37) Alanine Aminotransferase (ALT/SGPT) 10 U/L (14-59) Alkaline Phosphatase 78 U/L (46-116) Total Protein 7.2 g/dL (6.4-8.2) Albumin 3.0 g/dL (3.4-5.0) Albumin/Globulin Ratio 0.7 (1.0-1.7) Assessment/Plan 1. Chest pain with atypical features. Myocardial infarction has been ruled out. Cannot rule out pericarditis. CT scan of the chest did not show any acute PE but showed moderate pericardial effusion. She is hemodynamically stable. Check 2D echocardiogram for further evaluation. 2. Hypothyroidism: On levothyroxine 3. Major depressive disorder: Treat per psych team Thank you for consultation PAMELA IQBAL MD Dec 01, 2019 11:20
--- NOTE | 2019-12-01 15:38 | NUR ---
Negative Covid 19 results called to [facility] nursing assembly and packing supervisor. Dr. mitchell notified
[2019-12-01 15:57] VITALS: BP 108/72
--- NOTE | 2019-12-01 16:41 | HP ---
ADMIT DATE: 11/30/2019 HISTORY OF PRESENT ILLNESS: The patient is a 64-year-old female patient who was transferred from [facility] on account of complaint of left-sided chest pain. She does also have leukocytosis as her white cell count was up to 14,000. Her chemistry however was unremarkable. We did actually a CT scan of the chest with PE protocol and CT scan showed that she has no pulmonary emboli identified. There is pericardial effusion measuring up to 1.4 cm in depth. The aorta is normal in caliber. The mediastinum and estefani showed mild mediastinal bilateral hilar adenopathies present. Lungs, mild apical emphysematous changes. There is no pneumothorax, mild thickening along the left major fissure, is nonspecific, could represent trace loculated effusion. The osseous and soft tissues are unremarkable. The included upper abdomen showed borderline enlarged gastrohepatic ligament lymph nodes measuring up to 9 mm in short axis diameter. There is minimal fullness to the partially imaged right adrenal gland as well. Given that she has chest pain on the left side and pericardial effusion, pericarditis was suspected and the patient was transferred downstairs to be seen by the brick washer. We did also order 2 more sets of cardiac enzymes to rule out ischemia. PAST MEDICAL HISTORY: Significant for postphlebitic syndrome. She has left lower extremity DVT, acquired hypothyroidism and apparently has normochromic normocytic anemia. She has also history of hepatitis B. PAST SURGICAL HISTORY: Significant for right knee arthroscopic surgery. ALLERGIES: She has no known drug allergies. FAMILY HISTORY: She has one brother and both parents are still alive. Her mother is in her late 80s and father in his early 90s and both seemingly healthy and are living in [place]. SOCIAL HISTORY: She used to live with her boyfriend in [place]. She is an ex-smoker, quit on 06/25/2019. She also used to be a heavy drinker, quit also drinking alcohol years ago. 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 She has 2 sons and 2 daughters. She was living with her daughter in [place], [place]. MEDICATIONS: She is currently on following medications: Diphenhydramine 25 mg every 6 hours, nystatin suspension 5 mL swish and swallow, rivaroxaban 20 mg daily. She is on BenGay greaseless cream applied topically 4 times a day, hydrocodone/APAP 5/325 one tablet every 6 hours. She is on Tylenol 650 mg every 8 hours, duloxetine 30 mg once a day, duloxetine 20 mg once a day, trazodone 50 mg at bedtime, aripiprazole for Abilify 5 mg p.o. daily, olanzapine 1.25 mg every 2 hours, furosemide 20 mg once a day, Mylanta 15 mL after meals and as needed, Colace 100 mg once a day, milk of magnesia 30 mL p.o. daily p.r.n. for constipation, levothyroxine sodium 75 mcg once a day, hydrocortisone cream for Anusol applied ____ times a day. She is on Hydrocerin cream applied topically as needed, vitamin B complex 1 tablet once a day, vitamin D 5000 units p.o. daily, multivitamin 1 tablet once a day, polyethylene glycol 17 grams daily, folic acid 1 mg daily. PHYSICAL EXAMINATION: GENERAL: When I examined her, she was resting slightly propped up in bed, in no apparent distress. She was pale, but no jaundice or cyanosis. No lymphadenopathy, no thyromegaly. No jugular venous distention. No lower limb edema. VITAL SIGNS: Her heart rate was 105, blood pressure was 126/70, temperature was 97.9, respiratory rate was 20, and oxygen saturation was 99% on 2 liters of oxygen. HEAD, EYES, EARS, NOSE AND THROAT: Showed normocephalic, atraumatic. NECK: Supple. HEART: Showed normal first and second heart sounds. No gallop, rub or murmur. CHEST: Clear to auscultation. No crepitation or rhonchi. ABDOMEN: Distended, soft, nontender. NEUROLOGIC: She was awake, alert, responding appropriately. All cranial nerves intact. She moves upper extremities to much good extent than lower extremities, is mostly bed bound. LABORATORY DATA: Yesterday showed a white cell count 14,000, hemoglobin 10.8, hematocrit 33, MCV 90, and platelet count of 360,000 with a manual differential showed 80% polymorphs, 12% lymphocytes, 6% monocytes. Her chemistry showed a serum sodium of 140, potassium 3.9, chloride 102, bicarbonate 32, anion gap of 6, BUN 31, creatinine was 0.9, estimated GFR was 62 mL per minute. Her glucose was 94, calcium was 9.4. Total bilirubin, AST, ALT, alkaline phosphatase were normal. Total protein was 6.9, albumin was 3.1. Her troponin was less than 0.017. Her chest x-ray showed that the lungs show coarse interstitial markings diffusely. No focal consolidation. Dominant nodule or lung mass. There is no pleural effusion or pneumothorax. There is no significant osseous abnormality. We did a CT angio of the chest, which showed that the patient has no pulmonary emboli, moderate pericardial effusion. Correlate clinically with any evidence of tamponade physiologically, mild mediastinal and upper abdominal adenopathy. ASSESSMENT: The patient was transferred downstairs with diagnosis of pericardial effusion, possible pericarditis. She has also leukocytosis, hypoxia requiring 2 liters of oxygen. PLAN: My plan is to continue with all her medications, do 2 more sets of cardiac enzyme. We have consulted the Cardiology team. I have discussed this also with Dr. Ochoa. ARELI SALDIVAR MD DR: MAIA/dayan JOB#: [id number] / [id number]
[2019-12-01 17:47] LABS: BILIRUBIN,URINE NEG (NEG); CLARITY,URINE CLEAR; COLOR,URINE YELLOW; GLUCOSE,URINE NEG (NEG); NITRITE,URINE NEG (NEG); UROBILINOGEN,URINE 0.2 mg/dL (0.2 mg/dL)
[2019-12-01 17:48] LABS: BACTERIA,URINE FEW /HPF (0-FEW); HYALINE CASTS, URINE FEW /HPF; RBC,URINE OCC /HPF (0-2); SQUAMOUS EPITHELIAL CELL,UR MOD /LPF; WBC,URINE 20-40 /HPF (0-4)
[2019-12-01 19:30] VITALS: BP 110/80
[2019-12-01] MEDS: traZODone 50 MG TABLET. PO PRN (19:47)
--- NOTE | 2019-12-01 21:02 | PN ---
DATE: SUBJECTIVE: The patient is resting, slightly propped up in bed, in no apparent respiratory distress. She is awake, alert, continued to complain of left-sided chest pain that she has stated aggravated by taking a deep breath. Denied any cough, phlegm or hemoptysis. PHYSICAL EXAMINATION: GENERAL: When I examined her this morning, she was pale, no jaundice, cyanosis or thyromegaly. No jugular venous distention. No limb edema. VITAL SIGNS: Her heart rate was 92, blood pressure was 114/79, temperature was 98, respiratory rate was 18 and oxygen saturation was 96% on 2 liters of oxygen. HEAD, EYES, EARS, NOSE AND THROAT: Showed normocephalic, atraumatic. NECK: Supple. HEART: Showed normal first and second heart sounds. No gallop, rub or murmur. CHEST: Clear to auscultation. No crepitation or rhonchi. ABDOMEN: Distended, soft, nontender. NEUROLOGIC: She is awake, alert, responding at times appropriately. All cranial nerves intact. She moves upper extremities to a much good extent than lower extremities. LABORATORY DATA: Her lab work this morning showed that her white cell count is going up further, today they are 17,900. Hemoglobin 11.3, hematocrit 35, MCV 92, and platelet count of 342,000 with a manual differential showed 82% polymorphs, 12% lymphocytes and 6% monocytes. Her chemistry showed a serum sodium 134, potassium 4.2, chloride 99, bicarbonate 28, anion gap of 7, BUN 28, creatinine 0.9, estimated GFR was 62 mL per minute. Her glucose was 98, lactic acid was only 1, calcium was 9.7. Total bilirubin, AST, ALT, alkaline phosphatase were normal. Total protein was 7.2, albumin 3. She has 2 more sets of cardiac enzymes, showed troponin to be less than 0.017. Her test for COVID-19 was second time negative. PLAN: My plan is to arrange for her to have UA and urine culture and sensitivity and as that is the only site that we have not checked yesterday for possible source of infection and I will start her on IV antibiotic once the urine was collected and sent for culture and sensitivity. ARELI SALDIVAR MD DR: MAIA/dayan JOB#: [id number] / [id number]
[2019-12-01 22:39] VITALS: BP 86/58
[2019-12-02] MEDS: LEVOTHYROXINE 75 MCG TABLET PO SCH (04:33)
[2019-12-02] MEDS: HYDROcodone/APAP 5/325MG 1 TAB TABLET PO PRN ×3 (04:33→17:35)
[2019-12-02 06:09] LABS: HEMATOCRIT 31.9 % (36.0-47.0); HEMOGLOBIN 10.3 g/dL (12.0-15.5); RED BLOOD COUNT 3.54 x10^6/uL (3.50-5.40); RED CELL DISTRIBUTION WIDTH 14.8 % (11.5-14.5); WHITE BLOOD COUNT 14.4 x10^3/uL (4.0-11.0)
[2019-12-02 06:18] LABS: ALBUMIN 2.7 g/dL (3.4-5.0); ALBUMIN/GLOBULIN RATIO 0.6 (1.0-1.7); CALCIUM 9.8 mg/dL (8.5-10.1); GFR 55.5; POTASSIUM 4.3 mmol/L (3.5-5.1); TOTAL BILIRUBIN 0.3 mg/dL (0.2-1.0); TOTAL PROTEIN 6.9 g/dL (6.4-8.2)
[2019-12-02 07:00] VITALS: BP 105/73
[2019-12-02] MEDS: FOLIC ACID 1 MG TABLET PO SCH (08:08)
[2019-12-02] MEDS: DULoxetine HCL 20 MG CAPSULE.DR PO SCH (08:08)
[2019-12-02] MEDS: MULTIVITAMIN with MINERAL TABLET. PO SCH (08:08)
[2019-12-02] MEDS: CHOLECALCIFEROL (VITAMIN D3) 1,000 UNIT TABLET PO SCH (08:08)
[2019-12-02] MEDS: DULoxetine HCL 30 MG CAPSULE.DR PO SCH (08:08)
[2019-12-02] MEDS: ARIPiprazole 5 MG TABLET PO SCH (08:08)
[2019-12-02] MEDS: DOCUSATE SODIUM 100 MG CAPSULE PO SCH (08:08)
[2019-12-02] MEDS: VITAMIN B COMPLEX CAPSULE. PO SCH (08:08)
[2019-12-02] MEDS: RIVAROXABAN 10 MG TABLET. PO SCH (08:09)
[2019-12-02] MEDS: FUROSEMIDE 20 MG TABLET PO SCH (08:10)
--- NOTE | 2019-12-02 10:11 | EKG ---
[address] [address] Test Date: 1999[birth year]17 Test Time: 21:47:04 Pat Name: KATE STEELE Department: Room: 109 A Gender: F Assistant Pressman: : 1955 Requested By: PAMELA OCHOA Order Number: [id number] Reading MD: Pamela Ochoa Measurements Intervals [place] Rate: 93 P: 0 CT: 168 QRS: 0 QRSD: 78 T: -2 QT: 356 QTc: 445 Interpretive Statements SINUS RHYTHM LEFTWARD AXIS LOW LIMB LEAD VOLTAGE Electronically Signed On 12-02-2019 19:59:35 CDT by Pamela Ochoa
[2019-12-02 10:38] VITALS: BP 94/57
[2019-12-02] MEDS: IV NORMAL SALINE 1,000ML 1,000 ML IV SCH (11:30)
[2019-12-02 14:10] VITALS: BP 100/60
--- NOTE | 2019-12-02 15:31 | CARD ---
MR#: [id number] Date of Study: 12/02/2019 Ordering Physician: ARELI SALDIVAR, Referring Physician: ARELI SALDIVAR, Tech: Cha Galvez RDCS APPROVED REPORT EXAM: Two-dimensional and M-mode echocardiogram with Doppler and color Doppler. Other Information Quality : FairHR: 85bpm Rhythm : NSR INDICATION Pericardial Effusion Chest Pain 2D DIMENSIONS Left Atrium(2D)4.0 (1.6-4.0cm)IVSd1.0 (0.7-1.1cm) Aortic Root(2D)2.8 (2.0-3.7cm)LVDd3.9 (3.9-5.9cm) LVOT Diameter2.2 (1.8-2.4cm)PWd1.0 (0.7-1.1cm) LA Punrvz60 (18-58mL)LVDs2.4 (2.5-4.0cm) FS (%) 38.2 %SV45.0 ml LVEF(%)69.1 (>50%) Aortic Valve AoV Peak Luis.188.2cm/sAoV VTI31.9cm AO Peak GR.14.2mmHgLVOT Peak Luis.141.5cm/s LVOT VTI 24.90cmAO Mean GR.9mmHg DODIE (VMAX)2.26bv3OVH (VTI)2.92cm2 Mitral Valve MV E Voulufyc61.9cm/sMV DECEL [id number] MV A Aadjdlmo22.8cm/sE/A Ratio0.9 MV A [id number] TDI Lateral E' P. V6.00cm/sMedial E' P. V5.00cm/s E/Lateral E'13.3E/Medial E'16.0 Tricuspid Valve TR P. Zagrmdnb831ya/sRAP [id number] TR Peak Gr.25mxQvFSSP75weJm Pulmonary Vein S1 Uebxuvwi58.4cm/sD2 Jwusimaz49.6cm/s LEFT VENTRICLE The left ventricle is normal size. There is normal left ventricular wall thickness. The left ventricu lar systolic function is normal. The ejection fraction is 60-65%. There is normal LV segmental wall m otion. Transmitral Doppler flow pattern is Grade I-abnormal relaxation pattern. No left ventricle thr ombus noted on this study. There is no ventricular septal defect visualized. There is no left ventric ular aneurysm. There is no mass noted in the left ventricle. RIGHT VENTRICLE The right ventricle is normal size. There is normal right ventricular wall thickness. The right ventr icular systolic function is normal. ATRIA The left atrium size is normal. The right atrium size is normal. The interatrial septum is intact wit h no evidence for an atrial septal defect or patent foramen ovale as noted on 2-D or Doppler imaging. AORTIC VALVE The aortic valve is normal in structure and function. Doppler and Color Flow revealed no significant aortic regurgitation. There is no significant aortic valvular stenosis. There is no aortic valvular v egetation. MITRAL VALVE The mitral valve is normal in structure and function. There is no evidence of mitral valve prolapse. There is no mitral valve stenosis. Doppler and Color-flow revealed mild mitral regurgitation. TRICUSPID VALVE The tricuspid valve is normal in structure and function. Doppler and Color Flow revealed trace tricus pid regurgitation. The PA pressure was estimated at 17 mmHg. There is no tricuspid valve prolapse or vegetation. There is no tricuspid valve stenosis. PULMONIC VALVE The pulmonary valve is normal in structure and function. Doppler and Color Flow revealed mild pulmoni c valvular regurgitation. There is no pulmonic valvular stenosis. GREAT VESSELS The aortic root is mildly enlarged. The ascending aorta is Mildly dilated. The pulmonary artery is no rmal. The IVC is normal in size and collapses >50% with inspiration. PERICARDIAL EFFUSION There is no pleural effusion. Moderate pericardial effusion without any evidence of tamponade. Critical Notification Physician Notified Date: 12/02/2019 Time: 13:20 Physician Name:Don Critical Value: No Response Time:0 Report Read Back <Conclusion> The left ventricular systolic function is normal. The ejection fraction is 60-65%. There is normal LV segmental wall motion. Transmitral Doppler flow pattern is Grade I-abnormal relaxation pattern. Mild mitral regurgitation. Trace tricuspid regurgitation. The PA pressure was estimated at 17 mmHg. Moderate pericardial effusion without any evidence of tamponade. Signed by : Ryan Ochoa, Electronically Approved : 12/02/2019 15:30:48
[2019-12-02 19:24] VITALS: BP 101/70
[2019-12-02] MEDS: LACTOBACILLUS RHAMNOSUS GG 1 CAPSULE. PO SCH (20:12)
[2019-12-02] MEDS: traZODone 50 MG TABLET. PO PRN (20:13)
[2019-12-02] MEDS ORDERED: ACETAMINOPHEN 325 MG TABLET PO PRN (22:45)
[2019-12-02 23:30] VITALS: BP 105/70
[2019-12-03] MEDS: IV NORMAL SALINE 1,000ML 1,000 ML IV SCH ×2 (03:04→14:10)
[2019-12-03 05:48] VITALS: BP 118/74
[2019-12-03] MEDS: LEVOTHYROXINE 75 MCG TABLET PO SCH (05:51)
[2019-12-03] MEDS: HYDROcodone/APAP 5/325MG 1 TAB TABLET PO PRN ×2 (05:52→20:42)
[2019-12-03 06:29] LABS: HEMATOCRIT 29.8 % (36.0-47.0); HEMOGLOBIN 9.8 g/dL (12.0-15.5); RED BLOOD COUNT 3.31 x10^6/uL (3.50-5.40); RED CELL DISTRIBUTION WIDTH 15.1 % (11.5-14.5); WHITE BLOOD COUNT 11.1 x10^3/uL (4.0-11.0)
[2019-12-03 06:35] LABS: CALCIUM 9.1 mg/dL (8.5-10.1); CREATININE 0.9 mg/dL (0.6-1.0); GFR 62.6; POTASSIUM 3.9 mmol/L (3.5-5.1)
--- NOTE | 2019-12-03 08:26 | PDOC ---
CARDIO Progress Notes Date & Time Date of Service DATE: 12/03/19 TIME: 08:21 Time of Evaluation 08:21 Subjective Notes no chest pain, dizziness, diaphoresis, of shortness of breath. Vitals Vitals Vital Signs Date Time Temp Pulse Resp B/P (MAP) Pulse Ox O2 Delivery O2 Flow Rate FiO2 12/03/19 05:52 16 95 Nasal Cannula 2.0 12/03/19 05:48 98.1 82 118/74 (89) Weight Weight [ ] Input and Output I.O. Intake and Output 12/03/19 07:00 Intake Total 1450 ml Balance 1450 ml Intake Oral 1400 ml IV Total 50 ml # Voids 2 Laboratory Labs Laboratory Tests Test 12/01/19 17:10 12/02/19 05:15 12/03/19 05:49 Urine Collection Type Unknown Urine Color Yellow Urine Clarity Clear Urine pH 5.0 Urine Specific [place] 1.020 Urine Protein Trace (NEG-TRACE) Urine Glucose (UA) Neg mg/dL (NEG) Urine Ketones (Stick) Neg mg/dL (NEG) Urine Blood Neg (NEG) Urine Nitrite Neg (NEG) Urine Bilirubin Neg (NEG) Urine Urobilinogen Dipstick 0.2 mg/dL (0.2 mg/dL) Urine Leukocyte Esterase Trace (NEG) Urine RBC Occ /HPF (0-2) Urine WBC 20-40 /HPF (0-4) Urine Squamous Epithelial Cells Mod /LPF Urine Bacteria Few /HPF (0-FEW) Urine Hyaline Casts Few /HPF Urine Mucus Marked /LPF White Blood Count 14.4 x10^3/uL (4.0-11.0) 11.1 x10^3/uL (4.0-11.0) Red Blood Count 3.54 x10^6/uL (3.50-5.40) 3.31 x10^6/uL (3.50-5.40) Hemoglobin 10.3 g/dL (12.0-15.5) 9.8 g/dL (12.0-15.5) Hematocrit 31.9 % (36.0-47.0) 29.8 % (36.0-47.0) Mean Corpuscular Volume 90 fL (79-100) 90 fL (79-100) Mean Corpuscular Hemoglobin 29 pg (25-35) 30 pg (25-35) Mean Corpuscular Hemoglobin Concent 32 g/dL (31-37) 33 g/dL (31-37) Red Cell Distribution Width 14.8 % (11.5-14.5) 15.1 % (11.5-14.5) Platelet Count 371 x10^3/uL (140-400) 371 x10^3/uL (140-400) Sodium Level 136 mmol/L (136-145) 139 mmol/L (136-145) Potassium Level 4.3 mmol/L (3.5-5.1) 3.9 mmol/L (3.5-5.1) Chloride Level 99 mmol/L (98-107) 101 mmol/L (98-107) Carbon Dioxide Level 28 mmol/L (21-32) 30 mmol/L (21-32) Anion Gap 9 (6-14) 8 (6-14) Blood Urea Nitrogen 34 mg/dL (7-20) 34 mg/dL (7-20) Creatinine 1.0 mg/dL (0.6-1.0) 0.9 mg/dL (0.6-1.0) Estimated GFR (Cockcroft-Gault) 55.5 62.6 BUN/Creatinine Ratio 34 (6-20) Glucose Level 88 mg/dL (70-99) 90 mg/dL (70-99) Calcium Level 9.8 mg/dL (8.5-10.1) 9.1 mg/dL (8.5-10.1) Total Bilirubin 0.3 mg/dL (0.2-1.0) Aspartate Amino Transf (AST/SGOT) 10 U/L (15-37) Alanine Aminotransferase (ALT/SGPT) 13 U/L (14-59) Alkaline Phosphatase 87 U/L (46-116) C-Reactive Protein 385.0 mg/L (0-3.3) Total Protein 6.9 g/dL (6.4-8.2) Albumin 2.7 g/dL (3.4-5.0) Albumin/Globulin Ratio 0.6 (1.0-1.7) Microbiology Micro Microbiology 12/01/19 Blood Culture - Preliminary, Resulted NO GROWTH AFTER 1 DAY... Physical Exams HEENT: Neck Supple W Full Motion Chest: Symmetric Lungs: Clear to Auscultation Heart: S1S2, RRR Abdomen: Soft N/T Extremities: No Edema Neurology: alert, oriented, follow commands, other (flat, depressed affect ) Assessment Assessment 1. Chest pain, atypical; worse with deep breathing/certain movements. AMI ruled out. Resolved. EKG not consistent with pericarditis. Echo with preserved LV systolic function. 2. Pericardial effusion; moderate per echo. No evidence of tamponade. Hemodynamically stable. 3. Hypothyroidism: On levothyroxine 4. Major depressive disorder: Treat per psych team 5. Abnormal CT chest; mild mediastinal and upper abdominal adenopathy noted; bone scan today 6. DVT; Recommendations Supportive care Will arrange outpatient echocardiogram to monitor pericardial effusion Follow up with Dr. Ochoa as scheduled. TEE BORJA APRN Dec 03, 2019 08:26
[2019-12-03] MEDS: VITAMIN B COMPLEX CAPSULE. PO SCH (08:51)
[2019-12-03] MEDS: ARIPiprazole 5 MG TABLET PO SCH (08:52)
[2019-12-03] MEDS: DULoxetine HCL 20 MG CAPSULE.DR PO SCH (08:52)
[2019-12-03] MEDS: CHOLECALCIFEROL (VITAMIN D3) 1,000 UNIT TABLET PO SCH (08:52)
[2019-12-03] MEDS: RIVAROXABAN 10 MG TABLET. PO SCH (08:52)
[2019-12-03] MEDS: DULoxetine HCL 30 MG CAPSULE.DR PO SCH (08:52)
[2019-12-03] MEDS: LACTOBACILLUS RHAMNOSUS GG 1 CAPSULE. PO SCH ×2 (08:52→20:32)
[2019-12-03] MEDS: DOCUSATE SODIUM 100 MG CAPSULE PO SCH (08:52)
[2019-12-03] MEDS: FUROSEMIDE 20 MG TABLET PO SCH (08:53)
[2019-12-03] MEDS: FOLIC ACID 1 MG TABLET PO SCH (08:53)
[2019-12-03] MEDS: MULTIVITAMIN with MINERAL TABLET. PO SCH (08:53)
[2019-12-03 11:13] VITALS: BP 90/58
--- NOTE | 2019-12-03 14:15 | RAD ---
Nuclear medicine whole body bone scan. History: 64-year-old woman staging endometrial cancer. She is complaining of left knee pain. Comparison: Pelvic ultrasound 11/23/2019, CT angiogram chest of 11/30/2019 Procedure: 25 mCI of Tc 99m MDP was injected intravenously and delayed scintigraphic images were obtained of the skeletal system. Findings: There is asymmetric uptake in the left knee greater than the right and in the lateral femoral condyle of the left knee compared with the medial femoral condyle of the same knee. These are in a pattern suggestive of degenerative changes. There is also a large amount of uptake overlying the soft tissues of the perineum, compatible with urinary incontinence. This limits detailed evaluation of the ischium and lower pelvic soft tissues. Impression: 1. 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 2. No findings suspicious for osseous metastatic deposits. 3. Additional findings suggesting extensive urinary incontinence. Correlate clinically. Electronically signed by: Caryn Archibald MD (12/03/2019 2:12 PM) [id number]
[2019-12-03 14:48] VITALS: BP 97/64
--- NOTE | 2019-12-03 16:36 | PN ---
DATE: 12/03/2019 SUBJECTIVE: The patient is resting slightly propped up in bed, continued to complain of severe left-sided chest pain and back pain. I actually did a bone scan today. She has endometrial thickening and extremely elevated C-reactive protein and bone scan showed that there is symmetric uptake in the left knee greater than the right and in the lateral femoral condyle of the left knee compared to the medial condyle of the same knee. These are in a pattern suggestive of degenerative changes. There is also a large amount of uptake overlying the soft tissue of the perineum compatible with urinary incontinence. This limits detailed evaluation of ____ lower pelvic soft tissue. Her echocardiogram showed that her left ventricular systolic function is normal, ejection fraction was 60-65%. There is normal left ventricular segmental wall motion. Transmitral Doppler flow pattern is grade 1 abnormal relaxation pattern, mild mitral regurgitation, trace tricuspid regurgitation. The pulmonary artery pressure was estimated at ____ mmHg. She has moderate pericardial effusion without any evidence of tamponade. PHYSICAL EXAMINATION: GENERAL: When I examined her this afternoon, she was somewhat pale. No jaundice, cyanosis or thyromegaly. No jugular venous distention. No limb edema. VITAL SIGNS: Her heart rate was 85, blood pressure was 97/64, temperature was 99.1, respiratory rate was 18 and oxygen saturation was 97% on 2 liters of oxygen. HEAD, EYES, EARS, NOSE AND THROAT: Showed normocephalic, atraumatic. NECK: Supple. HEART: Showed normal first and second heart sounds. No gallop or murmur. CHEST: Clear to auscultation. No crepitation or rhonchi. ABDOMEN: Distended, soft, nontender. No guarding or rigidity. No organomegaly. All hernial orifice intact. Bowel sounds normal. NEUROLOGIC: She is awake, alert, very emotionally labile. All her cranial nerves intact. She moves upper extremities to a greater extent than lower extremities, mostly bedbound, chair bound. Her intake was 1260. No output was recorded. LABORATORY DATA: Her lab work this morning showed a white cell count is down to 11,000, hemoglobin 10, hematocrit 30, MCV 90 and platelet count of 371,000. Her chemistry showed a serum sodium 139, potassium 3.9, chloride 101, bicarbonate 30, anion gap of 8, BUN 34, creatinine 0.9, estimated GFR was 62 mL per minute. Her glucose was 90, calcium was 9.1. Her C-reactive protein was 385. Her bone scan shows findings most compatible with degenerative osteoarthritis of the left greater than the right bilateral knees. No findings suspicious of osseous metastatic deposits. Additional findings suggestive of extensive urinary incontinence. PLAN: To continue with IV antibiotic. Continue with IV fluid. I will repeat her lab work tomorrow and she can be switched to oral antibiotic like cefdinir and obviously we have to see if she qualifies to go upstairs. I am not sure if she will be able to take care of herself and she might require admission to a [facility] facility. ARELI SALDIVAR MD DR: MAIA/dayan JOB#: [id number] / [id number]
[2019-12-03 19:36] VITALS: BP 103/66
[2019-12-03] MEDS: traZODone 50 MG TABLET. PO PRN (20:42)
[2019-12-03 23:01] VITALS: BP 93/58
[2019-12-04 05:20] VITALS: BP 94/60
[2019-12-04] MEDS: LEVOTHYROXINE 75 MCG TABLET PO SCH (05:36)
[2019-12-04] MEDS: HYDROcodone/APAP 5/325MG 1 TAB TABLET PO PRN (05:37)
[2019-12-04] MEDS: IV NORMAL SALINE 1,000ML 1,000 ML IV SCH (05:39)
[2019-12-04 06:26] LABS: HEMOGLOBIN 9.1 g/dL (12.0-15.5); RED BLOOD COUNT 3.11 x10^6/uL (3.50-5.40); WHITE BLOOD COUNT 7.4 x10^3/uL (4.0-11.0)
[2019-12-04 06:39] LABS: CALCIUM 8.7 mg/dL (8.5-10.1); CREATININE 0.7 mg/dL (0.6-1.0); GFR 83.7; POTASSIUM 3.6 mmol/L (3.5-5.1)
--- NOTE | 2019-12-04 07:54 | PDOC ---
CARDIO Progress Notes Date & Time Date of Service DATE: 12/04/19 TIME: 07:52 Time of Evaluation 07:52 Subjective Notes left chest tenderness upon palpation, "hurts when I breathe or cough" Vitals Vitals Vital Signs Date Time Temp Pulse Resp B/P (MAP) Pulse Ox O2 Delivery O2 Flow Rate FiO2 12/04/19 06:37 96 Nasal Cannula 2.0 12/04/19 05:37 18 12/04/19 05:20 97.8 61 94/60 (71) Weight Weight [ ] Input and Output I.O. Intake and Output 12/04/19 07:00 Intake Total 650 ml Balance 650 ml Intake Oral 650 ml # Voids 9 Laboratory Labs Laboratory Tests Test 12/03/19 05:49 12/04/19 05:44 White Blood Count 11.1 x10^3/uL (4.0-11.0) 7.4 x10^3/uL (4.0-11.0) Red Blood Count 3.31 x10^6/uL (3.50-5.40) 3.11 x10^6/uL (3.50-5.40) Hemoglobin 9.8 g/dL (12.0-15.5) 9.1 g/dL (12.0-15.5) Hematocrit 29.8 % (36.0-47.0) 28.0 % (36.0-47.0) Mean Corpuscular Volume 90 fL (79-100) 90 fL (79-100) Mean Corpuscular Hemoglobin 30 pg (25-35) 29 pg (25-35) Mean Corpuscular Hemoglobin Concent 33 g/dL (31-37) 33 g/dL (31-37) Red Cell Distribution Width 15.1 % (11.5-14.5) 15.0 % (11.5-14.5) Platelet Count 371 x10^3/uL (140-400) 374 x10^3/uL (140-400) Sodium Level 139 mmol/L (136-145) 140 mmol/L (136-145) Potassium Level 3.9 mmol/L (3.5-5.1) 3.6 mmol/L (3.5-5.1) Chloride Level 101 mmol/L (98-107) 104 mmol/L (98-107) Carbon Dioxide Level 30 mmol/L (21-32) 29 mmol/L (21-32) Anion Gap 8 (6-14) 7 (6-14) Blood Urea Nitrogen 34 mg/dL (7-20) 24 mg/dL (7-20) Creatinine 0.9 mg/dL (0.6-1.0) 0.7 mg/dL (0.6-1.0) Estimated GFR (Cockcroft-Gault) 62.6 83.7 Glucose Level 90 mg/dL (70-99) 86 mg/dL (70-99) Calcium Level 9.1 mg/dL (8.5-10.1) 8.7 mg/dL (8.5-10.1) Microbiology Micro Microbiology 12/01/19 Blood Culture - Preliminary, Resulted NO GROWTH AFTER 2 DAYS... Physical Exams HEENT: Neck Supple W Full Motion Chest: Symmetric, Other (left chest tenderness upon palpitation) Lungs: Clear to Auscultation Heart: S1S2, RRR Abdomen: Soft N/T Extremities: No Edema Neurology: alert, oriented, follow commands, other (flat, depressed affect ) Assessment Assessment 1. Chest pain, atypical; worse with deep breathing/cough, certain movements. AMI ruled out. Echo with preserved LV systolic function. 2. Pericardial effusion; moderate per echo. No evidence of tamponade. Hemodynamically stable. 3. Hypothyroidism: On levothyroxine 4. Major depressive disorder: Treat per psych team 5. Abnormal CT chest; mild mediastinal and upper abdominal adenopathy noted; bone scan negative 6. DVT; on Xarelto Recommendations Supportive care Outpatient echocardiogram to monitor pericardial effusion has been arranged Follow up with Dr. Almaazn as scheduled. TEE BORJA APRN Dec 04, 2019 07:54
[2019-12-04] MEDS: ARIPiprazole 5 MG TABLET PO SCH (09:20)
[2019-12-04] MEDS: CHOLECALCIFEROL (VITAMIN D3) 1,000 UNIT TABLET PO SCH (09:20)
[2019-12-04] MEDS: FOLIC ACID 1 MG TABLET PO SCH (09:21)
[2019-12-04] MEDS: RIVAROXABAN 10 MG TABLET. PO SCH (09:21)
[2019-12-04] MEDS: DULoxetine HCL 30 MG CAPSULE.DR PO SCH (09:21)
[2019-12-04] MEDS: FUROSEMIDE 20 MG TABLET PO SCH (09:21)
[2019-12-04] MEDS: MULTIVITAMIN with MINERAL TABLET. PO SCH (09:21)
[2019-12-04] MEDS: VITAMIN B COMPLEX CAPSULE. PO SCH (09:21)
[2019-12-04] MEDS: DOCUSATE SODIUM 100 MG CAPSULE PO SCH (09:21)
[2019-12-04] MEDS: LACTOBACILLUS RHAMNOSUS GG 1 CAPSULE. PO SCH (09:21)
[2019-12-04] MEDS: DULoxetine HCL 20 MG CAPSULE.DR PO SCH (09:21)
[2019-12-04 11:01] VITALS: BP 119/75
[2019-12-04] MEDS ORDERED: CEFD300C PO (12:33)
--- NOTE | 2019-12-04 12:35 | NUR ---
GALDINO contacted pt son in law to discuss options for placement. At this time, [facility] is out and [facility] does not have a bed. Pt brother reports that he spoke to Dr. Damon and discussed [facility], [facility] and one other that he could not remember. SW agreed that [facility] was a great option and would send the referral there. Pt brother questioned from there what would happen. SW explained that she would be first placed on skilled and then they would work out financials with him as DPOA. Pt son in law questioned when this would happen and SW reported the potential for tomorrow or as pt was on IV antibiotics and Dr. Damon plans to switch her tomorrow to oral. GALDINO will follow up with pt son in law with final discharged plans.
--- NOTE | 2019-12-04 12:38 | DISCH ---
DISCHARGE ORDERS DISCHARGE DATE: Dec 04, 2019 FINAL DIAGNOSIS UTI DVT HYPOTHYROIDISM CONDITION AT DISCHARGE: Stable Code Status: DNR/DNI SNF STAY <30 DAYS: Yes HOSPICE: No HOSPICE EVALUATE & TREAT: No ADMIT TO [facility]AC: No POST DISCHARGE ORDERS: ACTIVITY ORDERS: Resume previous activity, Activity as tolerated, Avoid exertion WEIGHT BEARING STATUS: As tolerated DIET AFTER DISCHARGE: Regular TREATMENT/EQUIPMENT ORDERS: ADAPTIVE EQUIPMENT NEEDED: Walker, Wheelchair RESPIRATORY EQUIPMENT: Oxygen DISCHARGE MEDICATIONS: Home Meds Active Scripts Cefdinir (CEFDINIR) 300 Mg Capsule, 1 CAP PO BID for UTI for 4 Days, #8 CAP Prov:ARELI SALDIVAR MD 12/04/19 Reported Medications Polyethylene Glycol 3350 (POLYETHYLENE GLYCOL 3350) 2,500 Gm Powder, 17 GM PO DAILY PRN for CONSTIPATION, #255 GM 0 Refills 11/30/19 Methyl Salicylate/Menthol (BENGAY GREASELESS CREAM) 57 Gm Cream..g., 1 DECLAN TP QI D PRN for MUSCLE PAIN for 10 Days, #57 GM 0 Refills 11/30/19 Mag Hydrox/Al Hydrox/Simeth (MAG-AL PLUS XS SUSPENSION) 30 Ml Oral.susp, 15 ML PO PRN AFTMEAL PRN for DYSPEPSIA, LIQUID 11/30/19 Trazodone Hcl (TRAZODONE HCL) 50 Mg Tablet, 50 MG PO PRN QHS PRN for INSOMNIA, MAY REPEAT X1 11/27/19 Vitamin B Complex (B COMPLEX) 1 Each Tablet, 1 EACH PO DAILY for Supplement 11/27/19 Olanzapine (OLANZAPINE ODT) 5 Mg Tab.rapdis, 1.25 MG PO PRN Q2HRS PRN for ANXIETY / AGITATION 11/27/19 [folic acid] No Conflict Check, 1 MG PO DAILY for Supplement 11/27/19 Duloxetine Hcl (CYMBALTA) 20 Mg Capsule.dr, 20 MG PO DAILY for antidepressant 11/27/19 Aripiprazole (ABILIFY) 5 Mg Tablet, 5 MG PO DAILY for anti-depressant 11/27/19 Diphenhydramine Hcl (BENADRYL) 25 Mg Capsule, 25 MG PO PRN Q6HRS PRN for itching, CAP 10/23/19 Nystatin (NYSTATIN) 100,000 Unit/1 Ml Oral.susp, 1 ML PO PRN TID PRN for Thrush 10/23/19 Lanolin Alcohol/Mo/W.pet/[place] (Hydrocerin Cream) 454 Gm Cream..g., 1 DECLAN TP PRN Q1HR PRN for dry skin 10/23/19 Magnesium Hydroxide (MILK OF MAGNESIA) 2,400 Mg/10 Ml Oral.susp, 2400 MG PO PRN BID PRN for CONSTIPATION 10/23/19 Acetaminophen (ACETAMINOPHEN) 325 Mg Tablet, 650 MG PO PRN Q8HRS for pain, TAB 10/23/19 Duloxetine Hcl (CYMBALTA) 30 Mg Capsule.dr, 30 MG PO DAILY for mood stabilizer, CAP 10/23/19 Docusate Sodium (COLACE) 100 Mg Capsule, 100 MG PO DAILY for constipation, CAP 10/03/19 Levothyroxine Sodium (LEVOTHYROXINE SODIUM) 75 Mcg Tablet, 75 MCG PO DAILYAC for hypothyroidism 10/03/19 Rivaroxaban (XARELTO) 20 Mg Tablet, 20 MG PO DAILY for DVT with food 10/03/19 Furosemide (FUROSEMIDE) 20 Mg Tablet, 20 MG PO DAILY for edema 10/03/19 Cholecalciferol (Vitamin D3) (Vitamin D3) 5,000 Unit Tab.rapdis, 5000 UNITS PO DAILY for supplement 10/03/19 Multivitamin (MULTI-VITAMIN DAILY) 1 Each Tablet, 1 TAB PO DAILY for supplement for 30 Days, #30 TAB 0 Refills 10/03/19 Hydrocodone Bit/Acetaminophen (HYDROCODONE-APAP 5-325 ) 1 Each Tablet, 1 TAB PO PRN Q6HRS PRN for PAIN 10/03/19 Hydrocortisone (ANUSOL-HC) 30 Gm Cream..g., 1 DECLAN MT PRN TID PRN for RECTAL PAIN 10/03/19 Discontinued Reported Medications Multivitamin With Minerals (DAILY VITAMIN FORMULA-MINERALS) 1 Each Tablet, 1 EACH PO DAILY for supplement, TAB 10/23/19 Citalopram Hydrobromide (CITALOPRAM HBR) 20 Mg Tablet, 20 MG PO DAILY for depression, TAB 10/23/19 Polyethylene Glycol 3350 (POLYETHYLENE GLYCOL 3350) 2,500 Gm Powder, 17 GM PO DAILY for constipation for 30 Days, #527 GM 0 Refills 10/23/19 Dronabinol (DRONABINOL) 10 Mg Capsule, 2.5 MG PO BIDACLD for ., CAP 10/23/19 Folic Acid (FOLIC ACID) 20 Mg Capsule, 20 MG PO DAILY for supplement, CAP 10/03/19 Vit B12/Fa/Pyridoxine Hcl/Aa15 (GLYCOTROL CAPSULE) 1 Each Capsule, 1 CAP PO DAILY for supplement for 30 Days, #30 CAP 0 Refills 10/03/19 ARELI SALDIVAR MD Dec 04, 2019 12:38
--- NOTE | 2019-12-04 13:57 | NUR ---
GALDINO contacted pt brother to let him know that pt was accepted to [facility] and would be discharge today, per Dr. Damon's request. Pt brother did ask if a financial DPOA could be completed prior and mailed out to him. SW will follow up on that. Pt brother reports that he called pt and they discussed it over the phone and she was fine with that happening. GALDINO will see if one can be completed prior to discharge; otherwise, she will pass it on to [facility] to see if they can work on one.
--- NOTE | 2019-12-04 15:28 | NUR ---
Transition Record was faxed to follow-up provider with the following elements: Reason for admission, procedures, tests, principal diagnosis, pending studies, patient instructions, 28/02 contact information for unit, phone number to obtain pending test results, plan for follow-up care, physician follow-up, advanced directive information, and medication list with dose, duration and instructions. This information was included in the following documents: History and physical, lab results, study results, progress notes, social work planning form, DC instruction form, patient visit summary, and medication reconciliation form. Date & time record faxed: 11:58 04 December 2019 Record faxed to: [facility] [place] Record discussed with/ report given to: GIBRAN Mitchell at [facility]
[2019-12-05 07:08] LABS: CEA 1.2 ng/mL (0.0-4.7)
== END 2019-12-04 15:00 | DRG 871 ==
LOC: 1 SOUTH 18:43
PROVIDERS: ADMIT Internal Medicine; ATTEND Internal Medicine
DX: A41.9 Sepsis, unspecified organism (principal); E43 Unspecified severe protein-calorie malnutrition; I31.9 Disease of pericardium, unspecified; I31.3 Pericardial effusion (noninflammatory); R07.89 Other chest pain; D72.829 Elevated white blood cell count, unspecified; E03.9 Hypothyroidism, unspecified; F32.9 Major depressive disorder, single episode, unspecified; R09.02 Hypoxemia; R32 Unspecified urinary incontinence; R93.89 Abnormal findings on diagnostic imaging of other specified body structures; Z86.718 Personal history of other venous thrombosis and embolism; Z87.891 Personal history of nicotine dependence; M54.9 Dorsalgia, unspecified; Z79.01 Long term (current) use of anticoagulants; Z20.828 Contact with and (suspected) exposure to other viral communicable diseases; Z68.26 Body mass index [BMI] 26.0-26.9, adult
CPT/HCPCS: 36415; 78306; 80048; 80053; 81001; 82378; 83605; 84484; 85007; 85025; 85027; 86140; 86301; 87040; 87086; 87186; 93005; 93306; A9503; J0696; J3010; 97110; 97530; J7030